=== PATIENT | male | born 1935 | race Caucasian/White ===

== ENCOUNTER → 2017-11-19 12:12 | Outpatient (CLI) | payer MEDICARE, OTHER, SELFPAY ==
[2017-11-19 12:40] LABS: Hemoglobin A1C% w Est Avg Glu 5.6 % (4.0-6.0)
[2017-11-19 13:15] LABS: Thyroid Stimulating Hormone 1.41 uIU/mL (0.47-4.68)
[2017-11-19 13:51] LABS: Folate > 20.0 ng/mL (2.76-20.0); Vitamin B12 629 pg/mL (239-931)
== END ==
PROVIDERS: PCP Internal Medicine; Visit Provider Internal Medicine
DX: G62.9 Polyneuropathy, unspecified (principal); R20.2 Paresthesia of skin
CPT/HCPCS: 36415; 82607; 82746; 83036; 84443

== ENCOUNTER → 2018-02-13 11:37 | Outpatient (CLI) | payer MEDICARE, OTHER, SELFPAY ==
--- NOTE | 2018-02-13 | DI.MRI.S_ITS ---
PROCEDURE: MR LUMBAR SPINE WO CON INDICATIONS: LOW BACK PAIN TECHNIQUE: Noncontrast sagittal T1 spin echo and T2 fast echo, sagittal STIR, axial T1 and T2 fast spin echo through the lumbar spine. In cases with scoliosis, additional coronal T2 fast spin echo may be performed. COMPARISON: [facility], MR, L-SPINE WITHOUT CONTRAST, 01/19/2016, 9:22. FINDINGS: Image quality: Excellent. Alignment and Curvature: Mild retrolisthesis is seen at the L3-L4 and L5-S1 levels. Bone Marrow: Marrow is of normal overall signal. No acute vertebral body compression fractures. Mild anterior wedge deformity is seen of the L1 level, which is stable compared to 2016. Spinal Cord: Conus medullaris terminates at the L1 level. Visualized cord demonstrates normal signal and size. Paraspinous Soft Tissues: No paravertebral masses. There is a simple appearing right kidney cyst that measures up to 3.4 cm. T12-L1: Mild to moderate loss of disc height and disc signal are seen. Mild generalized disc bulge is seen. No significant neural foraminal or central canal narrowing are seen. L1-L2: Mild loss of disc height is seen. Loss of disc signal is seen. Mild to moderate disc bulge is seen, which is eccentric left. No significant neural foraminal narrowing is seen. Mild central canal narrowing is seen. These imaging findings are mildly progressed compared to the prior study. L2-L3: The disc height is well-preserved. Loss of disc signal is seen at this level. Moderate generalized disc bulge is seen. Along the posterior aspect of the annulus fibrosis, there is an annular fissure seen, as on series 5 image 11. Mild facet joint hypertrophy is seen. No significant neural foraminal narrowing is seen. There is moderate central canal narrowing. The degenerative changes have progressed compared to 2016. L3-L4: Moderate loss of disc height is seen. Loss of disc signal is seen. Moderate disc bulge is seen, which is eccentric to the right side. Reactive marrow endplate changes are seen, which demonstrate mixed T1 weighted and T2-weighted signal, and are attributed to a combination of edema and fatty metaplasia (Modic type I and Modic type II changes). Mild to moderate facet hypertrophy is seen. Fluid is seen within the facet joints themselves, as on series 7 image 18. There is moderate left-sided and at least moderate right-sided neural foraminal narrowing seen. Moderate central canal narrowing is seen. These degenerative changes are progressed compared to the prior MRI. L4-L5: At least moderate loss of disc height and disc signal are seen. Moderate to prominent disc bulge is seen, which is eccentric to the left. There is a left foraminal disc protrusion seen, as on series 7 image 12 and on series 5 image 13. Moderate facet joint hypertrophy is seen. Moderate to severe bilateral neural foraminal narrowing is seen, left worse than right. These degenerative changes are worse than in 2016. L5-S1: Moderate loss of disc height is seen. Loss of disc signal is seen. Moderate disc bulge is seen, which is eccentric to the right side. Mild facet joint hypertrophy is seen. There is moderate right-sided and moderate to severe left-sided neural foraminal narrowing seen. A degree of impingement seen upon the exiting left L5 nerve root. Mild central canal narrowing is seen. These changes are slightly progressed compared to 2016. Postoperative changes of the right sacroiliac joint can be seen, with associated susceptibility artifact. 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 The degenerative changes are most prominent at the L4-L5 level. Simple appearing right renal cyst incidentally noted. A mild anterior wedge deformity of L1. Right sacroiliac joint postoperative change. Dictated by: Dong Smalls M.D. on 02/13/2018 at 11:58 Approved by: Dong Smalls M.D. on 02/13/2018 at 12:06
== END ==
PROVIDERS: Family Provider Family Medicine; PCP Internal Medicine; Visit Provider Neurological Surgery
DX: M54.5 Low back pain (principal); M51.36 Other intervertebral disc degeneration, lumbar region; M53.3 Sacrococcygeal disorders, not elsewhere classified; N28.1 Cyst of kidney, acquired
CPT/HCPCS: 72148

== ENCOUNTER → 2018-06-17 09:40 | Outpatient (CLI) | payer MEDICARE, OTHER, SELFPAY ==
--- NOTE | 2018-06-17 | DI.CT.S_ITS ---
PROCEDURE: CT PEL WO CON INDICATIONS: STATUS POST SI JOINT FUSION TECHNIQUE: Noncontrast 3 mm axial sections acquired through the bony pelvis, with coronal and sagittal reformatting. COMPARISON: [facility], MR, MR LUMBAR SPINE WO CON, 02/13/2018, 11:39. [facility], MR, L-SPINE WITHOUT CONTRAST, 01/19/2016, 9:22. FINDINGS: Image quality: Excellent. Bones: No fractures are found. There is no ostiolysis long screw tracks into transverse right SI joint fusion screws. Soft tissues: No mass or inflammation found. No abnormal fluid collection identified related to the operative procedure on the right at the SI joint. This fusion was present on prior MRI 02/13/18. IMPRESSION: Stable appearing right SI joint fusion procedure with 2 transverse fixation screws show no evidence of device loosening or disruption. The adjacent soft tissues and osseous structures appear normal for age. Dictated by: Osmin Jack M.D. on 06/17/2018 at 12:41 Approved by: Osmin Jack M.D. on 06/17/2018 at 12:44
[2018-06-17 10:34] LABS: Add Manual Diff / Slide Review NO; Basophils Absolute Auto 0 /uL (0-100); Basophils Percent Auto 0.7 % (0-2); Eosinophils Absolute Auto 200 /uL (0-450); Eosinophils Percent Auto 7.7 % (2-4); Hematocrit 45.5 % (41-53); Hemoglobin 15.6 g/dL (13.5-17.5); Lymphocytes Absolute Auto 1100 /uL (1100-4500); Lymphocytes Percent Auto 33.8 % (25-40); Mean Corpuscular HGB Conc 34.3 % (30-36); Mean Corpuscular Hemoglobin 34.3 PG (26-34); Monocytes Absolute Auto 300 /uL (0-900); Neutrophils Absolute Auto 1500 /uL (1500-7000); Neutrophils Percent Auto 46.8 % (50-75); Platelet Count 133 X10^3/uL (150-400); Red Blood Cell Count 4.55 X10^6/uL (4.5-5.9); Red Cell Distribution Width 12.5 % (11.6-14.8); White Blood Cell Count 3.2 X10^3/uL (4.5-11.0)
[2018-06-17 10:50] LABS: Alanine Aminotransferase 87 IU/L (21-72); Albumin 4.1 g/dL (3.5-5.0); Albumin Globulin Ratio 1.5 (1.0-2.8); Alkaline Phosphatase 46 U/L (38-126); Aspartate Aminotransferase 49 IU/L (17-59); Bilirubin Total 0.9 mg/dL (0.2-1.3); Blood Urea Nitrogen 23 mg/dL (9-20); Calcium 8.8 mg/dL (8.4-10.2); Carbon Dioxide 30 mmol/L (22-32); Chloride 101 mmol/L (98-107); Cholesterol 131 mg/dL (140-199); Estimated Glomerular Filt Rate > 60.0 mL/min (>60); Globulin 2.7 g/dL (1.7-4.1); Glucose 157 mg/dL (80-110); HDL Cholesterol 34 mg/dL (40-60); HEMOLYSIS < 15 (0-50); LDL Cholesterol Calculated 62 mg/dL (<100); Potassium 4.9 mmol/L (3.4-5.1); Sodium 139 mmol/L (137-145); Total Protein 6.8 g/dL (6.3-8.2); Triglycerides 174 mg/dL (35-150)
== END ==
PROVIDERS: Family Provider Family Medicine; PCP Family Medicine; Visit Provider Neurological Surgery
DX: G62.9 Polyneuropathy, unspecified (principal); E03.9 Hypothyroidism, unspecified; D64.9 Anemia, unspecified; I10 Essential (primary) hypertension; R73.09 Other abnormal glucose; R20.2 Paresthesia of skin; R89.9 Unspecified abnormal finding in specimens from other organs, systems and tissues; R79.89 Other specified abnormal findings of blood chemistry; Z98.1 Arthrodesis status; Z13.29 Encounter for screening for other suspected endocrine disorder
CPT/HCPCS: 36415; 72192; 80053; 80061; 84443; 85025

== ENCOUNTER 2018-10-10 09:00 | Outpatient (RCR) | payer MEDICARE, OTHER, SELFPAY ==
--- NOTE | 2018-07-31 17:28 | PT.OIE ---
Current Diagnoses Spinal stenosis, lumbosacral region (07/31/18) Difficulty in walking, not elsewhere classified (07/31/18) Abnormal posture (07/31/18) Weakness (07/31/18) Past Medical History (Last Updated 11/16/17 @ 12:17 by Lakia Rodriguez) Chronic back pain (Chronic 2009) Hearing loss (Chronic 1997) Neutropenia (Chronic 2006) Peripheral neuropathy (Chronic 2006) Past Surgical History (Last Updated 11/16/17 @ 12:15 by Lakia Rodriguez) Anesthesia (Resolved) History of ear surgery (Resolved 04/29/15) Provider Visit Care Team Role Provider Type Jordan Spencer MD Primary Care Provider Physician Specialty: Family Practice Address: [address] [place] [address], [id number] Email: [email or web address] Hayder Schulz MD Attending Provider Non-Staff Specialty: Neurology Address: [address] [place] [address], [address], [address] Email: Physical Therapy Initial Evaluation PT-OP-A Visit Information Start: 07/31/18 07:25 Freq: Status: Active Protocol: Document 07/31/18 14:30 [facility] (Rec: 07/31/18 15:23 [facility] [id number]) Out-Patient Physical Therapy Visit Information Visit Information Visit Type Initial Evaluation Visit Start Time 14:30 Visit Stop Time 15:15 Total Visit Minutes 45 Visit Number 1/ Number of PERSONAL PROTECTION SPECIALIST Visits 0 PT-OP-B Current Condition Start: 07/31/18 07:25 Freq: Status: Active Protocol: Document 07/31/18 14:30 [facility] (Rec: 07/31/18 15:23 [facility] [id number]) Current Condition History of Current Condition Onset Date 18 months ago Current Complaints R SI & hip pain History of Current Condition Pt unknown onset of pain and reports about 18 months ago he was getting cortizone shots in SI joint that would help for 3-4 months then tried other spots and it would last only a couple months. Pt reports 14 months ago he had a pin placed in SI joint to stabilize it. Pt reports it did not stop any pain. MD followed with Xrays but did not find anything wrong. Pt reports recent CT scan that did not find anything. About 3 weeks ago, his L foot slipped on black ice and fell to his butt with his R butt cheek landing on curb and RLE IR behind him. Xray was done and nothing was wrong. Pt reports if he sits >30 min then its hard to get up and its very painful to get standing and walking and takes him inc time . Pt reports pain the next day after doing heavy activities. Pt is activity with fixing and building things. By the end of the day it is very painful to walk. Pt reports one time he jumped off his boat onto the dock and it pinched a nerve in his LB and his foot had a lot of pain. He reports that improved though. Prior Treatments and Tests Xrays, injections, pin in SI joint Treatment Goals Patient/Caregiver Goals Be able to walk a long distance for travelling ( going to [place] and the [employer] at end of August & leaves August 17 to August 25-going to [place] w/ [employer]) PT-OP-C Subjective Start: 07/31/18 07:25 Freq: Status: Active Protocol: Document 07/31/18 14:30 [facility] (Rec: 07/31/18 15:23 [facility] [id number]) OP-PT Pain Assessment Location R hip/LB Pain Location Details LB & R hip (SI especially) Intensity 9 Scale Used Numeric (1 - 10) Description Sharp Frequency Daily Pain Duration pain last minutes to hours after painful activity Pain Aggravating Factors Sitting Bending Other Pain Aggravating Factors move wrong, pain walking at end of day Pain Alleviating Factors Heat Medication PT-OP-F Manual Assessment Start: 07/31/18 07:25 Freq: Status: Active Protocol: Document 07/31/18 14:30 [facility] (Rec: 07/31/18 15:23 [facility] [id number]) Manual Assessments Soft Tissue Assessment Soft Tissue Mobility Assessment QL, ES and glute tightness Joint Mobility Assessment Joint Mobility Assessment equal iliac crest levels PT-OP-J Posture/Palpation/Skin Start: 07/31/18 07:25 Freq: Status: Active Protocol: Document 07/31/18 14:30 [facility] (Rec: 07/31/18 15:23 [facility] [id number]) Posture Evaluation Comments Posture Comments flattened back and forward rounded shoulders PT-OP-K Range of Motion Start: 07/31/18 07:25 Freq: Status: Active Protocol: Document 07/31/18 14:30 [facility] (Rec: 07/31/18 15:23 [facility] [id number]) Lumbar Spine Range of Motion Lumbar Spine Active Degrees Testing Position Standing Flexion 40 Extension 10 Lateral Flexion Left 12 Lateral Flexion Right 5 ROM Limitations Pain PT-OP-M Strength Start: 07/31/18 07:25 Freq: Status: Active Protocol: Document 07/31/18 14:30 [facility] (Rec: 07/31/18 15:23 [facility] [id number]) Hip Strength Hip Manual Muscle Testing Right Flexion (L2) 5 Normal Abduction 4 Good External Rotation 4 Good Internal Rotation 4 Good Comments pain w/ rotations Left Flexion (L2) 5 Normal Abduction 4 Good External Rotation 4 Good Internal Rotation 4 Good PT-OP-Q Treatments Start: 07/31/18 07:25 Freq: Status: Active Protocol: Document 07/31/18 14:30 [facility] (Rec: 07/31/18 15:23 [facility] [id number]) Therapeutic Exercises Supine Exercises pelvic tilt Reps/Minutes 10 SKTC Supine Exercise Name SKTC Side bilateral Reps/Minutes 30 sec holds Self-Care/Home Management Treatment Education Other Education edu on anatomy and joint motion PT-OP-T Assessment and Plan Start: 07/31/18 07:25 Freq: Status: Active Protocol: Document 07/31/18 14:30 [facility] (Rec: 07/31/18 15:23 [facility] [id number]) Physical Therapy Assessment Rehab Potential Rehabilitation Potential Good Evaluation Complexity Number of Personal Factors/Comorbidities 3 or More Number of Body Systems Impaired 4 or More Clinical Presentation at Evaluation Evolving Impairments Impairments Activity Tolerance Balance Functional Activities Functional Mobility Gait Pain Posture ROM Soft Tissue Mobility Strength Goals walking Halfway Goal (LTG) Pt will report no greater than 3/10 pain with walking and will be able to walk all distances needed when travelling. LTG Duration 09/30/18 strength Short Term Goal (STG) Pt will be indep with HEP STG Duration 08/31/18 Halfway Goal (LTG) Pt will have 5/5 LE strength allowing him to be able to do his typical daily activities. LTG Duration 09/30/18 pain Short Term Goal (STG) Pt will be indep with management of pain at home with modalities and exercises as needed. STG Duration 08/31/18 Halfway Goal (LTG) Pt will report no greater than 3/10 pain with daily activities. LTG Duration 09/30/18 Assessment Summary Assessment Pt presents with LBP and is s/ p fusion of SI Joint. He has dec balance and core and LE strength with dec flexibility of LE and impaired posture. He would benefit from skilled PT to help pt manage his pain and be indep with HEP. Physical Therapy Plan Frequency and Duration Frequency of Treatment 2x/Week Duration of Treatment 2 months Plan of Care Start Date 07/31/18 Plan of Care End Date 09/30/17 Therapeutic Interventions Therapeutic Interventions Aquatic Therapy Balance Training Gait Training Home Exercise Program Joint Mobilizations Manual Therapy Neuromuscular Re-education Patient/Caregiver Education Self-Care/Home Management Soft Tissue Mobilization Taping Therapeutic Activities Therapeutic Exercises Modalities Cold Pack/Ice Massage Electric Stimulation Hot Packs Infrared Therapy Iontophoresis Next Visit Focus/Plan Next Note Type Treatment Note Next Visit Plan Advance core program & add flexibility exercises
--- NOTE | 2018-07-31 17:29 | PT.OPPOC ---
Current Diagnoses Spinal stenosis, lumbosacral region (07/31/18) Difficulty in walking, not elsewhere classified (07/31/18) Abnormal posture (07/31/18) Weakness (07/31/18) Provider Visit Care Team Role Provider Type Jordan Spencer MD Primary Care Provider Physician Specialty: Family Practice Address: [address] [place] [address], [id number] Email: [email or web address] Hayder Schulz MD Attending Provider Non-Staff Specialty: Neurology Address: [address] [place] [address], [address], [address] Email: Plan Of Care PT-OP-T Assessment and Plan Start: 07/31/18 07:25 Freq: Status: Active Protocol: Document 07/31/18 14:30 [facility] (Rec: 07/31/18 15:23 [facility] [id number]) Physical Therapy Assessment Rehab Potential Rehabilitation Potential Good Evaluation Complexity Number of Personal Factors/Comorbidities 3 or More Number of Body Systems Impaired 4 or More Clinical Presentation at Evaluation Evolving Impairments Impairments Activity Tolerance Balance Functional Activities Functional Mobility Gait Pain Posture ROM Soft Tissue Mobility Strength Goals walking Ferryboat Pilot Goal (LTG) Pt will report no greater than 3/10 pain with walking and will be able to walk all distances needed when travelling. LTG Duration 09/30/18 strength Short Term Goal (STG) Pt will be indep with HEP STG Duration 08/31/18 Ferryboat Pilot Goal (LTG) Pt will have 5/5 LE strength allowing him to be able to do his typical daily activities. LTG Duration 09/30/18 pain Short Term Goal (STG) Pt will be indep with management of pain at home with modalities and exercises as needed. STG Duration 08/31/18 Ferryboat Pilot Goal (LTG) Pt will report no greater than 3/10 pain with daily activities. LTG Duration 09/30/18 Assessment Summary Assessment Pt presents with LBP and is s/ p fusion of SI Joint. He has dec balance and core and LE strength with dec flexibility of LE and impaired posture. He would benefit from skilled PT to help pt manage his pain and be indep with HEP. Physical Therapy Plan Frequency and Duration Frequency of Treatment 2x/Week Duration of Treatment 2 months Plan of Care Start Date 07/31/18 Plan of Care End Date 09/30/17 Therapeutic Interventions Therapeutic Interventions Aquatic Therapy Balance Training Gait Training Home Exercise Program Joint Mobilizations Manual Therapy Neuromuscular Re-education Patient/Caregiver Education Self-Care/Home Management Soft Tissue Mobilization Taping Therapeutic Activities Therapeutic Exercises Modalities Cold Pack/Ice Massage Electric Stimulation Hot Packs Infrared Therapy Iontophoresis Next Visit Focus/Plan Next Note Type Treatment Note Next Visit Plan Advance core program & add flexibility exercises Plan of Care Dates Plan of Care Start Date 07/31/18 Plan of Care End Date 09/30/17 Please Sign and Return: I have reviewed this Plan of Care and certify that the skilled therapy services above are required to meet the patient?s needs. Physician Signature Date Printed Name and Credentials Clinical Instructor Signature Printed Name and Credentials
--- NOTE | 2018-08-14 16:01 | PT.OTN ---
Current Diagnoses Spinal stenosis, lumbosacral region (08/14/18) Physical Therapy Treatment Note PT-OP-A Visit Information Start: 07/31/18 07:25 Freq: Status: Active Protocol: Document 08/14/18 15:24 [facility] (Rec: 08/14/18 16:00 [facility] [id number]) Out-Patient Physical Therapy Visit Information Visit Information Visit Type Treatment Note Visit Start Time 15:15 Visit Stop Time 16:00 Total Visit Minutes 45 Visit Number 2/10 Number of ORGAN ASSEMBLER Visits 0 PT-OP-B Current Condition Start: 07/31/18 07:25 Freq: Status: Active Protocol: Document 07/31/18 14:30 [facility] (Rec: 07/31/18 15:23 [facility] [id number]) Current Condition History of Current Condition Onset Date 18 months ago Current Complaints R SI & hip pain History of Current Condition Pt unknown onset of pain and reports about 18 months ago he was getting cortizone shots in SI joint that would help for 3-4 months then tried other spots and it would last only a couple months. Pt reports 14 months ago he had a pin placed in SI joint to stabilize it. Pt reports it did not stop any pain. MD followed with Xrays but did not find anything wrong. Pt reports recent CT scan that did not find anything. About 3 weeks ago, his L foot slipped on black ice and fell to his butt with his R butt cheek landing on curb and RLE IR behind him. Xray was done and nothing was wrong. Pt reports if he sits >30 min then its hard to get up and its very painful to get standing and walking and takes him inc time . Pt reports pain the next day after doing heavy activities. Pt is activity with fixing and building things. By the end of the day it is very painful to walk. Pt reports one time he jumped off his boat onto the dock and it pinched a nerve in his LB and his foot had a lot of pain. He reports that improved though. Prior Treatments and Tests Xrays, injections, pin in SI joint Treatment Goals Patient/Caregiver Goals Be able to walk a long distance for travelling ( going to [place] and the [employer] at end of August & leaves August 17 to August 25-going to [place] w/ kids) PT-OP-C Subjective Start: 07/31/18 07:25 Freq: Status: Active Protocol: Document 08/14/18 15:24 [facility] (Rec: 08/14/18 16:01 [facility] [id number]) OP-PT Subjective Patient Comments Patient Comments Pt reports 1 exercise caused pain during but not after PT-OP-F Manual Assessment Start: 07/31/18 07:25 Freq: Status: Active Protocol: Document 07/31/18 14:30 [facility] (Rec: 07/31/18 15:23 [facility] [id number]) Manual Assessments Soft Tissue Assessment Soft Tissue Mobility Assessment QL, ES and glute tightness Joint Mobility Assessment Joint Mobility Assessment equal iliac crest levels PT-OP-J Posture/Palpation/Skin Start: 07/31/18 07:25 Freq: Status: Active Protocol: Document 07/31/18 14:30 [facility] (Rec: 07/31/18 15:23 [facility] [id number]) Posture Evaluation Comments Posture Comments flattened back and forward rounded shoulders PT-OP-K Range of Motion Start: 07/31/18 07:25 Freq: Status: Active Protocol: Document 07/31/18 14:30 [facility] (Rec: 07/31/18 15:23 [facility] [id number]) Lumbar Spine Range of Motion Lumbar Spine Active Degrees Testing Position Standing Flexion 40 Extension 10 Lateral Flexion Left 12 Lateral Flexion Right 5 ROM Limitations Pain PT-OP-M Strength Start: 07/31/18 07:25 Freq: Status: Active Protocol: Document 07/31/18 14:30 [facility] (Rec: 07/31/18 15:23 [facility] [id number]) Hip Strength Hip Manual Muscle Testing Right Flexion (L2) 5 Normal Abduction 4 Good External Rotation 4 Good Internal Rotation 4 Good Comments pain w/ rotations Left Flexion (L2) 5 Normal Abduction 4 Good External Rotation 4 Good Internal Rotation 4 Good PT-OP-Q Treatments Start: 07/31/18 07:25 Freq: Status: Active Protocol: Document 08/14/18 15:24 [facility] (Rec: 08/14/18 16:00 [facility] [id number]) Therapeutic Exercises Supine Exercises SLR Supine Exercise Name SLR w/core activiation Side bilateral Reps/Minutes 15 Hs Supine Exercise Name STRETCH Side bilateral Reps/Minutes 30 sec pelvic tilt Reps/Minutes 15 & 10 w/glute set Comments w/breathing SKTC Supine Exercise Name SKTC Side bilateral Reps/Minutes 30 sec holds Sidelying Exercises abd Sidelying Exercise Name hip abd Side bilateral Reps/Minutes 15 Manual Therapy Treatment Soft Tissue Mobilization QL Body Location QL Mobilization Type Rolling Intensity/Depth Moderate iliacus Body Location iliacus R Mobilization Type Sustained Pressure PT-OP-T Assessment and Plan Start: 07/31/18 07:25 Freq: Status: Active Protocol: Document 08/14/18 15:24 [facility] (Rec: 08/14/18 16:00 [facility] [id number]) Physical Therapy Assessment Goals walking Residential Goal (LTG) Pt will report no greater than 3/10 pain with walking and will be able to walk all distances needed when travelling. LTG Duration 09/30/18 strength Short Term Goal (STG) Pt will be indep with HEP STG Duration 08/31/18 Painter And Body Work Goal (LTG) Pt will have 5/5 LE strength allowing him to be able to do his typical daily activities. LTG Duration 09/30/18 pain Short Term Goal (STG) Pt will be indep with management of pain at home with modalities and exercises as needed. STG Duration 08/31/18 Residential Goal (LTG) Pt will report no greater than 3/10 pain with daily activities. LTG Duration 09/30/18 Assessment Summary Assessment Pt was able to progress core exercises but requires cueing to breath and keep core engaged when doing LE activities. Physical Therapy Plan Frequency and Duration Frequency of Treatment 2x/Week Duration of Treatment 2 months Plan of Care Start Date 07/31/18 Plan of Care End Date 09/30/17 Next Visit Focus/Plan Next Note Type Treatment Note Next Visit Plan cont to advance core as tolerated
--- NOTE | 2018-09-13 10:35 | PT.OTN ---
Current Diagnoses Spinal stenosis, lumbosacral region (09/13/18) Physical Therapy Treatment Note PT-OP-A Visit Information Start: 07/31/18 07:25 Freq: Status: Active Protocol: Document 09/13/18 09:47 [facility] (Rec: 09/13/18 10:35 [facility] [id number]) Out-Patient Physical Therapy Visit Information Visit Information Visit Type Treatment Note Visit Start Time 09:47 Visit Stop Time 10:27 Total Visit Minutes 40 Visit Number 3/10 Number of DIRECTOR OF DIGITAL PLATFORMS Visits 0 PT-OP-B Current Condition Start: 07/31/18 07:25 Freq: Status: Active Protocol: Document 07/31/18 14:30 [facility] (Rec: 07/31/18 15:23 [facility] [id number]) Current Condition History of Current Condition Onset Date 18 months ago Current Complaints R SI & hip pain History of Current Condition Pt unknown onset of pain and reports about 18 months ago he was getting cortizone shots in SI joint that would help for 3-4 months then tried other spots and it would last only a couple months. Pt reports 14 months ago he had a pin placed in SI joint to stabilize it. Pt reports it did not stop any pain. MD followed with Xrays but did not find anything wrong. Pt reports recent CT scan that did not find anything. About 3 weeks ago, his L foot slipped on black ice and fell to his butt with his R butt cheek landing on curb and RLE IR behind him. Xray was done and nothing was wrong. Pt reports if he sits >30 min then its hard to get up and its very painful to get standing and walking and takes him inc time . Pt reports pain the next day after doing heavy activities. Pt is activity with fixing and building things. By the end of the day it is very painful to walk. Pt reports one time he jumped off his boat onto the dock and it pinched a nerve in his LB and his foot had a lot of pain. He reports that improved though. Prior Treatments and Tests Xrays, injections, pin in SI joint Treatment Goals Patient/Caregiver Goals Be able to walk a long distance for travelling ( going to [place] [employer] at end of August & leaves August 17 to August 25-going to [employer] w/ kids) PT-OP-C Subjective Start: 07/31/18 07:25 Freq: Status: Active Protocol: Document 09/13/18 09:47 [facility] (Rec: 09/13/18 10:35 [facility] [id number]) OP-PT Subjective Patient Comments Patient Comments Pt reports pain hasn't been too bad. Compliant with exercises. Notes when he does the one where he lifts his butt, he gets pain. Reports when he walks a bit, he still gets pain. PT-OP-F Manual Assessment Start: 07/31/18 07:25 Freq: Status: Active Protocol: Document 07/31/18 14:30 [facility] (Rec: 07/31/18 15:23 [facility] [id number]) Manual Assessments Soft Tissue Assessment Soft Tissue Mobility Assessment QL, ES and glute tightness Joint Mobility Assessment Joint Mobility Assessment equal iliac crest levels PT-OP-J Posture/Palpation/Skin Start: 07/31/18 07:25 Freq: Status: Active Protocol: Document 07/31/18 14:30 [facility] (Rec: 07/31/18 15:23 [facility] [id number]) Posture Evaluation Comments Posture Comments flattened back and forward rounded shoulders PT-OP-K Range of Motion Start: 07/31/18 07:25 Freq: Status: Active Protocol: Document 07/31/18 14:30 [facility] (Rec: 07/31/18 15:23 [facility] [id number]) Lumbar Spine Range of Motion Lumbar Spine Active Degrees Testing Position Standing Flexion 40 Extension 10 Lateral Flexion Left 12 Lateral Flexion Right 5 ROM Limitations Pain PT-OP-M Strength Start: 07/31/18 07:25 Freq: Status: Active Protocol: Document 07/31/18 14:30 [facility] (Rec: 07/31/18 15:23 [facility] [id number]) Hip Strength Hip Manual Muscle Testing Right Flexion (L2) 5 Normal Abduction 4 Good External Rotation 4 Good Internal Rotation 4 Good Comments pain w/ rotations Left Flexion (L2) 5 Normal Abduction 4 Good External Rotation 4 Good Internal Rotation 4 Good PT-OP-Q Treatments Start: 07/31/18 07:25 Freq: Status: Active Protocol: Document 09/13/18 09:47 [facility] (Rec: 09/13/18 10:35 [facility] [id number]) Cardio Equipment Recumbent Elliptical (Bio) Duration (Minutes) 6 Resistance 7 Seat Position 10 Therapeutic Exercises Supine Exercises lower trunk rotation Supine Exercise Name LTR Side bilateral Reps/Minutes 10 SLR Supine Exercise Name SLR w/core activiation Side bilateral Reps/Minutes 10 Hs Supine Exercise Name STRETCH Side bilateral Reps/Minutes 30 sec pelvic tilt Reps/Minutes 15 w/glute set Comments w/breathing Sidelying Exercises abd Sidelying Exercise Name hip abd Side bilateral Reps/Minutes 10 Manual Therapy Treatment Soft Tissue Mobilization QL Body Location QL Mobilization Type Rolling Intensity/Depth Moderate Self-Care/Home Management Treatment Education Other Education edu on anatomy and joint motion; edu on importance of core & hip stability PT-OP-T Assessment and Plan Start: 07/31/18 07:25 Freq: Status: Active Protocol: Document 09/13/18 09:47 [facility] (Rec: 09/13/18 10:35 [facility] [id number]) Physical Therapy Assessment Goals walking [facility] Goal (LTG) Pt will report no greater than 3/10 pain with walking and will be able to walk all distances needed when travelling. LTG Duration 09/30/18 strength Short Term Goal (STG) Pt will be indep with HEP STG Duration 08/31/18 Motion Picture Printer Goal (LTG) Pt will have 5/5 LE strength allowing him to be able to do his typical daily activities. LTG Duration 09/30/18 pain Short Term Goal (STG) Pt will be indep with management of pain at home with modalities and exercises as needed. STG Duration 08/31/18 [facility] Goal (LTG) Pt will report no greater than 3/10 pain with daily activities. LTG Duration 09/30/18 Assessment Summary Assessment Pt requires cueing to keep core engaged and require proper form & body position. He required significant edu re : improtance of use of his core mm. Physical Therapy Plan Frequency and Duration Frequency of Treatment 2x/Week Duration of Treatment 2 months Plan of Care Start Date 07/31/18 Plan of Care End Date 09/30/17 Next Visit Focus/Plan Next Note Type Treatment Note Next Visit Plan cont to advance core & LE strength as tolerated
--- NOTE | 2018-09-17 10:33 | PT.OTN ---
Current Diagnoses Spinal stenosis, lumbosacral region (09/17/18) Physical Therapy Treatment Note PT-OP-A Visit Information Start: 07/31/18 07:25 Freq: Status: Active Protocol: Document 09/17/18 09:04 [facility] (Rec: 09/17/18 10:31 [facility] [id number]) Out-Patient Physical Therapy Visit Information Visit Information Visit Type Treatment Note Visit Start Time 09:45 Visit Stop Time 10:25 Total Visit Minutes 40 Visit Number 4/10 Number of RIPRAP MAN Visits 0 PT-OP-B Current Condition Start: 07/31/18 07:25 Freq: Status: Active Protocol: Document 07/31/18 14:30 [facility] (Rec: 07/31/18 15:23 [facility] [id number]) Current Condition History of Current Condition Onset Date 18 months ago Current Complaints R SI & hip pain History of Current Condition Pt unknown onset of pain and reports about 18 months ago he was getting cortizone shots in SI joint that would help for 3-4 months then tried other spots and it would last only a couple months. Pt reports 14 months ago he had a pin placed in SI joint to stabilize it. Pt reports it did not stop any pain. MD followed with Xrays but did not find anything wrong. Pt reports recent CT scan that did not find anything. About 3 weeks ago, his L foot slipped on black ice and fell to his butt with his R butt cheek landing on curb and RLE IR behind him. Xray was done and nothing was wrong. Pt reports if he sits >30 min then its hard to get up and its very painful to get standing and walking and takes him inc time . Pt reports pain the next day after doing heavy activities. Pt is activity with fixing and building things. By the end of the day it is very painful to walk. Pt reports one time he jumped off his boat onto the dock and it pinched a nerve in his LB and his foot had a lot of pain. He reports that improved though. Prior Treatments and Tests Xrays, injections, pin in SI joint Treatment Goals Patient/Caregiver Goals Be able to walk a long distance for travelling ( going to [place] the [employer] at end of August & leaves August 17 to August 25-going to [employer] w/ kids) PT-OP-C Subjective Start: 07/31/18 07:25 Freq: Status: Active Protocol: Document 09/17/18 09:04 [facility] (Rec: 09/17/18 10:31 [facility] [id number]) OP-PT Subjective Patient Comments Patient Comments Pt reports he had a bad AM with a lot of pain and reports he had to take some meds to help it. REports pain in in the center of his back and R side. PT-OP-F Manual Assessment Start: 07/31/18 07:25 Freq: Status: Active Protocol: Document 07/31/18 14:30 [facility] (Rec: 07/31/18 15:23 [facility] [id number]) Manual Assessments Soft Tissue Assessment Soft Tissue Mobility Assessment QL, ES and glute tightness Joint Mobility Assessment Joint Mobility Assessment equal iliac crest levels PT-OP-J Posture/Palpation/Skin Start: 07/31/18 07:25 Freq: Status: Active Protocol: Document 07/31/18 14:30 [facility] (Rec: 07/31/18 15:23 [facility] [id number]) Posture Evaluation Comments Posture Comments flattened back and forward rounded shoulders PT-OP-K Range of Motion Start: 07/31/18 07:25 Freq: Status: Active Protocol: Document 07/31/18 14:30 [facility] (Rec: 07/31/18 15:23 [facility] [id number]) Lumbar Spine Range of Motion Lumbar Spine Active Degrees Testing Position Standing Flexion 40 Extension 10 Lateral Flexion Left 12 Lateral Flexion Right 5 ROM Limitations Pain PT-OP-M Strength Start: 07/31/18 07:25 Freq: Status: Active Protocol: Document 07/31/18 14:30 [facility] (Rec: 07/31/18 15:23 [facility] [id number]) Hip Strength Hip Manual Muscle Testing Right Flexion (L2) 5 Normal Abduction 4 Good External Rotation 4 Good Internal Rotation 4 Good Comments pain w/ rotations Left Flexion (L2) 5 Normal Abduction 4 Good External Rotation 4 Good Internal Rotation 4 Good PT-OP-Q Treatments Start: 07/31/18 07:25 Freq: Status: Active Protocol: Document 09/17/18 09:04 [facility] (Rec: 09/17/18 10:31 [facility] [id number]) Cardio Equipment Recumbent Stepper (Sci-Fit) Duration (Minutes) 5 Resistance 4 Seat Position 12 Therapeutic Exercises Supine Exercises piriformis Supine Exercise Name knee to opposite chest Side bilateral Reps/Minutes 30 sec lower trunk rotation Supine Exercise Name LTR Side bilateral Reps/Minutes 10 pelvic tilt Reps/Minutes 15 w/glute set Comments w/breathing SKTC Supine Exercise Name SKTC Side bilateral Reps/Minutes 30 sec holds Sidelying Exercises ER Sidelying Exercise Name clamshell Side bilateral Reps/Minutes 15 abd Sidelying Exercise Name hip abd Side bilateral Reps/Minutes 10 Manual Therapy Treatment Soft Tissue Mobilization QL Body Location QL Mobilization Type Rolling Intensity/Depth Moderate Joint Mobilizations hip Joint B hip Direction inf glide FM PT-OP-T Assessment and Plan Start: 07/31/18 07:25 Freq: Status: Active Protocol: Document 09/17/18 09:04 [facility] (Rec: 09/17/18 10:31 [facility] [id number]) Physical Therapy Assessment Goals walking Fdc Goal (LTG) Pt will report no greater than 3/10 pain with walking and will be able to walk all distances needed when travelling. LTG Duration 09/30/18 strength Short Term Goal (STG) Pt will be indep with HEP STG Duration 08/31/18 Fdc Goal (LTG) Pt will have 5/5 LE strength allowing him to be able to do his typical daily activities. LTG Duration 09/30/18 pain Short Term Goal (STG) Pt will be indep with management of pain at home with modalities and exercises as needed. STG Duration 08/31/18 Fdc Goal (LTG) Pt will report no greater than 3/10 pain with daily activities. LTG Duration 09/30/18 Assessment Summary Assessment Pt reminded to use exercises to assist in stretching LEs & back in order to help dec pain . He was able to do supine exercises with min cueing but required more cueing for s/l exercises. Physical Therapy Plan Frequency and Duration Frequency of Treatment 2x/Week Duration of Treatment 2 months Plan of Care Start Date 07/31/18 Plan of Care End Date 09/30/17 Next Visit Focus/Plan Next Note Type Treatment Note Next Visit Plan cont to advance core & LE strength as tolerated
--- NOTE | 2018-09-19 10:27 | PT.OTN ---
Current Diagnoses Spinal stenosis, lumbosacral region (09/19/18) Physical Therapy Treatment Note PT-OP-A Visit Information Start: 07/31/18 07:25 Freq: Status: Active Protocol: Document 09/19/18 09:50 [facility] (Rec: 09/19/18 10:27 [facility] [id number]) Out-Patient Physical Therapy Visit Information Visit Information Visit Type Treatment Note Visit Start Time 09:47 Visit Stop Time 10:27 Total Visit Minutes 40 Visit Number 5/10 Number of CLOTH MERCERIZER BACK TENDER Visits 0 PT-OP-B Current Condition Start: 07/31/18 07:25 Freq: Status: Active Protocol: Document 07/31/18 14:30 [facility] (Rec: 07/31/18 15:23 [facility] [id number]) Current Condition History of Current Condition Onset Date 18 months ago Current Complaints R SI & hip pain History of Current Condition Pt unknown onset of pain and reports about 18 months ago he was getting cortizone shots in SI joint that would help for 3-4 months then tried other spots and it would last only a couple months. Pt reports 14 months ago he had a pin placed in SI joint to stabilize it. Pt reports it did not stop any pain. MD followed with Xrays but did not find anything wrong. Pt reports recent CT scan that did not find anything. About 3 weeks ago, his L foot slipped on black ice and fell to his butt with his R butt cheek landing on curb and RLE IR behind him. Xray was done and nothing was wrong. Pt reports if he sits >30 min then its hard to get up and its very painful to get standing and walking and takes him inc time . Pt reports pain the next day after doing heavy activities. Pt is activity with fixing and building things. By the end of the day it is very painful to walk. Pt reports one time he jumped off his boat onto the dock and it pinched a nerve in his LB and his foot had a lot of pain. He reports that improved though. Prior Treatments and Tests Xrays, injections, pin in SI joint Treatment Goals Patient/Caregiver Goals Be able to walk a long distance for travelling ( going to [place] and the [employer] at end of August & leaves August 17 to August 25-going to [employer] w/ kids) PT-OP-C Subjective Start: 07/31/18 07:25 Freq: Status: Active Protocol: Document 09/19/18 09:50 [facility] (Rec: 09/19/18 10:27 [facility] [id number]) OP-PT Subjective Patient Comments Patient Comments Pt reports he has been doing the exercises in the AM and he thinks that may help some. Reports he did a lot of work yesterday and normally he pays for it the next AM but doesn' t feel too bad today. PT-OP-F Manual Assessment Start: 07/31/18 07:25 Freq: Status: Active Protocol: Document 07/31/18 14:30 [facility] (Rec: 07/31/18 15:23 [facility] [id number]) Manual Assessments Soft Tissue Assessment Soft Tissue Mobility Assessment QL, ES and glute tightness Joint Mobility Assessment Joint Mobility Assessment equal iliac crest levels PT-OP-J Posture/Palpation/Skin Start: 07/31/18 07:25 Freq: Status: Active Protocol: Document 07/31/18 14:30 [facility] (Rec: 07/31/18 15:23 [facility] [id number]) Posture Evaluation Comments Posture Comments flattened back and forward rounded shoulders PT-OP-K Range of Motion Start: 07/31/18 07:25 Freq: Status: Active Protocol: Document 07/31/18 14:30 [facility] (Rec: 07/31/18 15:23 [facility] [id number]) Lumbar Spine Range of Motion Lumbar Spine Active Degrees Testing Position Standing Flexion 40 Extension 10 Lateral Flexion Left 12 Lateral Flexion Right 5 ROM Limitations Pain PT-OP-M Strength Start: 07/31/18 07:25 Freq: Status: Active Protocol: Document 07/31/18 14:30 [facility] (Rec: 07/31/18 15:23 [facility] [id number]) Hip Strength Hip Manual Muscle Testing Right Flexion (L2) 5 Normal Abduction 4 Good External Rotation 4 Good Internal Rotation 4 Good Comments pain w/ rotations Left Flexion (L2) 5 Normal Abduction 4 Good External Rotation 4 Good Internal Rotation 4 Good PT-OP-Q Treatments Start: 07/31/18 07:25 Freq: Status: Active Protocol: Document 09/19/18 09:50 [facility] (Rec: 09/19/18 10:27 [facility] [id number]) Cardio Equipment Recumbent Stepper (Sci-Fit) Duration (Minutes) 5 Resistance 4 Seat Position 12 Therapeutic Exercises Sidelying Exercises ER Sidelying Exercise Name clamshell Side bilateral Reps/Minutes 15 abd Sidelying Exercise Name hip abd Side bilateral Reps/Minutes 10 Standing Exercises fwd/back Standing Exercise Name resisted Side bilateral Equipment Used teal tband Reps/Minutes 2x20ft sidestep Standing Exercise Name resisted Side bilateral Equipment Used teal tband Reps/Minutes 2x20ft squat Standing Exercise Name squat Equipment Used at rail Reps/Minutes 10x2 Comments w/chair behind Manual Therapy Treatment Soft Tissue Mobilization QL Body Location QL/ES Mobilization Type Rolling Intensity/Depth Moderate PT-OP-T Assessment and Plan Start: 07/31/18 07:25 Freq: Status: Active Protocol: Document 09/19/18 09:50 [facility] (Rec: 09/19/18 10:27 [facility] [id number]) Physical Therapy Assessment Goals walking Mcc Goal (LTG) Pt will report no greater than 3/10 pain with walking and will be able to walk all distances needed when travelling. LTG Duration 09/30/18 strength Short Term Goal (STG) Pt will be indep with HEP STG Duration 08/31/18 Mcc Goal (LTG) Pt will have 5/5 LE strength allowing him to be able to do his typical daily activities. LTG Duration 09/30/18 pain Short Term Goal (STG) Pt will be indep with management of pain at home with modalities and exercises as needed. STG Duration 08/31/18 Mcc Goal (LTG) Pt will report no greater than 3/10 pain with daily activities. LTG Duration 09/30/18 Assessment Summary Assessment Pt was challenged by standing exercises. Required cueing for knee and back position with squatting. He was able to tolerate advancement in exercises without inc pain. Physical Therapy Plan Frequency and Duration Frequency of Treatment 2x/Week Duration of Treatment 2 months Plan of Care Start Date 07/31/18 Plan of Care End Date 09/30/17 Next Visit Focus/Plan Next Note Type Treatment Note Next Visit Plan cont to advance core & LE strength as tolerated
--- NOTE | 2018-09-24 10:34 | PT.OTN ---
Current Diagnoses Spinal stenosis, lumbosacral region (09/24/18) Physical Therapy Treatment Note PT-OP-A Visit Information Start: 07/31/18 07:25 Freq: Status: Active Protocol: Document 09/24/18 09:51 [facility] (Rec: 09/24/18 10:32 [facility] [id number]) Out-Patient Physical Therapy Visit Information Visit Information Visit Type Treatment Note Visit Start Time 09:45 Visit Stop Time 10:35 Total Visit Minutes 50 Visit Number 6/10 Number of FINANCE CLERK Visits 0 PT-OP-B Current Condition Start: 07/31/18 07:25 Freq: Status: Active Protocol: Document 07/31/18 14:30 [facility] (Rec: 07/31/18 15:23 [facility] [id number]) Current Condition History of Current Condition Onset Date 18 months ago Current Complaints R SI & hip pain History of Current Condition Pt unknown onset of pain and reports about 18 months ago he was getting cortizone shots in SI joint that would help for 3-4 months then tried other spots and it would last only a couple months. Pt reports 14 months ago he had a pin placed in SI joint to stabilize it. Pt reports it did not stop any pain. MD followed with Xrays but did not find anything wrong. Pt reports recent CT scan that did not find anything. About 3 weeks ago, his L foot slipped on black ice and fell to his butt with his R butt cheek landing on curb and RLE IR behind him. Xray was done and nothing was wrong. Pt reports if he sits >30 min then its hard to get up and its very painful to get standing and walking and takes him inc time . Pt reports pain the next day after doing heavy activities. Pt is activity with fixing and building things. By the end of the day it is very painful to walk. Pt reports one time he jumped off his boat onto the dock and it pinched a nerve in his LB and his foot had a lot of pain. He reports that improved though. Prior Treatments and Tests Xrays, injections, pin in SI joint Treatment Goals Patient/Caregiver Goals Be able to walk a long distance for travelling ( going to [place] and the [employer] at end of August & leaves August 17 to August 25-going to [place] w/ kids) PT-OP-C Subjective Start: 07/31/18 07:25 Freq: Status: Active Protocol: Document 09/24/18 09:51 [facility] (Rec: 09/24/18 10:32 [facility] [id number]) OP-PT Subjective Patient Comments Patient Comments Pt reports his L knee hurts post to bend and move and goes into his lower leg some starting yesterday. Pt reports he was cleaning his concrete with a spray yesterday so he was bending a lot which hurt his back. PT-OP-F Manual Assessment Start: 07/31/18 07:25 Freq: Status: Active Protocol: Document 07/31/18 14:30 [facility] (Rec: 07/31/18 15:23 [facility] [id number]) Manual Assessments Soft Tissue Assessment Soft Tissue Mobility Assessment QL, ES and glute tightness Joint Mobility Assessment Joint Mobility Assessment equal iliac crest levels PT-OP-J Posture/Palpation/Skin Start: 07/31/18 07:25 Freq: Status: Active Protocol: Document 07/31/18 14:30 [facility] (Rec: 07/31/18 15:23 [facility] [id number]) Posture Evaluation Comments Posture Comments flattened back and forward rounded shoulders PT-OP-K Range of Motion Start: 07/31/18 07:25 Freq: Status: Active Protocol: Document 07/31/18 14:30 [facility] (Rec: 07/31/18 15:23 [facility] [id number]) Lumbar Spine Range of Motion Lumbar Spine Active Degrees Testing Position Standing Flexion 40 Extension 10 Lateral Flexion Left 12 Lateral Flexion Right 5 ROM Limitations Pain PT-OP-M Strength Start: 07/31/18 07:25 Freq: Status: Active Protocol: Document 07/31/18 14:30 [facility] (Rec: 07/31/18 15:23 [facility] [id number]) Hip Strength Hip Manual Muscle Testing Right Flexion (L2) 5 Normal Abduction 4 Good External Rotation 4 Good Internal Rotation 4 Good Comments pain w/ rotations Left Flexion (L2) 5 Normal Abduction 4 Good External Rotation 4 Good Internal Rotation 4 Good PT-OP-Q Treatments Start: 07/31/18 07:25 Freq: Status: Active Protocol: Document 09/24/18 09:51 [facility] (Rec: 09/24/18 10:32 [facility] [id number]) Cardio Equipment Recumbent Elliptical ([employer]) Duration (Minutes) 5 Resistance 1 Seat Position 11 Other for ROM of L knee Therapeutic Exercises Supine Exercises quad set Supine Exercise Name quad set B Side bilateral Reps/Minutes 10 x5 sec hold piriformis Supine Exercise Name knee to opposite chest Side bilateral Reps/Minutes 30 sec Hs Supine Exercise Name STRETCH Side bilateral Reps/Minutes 30 secx2 Comments w/ankle pumps Gait Training Gait Activity cane Description edu on cane walking & sequence Manual Therapy Treatment Soft Tissue Mobilization QL Body Location QL/ES Mobilization Type Rolling Intensity/Depth Moderate Comments and along sacral sulcus & iliac crest PT-OP-R Modalities Start: 07/31/18 07:25 Freq: Status: Active Protocol: Document 09/24/18 09:51 [facility] (Rec: 09/24/18 10:33 [facility] [id number]) Hot Pack/Cold Pack Treatment Cold Pack Location L knee & lowback Treatment Duration (minutes) 10 PT-OP-T Assessment and Plan Start: 07/31/18 07:25 Freq: Status: Active Protocol: Document 09/24/18 09:51 [facility] (Rec: 09/24/18 10:32 [facility] [id number]) Physical Therapy Assessment Goals walking Intranet Specialist Goal (LTG) Pt will report no greater than 3/10 pain with walking and will be able to walk all distances needed when travelling. LTG Duration 09/30/18 strength Short Term Goal (STG) Pt will be indep with HEP STG Duration 08/31/18 Care Home Goal (LTG) Pt will have 5/5 LE strength allowing him to be able to do his typical daily activities. LTG Duration 09/30/18 pain Short Term Goal (STG) Pt will be indep with management of pain at home with modalities and exercises as needed. STG Duration 08/31/18 Intranet Specialist Goal (LTG) Pt will report no greater than 3/10 pain with daily activities. LTG Duration 09/30/18 Assessment Summary Assessment Pt was limited today d/t pain in L knee after his work on his driveway yesterday. He was able to tolerate gentle stretching and was educated on importance of gentle movement , ice and use of a cane. Physical Therapy Plan Frequency and Duration Frequency of Treatment 2x/Week Duration of Treatment 2 months Plan of Care Start Date 07/31/18 Plan of Care End Date 09/30/17 Next Visit Focus/Plan Next Note Type Treatment Note Next Visit Plan cont to progress core as tolerated and assess cane mobility if still needed
--- NOTE | 2018-09-26 09:45 | PT.OTN ---
Current Diagnoses Spinal stenosis, lumbosacral region (09/26/18) Physical Therapy Treatment Note PT-OP-A Visit Information Start: 07/31/18 07:25 Freq: Status: Active Protocol: Document 09/26/18 09:45 [facility] (Rec: 09/27/18 08:51 [facility] [id number]) Out-Patient Physical Therapy Visit Information Visit Information Visit Type Treatment Note Visit Start Time 09:45 Visit Stop Time 10:35 Total Visit Minutes 50 Visit Number 11/27 Number of BOOKKEEPING MACHINE OPERATOR Visits 0 PT-OP-B Current Condition Start: 07/31/18 07:25 Freq: Status: Active Protocol: Document 07/31/18 14:30 [facility] (Rec: 07/31/18 15:23 [facility] [id number]) Current Condition History of Current Condition Onset Date 18 months ago Current Complaints R SI & hip pain History of Current Condition Pt unknown onset of pain and reports about 18 months ago he was getting cortizone shots in SI joint that would help for 3-4 months then tried other spots and it would last only a couple months. Pt reports 14 months ago he had a pin placed in SI joint to stabilize it. Pt reports it did not stop any pain. MD followed with Xrays but did not find anything wrong. Pt reports recent CT scan that did not find anything. About 3 weeks ago, his L foot slipped on black ice and fell to his butt with his R butt cheek landing on curb and RLE IR behind him. Xray was done and nothing was wrong. Pt reports if he sits >30 min then its hard to get up and its very painful to get standing and walking and takes him inc time . Pt reports pain the next day after doing heavy activities. Pt is activity with fixing and building things. By the end of the day it is very painful to walk. Pt reports one time he jumped off his boat onto the dock and it pinched a nerve in his LB and his foot had a lot of pain. He reports that improved though. Prior Treatments and Tests Xrays, injections, pin in SI joint Treatment Goals Patient/Caregiver Goals Be able to walk a long distance for travelling ( going to [place] and [place] [employer] at end of August & leaves August 17 to August 25-going to [place] w/ kids) PT-OP-C Subjective Start: 07/31/18 07:25 Freq: Status: Active Protocol: Document 09/26/18 09:45 [facility] (Rec: 09/27/18 08:51 [facility] [id number]) OP-PT Subjective Patient Comments Patient Comments Pt states that his L knee is still very sore, but getting better slowly. His R side of SI and low back is better than when he started PT, but still painful. PT-OP-F Manual Assessment Start: 07/31/18 07:25 Freq: Status: Active Protocol: Document 07/31/18 14:30 [facility] (Rec: 07/31/18 15:23 [facility] [id number]) Manual Assessments Soft Tissue Assessment Soft Tissue Mobility Assessment QL, ES and glute tightness Joint Mobility Assessment Joint Mobility Assessment equal iliac crest levels PT-OP-J Posture/Palpation/Skin Start: 07/31/18 07:25 Freq: Status: Active Protocol: Document 07/31/18 14:30 [facility] (Rec: 07/31/18 15:23 [facility] [id number]) Posture Evaluation Comments Posture Comments flattened back and forward rounded shoulders PT-OP-K Range of Motion Start: 07/31/18 07:25 Freq: Status: Active Protocol: Document 07/31/18 14:30 [facility] (Rec: 07/31/18 15:23 [facility] [id number]) Lumbar Spine Range of Motion Lumbar Spine Active Degrees Testing Position Standing Flexion 40 Extension 10 Lateral Flexion Left 12 Lateral Flexion Right 5 ROM Limitations Pain PT-OP-M Strength Start: 07/31/18 07:25 Freq: Status: Active Protocol: Document 07/31/18 14:30 [facility] (Rec: 07/31/18 15:23 [facility] [id number]) Hip Strength Hip Manual Muscle Testing Right Flexion (L2) 5 Normal Abduction 4 Good External Rotation 4 Good Internal Rotation 4 Good Comments pain w/ rotations Left Flexion (L2) 5 Normal Abduction 4 Good External Rotation 4 Good Internal Rotation 4 Good PT-OP-Q Treatments Start: 07/31/18 07:25 Freq: Status: Active Protocol: Document 09/26/18 09:45 [facility] (Rec: 09/27/18 08:51 [facility] [id number]) Cardio Equipment Recumbent Elliptical ([employer]) Duration (Minutes) 5 Resistance 1 Seat Position 11 Other for ROM of L knee Therapeutic Exercises Supine Exercises quad set Supine Exercise Name quad set B Side bilateral Reps/Minutes 10 x5 sec hold piriformis Supine Exercise Name knee to opposite chest Side bilateral Reps/Minutes 30 sec lower trunk rotation Supine Exercise Name LTR Side bilateral Reps/Minutes 10 Hs Supine Exercise Name STRETCH Side bilateral Reps/Minutes 30 secx2 Comments w/ankle pumps Sitting Exercises HS stretch with Ankle pump Sitting Exercise Name seated HS stretch with ankle pumps- sciatic nerve glide Side right Reps/Minutes x60 sec Comments HS stretch to tolerance with neutral spine Manual Therapy Treatment Soft Tissue Mobilization QL Body Location QL/ES Mobilization Type Rolling Intensity/Depth Moderate Comments and along sacral sulcus & iliac crest PT-OP-R Modalities Start: 07/31/18 07:25 Freq: Status: Active Protocol: Document 09/26/18 09:45 [facility] (Rec: 09/27/18 08:51 [facility] [id number]) Hot Pack/Cold Pack Treatment Cold Pack Location L knee & lowback Treatment Duration (minutes) 10 PT-OP-T Assessment and Plan Start: 07/31/18 07:25 Freq: Status: Active Protocol: Document 09/26/18 09:45 [facility] (Rec: 09/27/18 08:51 [facility] [email or web address]) Physical Therapy Assessment Assessment Summary Assessment Pt still with antalgic gait, but at this time does refuse to use a SPC for gait stating that his knee just needs time to get better. Pt tolerated seated sciatic nerve glide/HS stretch without c/o pain, but still with increased tone in erector spinae and QL R>L. Physical Therapy Plan Frequency and Duration Frequency of Treatment 2x/Week Duration of Treatment 2 months Plan of Care Start Date 07/31/18 Plan of Care End Date 09/30/17 Next Visit Focus/Plan Next Note Type Treatment Note Next Visit Plan core stabilization, continue to monitor gait
--- NOTE | 2018-10-01 15:30 | PT.OTN ---
Current Diagnoses Spinal stenosis, lumbosacral region (10/01/18) Physical Therapy Treatment Note PT-OP-A Visit Information Start: 07/31/18 07:25 Freq: Status: Active Protocol: Document 10/01/18 10:30 [facility] (Rec: 10/01/18 10:58 [facility] [id number]) Out-Patient Physical Therapy Visit Information Visit Information Visit Type Treatment Note Visit Start Time 10:30 Visit Stop Time 11:20 Total Visit Minutes 50 Visit Number 8/10 Number of TOUR SALES REPRESENTATIVE Visits 1 PT-OP-B Current Condition Start: 07/31/18 07:25 Freq: Status: Active Protocol: Document 07/31/18 14:30 [facility] (Rec: 07/31/18 15:23 [facility] [id number]) Current Condition History of Current Condition Onset Date 18 months ago Current Complaints R SI & hip pain History of Current Condition Pt unknown onset of pain and reports about 18 months ago he was getting cortizone shots in SI joint that would help for 3-4 months then tried other spots and it would last only a couple months. Pt reports 14 months ago he had a pin placed in SI joint to stabilize it. Pt reports it did not stop any pain. MD followed with Xrays but did not find anything wrong. Pt reports recent CT scan that did not find anything. About 3 weeks ago, his L foot slipped on black ice and fell to his butt with his R butt cheek landing on curb and RLE IR behind him. Xray was done and nothing was wrong. Pt reports if he sits >30 min then its hard to get up and its very painful to get standing and walking and takes him inc time . Pt reports pain the next day after doing heavy activities. Pt is activity with fixing and building things. By the end of the day it is very painful to walk. Pt reports one time he jumped off his boat onto the dock and it pinched a nerve in his LB and his foot had a lot of pain. He reports that improved though. Prior Treatments and Tests Xrays, injections, pin in SI joint Treatment Goals Patient/Caregiver Goals Be able to walk a long distance for travelling ( going to [place] and the [employer] at end of August & leaves August 17 to August 25-going to [employer] w/ kids) PT-OP-C Subjective Start: 07/31/18 07:25 Freq: Status: Active Protocol: Document 10/01/18 10:30 [facility] (Rec: 10/01/18 10:58 [facility] [id number]) OP-PT Subjective Patient Comments Patient Comments Pt states nacho he can go up stairs without pain. OP-PT Pain Assessment Location R hip/LB Pain Location Details LB & R hip (SI especially) Intensity 4 Scale Used Numeric (1 - 10) Description Aching Dull Frequency Daily Pain Aggravating Factors Sitting Walking Bending Pain Alleviating Factors Heat Medication PT-OP-F Manual Assessment Start: 07/31/18 07:25 Freq: Status: Active Protocol: Document 07/31/18 14:30 [facility] (Rec: 07/31/18 15:23 [facility] [id number]) Manual Assessments Soft Tissue Assessment Soft Tissue Mobility Assessment QL, ES and glute tightness Joint Mobility Assessment Joint Mobility Assessment equal iliac crest levels PT-OP-J Posture/Palpation/Skin Start: 07/31/18 07:25 Freq: Status: Active Protocol: Document 07/31/18 14:30 [facility] (Rec: 07/31/18 15:23 [facility] [id number]) Posture Evaluation Comments Posture Comments flattened back and forward rounded shoulders PT-OP-K Range of Motion Start: 07/31/18 07:25 Freq: Status: Active Protocol: Document 07/31/18 14:30 [facility] (Rec: 07/31/18 15:23 [facility] [id number]) Lumbar Spine Range of Motion Lumbar Spine Active Degrees Testing Position Standing Flexion 40 Extension 10 Lateral Flexion Left 12 Lateral Flexion Right 5 ROM Limitations Pain PT-OP-M Strength Start: 07/31/18 07:25 Freq: Status: Active Protocol: Document 10/01/18 10:30 [facility] (Rec: 10/01/18 10:58 [facility] [id number]) Hip Strength Hip Manual Muscle Testing Right Flexion (L2) 5 Normal Abduction 4 Good External Rotation 4 Good Internal Rotation 4 Good Comments pain w/ rotations Left Flexion (L2) 5 Normal Abduction 4+ Good+ External Rotation 4+ Good+ Internal Rotation 4+ Good+ PT-OP-Q Treatments Start: 07/31/18 07:25 Freq: Status: Active Protocol: Document 10/01/18 10:30 [facility] (Rec: 10/01/18 10:58 [facility] [id number]) Cardio Equipment Recumbent Elliptical ([employer]) Duration (Minutes) 5 Resistance 1 Seat Position 11 Other for ROM of L knee Therapeutic Exercises Supine Exercises quad set Supine Exercise Name quad set B Side bilateral Reps/Minutes 10 x5 sec hold piriformis Supine Exercise Name knee to opposite chest Side bilateral Reps/Minutes 30 sec lower trunk rotation Supine Exercise Name LTR Side bilateral Reps/Minutes 10 Hs Supine Exercise Name STRETCH Side bilateral Reps/Minutes 30 secx2 Comments w/ankle pumps Sitting Exercises HS stretch with Ankle pump Sitting Exercise Name seated HS stretch with ankle pumps- sciatic nerve glide Side right Reps/Minutes x60 sec Comments HS stretch to tolerance with neutral spine Manual Therapy Treatment Soft Tissue Mobilization QL Body Location QL/ES Mobilization Type Rolling Intensity/Depth Moderate Comments and along sacral sulcus & iliac crest PT-OP-R Modalities Start: 07/31/18 07:25 Freq: Status: Active Protocol: Document 10/01/18 10:30 [facility] (Rec: 10/01/18 10:58 [facility] [id number]) Hot Pack/Cold Pack Treatment Cold Pack Location L knee & lowback PT-OP-T Assessment and Plan Start: 07/31/18 07:25 Freq: Status: Active Protocol: Document 10/01/18 10:30 [facility] (Rec: 10/01/18 10:58 [facility] [id number]) Physical Therapy Assessment Goals walking Shelter Goal (LTG) Pt will report no greater than 3/10 pain with walking and will be able to walk all distances needed when travelling. (10/01/18 unchanged ) LTG Duration 09/30/18 strength Short Term Goal (STG) Pt will be indep with HEP STG Duration 08/31/18 Administrative Assistant Goal (LTG) Pt will have 5/5 LE strength allowing him to be able to do his typical daily activities. ( strength increase to 4+/5 ) LTG Duration 09/30/18 pain Short Term Goal (STG) Pt will be indep with management of pain at home with modalities and exercises as needed. STG Duration 08/31/18 Shelter Goal (LTG) Pt will report no greater than 3/10 pain with daily activities. ( 5/.10 with activity 10/01/18) LTG Duration 09/30/18 Progress Towards Goals Progress Towards Goals Slow Progress due to Noncompliance Assessment Summary Assessment Pt improving slowly with pain control and strength. He improved tolerance to activity with left knee. He has increase in pain with walking. Physical Therapy Plan Frequency and Duration Frequency of Treatment 2x/Week Duration of Treatment 2 months Plan of Care Start Date 10/01/18 Plan of Care End Date 12/01/18 Next Visit Focus/Plan Next Note Type Treatment Note Next Visit Plan core stabilization, continue to monitor gait
--- NOTE | 2018-10-02 09:31 | PT.OPPN ---
Current Diagnoses Spinal stenosis, lumbosacral region (10/01/18) Physical Therapy Progress Note PT-OP-A Visit Information Start: 07/31/18 07:25 Freq: Status: Active Protocol: Document 10/01/18 10:30 GGD (Rec: 10/01/18 10:58 GGD [id number]) Out-Patient Physical Therapy Visit Information Visit Information Visit Type Treatment Note Visit Start Time 10:30 Visit Stop Time 11:20 Total Visit Minutes 50 Visit Number 8/10 Number of BACK END ARCHITECT Visits 1 PT-OP-B Current Condition Start: 07/31/18 07:25 Freq: Status: Active Protocol: Document 07/31/18 14:30 [facility] (Rec: 07/31/18 15:23 [facility] [id number]) Current Condition History of Current Condition Onset Date 18 months ago Current Complaints R SI & hip pain History of Current Condition Pt unknown onset of pain and reports about 18 months ago he was getting cortizone shots in SI joint that would help for 3-4 months then tried other spots and it would last only a couple months. Pt reports 14 months ago he had a pin placed in SI joint to stabilize it. Pt reports it did not stop any pain. MD followed with Xrays but did not find anything wrong. Pt reports recent CT scan that did not find anything. About 3 weeks ago, his L foot slipped on black ice and fell to his butt with his R butt cheek landing on curb and RLE IR behind him. Xray was done and nothing was wrong. Pt reports if he sits >30 min then its hard to get up and its very painful to get standing and walking and takes him inc time . Pt reports pain the next day after doing heavy activities. Pt is activity with fixing and building things. By the end of the day it is very painful to walk. Pt reports one time he jumped off his boat onto the dock and it pinched a nerve in his LB and his foot had a lot of pain. He reports that improved though. Prior Treatments and Tests Xrays, injections, pin in SI joint Treatment Goals Patient/Caregiver Goals Be able to walk a long distance for travelling ( going to [place] [employer] at end of August & leaves August 17 to August 25-going to [place] w/ kids) PT-OP-C Subjective Start: 07/31/18 07:25 Freq: Status: Active Protocol: Document 10/01/18 10:30 GGD (Rec: 10/01/18 10:58 GGD [id number]) OP-PT Subjective Patient Comments Patient Comments Pt states nacho he can go up stairs without pain. OP-PT Pain Assessment Location R hip/LB Pain Location Details LB & R hip (SI especially) Intensity 4 Scale Used Numeric (1 - 10) Description Aching Dull Frequency Daily Pain Aggravating Factors Sitting Walking Bending Pain Alleviating Factors Heat Medication PT-OP-F Manual Assessment Start: 07/31/18 07:25 Freq: Status: Active Protocol: Document 07/31/18 14:30 LR (Rec: 07/31/18 15:23 [facility] [id number]) Manual Assessments Soft Tissue Assessment Soft Tissue Mobility Assessment QL, ES and glute tightness Joint Mobility Assessment Joint Mobility Assessment equal iliac crest levels PT-OP-J Posture/Palpation/Skin Start: 07/31/18 07:25 Freq: Status: Active Protocol: Document 07/31/18 14:30 LR (Rec: 07/31/18 15:23 [facility] [id number]) Posture Evaluation Comments Posture Comments flattened back and forward rounded shoulders PT-OP-K Range of Motion Start: 07/31/18 07:25 Freq: Status: Active Protocol: Document 07/31/18 14:30 LR (Rec: 07/31/18 15:23 [facility] [id number]) Lumbar Spine Range of Motion Lumbar Spine Active Degrees Testing Position Standing Flexion 40 Extension 10 Lateral Flexion Left 12 Lateral Flexion Right 5 ROM Limitations Pain PT-OP-M Strength Start: 07/31/18 07:25 Freq: Status: Active Protocol: Document 10/01/18 10:30 GGD (Rec: 10/01/18 10:58 GGD [id number]) Hip Strength Hip Manual Muscle Testing Right Flexion (L2) 5 Normal Abduction 4 Good External Rotation 4 Good Internal Rotation 4 Good Comments pain w/ rotations Left Flexion (L2) 5 Normal Abduction 4+ Good+ External Rotation 4+ Good+ Internal Rotation 4+ Good+ PT-OP-T Assessment and Plan Start: 07/31/18 07:25 Freq: Status: Active Protocol: Document 10/01/18 10:30 GGD (Rec: 10/01/18 10:58 GGD [id number]) Physical Therapy Assessment Goals walking Animation Producer Goal (LTG) Pt will report no greater than 3/10 pain with walking and will be able to walk all distances needed when travelling. (10/01/18 unchanged ) LTG Duration 09/30/18 strength Short Term Goal (STG) Pt will be indep with HEP STG Duration 08/31/18 Animation Producer Goal (LTG) Pt will have 5/5 LE strength allowing him to be able to do his typical daily activities. ( strength increase to 4+/5 ) LTG Duration 09/30/18 pain Short Term Goal (STG) Pt will be indep with management of pain at home with modalities and exercises as needed. STG Duration 08/31/18 Animation Producer Goal (LTG) Pt will report no greater than 3/10 pain with daily activities. ( 5/.10 with activity 10/01/18) LTG Duration 09/30/18 Progress Towards Goals Progress Towards Goals Slow Progress due to Noncompliance Assessment Summary Assessment Pt improving slowly with pain control and strength. He improved tolerance to activity with left knee. He has increase in pain with walking. Physical Therapy Plan Frequency and Duration Frequency of Treatment 2x/Week Duration of Treatment 2 months Plan of Care Start Date 10/01/18 Plan of Care End Date 12/01/18 Next Visit Focus/Plan Next Note Type Treatment Note Next Visit Plan core stabilization, continue to monitor gait
--- NOTE | 2018-10-02 09:31 | PT.OPPOC ---
Current Diagnoses Spinal stenosis, lumbosacral region (10/01/18) Provider Visit Care Team Role Provider Type Jordan Spencer MD Primary Care Provider Physician Specialty: Family Practice Address: [address] [place] [address], [address] Email: [email or web address] Hayder Schulz MD Attending Provider Non-Staff Specialty: Neurology Address: [address] [place] [address], [place] [address], [place], [address] Email: Plan Of Care PT-OP-T Assessment and Plan Start: 07/31/18 07:25 Freq: Status: Active Protocol: Document 10/01/18 10:30 GGD (Rec: 10/01/18 10:58 GGD [id number]) Physical Therapy Assessment Goals walking Correction Goal (LTG) Pt will report no greater than 3/10 pain with walking and will be able to walk all distances needed when travelling. (10/01/18 unchanged ) LTG Duration 09/30/18 strength Short Term Goal (STG) Pt will be indep with HEP STG Duration 08/31/18 Correction Goal (LTG) Pt will have 5/5 LE strength allowing him to be able to do his typical daily activities. ( strength increase to 4+/5 ) LTG Duration 09/30/18 pain Short Term Goal (STG) Pt will be indep with management of pain at home with modalities and exercises as needed. STG Duration 08/31/18 Correction Goal (LTG) Pt will report no greater than 3/10 pain with daily activities. ( 5/.10 with activity 10/01/18) LTG Duration 09/30/18 Progress Towards Goals Progress Towards Goals Slow Progress due to Noncompliance Assessment Summary Assessment Pt improving slowly with pain control and strength. He improved tolerance to activity with left knee. He has increase in pain with walking. Physical Therapy Plan Frequency and Duration Frequency of Treatment 2x/Week Duration of Treatment 2 months Plan of Care Start Date 10/01/18 Plan of Care End Date 12/01/18 Next Visit Focus/Plan Next Note Type Treatment Note Next Visit Plan core stabilization, continue to monitor gait Plan of Care Dates Plan of Care Start Date 10/01/18 Plan of Care End Date 12/01/18 Please Sign and Return: I have reviewed this Plan of Care and certify that the skilled therapy services above are required to meet the patient?s needs. Physician Signature Date Printed Name and Credentials Clinical Instructor Signature Printed Name and Credentials
--- NOTE | 2018-10-03 09:08 | PT.OTN ---
Current Diagnoses Spinal stenosis, lumbosacral region (10/03/18) Physical Therapy Treatment Note PT-OP-A Visit Information Start: 07/31/18 07:25 Freq: Status: Active Protocol: Document 10/03/18 08:17 [facility] (Rec: 10/03/18 09:08 [facility] [id number]) Out-Patient Physical Therapy Visit Information Visit Information Visit Type Treatment Note Visit Note 9 visits Visit Start Time 08:15 Visit Stop Time 09:05 Total Visit Minutes 50 Visit Number 3/10 Number of MED SPEC Visits 0 PT-OP-B Current Condition Start: 07/31/18 07:25 Freq: Status: Active Protocol: Document 07/31/18 14:30 [facility] (Rec: 07/31/18 15:23 [facility] [id number]) Current Condition History of Current Condition Onset Date 18 months ago Current Complaints R SI & hip pain History of Current Condition Pt unknown onset of pain and reports about 18 months ago he was getting cortizone shots in SI joint that would help for 3-4 months then tried other spots and it would last only a couple months. Pt reports 14 months ago he had a pin placed in SI joint to stabilize it. Pt reports it did not stop any pain. MD followed with Xrays but did not find anything wrong. Pt reports recent CT scan that did not find anything. About 3 weeks ago, his L foot slipped on black ice and fell to his butt with his R butt cheek landing on curb and RLE IR behind him. Xray was done and nothing was wrong. Pt reports if he sits >30 min then its hard to get up and its very painful to get standing and walking and takes him inc time . Pt reports pain the next day after doing heavy activities. Pt is activity with fixing and building things. By the end of the day it is very painful to walk. Pt reports one time he jumped off his boat onto the dock and it pinched a nerve in his LB and his foot had a lot of pain. He reports that improved though. Prior Treatments and Tests Xrays, injections, pin in SI joint Treatment Goals Patient/Caregiver Goals Be able to walk a long distance for travelling ( going to [place] [employer] at end of August & leaves August 17 to August 25-going to [employer] w/ kids) PT-OP-C Subjective Start: 07/31/18 07:25 Freq: Status: Active Protocol: Document 10/03/18 08:17 [facility] (Rec: 10/03/18 09:08 [facility] [id number]) OP-PT Subjective Patient Comments Patient Comments Pt reports his L knee occasionally flares up and he has to limit his walking. Notes getting out of bed in the AM is painful. PT-OP-F Manual Assessment Start: 07/31/18 07:25 Freq: Status: Active Protocol: Document 07/31/18 14:30 [facility] (Rec: 07/31/18 15:23 [facility] [id number]) Manual Assessments Soft Tissue Assessment Soft Tissue Mobility Assessment QL, ES and glute tightness Joint Mobility Assessment Joint Mobility Assessment equal iliac crest levels PT-OP-J Posture/Palpation/Skin Start: 07/31/18 07:25 Freq: Status: Active Protocol: Document 07/31/18 14:30 [facility] (Rec: 07/31/18 15:23 [facility] [id number]) Posture Evaluation Comments Posture Comments flattened back and forward rounded shoulders PT-OP-K Range of Motion Start: 07/31/18 07:25 Freq: Status: Active Protocol: Document 07/31/18 14:30 [facility] (Rec: 07/31/18 15:23 [facility] [id number]) Lumbar Spine Range of Motion Lumbar Spine Active Degrees Testing Position Standing Flexion 40 Extension 10 Lateral Flexion Left 12 Lateral Flexion Right 5 ROM Limitations Pain PT-OP-M Strength Start: 07/31/18 07:25 Freq: Status: Active Protocol: Document 10/01/18 10:30 GGD (Rec: 10/01/18 10:58 GGD [id number]) Hip Strength Hip Manual Muscle Testing Right Flexion (L2) 5 Normal Abduction 4 Good External Rotation 4 Good Internal Rotation 4 Good Comments pain w/ rotations Left Flexion (L2) 5 Normal Abduction 4+ Good+ External Rotation 4+ Good+ Internal Rotation 4+ Good+ PT-OP-Q Treatments Start: 07/31/18 07:25 Freq: Status: Active Protocol: Document 10/03/18 08:17 [facility] (Rec: 10/03/18 09:08 [facility] [id number]) Cardio Equipment Recumbent Stepper (Sci-Fit) Duration (Minutes) 5 Resistance 4 Seat Position 12 Therapeutic Exercises Supine Exercises bridge Supine Exercise Name abdomen brace & glute set Side bilateral Reps/Minutes 15 lower trunk rotation Supine Exercise Name LTR Side bilateral Reps/Minutes 10 SKTC Supine Exercise Name SKTC Side bilateral Reps/Minutes 30 sec Comments comfortable range; edu to do before getting out of bed Sitting Exercises QL stretch Sitting Exercise Name fwd flex Side bilateral Reps/Minutes 30 sec Manual Therapy Treatment Soft Tissue Mobilization visceral Body Location general R to L Mobilization Type Sustained Pressure Comments LTR ES Body Location ES Mobilization Type Rolling Comments w/flex fwd QL Body Location QL/ES Mobilization Type Rolling Intensity/Depth Moderate Comments and along sacral sulcus & iliac crest PT-OP-R Modalities Start: 07/31/18 07:25 Freq: Status: Active Protocol: Document 10/03/18 08:17 [facility] (Rec: 10/03/18 09:08 [facility] [id number]) Hot Pack/Cold Pack Treatment Cold Pack Location L knee & lowback PT-OP-T Assessment and Plan Start: 07/31/18 07:25 Freq: Status: Active Protocol: Document 10/03/18 08:17 [facility] (Rec: 10/03/18 09:08 [facility] [id number]) Physical Therapy Assessment Goals walking Electronic Design Engineer Goal (LTG) Pt will report no greater than 3/10 pain with walking and will be able to walk all distances needed when travelling. (10/01/18 unchanged ) LTG Duration 09/30/18 strength Short Term Goal (STG) Pt will be indep with HEP STG Duration 08/31/18 Senior Living Goal (LTG) Pt will have 5/5 LE strength allowing him to be able to do his typical daily activities. ( strength increase to 4+/5 ) LTG Duration 09/30/18 pain Short Term Goal (STG) Pt will be indep with management of pain at home with modalities and exercises as needed. STG Duration 08/31/18 Electronic Design Engineer Goal (LTG) Pt will report no greater than 3/10 pain with daily activities. ( 5/.10 with activity 10/01/18) LTG Duration 09/30/18 Assessment Summary Assessment Pt had improved ability to reach to socks without pain after ES STM. Improved LTR with visceral general mobs. He was educated on importance of doing exercise before getting up. Physical Therapy Plan Frequency and Duration Frequency of Treatment 2x/Week Duration of Treatment 2 months Plan of Care Start Date 10/01/18 Plan of Care End Date 12/01/18 Next Visit Focus/Plan Next Note Type Treatment Note Next Visit Plan cont to work on stabilization & review HEP
--- NOTE | 2018-10-08 11:19 | PT.OTN ---
Current Diagnoses Spinal stenosis, lumbosacral region (10/08/18) Physical Therapy Treatment Note PT-OP-A Visit Information Start: 07/31/18 07:25 Freq: Status: Active Protocol: Document 10/08/18 10:39 [facility] (Rec: 10/08/18 11:18 [facility] [id number]) Out-Patient Physical Therapy Visit Information Visit Information Visit Type Treatment Note Visit Note 10 visits Visit Start Time 10:35 Visit Stop Time 11:25 Total Visit Minutes 50 Visit Number 4/ Number of ELEMENT SETTER Visits 0 PT-OP-B Current Condition Start: 07/31/18 07:25 Freq: Status: Active Protocol: Document 07/31/18 14:30 [facility] (Rec: 07/31/18 15:23 [facility] [id number]) Current Condition History of Current Condition Onset Date 18 months ago Current Complaints R SI & hip pain History of Current Condition Pt unknown onset of pain and reports about 18 months ago he was getting cortizone shots in SI joint that would help for 3-4 months then tried other spots and it would last only a couple months. Pt reports 14 months ago he had a pin placed in SI joint to stabilize it. Pt reports it did not stop any pain. MD followed with Xrays but did not find anything wrong. Pt reports recent CT scan that did not find anything. About 3 weeks ago, his L foot slipped on black ice and fell to his butt with his R butt cheek landing on curb and RLE IR behind him. Xray was done and nothing was wrong. Pt reports if he sits >30 min then its hard to get up and its very painful to get standing and walking and takes him inc time . Pt reports pain the next day after doing heavy activities. Pt is activity with fixing and building things. By the end of the day it is very painful to walk. Pt reports one time he jumped off his boat onto the dock and it pinched a nerve in his LB and his foot had a lot of pain. He reports that improved though. Prior Treatments and Tests Xrays, injections, pin in SI joint Treatment Goals Patient/Caregiver Goals Be able to walk a long distance for travelling ( going to [place] [employer] at end of August & leaves August 17 to August 25-going to [employer] w/ kids) PT-OP-C Subjective Start: 07/31/18 07:25 Freq: Status: Active Protocol: Document 10/08/18 10:39 [facility] (Rec: 10/08/18 11:18 [facility] [id number]) OP-PT Subjective Patient Comments Patient Comments Pt reports ice on L knee helps . Notes doing exercises in the AM made it less painful when he got up. PT-OP-F Manual Assessment Start: 07/31/18 07:25 Freq: Status: Active Protocol: Document 07/31/18 14:30 [facility] (Rec: 07/31/18 15:23 [facility] [id number]) Manual Assessments Soft Tissue Assessment Soft Tissue Mobility Assessment QL, ES and glute tightness Joint Mobility Assessment Joint Mobility Assessment equal iliac crest levels PT-OP-J Posture/Palpation/Skin Start: 07/31/18 07:25 Freq: Status: Active Protocol: Document 07/31/18 14:30 [facility] (Rec: 07/31/18 15:23 [facility] [id number]) Posture Evaluation Comments Posture Comments flattened back and forward rounded shoulders PT-OP-K Range of Motion Start: 07/31/18 07:25 Freq: Status: Active Protocol: Document 07/31/18 14:30 [facility] (Rec: 07/31/18 15:23 [facility] [id number]) Lumbar Spine Range of Motion Lumbar Spine Active Degrees Testing Position Standing Flexion 40 Extension 10 Lateral Flexion Left 12 Lateral Flexion Right 5 ROM Limitations Pain PT-OP-M Strength Start: 07/31/18 07:25 Freq: Status: Active Protocol: Document 10/01/18 10:30 [facility]GD (Rec: 10/01/18 10:58 GGD [id number]) Hip Strength Hip Manual Muscle Testing Right Flexion (L2) 5 Normal Abduction 4 Good External Rotation 4 Good Internal Rotation 4 Good Comments pain w/ rotations Left Flexion (L2) 5 Normal Abduction 4+ Good+ External Rotation 4+ Good+ Internal Rotation 4+ Good+ PT-OP-Q Treatments Start: 07/31/18 07:25 Freq: Status: Active Protocol: Document 10/08/18 10:39 [facility] (Rec: 10/08/18 11:18 [facility] [id number]) Cardio Equipment Recumbent Stepper (Sci-Fit) Duration (Minutes) 5 Resistance 4 Seat Position 12 Therapeutic Exercises Supine Exercises bridge Supine Exercise Name abdomen brace & glute set Side bilateral Reps/Minutes 10 lower trunk rotation Supine Exercise Name LTR Side bilateral Reps/Minutes 5 SLR Supine Exercise Name SLR w/abdomen brace Side bilateral Reps/Minutes 10 Sidelying Exercises ER Sidelying Exercise Name clamshell Side bilateral Reps/Minutes 10 abd Sidelying Exercise Name abd Side bilateral Reps/Minutes 12 Sitting Exercises QL stretch Sitting Exercise Name fwd flex Side bilateral Reps/Minutes 30 sec Manual Therapy Treatment Soft Tissue Mobilization ES Body Location ES Mobilization Type Rolling Comments w/flex fwd QL Body Location QL/ES Mobilization Type Rolling Intensity/Depth Moderate Comments and along sacral sulcus & iliac crest PT-OP-R Modalities Start: 07/31/18 07:25 Freq: Status: Active Protocol: Document 10/08/18 10:39 [facility] (Rec: 10/08/18 11:18 [facility] [id number]) Hot Pack/Cold Pack Treatment Cold Pack Location L knee & lowback PT-OP-T Assessment and Plan Start: 07/31/18 07:25 Freq: Status: Active Protocol: Document 10/08/18 10:39 [facility] (Rec: 10/08/18 11:18 [facility] [id number]) Physical Therapy Assessment Goals walking Student Services Advisor Goal (LTG) Pt will report no greater than 3/10 pain with walking and will be able to walk all distances needed when travelling. (10/01/18 unchanged ) LTG Duration 09/30/18 strength Short Term Goal (STG) Pt will be indep with HEP STG Duration 08/31/18 Penitentiary Goal (LTG) Pt will have 5/5 LE strength allowing him to be able to do his typical daily activities. ( strength increase to 4+/5 ) LTG Duration 09/30/18 pain Short Term Goal (STG) Pt will be indep with management of pain at home with modalities and exercises as needed. STG Duration 08/31/18 Penitentiary Goal (LTG) Pt will report no greater than 3/10 pain with daily activities. ( 5/.10 with activity 10/01/18) LTG Duration 09/30/18 Assessment Summary Assessment Pt has improved fwd bending with STM to ES & QL & along scar tissue. He cont to require cueing for positioning with s/l exercises Physical Therapy Plan Frequency and Duration Frequency of Treatment 2x/Week Duration of Treatment 2 months Plan of Care Start Date 10/01/18 Plan of Care End Date 12/01/18 Next Visit Focus/Plan Next Note Type Treatment Note Next Visit Plan cont to work on stabilization & review HEP
--- NOTE | 2018-10-10 09:46 | PT.OTN ---
Current Diagnoses Spinal stenosis, lumbosacral region (10/10/18) Physical Therapy Treatment Note PT-OP-A Visit Information Start: 07/31/18 07:25 Freq: Status: Active Protocol: Document 10/10/18 09:04 [facility] (Rec: 10/10/18 09:46 [facility] [id number]) Out-Patient Physical Therapy Visit Information Visit Information Visit Type Treatment Note Visit Note 11 visits Visit Start Time 09:00 Visit Stop Time 09:50 Total Visit Minutes 50 Visit Number 5/10 Number of GLUE MAKER Visits 0 PT-OP-B Current Condition Start: 07/31/18 07:25 Freq: Status: Active Protocol: Document 07/31/18 14:30 [facility] (Rec: 07/31/18 15:23 [facility] [id number]) Current Condition History of Current Condition Onset Date 18 months ago Current Complaints R SI & hip pain History of Current Condition Pt unknown onset of pain and reports about 18 months ago he was getting cortizone shots in SI joint that would help for 3-4 months then tried other spots and it would last only a couple months. Pt reports 14 months ago he had a pin placed in SI joint to stabilize it. Pt reports it did not stop any pain. MD followed with Xrays but did not find anything wrong. Pt reports recent CT scan that did not find anything. About 3 weeks ago, his L foot slipped on black ice and fell to his butt with his R butt cheek landing on curb and RLE IR behind him. Xray was done and nothing was wrong. Pt reports if he sits >30 min then its hard to get up and its very painful to get standing and walking and takes him inc time . Pt reports pain the next day after doing heavy activities. Pt is activity with fixing and building things. By the end of the day it is very painful to walk. Pt reports one time he jumped off his boat onto the dock and it pinched a nerve in his LB and his foot had a lot of pain. He reports that improved though. Prior Treatments and Tests Xrays, injections, pin in SI joint Treatment Goals Patient/Caregiver Goals Be able to walk a long distance for travelling ( going to [place] and the [employer] at end of August & leaves August 17 to August 25-going to [place] w/ kids) PT-OP-C Subjective Start: 07/31/18 07:25 Freq: Status: Active Protocol: Document 10/10/18 09:04 [facility] (Rec: 10/10/18 09:46 [facility] [id number]) OP-PT Subjective Patient Comments Patient Comments Pt reports he did a lot yesterday and back of knee hurt but he iced which helped PT-OP-F Manual Assessment Start: 07/31/18 07:25 Freq: Status: Active Protocol: Document 07/31/18 14:30 [facility] (Rec: 07/31/18 15:23 [facility] [id number]) Manual Assessments Soft Tissue Assessment Soft Tissue Mobility Assessment QL, ES and glute tightness Joint Mobility Assessment Joint Mobility Assessment equal iliac crest levels PT-OP-J Posture/Palpation/Skin Start: 07/31/18 07:25 Freq: Status: Active Protocol: Document 07/31/18 14:30 [facility] (Rec: 07/31/18 15:23 [facility] [id number]) Posture Evaluation Comments Posture Comments flattened back and forward rounded shoulders PT-OP-K Range of Motion Start: 07/31/18 07:25 Freq: Status: Active Protocol: Document 07/31/18 14:30 [facility] (Rec: 07/31/18 15:23 [facility] [id number]) Lumbar Spine Range of Motion Lumbar Spine Active Degrees Testing Position Standing Flexion 40 Extension 10 Lateral Flexion Left 12 Lateral Flexion Right 5 ROM Limitations Pain PT-OP-M Strength Start: 07/31/18 07:25 Freq: Status: Active Protocol: Document 10/01/18 10:30 [facility] (Rec: 10/01/18 10:58 [facility] [id number]) Hip Strength Hip Manual Muscle Testing Right Flexion (L2) 5 Normal Abduction 4 Good External Rotation 4 Good Internal Rotation 4 Good Comments pain w/ rotations Left Flexion (L2) 5 Normal Abduction 4+ Good+ External Rotation 4+ Good+ Internal Rotation 4+ Good+ PT-OP-Q Treatments Start: 07/31/18 07:25 Freq: Status: Active Protocol: Document 10/10/18 09:04 [facility] (Rec: 10/10/18 09:46 [facility] [id number]) Cardio Equipment Recumbent Stepper (Sci-Fit) Duration (Minutes) 5 Resistance 6 Seat Position 12 Therapeutic Exercises Supine Exercises piriformis Supine Exercise Name knee to opposite chest Side bilateral Reps/Minutes 30 sec lower trunk rotation Supine Exercise Name LTR Side bilateral Reps/Minutes 10 Sidelying Exercises ER Sidelying Exercise Name clamshell Side bilateral Reps/Minutes 10 abd Sidelying Exercise Name abd Side bilateral Reps/Minutes 12 Sitting Exercises QL stretch Sitting Exercise Name fwd flex Side bilateral Reps/Minutes 30 sec Manual Therapy Treatment Soft Tissue Mobilization QL Body Location QL/ES Mobilization Type Rolling Intensity/Depth Moderate Comments and along sacral sulcus & iliac crest & scar tissue PT-OP-R Modalities Start: 07/31/18 07:25 Freq: Status: Active Protocol: Document 10/10/18 09:04 [facility] (Rec: 10/10/18 09:46 [facility] [id number]) Hot Pack/Cold Pack Treatment Cold Pack Location L knee & lowback Treatment Duration (minutes) 10 PT-OP-T Assessment and Plan Start: 07/31/18 07:25 Freq: Status: Active Protocol: Document 10/10/18 09:04 [facility] (Rec: 10/10/18 09:46 [facility] [id number]) Physical Therapy Assessment Goals walking Billet Driller Goal (LTG) Pt will report no greater than 3/10 pain with walking and will be able to walk all distances needed when travelling. (10/01/18 unchanged ) LTG Duration 09/30/18 strength Short Term Goal (STG) Pt will be indep with HEP STG Duration 08/31/18 Snf Goal (LTG) Pt will have 5/5 LE strength allowing him to be able to do his typical daily activities. ( strength increase to 4+/5 ) LTG Duration 09/30/18 pain Short Term Goal (STG) Pt will be indep with management of pain at home with modalities and exercises as needed. STG Duration 08/31/18 Billet Driller Goal (LTG) Pt will report no greater than 3/10 pain with daily activities. ( 5/.10 with activity 10/01/18) LTG Duration 09/30/18 Assessment Summary Assessment Improved performance with exercises today and improved tolerance to deeper soft tissue work. Pt cont to advance with independence of HEP. Physical Therapy Plan Frequency and Duration Frequency of Treatment 2x/Week Duration of Treatment 2 months Plan of Care Start Date 10/01/18 Plan of Care End Date 12/01/18 Next Visit Focus/Plan Next Note Type Treatment Note Next Visit Plan cont to work on stabilization & review HEP and assess how he did on sunshine
--- NOTE | 2018-11-07 14:19 | PT.OPDS ---
Current Diagnoses Spinal stenosis, lumbosacral region (10/10/18) Provider Visit Care Team Role Provider Type Jordan Spencer MD Primary Care Provider Physician Specialty: Family Practice Address: [address] [place] [address], [id number] Email: [email or web address] Hayder Schulz MD Attending Provider Non-Staff Specialty: Neurology Address: [address] [place] [address], [place] [address], [place], [address] Email: Visit Number Visit Number 09/27 Discharge Summary PT-OP-B Current Condition Start: 07/31/18 07:25 Freq: Status: Active Protocol: Document 07/31/18 14:30 [facility] (Rec: 07/31/18 15:23 [facility] [id number]) Current Condition History of Current Condition Onset Date 18 months ago Current Complaints R SI & hip pain History of Current Condition Pt unknown onset of pain and reports about 18 months ago he was getting cortizone shots in SI joint that would help for 3-4 months then tried other spots and it would last only a couple months. Pt reports 14 months ago he had a pin placed in SI joint to stabilize it. Pt reports it did not stop any pain. MD followed with Xrays but did not find anything wrong. Pt reports recent CT scan that did not find anything. About 3 weeks ago, his L foot slipped on black ice and fell to his butt with his R butt cheek landing on curb and RLE IR behind him. Xray was done and nothing was wrong. Pt reports if he sits >30 min then its hard to get up and its very painful to get standing and walking and takes him inc time . Pt reports pain the next day after doing heavy activities. Pt is activity with fixing and building things. By the end of the day it is very painful to walk. Pt reports one time he jumped off his boat onto the dock and it pinched a nerve in his LB and his foot had a lot of pain. He reports that improved though. Prior Treatments and Tests Xrays, injections, pin in SI joint Treatment Goals Patient/Caregiver Goals Be able to walk a long distance for travelling ( going to [employer] and the [employer] at end of August & leaves August 17 to August 7-going to [place] w/ kids) PT-OP-C Subjective Start: 07/31/18 07:25 Freq: Status: Active Protocol: Document 10/10/18 09:04 [facility] (Rec: 10/10/18 09:46 [facility] [id number]) OP-PT Subjective Patient Comments Patient Comments Pt reports he did a lot yesterday and back of knee hurt but he iced which helped PT-OP-F Manual Assessment Start: 07/31/18 07:25 Freq: Status: Active Protocol: Document 07/31/18 14:30 [facility] (Rec: 07/31/18 15:23 [facility] [id number]) Manual Assessments Soft Tissue Assessment Soft Tissue Mobility Assessment QL, ES and glute tightness Joint Mobility Assessment Joint Mobility Assessment equal iliac crest levels PT-OP-J Posture/Palpation/Skin Start: 07/31/18 07:25 Freq: Status: Active Protocol: Document 07/31/18 14:30 [facility] (Rec: 07/31/18 15:23 [facility] [id number]) Posture Evaluation Comments Posture Comments flattened back and forward rounded shoulders PT-OP-K Range of Motion Start: 07/31/18 07:25 Freq: Status: Active Protocol: Document 07/31/18 14:30 [facility] (Rec: 07/31/18 15:23 [facility] [id number]) Lumbar Spine Range of Motion Lumbar Spine Active Degrees Testing Position Standing Flexion 40 Extension 10 Lateral Flexion Left 12 Lateral Flexion Right 5 ROM Limitations Pain PT-OP-M Strength Start: 07/31/18 07:25 Freq: Status: Active Protocol: Document 10/01/18 10:30 [facility] (Rec: 10/01/18 10:58 [facility] [id number]) Hip Strength Hip Manual Muscle Testing Right Flexion (L2) 5 Normal Abduction 4 Good External Rotation 4 Good Internal Rotation 4 Good Comments pain w/ rotations Left Flexion (L2) 5 Normal Abduction 4+ Good+ External Rotation 4+ Good+ Internal Rotation 4+ Good+ PT-OP-T Assessment and Plan Start: 07/31/18 07:25 Freq: Status: Active Protocol: Document 11/07/18 14:17 [facility] (Rec: 11/07/18 14:18 [facility] [id number]) Physical Therapy Plan Discharge Physical Therapy Discharge Reasons No Longer Attending PT Discharge Comments Pt no showed most recent 2 visits and was called and left messages. He did not return calls and is therefore d/c from PT. If pt wishes to cont PT, please send new referral and have pt call to schedule. He did make progress with strength and core control and was indep w/HEP prior to vacation, but he still had dec activity tolerance and had a recent knee injury that limited him.
== END 2018-11-13 16:38 ==
LOC: PHYS 09:00
PROVIDERS: PCP Family Medicine; Visit Provider Neurological Surgery
DX: M48.07 Spinal stenosis, lumbosacral region (principal)
CPT/HCPCS: 97010; 97110; 97116; 97140; 97162; 97535

== ENCOUNTER → 2018-11-11 13:09 | Outpatient (CLI) | payer MEDICARE, OTHER, SELFPAY ==
[2018-11-11 13:59] LABS: BUN Creatinine Ratio 29.1 (6-22); Blood Urea Nitrogen 32 mg/dL (9-20); Calcium 9.3 mg/dL (8.4-10.2); Carbon Dioxide 29 mmol/L (22-32); Chloride 104 mmol/L (98-107); Estimated Glomerular Filt Rate > 60.0 mL/min (>60); Glucose 141 mg/dL (80-110); HEMOLYSIS 17 (0-50); Potassium 5.1 mmol/L (3.4-5.1); Sodium 141 mmol/L (137-145)
[2018-11-11 14:03] LABS: Hemoglobin A1C% w Est Avg Glu 5.5 % (4.0-6.0)
== END ==
PROVIDERS: PCP Family Medicine; Visit Provider Family Medicine
DX: G62.9 Polyneuropathy, unspecified (principal); R73.9 Hyperglycemia, unspecified
CPT/HCPCS: 36415; 80048; 83036

== ENCOUNTER 2019-03-11 16:33 | Emergency (ER) | payer MEDICARE, OTHER, SELFPAY ==
[2019-03-11] VITALS (9 sets, daily range): BP systolic 147–173; BP diastolic 75–106; PULSE 60–122; RESP 16–24; TEMP 36.7; O2SAT 92–98; BMI 30.7
--- NOTE | 2019-03-11 16:54 | DI.RAD.S_ITS ---
PROCEDURE: XR CHEST 2V INDICATIONS: shortness of breath TECHNIQUE: 2 views of the chest were acquired. COMPARISON: [facility], , CHEST 2 VIEW, 01/15/2017, 10:24. FINDINGS: Surgical changes and devices: None. Lungs and pleura: Lungs are clear. No pleural effusions or pneumothorax. Mediastinum: Mediastinal contours are normal. Heart size is normal. Bones and chest wall: No suspicious bony abnormalities. Soft tissues appear unremarkable. IMPRESSION: No acute cardiopulmonary findings. Dictated by: Teresa Munoz M.D. on 03/11/2019 at 17:15 Approved by: Teresa Munoz M.D. on 03/11/2019 at 17:16
--- NOTE | 2019-03-11 17:12 | ED_ITS ---
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 Patient states that over the past 2 months or so he has developed increasing shortness of breath with exertion and can no longer lay flat. He denies any profound shortness of breath outside of the circumstances. He denies any weight gain or swelling in his legs. He has had no fever, chills nor chest pain or cough. He denies other cardiac equivalent such as dizziness, weakness or lightheadedness. He has had no unexplained diaphoresis. He does not take any diuretics, denies any change in diet or medications. Patient states his last echocardiogram was about 1 year ago. He has not had stress test or a heart catheterization in 6 or 7 years MD Complaint: shortness of breath Onset (ago): month(s) Context: occurred during exertion Severity: moderate Consistency/Duration: intermittent and progressively worsening Relieving factors: rest Exacerbating factors: lying flat and exertion Associated symptoms: denies other symptoms Treatment prior to arrival: none Related Data Home oxygen amount: none Home Medications Medication Instructions Recorded Confirmed aspirin 325 mg PO DAILY #0 07/31/11 03/11/19 atenolol 100 mg PO QPM #0 07/31/11 03/11/19 nitroglycerin [Nitrostat] 0.4 mg SUBLINGUAL Q5M PRN #0 07/31/11 03/11/19 simvastatin 40 mg tablet 40 mg PO BEDTIME 12/20/18 03/11/19 amitriptyline 25 mg PO QPM 03/11/19 03/11/19 Previous Rx's Medication Instructions Recorded gabapentin 600 mg tablet 1,200 mg PO TID #540 tab 12/20/18 levothyroxine 100 mcg tablet 100 mcg PO QAM #90 tab 12/23/18 Allergies Allergy/AdvReac Type Severity Reaction Status Date / Time meperidine Allergy Mild RASH Verified 03/11/19 16:52 Review of Systems <DO Gregory Aguirre Last Filed: 03/12/19 07:05> Constitutional Constitutional: Denies chills, Denies fatigue, Denies fever(s), Denies frequent falls, Denies lethargy and Denies weakness Eyes Eyes: Denies change in vision, Denies eye discharge, Denies irritation and Denies loss of vision ENT Ears, Nose, Mouth, and Throat: Denies change in voice, Denies dizziness, Denies neck pain, Denies sore throat and Denies throat swelling Cardiovascular Cardiovascular: Denies chest pain, Denies irregular heart rhythm, Denies lightheadedness, Denies palpitations, Denies dyspnea, Reports dyspnea on exertion and Reports orthopnea Respiratory Respiratory: Denies cough, Denies dyspnea, Reports dyspnea on exertion and Denies wheezing Gastrointestinal Gastrointestinal: Denies abdominal pain, Denies change in bowel habits, Denies diarrhea, Denies nausea and Denies vomiting Genitourinary Genitourinary: Denies hematuria, Denies flank pain, Denies urinary incontinence and Denies urinary urgency Musculoskeletal Musculoskeletal: Denies back pain, Denies muscle weakness, Denies neck pain, Denies numbness and Denies tingling Integumentary/Breasts Skin/Breast: Denies pruritus, Denies erythema, Denies rash and Denies wounds Neurologic Neurologic: Denies behavioral changes, Denies confusion, Denies dizziness, [place] es frequent falls, Denies loss of vision, Denies numbness, Denies tingling and Denies weakness Psychiatric Psychiatric: Denies anxiety, Denies behavioral changes, Denies confusion, Denies depression, Denies homicidal ideation and Denies suicidal ideation Endocrine Endocrine: Denies fatigue, Denies flushing and Denies palpitations Hematologic/Lymphatic Hematologic/Lymphatic: Denies easy bruising Allergic/Immunologic Allergic/Immunologic: Denies urticaria, Denies throat swelling and Denies wheezing Patient History <Karthikeyan Galindo DO - Last Filed: 03/12/19 07:05> Medical History Chronic back pain (Chronic 2009) Hearing loss (Chronic 1997) Neutropenia (Chronic 2006) Peripheral neuropathy (Chronic 2006) Surgical History Anesthesia (Resolved) History of ear surgery (Resolved 04/29/15) Family History Father Heart disease Hypertension High cholesterol Grandmother Cancer Sister Age: 79 Heart disease Hypertension High cholesterol Grandfather Heart failure Mother Liver failure Social History Smoking Status: Unknown if ever smoked alcohol intake frequency: 0-2 drinks per day Substance Use Type: does not use Exam <DO Gregory Aguirre Last Filed: 03/12/19 07:05> Narrative Exam Narrative: GENERAL: [84] year old patient appears stated age. Well- nourished, well-developed patient, in mild distress. HEAD: Atraumatic. Normocephalic. EYES: Pupils equal round and reactive. Extraocular motions intact. No scleral icterus. No injection or drainage. ENT: Nose without bleeding, purulent drainage. Throat without erythema, tonsillar hypertrophy or exudate. Airway patent. NECK: Trachea midline. Non tender CARDIOVASCULAR: Regular rate and rhythm without murmurs, gallops, or rubs. RESPIRATORY: Faint crackles in bilateral bases, no obvious respiratory distress on exam GASTROINTESTINAL: Abdomen soft, non-tender, nondistended. EXTREMITIES: 1+ pitting edema in the bilateral lower extremities BACK: Nontender without deformity or crepitance. No flank tenderness. NEURO: AOx3. SKIN: No rash or erythema of visible areas Initial Vital Signs Initial Vital Signs: Vital Signs Temperature 98.0 F 03/11/19 16:45 Pulse Rate 80 03/11/19 16:45 Respiratory Rate 22 03/11/19 16:45 Blood Pressure 173/86 H 03/11/19 16:45 Pulse Oximetry 98 03/11/19 16:45 <Rosenda Borges DO - Last Filed: 03/12/19 01:56> Initial Vital Signs Initial Vital Signs: Vital Signs Temperature 98.0 F 03/11/19 16:45 Pulse Rate 80 03/11/19 16:45 Respiratory Rate 22 03/11/19 16:45 Blood Pressure 173/86 H 03/11/19 16:45 Pulse Oximetry 98 03/11/19 16:45 Course <DO Gregory Aguirre Last Filed: 03/12/19 07:05> Orders Ordered: Discontinued Medications Amitriptyline HCl (Elavil) 25 mg PO NOW ONE Stop: 03/11/19 21:01 Last Admin: 03/11/19 21:04 Dose: 25 mg Documented by: HOLA Aspirin (Aspirin Chew) 324 mg PO NOW ONE Stop: 03/11/19 18:14 Last Admin: 03/11/19 18:18 Dose: 324 mg Documented by: CARLA Furosemide (Lasix) 40 mg IV NOW ONE Stop: 03/11/19 17:48 Last Admin: 03/11/19 17:56 Dose: 40 mg Documented by: CARLA Gabapentin (Neurontin) 1,200 mg PO NOW ONE Stop: 03/11/19 21:01 Last Admin: 03/11/19 21:04 Dose: 1,200 mg Documented by: HOLA Simvastatin (Zocor) 40 mg PO BEDTIME ONE Stop: 03/11/19 21:01 Last Admin: 03/11/19 21:04 Dose: 40 mg Documented by: HOLA Consultations Consultation #1: discussion with instructional technology coordinator cardio whom is able to access records which not previously occluded LAD and cirumflex. Cardio requests transfer. Awaiting hospitalist to call back. Sign out to Dr. Borges to discuss with hospitalist. Patient remains asymptomatic. Vital Signs Vital signs: Vital Signs - 8 hr 03/11/19 18:00 03/11/19 19:10 03/11/19 19:31 Pulse Rate 60 67 122 H Respiratory Rate 20 24 20 Blood Pressure [Right Arm] 160/94 H 164/97 H 152/87 H Pulse Oximetry 97 97 92 03/11/19 20:02 03/11/19 20:30 03/11/19 21:13 Pulse Rate 65 67 63 Respiratory Rate 16 20 20 Blood Pressure [Right Arm] 168/92 H 164/77 H 166/106 H Pulse Oximetry 92 94 98 <Rosenda Borges, DO - Last Filed: 03/12/19 01:56> Orders Ordered: Discontinued Medications Amitriptyline HCl (Elavil) 25 mg PO NOW ONE Stop: 03/11/19 21:01 Last Admin: 03/11/19 21:04 Dose: 25 mg Documented by: HOLA Aspirin (Aspirin Chew) 324 mg PO NOW ONE Stop: 03/11/19 18:14 Last Admin: 03/11/19 18:18 Dose: 324 mg Documented by: CARLA Furosemide (Lasix) 40 mg IV NOW ONE Stop: 03/11/19 17:48 Last Admin: 03/11/19 17:56 Dose: 40 mg Documented by: CARLA Gabapentin (Neurontin) 1,200 mg PO NOW ONE Stop: 03/11/19 21:01 Last Admin: 03/11/19 21:04 Dose: 1,200 mg Documented by: HOLA Simvastatin (Zocor) 40 mg PO BEDTIME ONE Stop: 03/11/19 21:01 Last Admin: 03/11/19 21:04 Dose: 40 mg Documented by: HOLA Vital Signs Vital signs: Vital Signs - 8 hr 03/11/19 18:00 03/11/19 19:10 03/11/19 19:31 Pulse Rate 60 67 122 H Respiratory Rate 20 24 20 Blood Pressure [Right Arm] 160/94 H 164/97 H 152/87 H Pulse Oximetry 97 97 92 03/11/19 20:02 03/11/19 20:30 03/11/19 21:13 Pulse Rate 65 67 63 Respiratory Rate 16 20 20 Blood Pressure [Right Arm] 168/92 H 164/77 H 166/106 H Pulse Oximetry 92 94 98 MDM - SOB/Dyspnea <Karthikeyan Galindo DO - Last Filed: 03/12/19 07:05> Lab Data Result diagrams: 03/11/19 17:15 03/11/19 17:15 Labs: Lab Results 03/11/19 03/11/19 03/11/19 Range/Units 17:15 17:15 17:15 WBC 5.6 (4.5-11.0) X10^3/uL RBC 4.86 (4.5-5.9) X10^6/uL Hgb 16.2 (13.5-17.5) g/dL Hct 48.0 (41-53) % MCV 98.9 (80-100) fL MCH 33.4 (26-34) PG MCHC 33.7 (30-36) % RDW 13.1 (11.6-14.8) % Plt Count 126 L (150-400) X10^3/uL Neut % (Auto) 40.1 L (50-75) % Lymph % (Auto) 37.8 (25-40) % [place] % (Auto) 14.7 H (3-14) % Eos % (Auto) 6.4 H (2-4) % Baso % (Auto) 1.0 (0-2) % Neut # (Auto) 2300 (1839-0976) /uL Lymph # (Auto) 2100 (1254-3424) /uL [place] # (Auto) 800 (0-900) /uL Eos # (Auto) 400 (0-450) /uL Baso # (Auto) 100 (0-100) /uL Sodium 141 (137-145) mmol/L Potassium 4.7 (3.4-5.1) mmol/L Chloride 107 (98-107) mmol/L Carbon Dioxide 29 (22-32) mmol/L BUN 30 H (9-20) mg/dL Creatinine 1.20 (0.66-1.25) mg/dL Estimated GFR 58.0 L (>60) mL/min BUN/Creatinine Ratio 25.0 H (6-22) Glucose 103 (80-110) mg/dL Lactate 1.0 (0.7-2.1) mmol/L Calcium 9.3 (8.4-10.2) mg/dL Total Bilirubin 0.8 (0.2-1.3) mg/dL AST 64 H (17-59) IU/L ALT 75 H (21-72) IU/L Alkaline Phosphatase 44 (38-126) U/L Total Creatine Kinase (55-170) U/L CK-MB (CK-2) (<2.37) ng/mL CK-MB (CK-2) Rel Index (1.5-5.0) % Troponin I (0.01-0.034) ng/mL B-Natriuretic Peptide (<100) Total Protein 6.9 (6.3-8.2) g/dL Albumin 4.1 (3.5-5.0) g/dL Globulin 2.8 (1.7-4.1) g/dL Albumin/Globulin Ratio 1.5 (1.0-2.8) Procalcitonin (<0.5) ng/mL 03/11/19 03/11/19 03/11/19 Range/Units 17:15 17:15 17:15 WBC (4.5-11.0) X10^3/uL RBC (4.5-5.9) X10^6/uL Hgb (13.5-17.5) g/dL Hct (41-53) % MCV (80-100) fL MCH (26-34) PG MCHC (30-36) % RDW (11.6-14.8) % Plt Count (150-400) X10^3/uL Neut % (Auto) (50-75) % Lymph % (Auto) (25-40) % [place] % (Auto) (3-14) % Eos % (Auto) (2-4) % Baso % (Auto) (0-2) % Neut # (Auto) (5167-2536) /uL Lymph # (Auto) (8603-0453) /uL [place] # (Auto) (0-900) /uL Eos # (Auto) (0-450) /uL Baso # (Auto) (0-100) /uL Sodium (137-145) mmol/L Potassium (3.4-5.1) mmol/L Chloride (98-107) mmol/L Carbon Dioxide (22-32) mmol/L BUN (9-20) mg/dL Creatinine (0.66-1.25) mg/dL Estimated GFR (>60) mL/min BUN/Creatinine Ratio (6-22) Glucose (80-110) mg/dL Lactate (0.7-2.1) mmol/L Calcium (8.4-10.2) mg/dL Total Bilirubin (0.2-1.3) mg/dL AST (17-59) IU/L ALT (21-72) IU/L Alkaline Phosphatase (38-126) U/L Total Creatine Kinase 137 (55-170) U/L CK-MB (CK-2) 2.32 (<2.37) ng/mL CK-MB (CK-2) Rel Index 1.7 (1.5-5.0) % Troponin I < 0.012 (0.01-0.034) ng/mL B-Natriuretic Peptide 126 H (<100) Total Protein (6.3-8.2) g/dL Albumin (3.5-5.0) g/dL Globulin (1.7-4.1) g/dL Albumin/Globulin Ratio (1.0-2.8) Procalcitonin < 0.05 (<0.5) ng/mL ECG Data Attestation: I personally reviewed and interpreted this ECG as follows: Prior ECG tracings: available for review Interpretation: sinus rhythm, rate 74, frequent PVCs. Downsloping ST segs in II/III. DE 194, QRS 98, QTC 387 <Rosendaeran Borges, DO - Last Filed: 03/12/19 01:56> Lab Data Attestation: I reviewed the patient's lab results. Labs: Lab Results 03/11/19 03/11/19 03/11/19 Range/Units 17:15 17:15 17:15 WBC 5.6 (4.5-11.0) X10^3/uL RBC 4.86 (4.5-5.9) X10^6/uL Hgb 16.2 (13.5-17.5) g/dL Hct 48.0 (41-53) % MCV 98.9 (80-100) fL MCH 33.4 (26-34) PG MCHC 33.7 (30-36) % RDW 13.1 (11.6-14.8) % Plt Count 126 L (150-400) X10^3/uL Neut % (Auto) 40.1 L (50-75) % Lymph % (Auto) 37.8 (25-40) % [place] % (Auto) 14.7 H (3-14) % Eos % (Auto) 6.4 H (2-4) % Baso % (Auto) 1.0 (0-2) % Neut # (Auto) 2300 (9633-6747) /uL Lymph # (Auto) 2100 (9103-9717) /uL [place] # (Auto) 800 (0-900) /uL Eos # (Auto) 400 (0-450) /uL Baso # (Auto) 100 (0-100) /uL Sodium 141 (137-145) mmol/L Potassium 4.7 (3.4-5.1) mmol/L Chloride 107 (98-107) mmol/L Carbon Dioxide 29 (22-32) mmol/L BUN 30 H (9-20) mg/dL Creatinine 1.20 (0.66-1.25) mg/dL Estimated GFR 58.0 L (>60) mL/min BUN/Creatinine Ratio 25.0 H (6-22) Glucose 103 (80-110) mg/dL Lactate 1.0 (0.7-2.1) mmol/L Calcium 9.3 (8.4-10.2) mg/dL Total Bilirubin 0.8 (0.2-1.3) mg/dL AST 64 H (17-59) IU/L ALT 75 H (21-72) IU/L Alkaline Phosphatase 44 (38-126) U/L Total Creatine Kinase (55-170) U/L CK-MB (CK-2) (<2.37) ng/mL CK-MB (CK-2) Rel Index (1.5-5.0) % Troponin I (0.01-0.034) ng/mL B-Natriuretic Peptide (<100) Total Protein 6.9 (6.3-8.2) g/dL Albumin 4.1 (3.5-5.0) g/dL Globulin 2.8 (1.7-4.1) g/dL Albumin/Globulin Ratio 1.5 (1.0-2.8) Procalcitonin (<0.5) ng/mL 03/11/19 03/11/19 03/11/19 Range/Units 17:15 17:15 17:15 WBC (4.5-11.0) X10^3/uL RBC (4.5-5.9) X10^6/uL Hgb (13.5-17.5) g/dL Hct (41-53) % MCV (80-100) fL MCH (26-34) PG MCHC (30-36) % RDW (11.6-14.8) % Plt Count (150-400) X10^3/uL Neut % (Auto) (50-75) % Lymph % (Auto) (25-40) % [place] % (Auto) (3-14) % Eos % (Auto) (2-4) % Baso % (Auto) (0-2) % Neut # (Auto) (7945-4842) /uL Lymph # (Auto) (7436-7196) /uL [place] # (Auto) (0-900) /uL Eos # (Auto) (0-450) /uL Baso # (Auto) (0-100) /uL Sodium (137-145) mmol/L Potassium (3.4-5.1) mmol/L Chloride (98-107) mmol/L Carbon Dioxide (22-32) mmol/L BUN (9-20) mg/dL Creatinine (0.66-1.25) mg/dL Estimated GFR (>60) mL/min BUN/Creatinine Ratio (6-22) Glucose (80-110) mg/dL Lactate (0.7-2.1) mmol/L Calcium (8.4-10.2) mg/dL Total Bilirubin (0.2-1.3) mg/dL AST (17-59) IU/L ALT (21-72) IU/L Alkaline Phosphatase (38-126) U/L Total Creatine Kinase 137 (55-170) U/L CK-MB (CK-2) 2.32 (<2.37) ng/mL CK-MB (CK-2) Rel Index 1.7 (1.5-5.0) % Troponin I < 0.012 (0.01-0.034) ng/mL B-Natriuretic Peptide 126 H (<100) Total Protein (6.3-8.2) g/dL Albumin (3.5-5.0) g/dL Globulin (1.7-4.1) g/dL Albumin/Globulin Ratio (1.0-2.8) Procalcitonin < 0.05 (<0.5) ng/mL MDM Narrative Medical decision making narrative: Patient signed out to myself by Dr. Galindo, he has relayed Dr. Gonzalez recommendations. EKG findings which are new, troponin is negative, BNP is very mildly elevated at 126. He has had aspirin 324 mg as well as a dose of Lasix. Patient is otherwise asymptomatic while sitting in bed. I spoke with Dr. Chakraborty who is the hospitalist at [facility] and except for transfer. Patient is aware of the plan. Discharge Plan Departure Patient Disposition: [facility] Clinical Impression: Acute CHF Qualifiers: Heart failure type: unspecified Qualified Code(s): I50.9 - Heart failure, unspecified Discharge Date/Time: 03/11/19 21:40 Prescriptions: No Action aspirin 325 mg Tablet 325 mg PO DAILY Qty: 0 RF: 0 atenolol 100 MG tablet 100 mg PO QPM Qty: 0 RF: 0 nitroglycerin [Nitrostat] 0.4 mg Tablet, Sublingual 0.4 mg SUBLINGUAL Q5M PRN (Reason: Chest Pain) Qty: 0 RF: 0 levothyroxine 100 mcg tablet 100 mcg PO QAM Qty: 90 RF: 1 simvastatin 40 mg tablet 40 mg PO BEDTIME RF: 0 gabapentin 600 mg tablet 1,200 mg PO TID Qty: 540 RF: 3 amitriptyline 25 mg tablet 25 mg PO QPM RF: 0 Referrals: Jordan Spencer MD [Primary Care Provider] -
[2019-03-11 17:30] LABS: Add Manual Diff / Slide Review NO; Basophils Absolute Auto 100 /uL (0-100); Eosinophils Absolute Auto 400 /uL (0-450); Eosinophils Percent Auto 6.4 % (2-4); Hemoglobin 16.2 g/dL (13.5-17.5); Lymphocytes Absolute Auto 2100 /uL (1100-4500); Lymphocytes Percent Auto 37.8 % (25-40); Mean Corpuscular HGB Conc 33.7 % (30-36); Mean Corpuscular Hemoglobin 33.4 PG (26-34); Mean Corpuscular Volume 98.9 fL (80-100); Monocytes Absolute Auto 800 /uL (0-900); Monocytes Percent Auto 14.7 % (3-14); Neutrophils Absolute Auto 2300 /uL (1500-7000); Neutrophils Percent Auto 40.1 % (50-75); Platelet Count 126 X10^3/uL (150-400); Red Blood Cell Count 4.86 X10^6/uL (4.5-5.9); Red Cell Distribution Width 13.1 % (11.6-14.8); White Blood Cell Count 5.6 X10^3/uL (4.5-11.0)
[2019-03-11 17:39] LABS: Alanine Aminotransferase 75 IU/L (21-72); Albumin 4.1 g/dL (3.5-5.0); Albumin Globulin Ratio 1.5 (1.0-2.8); Alkaline Phosphatase 44 U/L (38-126); Aspartate Aminotransferase 64 IU/L (17-59); Bilirubin Total 0.8 mg/dL (0.2-1.3); Blood Urea Nitrogen 30 mg/dL (9-20); Calcium 9.3 mg/dL (8.4-10.2); Carbon Dioxide 29 mmol/L (22-32); Chloride 107 mmol/L (98-107); Globulin 2.8 g/dL (1.7-4.1); Glucose 103 mg/dL (80-110); HEMOLYSIS 34 (0-50); Potassium 4.7 mmol/L (3.4-5.1); Sodium 141 mmol/L (137-145); Total Protein 6.9 g/dL (6.3-8.2)
[2019-03-11 17:45] LABS: B Type Natriuretic Peptide 126 (<100)
[2019-03-11 17:56] LABS: Procalcitonin < 0.05 ng/mL (<0.5)
[2019-03-11] MEDS: FUROSEMIDE 40 MG/4 ML VIAL IV (17:56)
--- NOTE | 2019-03-11 17:58 | RT ---
No RT HX. Lung sounds clear, slightly decreased. Pt does not c/o dyspnea. Informed Dr. Galindo, No RT indicated.
[2019-03-11 17:59] LABS: Creatine Kinase 137 U/L (55-170)
[2019-03-11 18:12] LABS: Troponin I < 0.012 ng/mL (0.01-0.034)
[2019-03-11 18:15] LABS: CKMB % Relative Index 1.7 % (1.5-5.0); Creatine Kinase MB 2.32 ng/mL (<2.37)
[2019-03-11] MEDS: ASPIRIN 81 MG CHEW TAB 324 MG PO (18:18)
[2019-03-11] MEDS: GABAPENTIN 600 MG TABLET 1200 MG PO (21:04)
[2019-03-11] MEDS: SIMVASTATIN 40 MG TABLET PO (21:04)
[2019-03-11] MEDS: AMITRIPTYLINE 25 MG TABLET PO (21:04)
== END 2019-03-11 21:40 | disposition short-term general hospital (02) ==
PROVIDERS: Emergency Medicine; Emergency Provider Emergency Medicine; Family Provider Family Medicine; PCP Family Medicine
DX: I50.9 Heart failure, unspecified (principal)
CPT/HCPCS: 36415; 71046; 80053; 82550; 82553; 83605; 83880; 84145; 84484; 85025; 93005; 93041; 96374; 99285; J1940

== ENCOUNTER → 2019-04-07 09:40 | Outpatient (CLI) | payer MEDICARE, OTHER, SELFPAY ==
[2019-04-07 11:09] LABS: BUN Creatinine Ratio 28.2 (6-22); Blood Urea Nitrogen 31 mg/dL (9-20); Calcium 9.3 mg/dL (8.4-10.2); Carbon Dioxide 28 mmol/L (22-32); Chloride 106 mmol/L (98-107); Cholesterol 118 mg/dL (140-199); Estimated Glomerular Filt Rate > 60.0 mL/min (>60); Glucose 111 mg/dL (80-110); HDL Cholesterol 33 mg/dL (40-60); HEMOLYSIS < 15 (0-50); LDL Cholesterol Calculated 57 mg/dL (<100); Magnesium 2.2 mg/dL (1.6-2.3); Potassium 5.2 mmol/L (3.4-5.1); Sodium 142 mmol/L (137-145); Triglycerides 138 mg/dL (35-150)
== END ==
PROVIDERS: PCP Family Medicine; Visit Provider Internal Medicine Cardiovascular Disease
DX: E78.5 Hyperlipidemia, unspecified (principal); I10 Essential (primary) hypertension
CPT/HCPCS: 36415; 80048; 80061; 83735

== ENCOUNTER 2019-05-15 14:00 | Outpatient (RCR) | payer MEDICARE, OTHER, SELFPAY | END 2019-05-15 14:05 | LOC: CAR 14:00 | PROVIDERS: Family Provider Family Medicine; PCP Family Medicine; Visit Provider Internal Medicine Cardiovascular Disease | DX: Z95.5 Presence of coronary angioplasty implant and graft (principal) | CPT/HCPCS: 93798 ==

== ENCOUNTER 2019-11-15 23:45 | Observation (INO) | payer MEDICARE, OTHER, SELFPAY ==
--- NOTE | 2019-11-15 23:49 | ED_ITS ---
HPI - SOB/Dyspnea General Chief Complaint: Shortness of Breath/Dyspnea Stated Complaint: SOB Time Seen by Provider: 11/15/19 23:47 Source: patient and family Mode of arrival: Ambulatory Limitations: no limitations History of Present Illness HPI Narrative: 84-year-old male nonsmoker with history of coronary artery di sease, hypertension, hyperlipidemia presents with his in the chief complaint of 2-3 weeks of gradually worsening exertional dyspnea and fatigue. Today he states he was so short of breath this evening that he could not lay flat and presents in respiratory distress with 2-3 word sentences. He denies any changes medications or dietary indiscretions. He denies any chest pain, runny nose, sore throat or cough. He checks his weight daily and denies any change. He denies any chest pain, pressure or fullness. He denies exposure to persons known to have COVID-19. He was seen under similar circumstances in february and cardiology requested he be sent to [facility] and he apparently was stented and then felt well until a few weeks ago. MD Complaint: shortness of breath Onset (ago): week(s) Context: occurred during exertion Severity: moderate Consistency/Duration: constant and progressively worsening Relieving factors: rest Exacerbating factors: lying flat and exertion Known history of: congestive heart failure Associated symptoms: denies other symptoms Treatment prior to arrival: none Related Data Home oxygen amount: none Home Medications Medication Instructions Recorded Confirmed aspirin 325 mg PO DAILY #0 07/31/11 05/05/19 atenolol 100 mg PO QPM #0 07/31/11 05/05/19 nitroglycerin [Nitrostat] 0.4 mg SUBLINGUAL Q5M PRN #0 07/31/11 05/05/19 simvastatin 40 mg tablet 40 mg PO BEDTIME 12/20/18 05/05/19 clopidogrel 75 mg tablet 75 mg PO DAILY 05/05/19 05/05/19 Previous Rx's Medication Instructions Recorded gabapentin 600 mg tablet 1,200 mg PO TID #540 tab 12/20/18 levothyroxine 100 mcg tablet 100 mcg PO QAM #90 tab 12/23/18 amitriptyline 25 mg tablet See Rx Instructions .ROUTE 05/07/19 .COMPLEX #90 tablet Allergies Allergy/AdvReac Type Severity Reaction Status Date / Time meperidine Allergy Mild RASH Verified 03/27/19 14:31 Review of Systems Constitutional Constitutional: Denies chills, Denies fatigue, Denies fever(s), Denies frequent falls, Denies lethargy and Denies weakness Eyes Eyes: Denies change in vision, Denies eye discharge, Denies irritation and Denies loss of vision ENT Ears, Nose, Mouth, and Throat: Denies change in voice, Denies dizziness, Denies neck pain, Denies sore throat and Denies throat swelling Cardiovascular Cardiovascular: Denies chest pain, Denies irregular heart rhythm, Denies lightheadedness, Denies palpitations, Reports dyspnea, Reports dyspnea on exertion and Denies orthopnea Respiratory Respiratory: Denies cough, Reports dyspnea, Reports dyspnea on exertion and Denies wheezing Gastrointestinal Gastrointestinal: Denies abdominal pain, Denies change in bowel habits, Denies diarrhea, Denies nausea and Denies vomiting Musculoskeletal Musculoskeletal: Denies neck pain and Denies numbness Integumentary/Breasts Skin/Breast: Denies pruritus, Denies erythema, Denies rash and Denies wounds Neurologic Neurologic: Denies behavioral changes, Denies confusion, Denies dizziness, Festus es frequent falls, Denies loss of vision, Denies numbness and Denies weakness Psychiatric Psychiatric: Denies anxiety, Denies behavioral changes, Denies confusion, Denies depression, Denies homicidal ideation and Denies suicidal ideation Endocrine Endocrine: Denies fatigue, Denies flushing and Denies palpitations Hematologic/Lymphatic Hematologic/Lymphatic: Denies easy bruising Allergic/Immunologic Allergic/Immunologic: Denies urticaria, Denies throat swelling and Denies wheezing Patient History Medical History Chronic back pain (Chronic 2009) Hearing loss (Chronic 1997) Neutropenia (Chronic 2006) Peripheral neuropathy (Chronic 2006) Surgical History Anesthesia (Resolved) History of ear surgery (Resolved 04/29/15) Family History Father Heart disease Hypertension High cholesterol Grandmother Cancer Sister Age: 79 Heart disease Hypertension High cholesterol Grandfather Heart failure Mother Liver failure Social History Smoking Status: Unknown if ever smoked Smoking Status: Unknown if ever smoked alcohol intake frequency: 0-2 drinks per day Substance Use Type: does not use Exam Narrative Exam Narrative: GENERAL: [84] year old patient appears stated age. Well- nourished, well-developed patient, in obvious respiratory distress, rapid, shallow breathing, 2-3 word sentences. HEAD: Atraumatic. Normocephalic. EYES: Pupils equal round and reactive. Extraocular motions intact. No scleral icterus. No injection or drainage. ENT: Nose without bleeding, purulent drainage. Throat without erythema, tonsillar hypertrophy or exudate. Airway patent. NECK: Trachea midline. Non tender CARDIOVASCULAR: Regular rate and rhythm without murmurs, gallops, or rubs. RESPIRATORY: Tachypnea, crackles in bilateral bases. GASTROINTESTINAL: Abdomen soft, non-tender, nondistended. EXTREMITIES: No edema or joint tenderness. BACK: Nontender without deformity or crepitance. No flank tenderness. NEURO: AOx3. SKIN: No rash or erythema of visible areas Initial Vital Signs Initial Vital Signs: Vital Signs Pulse Rate 79 11/16/19 00:03 Respiratory Rate 24 11/16/19 00:03 Blood Pressure 206/88 H 11/16/19 00:03 Pulse Oximetry 97 11/16/19 00:03 Course Orders Ordered: ED Orders 11/15/19 23:54 Consult to Respiratory Therapy Evaluate & Treat EKG-12 Lead Stat 11/15/19 23:55 XR chest 1V Stat 11/15/19 23:59 Basic Metabolic Panel Stat Complete Blood Count AUTO DIFF Stat D Dimer Stat Lactate (Lactic Acid) Stat Magnesium Stat NT-proBNP (BNP-Adult 18+) Stat Partial Thromboplastin Time Stat Procalcitonin Stat Prothrombin Time INR Stat Troponin & CK Cardiac Panel Stat 11/16/19 00:33 Thyroid Stimulating Hormone Stat 11/16/19 02:18 Troponin I Stat Discontinued Medications Furosemide (Lasix) 40 mg IV NOW ONE Stop: 11/16/19 01:05 Last Admin: 11/16/19 01:26 Dose: 40 mg Documented by: HOLA Reevaluation(s) Reevaluation #1: call for [facility] records on arrival Consultations Consultation #1: call to cardio at [facility] ([place] We share opinion that this is most likely an exacerbation of CHF, which will require diuresis, but he needs hospitalization given story of worsening exertional SOB and fatigue, for ongoing enzymes and echo Consultation #2: hospitalist happy to accept Vital Signs Vital signs: Vital Signs - 8 hr 11/16/19 00:03 11/16/19 00:40 11/16/19 01:37 Pulse Rate 79 107 H 74 Respiratory Rate 24 23 23 Blood Pressure 206/88 H Blood Pressure [Left Arm] 146/62 H 131/59 L Pulse Oximetry 97 95 96 MDM - SOB/Dyspnea Lab Data Result diagrams: 11/15/19 23:59 11/15/19 23:59 Labs: Lab Results 11/15/19 11/15/19 11/15/19 Range/Units 23:59 23:59 23:59 WBC 7.0 (4.5-11.0) X10^3/uL RBC 4.50 (4.5-5.9) X10^6/uL Hgb 16.0 (13.5-17.5) g/dL Hct 45.6 (41-53) % MCV 101.2 H (80-100) fL MCH 35.4 H (26-34) PG MCHC 35.0 (30-36) % RDW 12.7 (11.6-14.8) % Plt Count 143 L (150-400) X10^3/uL Neut % (Auto) 53.8 (50-75) % Lymph % (Auto) 29.3 (25-40) % [place] % (Auto) 11.6 (3-14) % Eos % (Auto) 4.6 H (2-4) % Baso % (Auto) 0.7 (0-2) % Neut # (Auto) 3800 (9993-9904) /uL Lymph # (Auto) 2000 (4620-7443) /uL [place] # (Auto) 800 (0-900) /uL Eos # (Auto) 300 (0-450) /uL Baso # (Auto) 0 (0-100) /uL PT 12.3 (10.1-12.7) SECONDS INR 1.1 (0.9-1.3) APTT 27 (26.4-36.2) SECONDS D-Dimer 238 H (<230) ng/mL Sodium 136 L (137-145) mmol/L Potassium 4.5 (3.4-5.1) mmol/L Chloride 105 (98-107) mmol/L Carbon Dioxide 22 (22-32) mmol/L BUN 40 H (9-20) mg/dL Creatinine 1.14 (0.66-1.25) mg/dL Estimated GFR > 60.0 (>60) mL/min BUN/Creatinine Ratio 35.1 H (6-22) Glucose 143 H (80-110) mg/dL Lactate (0.7-2.1) mmol/L Calcium 9.1 (8.4-10.2) mg/dL Magnesium 2.2 (1.6-2.3) mg/dL Total Creatine Kinase 101 (55-170) U/L CK-MB (CK-2) 2.57 H (<2.37) ng/mL CK-MB (CK-2) Rel Index 2.5 (1.5-5.0) % Troponin I 0.084 H (0.01-0.034) ng/mL NT-Pro-B Natriuret Pep 2010 H (<450) pg/mL Procalcitonin (<0.5) ng/mL TSH (0.47-4.68) uIU/mL 11/15/19 11/15/19 11/15/19 Range/Units 23:59 23:59 23:59 WBC (4.5-11.0) X10^3/uL RBC (4.5-5.9) X10^6/uL Hgb (13.5-17.5) g/dL Hct (41-53) % MCV (80-100) fL MCH (26-34) PG MCHC (30-36) % RDW (11.6-14.8) % Plt Count (150-400) X10^3/uL Neut % (Auto) (50-75) % Lymph % (Auto) (25-40) % [place] % (Auto) (3-14) % Eos % (Auto) (2-4) % Baso % (Auto) (0-2) % Neut # (Auto) (2071-0916) /uL Lymph # (Auto) (6313-5815) /uL [place] # (Auto) (0-900) /uL Eos # (Auto) (0-450) /uL Baso # (Auto) (0-100) /uL PT (10.1-12.7) SECONDS INR (0.9-1.3) APTT (26.4-36.2) SECONDS D-Dimer (<230) ng/mL Sodium (137-145) mmol/L Potassium (3.4-5.1) mmol/L Chloride (98-107) mmol/L Carbon Dioxide (22-32) mmol/L BUN (9-20) mg/dL Creatinine (0.66-1.25) mg/dL Estimated GFR (>60) mL/min BUN/Creatinine Ratio (6-22) Glucose (80-110) mg/dL Lactate 1.3 (0.7-2.1) mmol/L Calcium (8.4-10.2) mg/dL Magnesium (1.6-2.3) mg/dL Total Creatine Kinase (55-170) U/L CK-MB (CK-2) (<2.37) ng/mL CK-MB (CK-2) Rel Index (1.5-5.0) % Troponin I (0.01-0.034) ng/mL NT-Pro-B Natriuret Pep (<450) pg/mL Procalcitonin < 0.05 (<0.5) ng/mL TSH 4.22 (0.47-4.68) uIU/mL 11/16/19 Range/Units 02:18 WBC (4.5-11.0) X10^3/uL RBC (4.5-5.9) X10^6/uL Hgb (13.5-17.5) g/dL Hct (41-53) % MCV (80-100) fL MCH (26-34) PG MCHC (30-36) % RDW (11.6-14.8) % Plt Count (150-400) X10^3/uL Neut % (Auto) (50-75) % Lymph % (Auto) (25-40) % [place] % (Auto) (3-14) % Eos % (Auto) (2-4) % Baso % (Auto) (0-2) % Neut # (Auto) (4821-0160) /uL Lymph # (Auto) (3391-6295) /uL [place] # (Auto) (0-900) /uL Eos # (Auto) (0-450) /uL Baso # (Auto) (0-100) /uL PT (10.1-12.7) SECONDS INR (0.9-1.3) APTT (26.4-36.2) SECONDS D-Dimer (<230) ng/mL Sodium (137-145) mmol/L Potassium (3.4-5.1) mmol/L Chloride (98-107) mmol/L Carbon Dioxide (22-32) mmol/L BUN (9-20) mg/dL Creatinine (0.66-1.25) mg/dL Estimated GFR (>60) mL/min BUN/Creatinine Ratio (6-22) Glucose (80-110) mg/dL Lactate (0.7-2.1) mmol/L Calcium (8.4-10.2) mg/dL Magnesium (1.6-2.3) mg/dL Total Creatine Kinase (55-170) U/L CK-MB (CK-2) (<2.37) ng/mL CK-MB (CK-2) Rel Index (1.5-5.0) % Troponin I 0.083 H (0.01-0.034) ng/mL NT-Pro-B Natriuret Pep (<450) pg/mL Procalcitonin (<0.5) ng/mL TSH (0.47-4.68) uIU/mL Urine Dip Bedside Urine Glucose Negative Bedside Urine Bilirubin - Negative Bedside Urine Ketone - Negative Urine Specific [place] 1.015 Bedside Urine Occult Blood - Negative Bedside Urine pH 6.0 Bedside Urine Protein - Negative Bedside Urine Urobilinogen - Negative Bedside Urine Nitrite - Negative Bedside Urine Leukocytes - Negative Esterase ECG Data Attestation: I personally reviewed and interpreted this ECG as follows: Prior ECG tracings: available for review Interpretation: Sinus rhythm with ventricular bigeminy, no ischemia Discharge Plan Departure Patient Disposition: Admitted as Observation Clinical Impression: Acute CHF Qualifiers: Heart failure type: unspecified Qualified Code(s): I50.9 - Heart failure, unspecified Admit Date/Time: 11/16/19 03:14 Admit Provider: Karen Anderson
--- NOTE | 2019-11-15 23:55 | DI.RAD.S_ITS ---
PROCEDURE: XR CHEST 1V INDICATIONS: SOB TECHNIQUE: One view of the chest was acquired. COMPARISON: None. FINDINGS: Surgical changes and devices: 03/11/19. Lungs and pleura: Minimal patchy bibasilar atelectasis. No pleural effusions or pneumothorax. Mediastinum: Mediastinal contours appear normal. Heart size is normal. Bones and chest wall: No suspicious bony lesions. Overlying soft tissues appear unremarkable. IMPRESSION: Minimal bibasilar atelectasis. Dictated by: Kaushik Jimenez M.D. on 11/16/2019 at 6:37 Approved by: Kaushik Jimenez M.D. on 11/16/2019 at 6:38
[2019-11-16] VITALS (15 sets, daily range): BP systolic 119–206; BP diastolic 54–88; PULSE 45–107; RESP 16–24; TEMP 35.8–36.3; O2SAT 95–99; BMI 30.4; BMI 29.9
[2019-11-16 00:25] LABS: INR 1.1 (0.9-1.3); Prothrombin Time 12.3 SECONDS (10.1-12.7)
[2019-11-16 00:28] LABS: PTT Partial Thromboplastin Tim 27 SECONDS (26.4-36.2)
[2019-11-16 00:37] LABS: BUN Creatinine Ratio 35.1 (6-22); Blood Urea Nitrogen 40 mg/dL (9-20); Calcium 9.1 mg/dL (8.4-10.2); Carbon Dioxide 22 mmol/L (22-32); Chloride 105 mmol/L (98-107); Creatine Kinase 101 U/L (55-170); Estimated Glomerular Filt Rate > 60.0 mL/min (>60); Glucose 143 mg/dL (80-110); Magnesium 2.2 mg/dL (1.6-2.3); Potassium 4.5 mmol/L (3.4-5.1); Sodium 136 mmol/L (137-145)
[2019-11-16 00:38] LABS: D Dimer 238 ng/mL (<230); Lactate (Lactic Acid) 1.3 mmol/L (0.7-2.1)
[2019-11-16 00:39] LABS: Procalcitonin < 0.05 ng/mL (<0.5)
[2019-11-16 00:40] LABS: HEMOLYSIS 72 (0-50)
[2019-11-16 00:50] LABS: CKMB % Relative Index 2.5 % (1.5-5.0); Creatine Kinase MB 2.57 ng/mL (<2.37); NT-proBNP (BNP-Adult 18+) 2010 pg/mL (<450); Troponin I 0.084 ng/mL (0.01-0.034)
[2019-11-16 00:53] LABS: Add Manual Diff / Slide Review NO; Basophils Absolute Auto 0 /uL (0-100); Basophils Percent Auto 0.7 % (0-2); Eosinophils Absolute Auto 300 /uL (0-450); Eosinophils Percent Auto 4.6 % (2-4); Hematocrit 45.6 % (41-53); Lymphocytes Absolute Auto 2000 /uL (1100-4500); Lymphocytes Percent Auto 29.3 % (25-40); Mean Corpuscular Hemoglobin 35.4 PG (26-34); Mean Corpuscular Volume 101.2 fL (80-100); Monocytes Absolute Auto 800 /uL (0-900); Monocytes Percent Auto 11.6 % (3-14); Neutrophils Absolute Auto 3800 /uL (1500-7000); Neutrophils Percent Auto 53.8 % (50-75); Platelet Count 143 X10^3/uL (150-400); Red Cell Distribution Width 12.7 % (11.6-14.8)
[2019-11-16 01:19] LABS: Thyroid Stimulating Hormone 4.22 uIU/mL (0.47-4.68)
[2019-11-16] MEDS: FUROSEMIDE 40 MG/4 ML VIAL IV (01:26)
[2019-11-16 02:51] LABS: Troponin I 0.083 ng/mL (0.01-0.034)
--- NOTE | 2019-11-16 04:17 | PC.NURSE ---
Report given to Maxine HERRERA
--- NOTE | 2019-11-16 05:03 | P.HP_ITS ---
History of Present Illness History of Present Illness Date Patient Seen: 11/16/19 Time Patient Seen: 04:30 Chief complaint: SOB Narrative: Juan Manuel Butler is an 84-year-old male who presented to the emergency department with approximately 1 month history of shortness of breath that particularly worsened over the evening. His is with him in the room and provides some of the history. States that he tried to sleep in a chair and was so uncomfortable that she brought him to the emergency department he states that he has had shortness of breath going up and down stairs. He denies chest pain. Denies cough heartburn, nausea or vomiting, abdominal pain but does endorse abdominal bloating. He has had a couple of days of diarrhea as well. The states that they been very careful about his eating and have been weighing daily and has lost a ?couple of lb? over the past few days. Patient does describe having the abdominal bloating accompanied by ?gas? and has been burping a lot. He denies any sensations of palpitations. Denies lower extremity swelling. In the emergency department they did 2 troponins both of which were indeterminate. Patient's case was discussed with Dr. 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 He was administered IV lasix 40 mg X 1 in the ED. The patient has a history of cardiac stenting approximately 10 years ago which involved arthrectomy of the proximal LAD, circumflex in 1991 with a repeat angiography in December of 2006. In 2006 that showed occluded right coronary artery with collateral filling and high-grade mild LAD stenosis which required stenting. in February 2019 he underwent left heart catheterization which involve balloon catheterization of the mid left circumflex and placement of a drug- eluting stent which went from the proximal left main artery to the proximal mid LAD. He then followed up with an appointment with his picked edge sewing machine operator the day after discharge. He has had 2 telephone encounters of which the last encounter he had blood pressure medications readjusted due to high blood pressure. Admission vital signs include a blood pressure of 151/75, pulse: 83, respiratory rate: 23, oxygen saturation of 98% on room air, and weight of 99 kilos. CBC: WBC is 7.0 RBC 4.5 hemoglobin 16 hematocrit 45.6 and a platelet count of 143. D-dimer was mildly elevated at 238. Electrolytes: Sodium: 136 potassium: 4.5, chloride: 105, CO2: 22, BUN: 40, creatinine: 1.14, GFR greater than 60, calcium: 9.1, magnesium: 2.2, procalcitonin is less than 0.05, and TSH: 4.2. His cardiac markers were mildly elevated with a troponin of 0.084 and 0.083 respectively. ProBNP was 2010. Chest x-ray appeared to be clear. Patient History Medical History Chronic back pain (Chronic 2009) Hearing loss (Chronic 1997) History of coronary artery stent placement (01/15/17) Neutropenia (Chronic 2006) Peripheral neuropathy (Chronic 2006) Surgical History Anesthesia (Resolved) History of ear surgery (Resolved 04/29/15) Family & Social History Family History Father Heart disease Hypertension High cholesterol Grandmother Cancer Sister Age: 79 Heart disease Hypertension High cholesterol Grandfather Heart failure Mother Liver failure Social History: household members spouse Prior Living Arrangements House Safety & Behavioral: Feels Safe in Current Yes Environment Been Physically Hurt or No Threatened By a Person Suicidal Ideation Description None Suicide Plan Description No Plan Tobacco & Substance use: Smoking Status Never smoker alcohol intake current alcohol intake frequency 0-2 drinks per day Substance Use Type does not use Meds Home Medications and Allergies Home Medications Medication Instructions Recorded Confirmed Type atenolol 100 mg PO QPM #0 07/31/11 11/16/19 History nitroglycerin [Nitrostat] 0.4 mg SUBLINGUAL Q5M PRN #0 07/31/11 11/16/19 History levothyroxine 100 mcg tablet 100 mcg PO QAM #90 tab 12/23/18 11/16/19 Rx clopidogrel 75 mg tablet 75 mg PO DAILY 05/05/19 11/16/19 History aspirin 162 mg PO DAILY 11/16/19 11/16/19 History atorvastatin 40 mg PO DAILY 11/16/19 11/16/19 History gabapentin 1,200 mg PO DAILY 11/16/19 11/16/19 History lisinopril 2.5 mg PO DAILY 11/16/19 11/16/19 History Allergies Allergy/AdvReac Type Severity Reaction Status Date / Time meperidine Allergy Mild RASH Verified 03/27/19 14:31 Review of Systems Review of Systems ROS: Yes All systems reviewed with the patient and are negative except as otherwise documented Exam Vital Signs (past 8 hours): - 11/16/19 00:03 11/16/19 00:40 11/16/19 01:37 Pulse Rate 79 107 H 74 Respiratory Rate 24 23 23 Blood Pressure 206/88 H Blood Pressure [Left Arm] 146/62 H 131/59 L Pulse Oximetry 97 95 96 11/16/19 03:30 11/16/19 04:19 11/16/19 04:31 Pulse Rate 100 H 100 H 83 Respiratory Rate 23 17 23 Blood Pressure 151/75 H Blood Pressure [Left Arm] 123/75 140/71 Pulse Oximetry 96 97 98 Oxygen Delivery Method Room Air Narrative Exam Narrative: Gen: Alert, oriented, obese 84 y.o. male, appears uncomfortable HEENT: normocephalic, atraumatic, conjunctiva clear, sclera non-icteric, oral mucosa pink and moist Neck: supple, full ROM, no JVD, trachea is midline Resp: Bilateral crackles and home lower bases, non-labored breathing CV: RRR, no murmur or rubs Abd: soft, non-tender, normoactive BTs Skin: no lesions or rashes, dry and intact Neuro: Alert and oriented X 4 w/no focal deficits. Speech clear and coherent. Extremities: moves all 4 extremities, is ambulatory, negative Sary?s sign, no edema Psyche: normal mood and affect. Objective Labs Result Diagrams: 11/15/19 23:59 11/15/19 23:59 Labs: Laboratory Results - last 24 hr 11/15/19 11/15/19 11/15/19 23:59 23:59 23:59 WBC 7.0 RBC 4.50 Hgb 16.0 Hct 45.6 MCV 101.2 H MCH 35.4 H MCHC 35.0 RDW 12.7 Plt Count 143 L Neut % (Auto) 53.8 Lymph % (Auto) 29.3 [place] % (Auto) 11.6 Eos % (Auto) 4.6 H Baso % (Auto) 0.7 Neut # (Auto) 3800 Lymph # (Auto) 2000 [place] # (Auto) 800 Eos # (Auto) 300 Baso # (Auto) 0 PT 12.3 INR 1.1 APTT 27 D-Dimer 238 H Sodium 136 L Potassium 4.5 Chloride 105 Carbon Dioxide 22 BUN 40 H Creatinine 1.14 Estimated GFR > 60.0 BUN/Creatinine Ratio 35.1 H Glucose 143 H Lactate Calcium 9.1 Magnesium 2.2 Total Creatine Kinase 101 CK-MB (CK-2) 2.57 H CK-MB (CK-2) Rel Index 2.5 Troponin I 0.084 H NT-Pro-B Natriuret Pep 2010 H Procalcitonin TSH 11/15/19 11/15/19 11/15/19 23:59 23:59 23:59 WBC RBC Hgb Hct MCV MCH MCHC RDW Plt Count Neut % (Auto) Lymph % (Auto) [place] % (Auto) Eos % (Auto) Baso % (Auto) Neut # (Auto) Lymph # (Auto) [place] # (Auto) Eos # (Auto) Baso # (Auto) PT INR APTT D-Dimer Sodium Potassium Chloride Carbon Dioxide BUN Creatinine Estimated GFR BUN/Creatinine Ratio Glucose Lactate 1.3 Calcium Magnesium Total Creatine Kinase CK-MB (CK-2) CK-MB (CK-2) Rel Index Troponin I NT-Pro-B Natriuret Pep Procalcitonin < 0.05 TSH 4.22 11/16/19 02:18 WBC RBC Hgb Hct MCV MCH MCHC RDW Plt Count Neut % (Auto) Lymph % (Auto) [place] % (Auto) Eos % (Auto) Baso % (Auto) Neut # (Auto) Lymph # (Auto) [place] # (Auto) Eos # (Auto) Baso # (Auto) PT INR APTT D-Dimer Sodium Potassium Chloride Carbon Dioxide BUN Creatinine Estimated GFR BUN/Creatinine Ratio Glucose Lactate Calcium Magnesium Total Creatine Kinase CK-MB (CK-2) CK-MB (CK-2) Rel Index Troponin I 0.083 H NT-Pro-B Natriuret Pep Procalcitonin TSH Assessment & Plan Assessment & Plan narrative: Juan Manuel Humphries will be placed into observation under cardiac telemetry and undergo a repeat echocardiogram. CHF exacerbation, acute, present on admission -his pro BNP was 2009 -he was diuresed with 1 dose of furosemide 40 mg IV in the emergency department -even though his troponin decreased slightly I have scheduled another one at 8 in the morning -Continue home dose of atenolol 100 mg Q at bedtime -low-sodium diet with a 1500 cc fluid restriction -strict I&Os Coronary artery disease, chronic, present on admission -patient is at high risk of acute coronary syndrome considering previous history of heart muscle global hypokinesis seen on previous echocardiogram and previous 2 stent placements -he will undergo an echocardiogram hopefully today but possibly not until Sunday -continue dual anti-platelet therapy with aspirin and Plavix Essential hypertension, chronic and currently not well controlled, present on admission -continue home dose of atenolol and lisinopril Hyperlipidemia, chronic, stable -continue home dose of atorvastatin 40 mg p.o. daily Hypothyroidism, chronic, present on admission -continue home dose of levothyroxine 100 mcg p.o. daily Consults: Dr. Jim, Cardiology consult and involvement is appreciated. Patient is observation status as his stay is not likely to exceed 2 midnights. FEN: IV saline lock, Low sodium diet w/1500 cc fluid restriction, BMP in the am. VTE prophylaxis: Bilateral SCDs Enoxaparin 40 mg subQ daily Dispo: unknown at this time. Code Status: DNR/DNI as discussed with patient and his COVID-19 COVID-19 status: Not tested Quality VTE Deep Vein Thrombosis/Pulmonary Embolism Present on Admission: No
[2019-11-16] MEDS: ACETAMINOPHEN 325 MG TABLET 650 MG PO ×2 (05:17→22:08)
--- NOTE | 2019-11-16 05:40 | PC.ADMIT ---
Patient admitted at 0440 to room 207 from ER per stretcher. Ambulated into room and to/from bathroom. Is alert and oriented. [place] and did not bring hearing aids with; asked him to have bring them when she comes in. Breath sounds CTA with RA sat of 99%. Reports he gets SOB with exertion and has been having periods of apnea when asleep causing him to wake up and then is winded and has to catch up. States he has been diagnosed with sleep apnea and has a CPAP which he had not been using but did try it last evening and still had the periods of apnea. HRR; telemetry placed and reading was SR w/frequent PVC's. Denies nausea. BT present; abdomen is soft. Denies dysuria, frequency or urgency with urination and is continent. Is steady on feet and reports no falls in past 3 months. Denies use of assistive device. Complains of headache/neck pain with severity of 1/10; requested/medicated with Tylenol. Bilateral calf SCD's applied. Discussed current orders and fluid restriction; verbalizes understanding. Fall risk score is low. Instructed in use of call light and bed controls. [email or web address] Admission Note: The patient,Juan Manuel Humphries,84 y/o, was given written information regarding hospital policies, unit procedures and contact persons. Patient's smoking status: Never smoker. Vital Signs - 8 hr 11/16/19 00:03 11/16/19 00:40 11/16/19 01:37 Temperature Pulse Rate 79 107 H 74 Respiratory Rate 24 23 23 Blood Pressure 206/88 H Blood Pressure [Left Arm] 146/62 H 131/59 L Pulse Oximetry 97 95 96 11/16/19 03:30 11/16/19 04:19 11/16/19 04:31 Temperature Pulse Rate 100 H 100 H 83 Respiratory Rate 23 17 23 Blood Pressure 151/75 H Blood Pressure [Left Arm] 123/75 140/71 Pulse Oximetry 96 97 98 11/16/19 04:40 Temperature 96.9 F L Pulse Rate 60 Respiratory Rate 20 Blood Pressure 154/73 H Blood Pressure [Left Arm] Pulse Oximetry 99
[2019-11-16] MEDS: LEVOTHYROXINE 100 MCG TABLET PO (05:56)
--- NOTE | 2019-11-16 08:38 | CM.DANOTE ---
Addendum entered by Saloni Danielson LPN 11/16/19 17:06: Went to room during Bedside Rounds but Dr. Teixeira noted she would see pt later and would likely keep him overnight for monitoring before sending him home. was at bedside and RN Fadia noted he was doing well and that they were eager to see the doctor. DCP team will follow prn. Original Note: Discharge Planning/Care Management DCP: assessment: case received, EMR reviewed. Pt is an 84 year old male who admitted early this mornin to care of hospitalist team. H&P : hospitalist Karen Anderson. Dr. Teixeira will be following pt today. Consulted: Pt's traffic law attorney: Dr. Rowley ECHO is planned for today. P: discuss in Team Rounds and meet with pt to continue the assessment process. CM Discharge Assessment Start: 11/16/19 08:36 Freq: Status: Active Protocol: Document 11/16/19 08:36 ITV (Rec: 11/16/19 08:38 ITV [id number]) Discharge Planning Assessment Advance Directives? No History Provided By Medical Record Has Patient been admitted in last 30 No days? Comment recent telemedicine clinic visits with medication adjustments Prior Living Arrangements House Household Members spouse Review Status In Process
[2019-11-16] MEDS: lisinopriL 5 MG TABLET 2.5 MG PO (09:35)
[2019-11-16] MEDS: GABAPENTIN 600 MG TABLET 1200 MG PO ×3 (09:36→21:06)
[2019-11-16] MEDS: ENOXAPARIN 40 MG/0.4 ML SYRINGE SUBCUT (09:37)
[2019-11-16] MEDS: CLOPIDOGREL 75 MG TABLET PO (09:37)
[2019-11-16] MEDS: ATORVASTATIN 20 MG TABLET 40 MG PO (09:37)
[2019-11-16] MEDS: atenoloL 25 MG TABLET 100 MG PO (09:37)
[2019-11-16] MEDS: ASPIRIN EC 81 MG TABLET 162 MG PO (09:37)
--- NOTE | 2019-11-16 11:24 | DI.ECHO.S_ITS ---
Echocardiogram Report + + :Name: HAYDEN DICKINSON Study Date: 11/16/2019 Height: 71 in : :[facility] Weight: 218 lb : : Gender: Male BSA: 2.2 m2 : :: 1935 Age: 84 yrs BP: 154/73 mmHg: :Reason For Study: CHF : : Performed By: Oracio Rodney : :Referring: GLADIS LUCERO : + + Interpretation Summary The left ventricle is normal in size. The ejection fraction is estimated to be 40-45%. Compared to the prior exam, the left ventricular function is reduced. There is mild global hypokinesis of the left ventricle. There is a significant dyssynchronous contraction pattern, consistent with a conduction abnormality during PVCs. The right ventricle is normal in size and function. There is mild tricuspid regurgitation. The right ventricular systolic pressure is estimated to be at least 25 mmHg based on an estimated right atrial pressure of 3 mm Hg. The patient had frequent PVCs during the exam. Procedure: A limited 2D, color and Doppler echocardiogram was performed to assess left ventricular function. The study quality was technically adequate. Comparison is made with the echocardiogram of 02/06/17. The patient was in normal sinus rhythm during the exam. The patient had frequent PVCs during the exam. Left Ventricle: The left ventricle is normal in size. There is normal left ventricular wall thickness. There is no thrombus. The ejection fraction is estimated to be 40-45%. Compared to the prior exam, the left ventricular function is reduced. There is mild global hypokinesis of the left ventricle. There is a significant dyssynchronous contraction pattern, consistent with a conduction abnormality. Right Ventricle: The right ventricle is normal in size and function. Mitral Valve: There is mild mitral annular calcification. No color Doppler was performed. Aortic Valve: The aortic valve is not well visualized. There is no hemodynamically significant valvular aortic stenosis. Tricuspid Valve: The tricuspid valve is normal. There is mild tricuspid regurgitation. The right ventricular systolic pressure is estimated to be at least 25 mmHg based on an estimated right atrial pressure of 3 mm Hg. Pericardium/ Pleura There is no pericardial effusion. MMode/2D Measurements & Calculations LVIDd: 5.4 cm IVC diam: 1.6 cm LVIDs: 4.2 cm FS: 22.3 % IVSd: 1.1 cm LVPWd: 0.77 cm LV mcneil. diameter/BSA (cm/m^2): 2.5 LV sys. diameter/BSA (cm/m^2): 1.9 RVD1 (basal): 3.3 cm RVD2 (mid): 3.4 cm TAPSE: 1.7 cm Doppler Measurements & Calculations TR max mayela: 236.7 cm/sec TR max P.4 mmHg Reading Physician:02:46 PM
--- NOTE | 2019-11-16 13:35 | PC.NURSE ---
Pt resting comfortably in bed. present in room. No c/o of pain or [place] at this time. Using call light appropriately, requested pt call for assistance before rising from bed.
--- NOTE | 2019-11-16 15:26 | PC.NURSE ---
It had been a while since the Pt had voided so I asked if he could try around 1400. Pt was able to void 700 but him and his both agreed its usually 9 hours in between voids and that he doesn't usually void often.
--- NOTE | 2019-11-16 16:53 | PC.NURSE ---
Resting comfortably in bed with spouse at his bedside, waiting for doctor to discuss hospital plan. talked for awhile about CPAP which he uses intermittently at home. requested he call for SBA when going to the bathroom. call amos within reach
[2019-11-17] VITALS (8 sets, daily range): BP systolic 131–151; BP diastolic 53–110; PULSE 54–87; RESP 16; TEMP 36.2–37; O2SAT 84–97
[2019-11-17] MEDS: LEVOTHYROXINE 100 MCG TABLET PO (05:45)
[2019-11-17 05:56] LABS: Add Manual Diff / Slide Review NO; Basophils Absolute Auto 100 /uL (0-100); Basophils Percent Auto 0.9 % (0-2); Eosinophils Absolute Auto 300 /uL (0-450); Eosinophils Percent Auto 5.3 % (2-4); Hematocrit 44.8 % (41-53); Hemoglobin 15.7 g/dL (13.5-17.5); Lymphocytes Absolute Auto 2000 /uL (1100-4500); Lymphocytes Percent Auto 34.4 % (25-40); Mean Corpuscular Hemoglobin 35.2 PG (26-34); Mean Corpuscular Volume 100.4 fL (80-100); Monocytes Absolute Auto 700 /uL (0-900); Monocytes Percent Auto 11.7 % (3-14); Neutrophils Absolute Auto 2800 /uL (1500-7000); Neutrophils Percent Auto 47.7 % (50-75); Platelet Count 132 X10^3/uL (150-400); Red Blood Cell Count 4.46 X10^6/uL (4.5-5.9); Red Cell Distribution Width 12.6 % (11.6-14.8); White Blood Cell Count 5.9 X10^3/uL (4.5-11.0)
[2019-11-17 06:04] LABS: Alanine Aminotransferase 92 IU/L (<50); Albumin 3.6 g/dL (3.5-5.0); Albumin Globulin Ratio 1.5 (1.0-2.8); Alkaline Phosphatase 40 U/L (38-126); Aspartate Aminotransferase 42 IU/L (17-59); BUN Creatinine Ratio 26.3 (6-22); Blood Urea Nitrogen 31 mg/dL (9-20); Calcium 8.8 mg/dL (8.4-10.2); Carbon Dioxide 26 mmol/L (22-32); Chloride 105 mmol/L (98-107); Estimated Glomerular Filt Rate 59.1 mL/min (>60); Globulin 2.4 g/dL (1.7-4.1); Glucose 103 mg/dL (80-110); HEMOLYSIS 19 (0-50); Magnesium 2.2 mg/dL (1.6-2.3); Potassium 4.4 mmol/L (3.4-5.1); Sodium 136 mmol/L (137-145)
[2019-11-17] MEDS: ENOXAPARIN 40 MG/0.4 ML SYRINGE SUBCUT (08:00)
[2019-11-17] MEDS: ATORVASTATIN 20 MG TABLET 40 MG PO (08:01)
[2019-11-17] MEDS: ASPIRIN EC 81 MG TABLET 162 MG PO (08:02)
[2019-11-17] MEDS: lisinopriL 5 MG TABLET 2.5 MG PO (08:02)
[2019-11-17] MEDS: FUROSEMIDE 40 MG TABLET PO (08:04)
[2019-11-17] MEDS: CLOPIDOGREL 75 MG TABLET PO (08:04)
[2019-11-17] MEDS: GABAPENTIN 600 MG TABLET 1200 MG PO (08:04)
[2019-11-17] MEDS: atenoloL 25 MG TABLET 100 MG PO (08:04)
[2019-11-17] MEDS: SODIUM CHLORIDE 0.9% FLUSH 10 ML IV (08:05)
[2019-11-17 10:14] LABS: Hemoglobin A1C% w Est Avg Glu 5.9 % (4.0-6.0)
[2019-11-17 10:25] LABS: Cholesterol 123 mg/dL (140-199); HDL Cholesterol 27 mg/dL (40-60); LDL Cholesterol Calculated 52 mg/dL (<100); Triglycerides 218 mg/dL (35-150)
--- NOTE | 2019-11-17 10:29 | PC.NURSE ---
Addendum entered by Neena Davis R.N. 11/17/19 14:21: Pt DC in stable condition after instructions given to pt and spouse, both stated understanding. All belongings left w/patient including pt's hearing aids. New medications transmitted to pharmacy. Pt's is following up on needed appointments. Original Note: Pt ambulated twice around unit w/pulse ox not dropping below 97%. Pt speaking in full sentences while walking. No c/o of CP or SOB w/this exertion. Pt voided approx 400mL urine into toilet. Reeducated pt to please save voids in urinal so we can measure output.
--- NOTE | 2019-11-17 12:46 | PM.DS.1 ---
History of Present Illness History of Present Illness Date Patient Seen: 11/16/19 Chief complaint: SOB Narrative: Written by Karen GORDON: Juan Manuel Butler is an 84-year-old male who presented to the emergency department with approximately 1 month history of shortness of breath that particularly worsened over the evening. His is with him in the room and provides some of the history. States that he tried to sleep in a chair and was so uncomfortable that she brought him to the emergency department he states that he has had shortness of breath going up and down stairs. He denies chest pain. Denies cough heartburn, nausea or vomiting, abdominal pain but does endorse abdominal bloating. He has had a couple of days of diarrhea as well. The states that they been very careful about his eating and have been weighing daily and has lost a ?couple of lb? over the past few days. Patient does describe having the abdominal bloating accompanied by ?gas? and has been burping a lot. He denies any sensations of palpitations. Denies lower extremity swelling. In the emergency department they did 2 troponins both of which were indeterminate. Patient's case was discussed with Dr. Jim patient's mental health case manager who suggested observation and an echocardiogram. He was administered IV lasix 40 mg X 1 in the ED. The patient has a history of cardiac stenting approximately 10 years ago which involved arthrectomy of the proximal LAD, circumflex in 1991 with a repeat angiography in December of 2006. In 2006 that showed occluded right coronary artery with collateral filling and high-grade mild LAD stenosis which required stenting. in February 2019 he underwent left heart catheterization which involve balloon catheterization of the mid left circumflex and placement of a drug-eluting stent which went from the proximal left main artery to the proximal mid LAD. He then followed up with an appointment with his mental health case manager the day after discharge. He has had 2 telephone encounters of which the last encounter he had blood pressure medications readjusted due to high blood pressure. Admission vital signs include a blood pressure of 151/75, pulse: 83, respiratory rate: 23, oxygen saturation of 98% on room air, and weight of 99 kilos. CBC: WBC is 7.0 RBC 4.5 hemoglobin 16 hematocrit 45.6 and a platelet count of 143. D-dimer was mildly elevated at 238. Electrolytes: Sodium: 136 potassium: 4.5, chloride: 105, CO2: 22, BUN: 40, creatinine: 1.14, GFR greater than 60, calcium: 9.1, magnesium: 2.2, procalcitonin is less than 0.05, and TSH: 4.2. His cardiac markers were mildly elevated with a troponin of 0.084 and 0.083 respectively. ProBNP was 2010. Chest x-ray appeared to be clear. Discharge Providers Provider Date of admission: 11/16/19 03:14 Discharge Date: 11/17/19 Primary care physician: Jordan Spencer MD Consults: 11/15/19 23:54 Consult to Respiratory Therapy Evaluate & Treat Comment: Physician Instructions: Evaluate and treat 11/16/19 03:49 Consult to Cardiology Routine Comment: Consulting Provider: Mahi Jim Reason for consultation: CHF exac. Has provider been notified: Yes Discharge provider: Mya Teixeira DO Summary Hospital Course Discharge Diagnosis: 1. Newly diagnosed systolic congestive heart failure with acute exacerbation, present on admission. Resolved. 2. Coronary artery disease status post stenting, chronic, present on admission. Presume stable. 3. Hypertension, chronic, present on admission. Stable. 4. Hyperlipidemia, chronic, present on admission. Stable. 5. Hypothyroidism, chronic, present on admission. Stable. 6. Prediabetes with peripheral neuropathy, chronic, present on admission. Stable. Hospital Course: Juan Manuel Humphries is an 84-year-old male with past medical history significant for CAD status post stenting x3 (most recent stents 02/2019), hypertension, hyperlipidemia, peripheral neuropathy, and hypothyroidism who presented to the emergency department with progressive worsening shortness of breath. 1. Newly diagnosed systolic congestive heart failure with acute exacerbation, present on admission. Resolved. -Patient presented with complaint of progressive worsening dyspnea on exertion only when climbing his driveway, fatigue, and orthopnea. Patient denies chest pain or pressure, pain of neck, jaw or upper extremities, diaphoresis, nausea, or shortness of breath at rest. -Initial proBNP 2009. -Troponin slightly elevated at 0.084 and trended down with diuresis now 0.070. No need to further trend. -EKG demonstrated sinus rhythm with frequent ventricular premature complexes in a bigeminal pattern, ST-T wave changes in inferior and lateral leads which is unchanged from previous EKG, no acute ischemic changes such as ST elevation or depression. -Received furosemide 40 mg IV x1 in the ED. Continued furosemide 40 mg daily. -Continued home atenolol 100 mg daily in the evening and lisinopril increased from 2.5 mg to 5 mg daily for better blood pressure control. -Continued strict I&Os and daily weights. Net - 1.2 L -Continued heart healthy/low-sodium diet and 1.5 L fluid restriction. 2. Coronary artery disease status post stenting, chronic, present on admission. Presume stable. -Patient is at high risk of acute coronary syndrome considering previous history of heart muscle global hypokinesis seen on previous echocardiogram and previous 3 stent placements with history of diffuse LAD disease. Patient denies chest pain or shortness of breath. -Echocardiogram demonstrated normal LV size with reduced function and EF 40-45%, mild global hypokinesis of the left ventricle, significant dyssynchronous contraction pattern, consistent with a conduction abnormality during PVCs, RV normal size and function, mild tricuspid regurgitation, RVSP 25 mmHg based on an estimated right atrial pressure of 3 mm Hg, and frequent PVCs during the exam. -Continued dual anti-platelet therapy with aspirin 81 mg daily and Plavix 75 mg daily. -Recommend expedited outpatient nuclear medicine stress test (unavailable during this hospitalization) and possible left heart catheterization based on echocardiogram and previous diffuse LAD disease seen on left heart catheterization in February 2019. Discussed case with patient's mental health case manager Dr. Jim who is arranging for patient to have expedited nuclear medicine stress test and outpatient follow-up. 3. Hypertension, chronic, present on admission. Stable. -Blood pressure was intermittently elevated throughout hospitalization with average SBP 130-150's mmHg. -Continued home atenolol 100 mg daily in the evening and lisinopril increased from 2.5 mg to 5 mg daily. 4. Hyperlipidemia, chronic, present on admission. Stable. -Continued home atorvastatin 40 mg daily. 5. Hypothyroidism, chronic, present on admission. Stable. -TSH normal at 4.22. -Continued home levothyroxine 100 mcg daily. 6. Prediabetes with peripheral neuropathy, chronic, present on admission. Stable. -Hemoglobin A1c 5.9% indicative of prediabetes. -Continued gabapentin 1200 mg 3 times daily. -Counseled patient on lifestyle modification including: Diet and exercise (did not recommend strenuous activity for now due to new onset CHF and possible obstructive CAD). Exam Vital Signs (past 8 hours): - 11/17/19 05:37 11/17/19 07:00 11/17/19 07:34 Temperature 97.1 F L 97.2 F L Pulse Rate 61 87 Respiratory Rate 16 16 Blood Pressure 145/76 H 131/110 H Pulse Oximetry 93 84 L 94 11/17/19 08:02 11/17/19 08:08 11/17/19 10:28 Temperature Pulse Rate 87 54 L Respiratory Rate Blood Pressure 131/110 H 145/94 H Pulse Oximetry 97 11/17/19 11:49 Temperature 98.6 F Pulse Rate 55 L Respiratory Rate 16 Blood Pressure 151/53 H Pulse Oximetry 93 Oxygen Delivery Method Room Air Oxygen Flow Rate 0 Narrative Exam Narrative: General: Elderly male sitting in bed and in no acute distress, well-developed, well-nourished, appropriately interactive. HEENT: Normocephalic, atraumatic. External ears without defect. Pupils equal, round, and reactive to light. Anicteric sclerae, moist conjunctivae, and no lid lag. Oropharynx free of erythema and cobble stoning with moist mucosa. Neck: Supple with full range of motion. No jugular venous distension. No lymphadenopathy or thyromegaly. Cardiovascular: Regular rate and rhythm without murmurs, rubs, or gallops appreciated. Pulmonary: Clear to auscultation bilaterally without crackles, wheezes, or rhonchi. Normal respiratory effort with no use of accessory muscles. Abdomen: Soft, bowel sounds present, nontender, nondistended. No hepatosplenomegaly or masses appreciated. Extremities: No clubbing, cyanosis, or edema. Skin: Normal temperature, turgor, and texture; no rash, ulcers, or subcutaneous nodules appreciated. Neurological: Cranial nerves grossly intact. Psychiatric: Normal mood and affect. Alert and oriented to person, place, and time. Poor insight. Mild cognitive impairment with short-term memory recall deficit. Objective Labs Result Diagrams: 11/17/19 05:37 11/17/19 05:37 Labs: Laboratory Results - last 24 hr 11/17/19 11/17/19 11/17/19 05:37 05:37 05:37 WBC 5.9 RBC 4.46 L Hgb 15.7 Hct 44.8 MCV 100.4 H MCH 35.2 H MCHC 35.0 RDW 12.6 Plt Count 132 L Neut % (Auto) 47.7 L Lymph % (Auto) 34.4 [place] % (Auto) 11.7 Eos % (Auto) 5.3 H Baso % (Auto) 0.9 Neut # (Auto) 2800 Lymph # (Auto) 2000 [place] # (Auto) 700 Eos # (Auto) 300 Baso # (Auto) 100 Sodium 136 L Potassium 4.4 Chloride 105 Carbon Dioxide 26 BUN 31 H Creatinine 1.18 Estimated GFR 59.1 L BUN/Creatinine Ratio 26.3 H Glucose 103 Hemoglobin A1c Calcium 8.8 Magnesium 2.2 Total Bilirubin 1.0 AST 42 ALT 92 H Alkaline Phosphatase 40 Total Protein 6.0 L Albumin 3.6 Globulin 2.4 Albumin/Globulin Ratio 1.5 Triglycerides 218 H Cholesterol 123 L LDL Cholesterol, Calc 52 HDL Cholesterol 27 L 11/17/19 05:51 WBC RBC Hgb Hct MCV MCH MCHC RDW Plt Count Neut % (Auto) Lymph % (Auto) [place] % (Auto) Eos % (Auto) Baso % (Auto) Neut # (Auto) Lymph # (Auto) [place] # (Auto) Eos # (Auto) Baso # (Auto) Sodium Potassium Chloride Carbon Dioxide BUN Creatinine Estimated GFR BUN/Creatinine Ratio Glucose Hemoglobin A1c 5.9 Calcium Magnesium Total Bilirubin AST ALT Alkaline Phosphatase Total Protein Albumin Globulin Albumin/Globulin Ratio Triglycerides Cholesterol LDL Cholesterol, Calc HDL Cholesterol Discharge Plan Discharge Plan Patient Disposition: Home Discharge comment: You are being discharged home. You have new onset systolic heart failure with an ejection fraction of 45-50% (normal ejection fraction 60%). You have been prescribed furosemide 40 mg daily. Please keep track of your weight and symptoms including shortness of breath, shortness of breath with exercise, swelling of your lower extremities, amount of pillows needed to sleep at night, waking up at night gasping for air. Recommend stress test as soon as available and follow-up with Dr. Jim as soon as available. Your lisinopril has been increased from 2.5 mg to 5 mg daily to better control blood pressure. You have prediabetes and recommend lifestyle modification with low carb, low-fat diet for now. Continue your other medications as previously prescribed. Discharge orders & Medications Prescriptions: Continued atenolol 100 MG tablet 100 mg PO QPM Qty: 0 RF: 0 nitroglycerin [Nitrostat] 0.4 mg Tablet, Sublingual 0.4 mg SUBLINGUAL Q5M PRN (Reason: Chest Pain) Qty: 0 RF: 0 levothyroxine 100 mcg tablet 100 mcg PO QAM Qty: 90 RF: 1 clopidogrel [Plavix] 75 mg tablet 75 mg PO DAILY RF: 0 atorvastatin 40 mg tablet 40 mg PO DAILY RF: 0 gabapentin 600 mg tablet 1,200 mg PO TID RF: 0 aspirin 81 mg tablet,delayed release (DR/EC) 162 mg PO DAILY RF: 0 Changed lisinopril 2.5 mg tablet 5 mg PO DAILY Qty: 0 RF: 0 No Action furosemide 40 mg tablet 80 mg PO DAILY Qty: 60 RF: 1 Follow up/Referrals: Jordan Spencer MD [Primary Care Provider] - 1 Week (appt:11/23 @ 10:30 check in @ 10:[address] spencer ) Mahi Jim MD [Physician] - 3-5 Days Diet/Activity/Treatments Diet: Low-fat, Low-sodium and Low-cholesterol Activity: No overly strenuous activity or heavy lifting Visit Report/Discharge Packet Instructions: The Mediterranean Diet and Good Health, The DASH Diet, Essential Hypertension, DI for Heart Failure, DI for Prediabetes, Furosemide (By mouth) Visit Report Forms: Patient Portal/API, Stroke Signs & Symptoms Discharge Data Primary Care Provider: Jordan Spencer Attending Provider: Karen Anderson Admit Date/Time: 11/16/19 03:14 Discharges patient from system. Discharge Date/Time: 11/17/19 14:25 Quality VTE Deep Vein Thrombosis/Pulmonary Embolism Present on Admission: No
== END 2019-11-17 14:25 | disposition home or self-care (01) ==
LOC: ED 11-16 03:15 → AC 11-16 03:15
PROVIDERS: Internal Medicine; Admitting Provider Nurse Practitioner Family; Emergency Provider Emergency Medicine; PCP Family Medicine; Visit Provider Nurse Practitioner Family
DX: I11.0 Hypertensive heart disease with heart failure (principal); I50.20 Unspecified systolic (congestive) heart failure; R06.02 Shortness of breath; I25.10 Atherosclerotic heart disease of native coronary artery without angina pectoris; E78.5 Hyperlipidemia, unspecified
CPT/HCPCS: 36415; 71045; 80048; 80053; 80061; 81003; 82550; 82553; 83036; 83605; 83735; 83880; 84145; 84443; 84484; 85025; 85379; 85610; 85730; 87040; 93005; 93306; 93307; 96372; 96374; 99285; G0378; J1650; J1940

== ENCOUNTER → 2019-12-09 15:05 | Outpatient (CLI) | payer MEDICARE, OTHER, SELFPAY ==
[2019-11-16 04:46] VITALS: BMI 29.9
[2019-12-09 16:33] LABS: BUN Creatinine Ratio 25.2 (6-22); Blood Urea Nitrogen 38 mg/dL (9-20); Calcium 9.7 mg/dL (8.4-10.2); Carbon Dioxide 25 mmol/L (22-32); Chloride 106 mmol/L (98-107); Estimated Glomerular Filt Rate 44.5 mL/min (>60); Glucose 86 mg/dL (80-110); HEMOLYSIS < 15 (0-50); Potassium 4.6 mmol/L (3.4-5.1); Sodium 139 mmol/L (137-145)
[2019-12-11 00:38] LABS: COVID19 Sendout Not Detected (Not Detect)
== END ==
PROVIDERS: Nurse Practitioner; PCP Family Medicine; Visit Provider Physician Assistant
DX: Z01.812 Encounter for preprocedural laboratory examination (principal); I10 Essential (primary) hypertension; I50.9 Heart failure, unspecified
CPT/HCPCS: 36415; 80048; 87635

== ENCOUNTER → 2019-12-17 10:43 | Outpatient (CLI) | payer MEDICARE, OTHER, SELFPAY ==
[2019-11-16 04:46] VITALS: BMI 29.9
[2019-12-17 12:28] LABS: BUN Creatinine Ratio 28.3 (6-22); Blood Urea Nitrogen 30 mg/dL (9-20); Calcium 9.2 mg/dL (8.4-10.2); Carbon Dioxide 24 mmol/L (22-32); Chloride 107 mmol/L (98-107); Estimated Glomerular Filt Rate > 60.0 mL/min (>60); Glucose 146 mg/dL (80-110); HEMOLYSIS < 15 (0-50); Potassium 4.4 mmol/L (3.4-5.1); Sodium 138 mmol/L (137-145)
== END ==
PROVIDERS: PCP Family Medicine; Referring Provider Physician Assistant; Visit Provider Physician Assistant
DX: I25.10 Atherosclerotic heart disease of native coronary artery without angina pectoris (principal)
CPT/HCPCS: 36415; 80048

== ENCOUNTER → 2020-01-09 11:47 | Outpatient (CLI) | payer MEDICARE, OTHER, SELFPAY ==
[2019-11-16 04:46] VITALS: BMI 29.9
[2020-01-09 13:03] LABS: Alanine Aminotransferase 45 IU/L (<50); Albumin 3.8 g/dL (3.5-5.0); Albumin Globulin Ratio 1.6 (1.0-2.8); Alkaline Phosphatase 51 U/L (38-126); Aspartate Aminotransferase 31 IU/L (17-59); BUN Creatinine Ratio 22.5 (6-22); Bilirubin Total 1.2 mg/dL (0.2-1.3); Blood Urea Nitrogen 27 mg/dL (9-20); Calcium 9.3 mg/dL (8.4-10.2); Carbon Dioxide 29 mmol/L (22-32); Chloride 105 mmol/L (98-107); Estimated Glomerular Filt Rate 57.8 mL/min (>60); Globulin 2.4 g/dL (1.7-4.1); Glucose 100 mg/dL (80-110); HEMOLYSIS < 15 (0-50); Magnesium 2.2 mg/dL (1.6-2.3); Potassium 4.4 mmol/L (3.4-5.1); Sodium 139 mmol/L (137-145); Total Protein 6.2 g/dL (6.3-8.2)
[2020-01-09 13:36] LABS: Free T4, Direct Thyroxine 1.19 ng/dL (0.78-2.19)
[2020-01-09 13:50] LABS: Thyroid Stimulating Hormone 0.878 uIU/mL (0.47-4.68)
== END ==
PROVIDERS: PCP Family Medicine; Referring Provider Physician Assistant; Visit Provider Physician Assistant
DX: I49.3 Ventricular premature depolarization (principal); I25.5 Ischemic cardiomyopathy; I10 Essential (primary) hypertension; I25.118 Atherosclerotic heart disease of native coronary artery with other forms of angina pectoris
CPT/HCPCS: 36415; 80053; 83735; 84439; 84443

== ENCOUNTER → 2020-01-17 10:55 | Outpatient (CLI) | payer MEDICARE, OTHER, SELFPAY ==
[2019-11-16 04:46] VITALS: BMI 29.9
[2020-01-18 06:21] LABS: COVID19 Sendout Not Detected (Not Detect)
== END ==
PROVIDERS: PCP Family Medicine; Visit Provider Physician Assistant
DX: Z11.59 Encounter for screening for other viral diseases (principal)
CPT/HCPCS: 87635

== ENCOUNTER → 2020-03-05 09:35 | Outpatient (CLI) | payer MEDICARE, OTHER, SELFPAY ==
[2020-02-12 12:15] VITALS: BMI 29.9
[2020-03-05 11:42] LABS: Alanine Aminotransferase 48 IU/L (<50); Albumin Globulin Ratio 1.5 (1.0-2.8); Alkaline Phosphatase 53 U/L (38-126); Aspartate Aminotransferase 35 IU/L (17-59); BUN Creatinine Ratio 28.8 (6-22); Bilirubin Total 0.9 mg/dL (0.2-1.3); Blood Urea Nitrogen 42 mg/dL (9-20); Carbon Dioxide 31 mmol/L (22-32); Chloride 102 mmol/L (98-107); Estimated Glomerular Filt Rate 46.1 mL/min (>60); Globulin 2.7 g/dL (1.7-4.1); Glucose 114 mg/dL (80-110); HEMOLYSIS < 15 (0-50); Potassium 4.1 mmol/L (3.4-5.1); Sodium 140 mmol/L (137-145); Total Protein 6.7 g/dL (6.3-8.2)
[2020-03-05 12:10] LABS: TSH w/ Reflex to FT4 2.01 uIU/mL (0.47-4.68)
== END ==
PROVIDERS: Family Provider Internal Medicine Cardiovascular Disease; PCP Family Medicine; Referring Provider Internal Medicine Cardiovascular Disease; Visit Provider Internal Medicine Cardiovascular Disease
DX: Z51.81 Encounter for therapeutic drug level monitoring (principal); Z79.899 Other long term (current) drug therapy; I49.3 Ventricular premature depolarization; I25.5 Ischemic cardiomyopathy
CPT/HCPCS: 36415; 80053; 84443

== ENCOUNTER → 2020-03-22 13:29 | Outpatient (CLI) | payer MEDICARE, OTHER, SELFPAY ==
[2020-02-12 12:15] VITALS: BMI 29.9
[2020-03-22 15:34] LABS: Alanine Aminotransferase 44 IU/L (<50); Albumin 3.7 g/dL (3.5-5.0); Albumin Globulin Ratio 1.4 (1.0-2.8); Alkaline Phosphatase 56 U/L (38-126); Aspartate Aminotransferase 31 IU/L (17-59); BUN Creatinine Ratio 23.1 (6-22); Bilirubin Total 0.8 mg/dL (0.2-1.3); Blood Urea Nitrogen 33 mg/dL (9-20); Carbon Dioxide 31 mmol/L (22-32); Chloride 104 mmol/L (98-107); Cholesterol 137 mg/dL (140-199); Estimated Glomerular Filt Rate 47.2 mL/min (>60); Globulin 2.6 g/dL (1.7-4.1); Glucose 124 mg/dL (80-110); HDL Cholesterol 37 mg/dL (40-60); HEMOLYSIS < 15 (0-50); LDL Cholesterol Calculated 51 mg/dL (<100); Potassium 4.5 mmol/L (3.4-5.1); Sodium 138 mmol/L (137-145); Total Protein 6.3 g/dL (6.3-8.2); Triglycerides 243 mg/dL (35-150)
== END ==
PROVIDERS: Family Provider Internal Medicine Cardiovascular Disease; PCP Family Medicine; Referring Provider Internal Medicine Cardiovascular Disease; Visit Provider Internal Medicine Cardiovascular Disease
DX: Z51.81 Encounter for therapeutic drug level monitoring (principal); Z79.899 Other long term (current) drug therapy
CPT/HCPCS: 36415; 80053; 80061; 84443

== ENCOUNTER 2020-04-26 08:30 | Outpatient (RCR) | payer MEDICARE, OTHER, SELFPAY ==
[2019-11-16 04:46] VITALS: BMI 29.9
== END 2020-04-26 12:37 ==
LOC: CAR 08:30
PROVIDERS: Family Provider Internal Medicine Cardiovascular Disease; PCP Family Medicine; Referring Provider Internal Medicine Cardiovascular Disease; Visit Provider Internal Medicine Cardiovascular Disease
DX: Z95.5 Presence of coronary angioplasty implant and graft (principal)
CPT/HCPCS: 93798

== ENCOUNTER → 2020-07-01 10:21 | Outpatient (CLI) | payer MEDICARE, OTHER, SELFPAY ==
[2020-02-12 12:15] VITALS: BMI 29.9
--- NOTE | 2020-07-01 | DI.RAD.S_ITS ---
PROCEDURE: XR CHEST 2V INDICATIONS: Encounter for therapeutic drug level monitoring (AMIODERONE) TECHNIQUE: 2 views of the chest were acquired. COMPARISON: [facility], , CHEST 2 VIEW, 10/04/2012, 9:46. [facility], CR, XR CHEST 1V, 11/15/2019, 23:59. [facility], CR, XR CHEST 2V, 03/11/2019, 17:05. FINDINGS: Surgical changes and devices: None. Lungs and pleura: Lungs are clear except for mild interstitial prominence, chronic.. No pleural effusions or pneumothorax. Mediastinum: Mediastinal contours are normal. Heart size is normal. Bones and chest wall: No suspicious bony abnormalities. Soft tissues appear unremarkable. IMPRESSION: Mild chronic interstitial prominence, perhaps reflecting smoking history. No fibrotic change is found. The pattern is equivalent to the finding from chest two views 10/04/12 considering differences in technique. Dictated by: Osmin Jack M.D. on 07/01/2020 at 11:58 Approved by: Osmin Jack M.D. on 07/01/2020 at 11:59
== END ==
PROVIDERS: Family Provider Internal Medicine Cardiovascular Disease; PCP Student in an Organized Health Care Education/Training Program; Referring Provider Internal Medicine Cardiovascular Disease; Visit Provider Internal Medicine Cardiovascular Disease
DX: Z51.81 Encounter for therapeutic drug level monitoring (principal); Z79.899 Other long term (current) drug therapy
CPT/HCPCS: 71046

== ENCOUNTER → 2020-07-02 08:49 | Outpatient (CLI) | payer MEDICARE, OTHER, SELFPAY ==
[2020-02-12 12:15] VITALS: BMI 29.9
[2020-07-02 09:37] LABS: Alanine Aminotransferase 60 IU/L (<50); Albumin 4.2 g/dL (3.5-5.0); Albumin Globulin Ratio 1.4 (1.0-2.8); Alkaline Phosphatase 58 U/L (38-126); Aspartate Aminotransferase 40 IU/L (17-59); BUN Creatinine Ratio 26.6 (6-22); Bilirubin Total 0.8 mg/dL (0.2-1.3); Blood Urea Nitrogen 34 mg/dL (9-20); Calcium 9.2 mg/dL (8.4-10.2); Carbon Dioxide 33 mmol/L (22-32); Chloride 105 mmol/L (98-107); Cholesterol 142 mg/dL (140-199); Estimated Glomerular Filt Rate 53.7 mL/min (>60); Globulin 2.9 g/dL (1.7-4.1); Glucose 122 mg/dL (80-110); HDL Cholesterol 35 mg/dL (40-60); HEMOLYSIS < 15 (0-50); LDL Cholesterol Calculated 72 mg/dL (<100); Potassium 5.2 mmol/L (3.4-5.1); Sodium 140 mmol/L (137-145); Total Protein 7.1 g/dL (6.3-8.2); Triglycerides 177 mg/dL (35-150)
[2020-07-02 10:09] LABS: Thyroid Stimulating Hormone 0.661 uIU/mL (0.47-4.68)
== END ==
PROVIDERS: Family Provider Internal Medicine Cardiovascular Disease; PCP Student in an Organized Health Care Education/Training Program; Referring Provider Internal Medicine Cardiovascular Disease; Visit Provider Internal Medicine Cardiovascular Disease
DX: I10 Essential (primary) hypertension (principal); Z79.899 Other long term (current) drug therapy; Z51.81 Encounter for therapeutic drug level monitoring
CPT/HCPCS: 36415; 80053; 80061; 84443

== ENCOUNTER → 2020-07-13 11:00 | Outpatient (CLI) | payer MEDICARE, OTHER, SELFPAY ==
[2020-02-12 12:15] VITALS: BMI 29.9
[2020-07-13 12:01] LABS: BUN Creatinine Ratio 22.9 (6-22); Blood Urea Nitrogen 33 mg/dL (9-20); Calcium 9.2 mg/dL (8.4-10.2); Carbon Dioxide 31 mmol/L (22-32); Chloride 104 mmol/L (98-107); Estimated Glomerular Filt Rate 46.9 mL/min (>60); Glucose 80 mg/dL (80-110); HEMOLYSIS < 15 (0-50); Potassium 4.3 mmol/L (3.4-5.1); Sodium 139 mmol/L (137-145)
== END ==
PROVIDERS: Family Provider Internal Medicine Cardiovascular Disease; PCP Student in an Organized Health Care Education/Training Program; Referring Provider Internal Medicine Cardiovascular Disease; Visit Provider Internal Medicine Cardiovascular Disease
DX: I10 Essential (primary) hypertension (principal)
CPT/HCPCS: 36415; 80048

== ENCOUNTER → 2020-07-14 09:51 | Outpatient (CLI) | payer MEDICARE, OTHER, SELFPAY ==
[2020-02-12 12:15] VITALS: BMI 29.9
[2020-07-14 11:05] LABS: Alanine Aminotransferase 66 IU/L (<50); Albumin 4.2 g/dL (3.5-5.0); Albumin Globulin Ratio 1.4 (1.0-2.8); Alkaline Phosphatase 54 U/L (38-126); Aspartate Aminotransferase 44 IU/L (17-59); Bilirubin Total 0.9 mg/dL (0.2-1.3); Bilirubin Unconjugated 0.8 mg/dL (0.0-1.1); Globulin 2.9 g/dL (1.7-4.1); HEMOLYSIS < 15 (0-50); Total Protein 7.1 g/dL (6.3-8.2)
== END ==
PROVIDERS: Family Provider Internal Medicine Cardiovascular Disease; PCP Student in an Organized Health Care Education/Training Program; Referring Provider Nurse Practitioner; Visit Provider Nurse Practitioner
DX: I10 Essential (primary) hypertension (principal)
CPT/HCPCS: 36415; 80076

== ENCOUNTER 2020-08-15 02:30 | Emergency (ER) | payer MEDICARE, OTHER, SELFPAY ==
[2020-02-12 12:15] VITALS: BMI 29.9
[2020-08-15] VITALS (13 sets, daily range): BP systolic 105–140; BP diastolic 55–80; PULSE 25–34; RESP 18–25; TEMP 36.2–37; O2SAT 92–98; BMI 30.9
--- NOTE | 2020-08-15 02:52 | DI.RAD.S_ITS ---
PROCEDURE: XR CHEST 1V INDICATIONS: bradycardia TECHNIQUE: One view of the chest was acquired. COMPARISON: [facility], CR, XR CHEST 1V, 11/15/2019, 23:59. [facility], CR, XR CHEST 2V, 03/11/2019, 17:05. [facility], CT, CT CHEST WITHOUT CONTRAST, 03/12/2019, 6:22. [facility], CR, CHEST 2 VIEW, 10/04/2012, 9:46. [facility], CR, XR CHEST 2V, 07/01/2020, 10:31. FINDINGS: Surgical changes and devices: None. Lungs and pleura: An incomplete inspiratory result is noted, causing a crowded appearance to the lung markings. No focal infiltrates are seen. No pneumothorax or significant pleural effusions are seen. Mediastinum: The cardiac contours are within normal limits. The aorta demonstrates calcification and tortuosity. Bones and chest wall: No suspicious bony lesions. Age-appropriate bony degenerative changes are seen. Overlying soft tissues appear unremarkable. IMPRESSION: Portable chest within normal limits. Note: No significant discrepancy from the preliminary report. Dictated by: Dong Smalls M.D. on 08/15/2020 at 8:46 Approved by: Dong Smalls M.D. on 08/15/2020 at 8:48
[2020-08-15] MEDS: ATROPINE 1 MG/10 ML SYRINGE 0.5 MG IV ×2 (03:05→05:28)
[2020-08-15 03:07] LABS: Add Manual Diff / Slide Review NO; Basophils Absolute Auto 100 /uL (0-100); Basophils Percent Auto 1.2 % (0-2); Eosinophils Absolute Auto 300 /uL (0-450); Eosinophils Percent Auto 5.4 % (2-4); Hemoglobin 14.9 g/dL (13.5-17.5); Lymphocytes Absolute Auto 1800 /uL (1100-4500); Lymphocytes Percent Auto 31.6 % (25-40); Mean Corpuscular HGB Conc 33.8 % (30-36); Mean Corpuscular Hemoglobin 33.9 PG (26-34); Mean Corpuscular Volume 100.1 fL (80-100); Monocytes Absolute Auto 800 /uL (0-900); Monocytes Percent Auto 14.4 % (3-14); Neutrophils Absolute Auto 2700 /uL (1500-7000); Neutrophils Percent Auto 47.4 % (50-75); Platelet Count 152 X10^3/uL (150-400); Red Cell Distribution Width 13.3 % (11.6-14.8); White Blood Cell Count 5.8 X10^3/uL (4.5-11.0)
--- NOTE | 2020-08-15 03:09 | PC.NURSE ---
After 0.5mg atropine, HR increased from [address] Pfeiffer notified. Pt remains alert, oriented, pink/warm/dry.
[2020-08-15 03:11] LABS: Alanine Aminotransferase 82 IU/L (<50); Albumin 3.9 g/dL (3.5-5.0); Albumin Globulin Ratio 1.6 (1.0-2.8); Alkaline Phosphatase 51 U/L (38-126); Aspartate Aminotransferase 66 IU/L (17-59); BUN Creatinine Ratio 29.2 (6-22); Bilirubin Total 0.4 mg/dL (0.2-1.3); Blood Urea Nitrogen 49 mg/dL (9-20); Calcium 8.9 mg/dL (8.4-10.2); Carbon Dioxide 25 mmol/L (22-32); Chloride 108 mmol/L (98-107); Estimated Glomerular Filt Rate 39.2 mL/min (>60); Globulin 2.4 g/dL (1.7-4.1); Glucose 117 mg/dL (80-110); HEMOLYSIS < 15 (0-50); Magnesium 2.4 mg/dL (1.6-2.3); Potassium 4.4 mmol/L (3.4-5.1); Sodium 140 mmol/L (137-145); Total Protein 6.3 g/dL (6.3-8.2)
[2020-08-15 03:23] LABS: Troponin I < 0.012 ng/mL (0.01-0.034)
--- NOTE | 2020-08-15 04:38 | ED_ITS ---
HPI - General Adult General Chief complaint: Dizziness Stated complaint: Dizziness sincem shortness of breath Time Seen by Provider: 08/15/20 02:45 Source: patient Mode of arrival: Wheelchair History of Present Illness HPI narrative: With a history of congestive heart failure, coronary artery disease, hypertension, hyperlipidemia, hypothyroidism presents with 24 hours of increasing dizziness, exertional dyspnea and mild orthopnea. He does not complain of increased lower extremity edema. He denies fevers, cough, chills, abdominal pain, vomiting or diarrhea. He notes no focal muscle weakness or sensory deficits. He does complain of burning neuropathic pain in both feet Related Data Home Medications Medication Instructions Recorded Confirmed amiodarone 200 mg PO DAILY 08/15/20 08/15/20 Previous Rx's Medication Instructions Recorded aspirin 81 mg tablet,delayed 162 mg PO DAILY #360 tab 12/25/19 release atenolol 100 mg tablet 100 mg PO QPM #90 tab 12/25/19 atorvastatin 40 mg tablet 40 mg PO DAILY #90 tab 12/25/19 nitroglycerin 0.4 mg sublingual 0.4 mg SUBLINGUAL Q5M PRN #10 tab 03/09/20 tablet clopidogrel 75 mg tablet 75 mg PO DAILY #90 tab 05/10/20 levothyroxine 100 mcg tablet 100 mcg PO QAM #90 tab 06/22/20 furosemide 20 mg tablet 20 - 40 mg PO DAILY #100 tab 07/06/20 gabapentin 600 mg tablet 600 mg PO TID #270 tab 07/06/20 lisinopril 5 mg tablet 5 mg PO DAILY #90 tab 07/06/20 Allergies Allergy/AdvReac Type Severity Reaction Status Date / Time meperidine Allergy Mild RASH Verified 07/06/20 09:27 Review of Systems Review of Systems ROS Unobtainable: All systems reviewed & are unremarkable except as noted in HPI and below Patient History Medical History Chronic back pain (2009) Chronic kidney disease, stage 3a Essential hypertension (10/04/12) Hearing loss (1997) History of coronary artery stent placement (01/15/17) Hypothyroidism (acquired) (01/07/13) Mixed hyperlipidemia (07/31/11) Neutropenia (2006) Peripheral neuropathy (2006) Surgical History Anesthesia History of ear surgery (04/29/15) S/P drug eluting coronary stent placement Family History Father Heart disease Hypertension High cholesterol Grandmother Cancer Sister Age: 80 Heart disease Hypertension High cholesterol Grandfather Heart failure Mother Liver failure Social History household members: spouse Smoking Status: Never smoker alcohol intake: current Smoking Status: Never smoker alcohol intake frequency: 0-2 drinks per day Substance Use Type: does not use Exam Narrative Exam Narrative: General: in no acute distress. Able to give a complete and coherent history. Well-nourished well-developed HEENT: Moist mucous membranes, normal sclera with reactive pupils, Neck: No JVD, supple Respiratory: Lungs with mild bibasilar crackles but no wheezes. Full and symmetrical air movement Cardiac: Very bradycardic but regular, no murmurs no bruits Abdomen: Soft, nontender, good bowel tones, no flank pain Skin: Warm and dry, chronic venous stasis changes with 1+ lower extremity edema bilaterally Neurologic: Grossly neurologically intact with no obvious asymmetries or abnormalities, decreased sensation to lower extremities in a stocking distribution Extremities: No trauma, well perfused Psych: Cooperative, appropriate insight and affect Initial Vital Signs Initial Vital Signs: Vital Signs Pulse Oximetry 96 08/15/20 02:39 Course Orders Ordered: ED Orders 08/15/20 02:42 EKG-12 Lead Routine 08/15/20 02:50 Complete Blood Count AUTO DIFF Stat Comprehensive Metabolic Panel Stat Magnesium Stat Thyroid Stimulating Hormone Stat Troponin I Stat 08/15/20 02:52 XR chest 1V Stat 08/15/20 05:10 COVID19 - ADMIT ([employer]ER swab/PCR) Stat Discontinued Medications Atropine Sulfate (Atropine 1 Mg/10 Ml Syringe) 0.5 mg IV NOW ONE Stop: 08/15/20 02:53 Last Admin: 08/15/20 03:05 Dose: 0.5 mg Documented by: VIKTOR Atropine Sulfate (Atropine 1 Mg/10 Ml Syringe) 0.5 mg IV NOW ONE Stop: 08/15/20 05:22 Last Admin: 08/15/20 05:28 Dose: 0.5 mg Documented by: VIKTOR Vital Signs Vital signs: Vital Signs - 8 hr 08/15/20 02:39 08/15/20 02:52 08/15/20 03:00 Temperature 98.6 F Pulse Rate 28 L 28 L Respiratory Rate 18 23 Blood Pressure 140/80 Pulse Oximetry 96 96 95 08/15/20 03:30 08/15/20 04:00 08/15/20 04:04 Temperature Pulse Rate 29 L 28 L 28 L Respiratory Rate 21 22 19 Blood Pressure 120/58 L Pulse Oximetry 93 93 93 08/15/20 04:30 08/15/20 05:00 08/15/20 05:10 Temperature Pulse Rate 33 L 26 L 25 L Respiratory Rate 22 21 23 Blood Pressure 105/55 L Pulse Oximetry 92 95 97 08/15/20 05:30 08/15/20 06:00 08/15/20 06:30 Temperature Pulse Rate 34 L 33 L 33 L Respiratory Rate 22 25 H 25 H Blood Pressure Pulse Oximetry 95 95 95 08/15/20 06:57 Temperature 97.2 F L Pulse Rate 26 L Respiratory Rate 24 Blood Pressure 113/58 L Pulse Oximetry 98 Medical Decision Making Medical Records Medical records reviewed: Yes I reviewed the patient's medical records. Lab Data Lab results reviewed: Yes I reviewed the patient's lab results. Result diagrams: 08/15/20 02:50 08/15/20 02:50 Labs: Lab Results 08/15/20 08/15/20 08/15/20 Range/Units 02:50 02:50 02:50 WBC 5.8 (4.5-11.0) X10^3/uL RBC 4.40 L (4.5-5.9) X10^6/uL Hgb 14.9 (13.5-17.5) g/dL Hct 44.0 (41-53) % MCV 100.1 H (80-100) fL MCH 33.9 (26-34) PG MCHC 33.8 (30-36) % RDW 13.3 (11.6-14.8) % Plt Count 152 (150-400) X10^3/uL Neut % (Auto) 47.4 L (50-75) % Lymph % (Auto) 31.6 (25-40) % [place] % (Auto) 14.4 H (3-14) % Eos % (Auto) 5.4 H (2-4) % Baso % (Auto) 1.2 (0-2) % Neut # (Auto) 2700 (2000-6217) /uL Lymph # (Auto) 1800 (8661-7352) /uL [place] # (Auto) 800 (0-900) /uL Eos # (Auto) 300 (0-450) /uL Baso # (Auto) 100 (0-100) /uL Sodium 140 (137-145) mmol/L Potassium 4.4 (3.4-5.1) mmol/L Chloride 108 H (98-107) mmol/L Carbon Dioxide 25 (22-32) mmol/L BUN 49 H (9-20) mg/dL Creatinine 1.68 H (0.66-1.25) mg/dL Estimated GFR 39.2 L (>60) mL/min BUN/Creatinine Ratio 29.2 H (6-22) Glucose 117 H (80-110) mg/dL Calcium 8.9 (8.4-10.2) mg/dL Magnesium 2.4 H (1.6-2.3) mg/dL Total Bilirubin 0.4 (0.2-1.3) mg/dL AST 66 H (17-59) IU/L ALT 82 H (<50) IU/L Alkaline Phosphatase 51 (38-126) U/L Troponin I < 0.012 (0.01-0.034) ng/mL Total Protein 6.3 (6.3-8.2) g/dL Albumin 3.9 (3.5-5.0) g/dL Globulin 2.4 (1.7-4.1) g/dL Albumin/Globulin Ratio 1.6 (1.0-2.8) TSH 2.30 (0.47-4.68) uIU/mL SARS-CoV-2 (PCR) (Negative) 08/15/20 Range/Units 05:10 WBC (4.5-11.0) X10^3/uL RBC (4.5-5.9) X10^6/uL Hgb (13.5-17.5) g/dL Hct (41-53) % MCV (80-100) fL MCH (26-34) PG MCHC (30-36) % RDW (11.6-14.8) % Plt Count (150-400) X10^3/uL Neut % (Auto) (50-75) % Lymph % (Auto) (25-40) % [place] % (Auto) (3-14) % Eos % (Auto) (2-4) % Baso % (Auto) (0-2) % Neut # (Auto) (6169-5340) /uL Lymph # (Auto) (5522-6083) /uL [place] # (Auto) (0-900) /uL Eos # (Auto) (0-450) /uL Baso # (Auto) (0-100) /uL Sodium (137-145) mmol/L Potassium (3.4-5.1) mmol/L Chloride (98-107) mmol/L Carbon Dioxide (22-32) mmol/L BUN (9-20) mg/dL Creatinine (0.66-1.25) mg/dL Estimated GFR (>60) mL/min BUN/Creatinine Ratio (6-22) Glucose (80-110) mg/dL Calcium (8.4-10.2) mg/dL Magnesium (1.6-2.3) mg/dL Total Bilirubin (0.2-1.3) mg/dL AST (17-59) IU/L ALT (<50) IU/L Alkaline Phosphatase (38-126) U/L Troponin I (0.01-0.034) ng/mL Total Protein (6.3-8.2) g/dL Albumin (3.5-5.0) g/dL Globulin (1.7-4.1) g/dL Albumin/Globulin Ratio (1.0-2.8) TSH (0.47-4.68) uIU/mL SARS-CoV-2 (PCR) Negative (Negative) Imaging Data Chest x-ray: Attestation: I personally reviewed and interpreted this imaging study as follows: My Impression: Normal chest, normal cardiac silhouette, no infiltrates, no interstitial findings ECG Data Interpretation: Sinus bradycardia at 29 No acute ischemic changes Right axis MDM Narrative Medical decision making narrative: 85-year-old gentleman presents with increasing dizziness over the last 24 hours and is noted to be in sinus rhythm in the upper 20s lower 30s and otherwise asymptomatic. He also has a slight worsening of his chronic kidney disease may explain higher metoprolol and amiodarone levels explaining the acute bradycardia. There is no evidence of acute coronary syndrome, stroke or congestive heart failure. Care is reviewed with boiler coverer helper, Dr Mcgee, who agrees that admission to [facility] at this point is safe. Recommend holding both amiodarone as well as the metoprolol, allowing heart rate to come back up and restarting at lower doses of both. If heart rate continues to drop or he develops the third-d egree block than transfer would be required to [facility] for pacemaker placement. No critical care beds available at [place]. Care reviewed with hospitalist at [facility], Dr Rouse. She accepts a dmit. Plans reviewed with patient and his questions are answered. He is safe for transfer at this time. Discharge Plan Departure Patient Disposition: [facility] Clinical Impression: Bradycardia, Chronic kidney disease, stage 3a, Dizziness Prescriptions: No Action nitroglycerin [Nitrostat] 0.4 mg tablet, sublingual 0.4 mg SUBLINGUAL Q5M PRN (Reason: Chest Pain) Qty: 10 RF: 0 clopidogrel [Plavix] 75 mg tablet 75 mg PO DAILY Qty: 90 RF: 3 levothyroxine 100 mcg tablet 100 mcg PO QAM Qty: 90 RF: 0 aspirin 81 mg tablet,delayed release (DR/EC) 162 mg PO DAILY Qty: 360 RF: 3 atenolol 100 mg tablet 100 mg PO QPM Qty: 90 RF: 3 atorvastatin 40 mg tablet 40 mg PO DAILY Qty: 90 RF: 3 lisinopril 5 mg tablet 5 mg PO DAILY Qty: 90 RF: 3 furosemide 20 mg tablet 20 - 40 mg PO DAILY Qty: 100 RF: 3 gabapentin 600 mg tablet 600 mg PO TID Qty: 270 RF: 3 amiodarone 200 mg Tablet 200 mg PO DAILY RF: 0 Referrals: Tony Moore MD [Primary Care Provider] -
--- NOTE | 2020-08-15 05:25 | PC.NURSE ---
Second dose atropine 0.5mg given IV per verbal order from Dr Pfeiffer for HR 25 and c/o worsening SOB with HR increase to 36.
[2020-08-15 06:31] LABS: COVID19 - ADMIT (NP swab/PCR) Negative (Negative)
== END 2020-08-15 07:00 | disposition short-term general hospital (02) ==
PROVIDERS: Emergency Provider Emergency Medicine; Family Provider Internal Medicine Cardiovascular Disease; PCP Student in an Organized Health Care Education/Training Program
DX: I13.0 Hypertensive heart and chronic kidney disease with heart failure and stage 1 through stage 4 chronic kidney disease, or unspecified chronic kidney disease (principal); R00.1 Bradycardia, unspecified; N18.31 Chronic kidney disease, stage 3a; I50.9 Heart failure, unspecified
CPT/HCPCS: 71045; 80053; 83735; 84443; 84484; 85025; 87635; 93005; 96374; 96376; 99284; 99285; 99291; 99292; J0461

== ENCOUNTER → 2020-08-23 16:02 | Outpatient (CLI) | payer MEDICARE, OTHER, SELFPAY ==
[2020-02-12 12:15] VITALS: BMI 29.9
[2020-08-23 17:21] LABS: TSH w/ Reflex to FT4 1.19 uIU/mL (0.47-4.68)
== END ==
PROVIDERS: Family Provider Internal Medicine Cardiovascular Disease; PCP Student in an Organized Health Care Education/Training Program; Referring Provider Student in an Organized Health Care Education/Training Program; Visit Provider Student in an Organized Health Care Education/Training Program
DX: E03.9 Hypothyroidism, unspecified (principal)
CPT/HCPCS: 36415; 84443

== ENCOUNTER → 2020-09-28 10:22 | Outpatient (CLI) | payer MEDICARE, OTHER, SELFPAY ==
[2020-09-21 09:29] VITALS: BMI 29.9
[2020-09-28 11:22] LABS: BUN Creatinine Ratio 23.8 (6-22); Blood Urea Nitrogen 25 mg/dL (9-20); Carbon Dioxide 29 mmol/L (22-32); Chloride 103 mmol/L (98-107); Estimated Glomerular Filt Rate > 60.0 mL/min (>60); Glucose 122 mg/dL (80-110); HEMOLYSIS < 15 (0-50); Potassium 3.6 mmol/L (3.4-5.1); Sodium 139 mmol/L (137-145)
[2020-09-29 12:55] LABS: Vitamin B12 640 pg/mL (239-931)
== END ==
PROVIDERS: Family Provider Internal Medicine Cardiovascular Disease; PCP Student in an Organized Health Care Education/Training Program; Referring Provider Internal Medicine Cardiovascular Disease; Visit Provider Internal Medicine Cardiovascular Disease
DX: I10 Essential (primary) hypertension (principal)
CPT/HCPCS: 36415; 80048; 82607

== ENCOUNTER → 2020-11-19 10:50 | Outpatient (CLI) | payer MEDICARE, OTHER, SELFPAY ==
[2020-09-21 09:29] VITALS: BMI 29.9
[2020-11-19 11:55] LABS: BUN Creatinine Ratio 20.9 (6-22); Blood Urea Nitrogen 23 mg/dL (9-20); Calcium 9.1 mg/dL (8.4-10.2); Carbon Dioxide 30 mmol/L (22-32); Chloride 104 mmol/L (98-107); Estimated Glomerular Filt Rate > 60.0 mL/min (>60); Glucose 154 mg/dL (80-110); HEMOLYSIS < 15 (0-50); Potassium 3.9 mmol/L (3.4-5.1); Sodium 139 mmol/L (137-145)
== END ==
PROVIDERS: Family Provider Internal Medicine Cardiovascular Disease; PCP Student in an Organized Health Care Education/Training Program; Referring Provider Internal Medicine Cardiovascular Disease; Visit Provider Internal Medicine Cardiovascular Disease
DX: R60.0 Localized edema (principal)
CPT/HCPCS: 36415; 80048

== ENCOUNTER → 2020-12-13 08:36 | Outpatient (CLI) | payer MEDICARE, OTHER, SELFPAY ==
[2020-09-21 09:29] VITALS: BMI 29.9
[2020-12-13 08:54] LABS: Add Manual Diff / Slide Review NO; Basophils Absolute Auto 0 /uL (0-100); Basophils Percent Auto 0.7 % (0-2); Eosinophils Absolute Auto 200 /uL (0-450); Eosinophils Percent Auto 4.9 % (2-4); Lymphocytes Absolute Auto 1300 /uL (1100-4500); Lymphocytes Percent Auto 27.8 % (25-40); Mean Corpuscular HGB Conc 34.2 % (30-36); Mean Corpuscular Hemoglobin 34.3 PG (26-34); Mean Corpuscular Volume 100.3 fL (80-100); Monocytes Absolute Auto 800 /uL (0-900); Monocytes Percent Auto 17.4 % (3-14); Neutrophils Absolute Auto 2400 /uL (1500-7000); Neutrophils Percent Auto 49.2 % (50-75); Platelet Count 152 X10^3/uL (150-400); Red Blood Cell Count 4.09 X10^6/uL (4.5-5.9); Red Cell Distribution Width 13.2 % (11.6-14.8); White Blood Cell Count 4.8 X10^3/uL (4.5-11.0)
[2020-12-13 09:09] LABS: BUN Creatinine Ratio 16.4 (6-22); Blood Urea Nitrogen 19 mg/dL (9-20); Carbon Dioxide 30 mmol/L (22-32); Chloride 105 mmol/L (98-107); Estimated Glomerular Filt Rate > 60.0 mL/min (>60); Glucose 98 mg/dL (80-110); HEMOLYSIS < 15 (0-50); Potassium 3.9 mmol/L (3.4-5.1); Sodium 139 mmol/L (137-145)
[2020-12-13 15:03] LABS: Clostridium Difficile Tox PCR Negative for C. diff (Negative)
== END ==
PROVIDERS: Family Provider Internal Medicine Cardiovascular Disease; PCP Student in an Organized Health Care Education/Training Program; Referring Provider Physician Assistant; Visit Provider Physician Assistant
DX: R19.7 Diarrhea, unspecified (principal)
CPT/HCPCS: 36415; 80048; 85025; 87045; 87177; 87493; 87899

== ENCOUNTER 2020-12-15 22:42 | Observation (INO) | payer MEDICARE, OTHER, SELFPAY ==
[2020-09-21 09:29] VITALS: BMI 29.9
[2020-12-15 22:50] VITALS: BP 153/72; PULSE 77; RESP 17; TEMP 37.1; O2SAT 95; BMI 30.7
[2020-12-16] VITALS (23 sets, daily range): BP systolic 136–164; BP diastolic 54–91; PULSE 60–89; RESP 10–20; TEMP 35.7–36.8; O2SAT 92–99; BMI 30.7
--- NOTE | 2020-12-16 | PATH_ITS ---
[facility] Accession Number: [id number] . 01 Material submitted: . colon - RANDOM LEFT COLON AND SIGMOID BIOPSIES . 01 Clinical history: . SEVERE DIARRHEA . 02 Diagnosis: Random Left Colon and Sigmoid Biopsies: Mild to moderate crypt architectural distortion and moderate neutrophilic activity. Please see comment. Negative for dysplasia or malignancy. V 12/21/2020 1039 Local . 02 Comment: Histologic sections demonstrate superficial portions of colorectal mucosa with patchy crypt architectural distortion and a diffuse mild-moderate active inflammation, inclding crypt abscesses. No granulomas are identified. The differential diagnosis includes diverticular disease-associated colitis, ischemia, infection / drug toxin, and idiopathic inflammatory bowel disease, in the appropriate clinical setting. There is no evidence of dysplasia or malignancy. . 02 Electronically signed: . Carina Rodrigues MD, Pathologist NPI- [id number] . 01 Gross description: . RANDOM LEFT COLON AND SIGMOID BIOPSIES: Received in formalin are multiple fragment(s) of jackson, soft tissue measuring 1.5 x 1.1 x 0.2 cm in aggregate submitted entirely in 1 cassette(s) /CARMEN 12/17/2020 0653 Local . 02 Pathologist provided ICD-10: R19.7 . 02 CPT . 078600 Performed at: 01 [facility] [address], [place], [place] [id number] MD Carlos Johnson MD Phone: [phone] Performed at: 02 [facility] [address] [place], [place] [id number] MD Jannie Garland MD Phone: [phone]
--- NOTE | 2020-12-16 01:40 | ED_ITS ---
HPI - Nausea/Vomiting/Diarrhea General Chief complaint: Nausea/Vomiting/Diarrhea Stated complaint: severe diarrhea Time Seen by Provider: 12/16/20 00:34 Source: patient Mode of arrival: Ambulatory Limitations: no limitations History of Present Illness HPI Narrative: Patient here for intractable diarrhea for the past 16 days. Started off 1 or 2 per day for the past couple of weeks. Seen at Urgent Care this past week. Negative C diff on stool sample. No abdominal pain. Patient had 4 bouts of watery diarrhea today. Patient states multiple episodes and constant wiping has irritated his hemorrhoids and causing bright red blood today with wiping and on bowel movement. No dizziness. No foreign travel or new foods. No abdominal pain or fever. No nausea or vomiting. Patient does not know when last colonoscopy. Denies any abdominal problems. Related Data Home Medications Medication Instructions Recorded Confirmed furosemide 20 mg tablet 10 mg PO DAILY tab 09/16/20 12/16/20 amlodipine 5 mg tablet 5 mg PO DAILY 10/14/20 12/16/20 Previous Rx's Medication Instructions Recorded aspirin 81 mg tablet,delayed 162 mg PO DAILY #360 tab 12/25/19 release atorvastatin 40 mg tablet 40 mg PO DAILY #90 tab 12/25/19 nitroglycerin 0.4 mg sublingual 0.4 mg SUBLINGUAL Q5M PRN #10 tab 03/09/20 tablet (Nitrostat) clopidogrel 75 mg tablet (Plavix) 75 mg PO DAILY #90 tab 05/10/20 lisinopril 5 mg tablet 5 mg PO DAILY #90 tab 07/06/20 levothyroxine 100 mcg tablet 100 mcg PO QAM #90 tab 09/20/20 alpha lipoic acid 200 mg capsule 200 mg PO BID #60 cap 09/29/20 amitriptyline 25 mg tablet 25 mg PO BEDTIME #30 tab 10/25/20 gabapentin 600 mg tablet 600 mg PO TID #270 tab 11/24/20 diphenoxylate-atropine 2.5 1 tab PO Q8H PRN #10 tab 12/13/20 mg-0.025 mg tablet (Lomotil) levofloxacin 250 mg tablet 250 mg PO DAILY #7 tab 12/17/20 metronidazole 500 mg tablet 500 mg PO Q8H #21 tab 12/17/20 (Flagyl) Allergies Allergy/AdvReac Type Severity Reaction Status Date / Time meperidine Allergy Mild RASH Verified 12/13/20 08:14 Review of Systems Review of Systems Narrative: GENERAL: Denies chills, fatigue, malaise, fever, sweats. HEENT: Denies sinus pain, ear pain, sore throat RESPIRATORY: Denies dyspnea, cough CARDIOVASCULAR: Denies chest pain, palpitations GASTROINTESTINAL: Denies nausea, vomiting, abdominal pain, complains of diarrhea : Denies dysuria, frequency, hematuria MUSCULOSKELETAL: denies muscle or bony pain SKIN: Denies rash, skin lesions NEUROLOGIC: Denies weakness, numbness Patient History Medical History Chronic back pain (2009) Chronic kidney disease, stage 3a Essential hypertension (10/04/12) Hearing loss (1997) History of coronary artery stent placement (01/15/17) Hypothyroidism (acquired) (01/07/13) Mild cognitive impairment Mixed hyperlipidemia (07/31/11) Neutropenia (2006) Obstructive sleep apnea, adult (~2017) Peripheral neuropathy (2006) Surgical History Anesthesia History of ear surgery (04/29/15) S/P drug eluting coronary stent placement Family History Father Heart disease Hypertension High cholesterol Grandmother Cancer Sister Age: 80 Heart disease Hypertension High cholesterol Grandfather Heart failure Mother Liver failure Social History household members: spouse Smoking Status: Never smoker alcohol intake: current Smoking Status: Never smoker alcohol intake frequency: 0-2 drinks per day Substance Use Type: does not use Exam Narrative Exam Narrative: GENERAL: in no distress, not toxic not dyspneic HEAD: Normocephalic. EYES: Pupils equal round No scleral icterus. No injection no discharge ENT: Mucous membranes moist. NECK: Trachea midline. CARDIOVASCULAR: Regular rate and rhythm without murmurs RESPIRATORY: Clear to auscultation. Breath sounds equal bilaterally. No wheezes, rales, or rhonchi. GASTROINTESTINAL: Abdomen soft, non-tender, bowel sounds present, no peritoneal signs, small stool mucous sample seen in commode. Does have bright red blood spots in commode. EXTREMITIES: No gross deformities. NEURO: AOx4. SKIN: Warm and dry PSYCH: Not anxious, is cooperative Initial Vital Signs Initial Vital Signs: Vital Signs Temperature 98.8 F 12/15/20 22:50 Pulse Rate 77 12/15/20 22:50 Respiratory Rate 17 12/15/20 22:50 Blood Pressure 153/72 H 12/15/20 22:50 Pulse Oximetry 95 12/15/20 22:50 Course Course Course Narrative: No new issues during course of stay. Orders Ordered: Discontinued Medications Acetaminophen (Acetaminophen 325 Mg Tablet) 650 mg PO Q4HR PRN PRN Reason: Fever/Mild Pain (1-3) Last Admin: 12/17/20 10:07 Dose: 650 mg Documented by: CRUZITO Amitriptyline HCl (Amitriptyline 25 Mg Tablet) 25 mg PO BEDTIME [facility] Last Admin: 12/16/20 21:21 Dose: 25 mg Documented by: CLAIR Amlodipine Besylate (Amlodipine 5 Mg Tablet) 5 mg PO DAILY [facility] Last Admin: 12/17/20 09:13 Dose: 5 mg Documented by: CRUZITO Atorvastatin Calcium (Atorvastatin 20 Mg Tablet) 40 mg PO DAILY [facility] Last Admin: 12/17/20 09:13 Dose: 40 mg Documented by: CRUZITO Clopidogrel Bisulfate (Clopidogrel 75 Mg Tablet) 75 mg PO DAILY [facility] Last Admin: 12/17/20 09:13 Dose: 75 mg Documented by: CRUZITO Diphenoxylate HCl/Atropine (Diphenoxylate/Atrop 2.5/0.025 Tablet) 1 each PO Q8H PRN PRN Reason: diarrhea Fentanyl (Fentanyl 250 Mcg/5 Ml Inj) 250 mcg IV NOW ONE Stop: 12/16/20 16:56 Last Admin: 12/16/20 16:56 Dose: 100 mcg Documented by: JOSE Furosemide (Furosemide 20 Mg Tablet) 10 mg PO DAILY [facility] Last Admin: 12/17/20 09:13 Dose: 10 mg Documented by: CRUZITO Gabapentin (Gabapentin 600 Mg Tablet) 600 mg PO TID [facility] Last Admin: 12/17/20 15:29 Dose: 600 mg Documented by: Admin: 12/17/20 09:14 Dose: 600 mg Documented by: Admin: 12/16/20 21:21 Dose: 600 mg Documented by: CLAIR Sodium Chloride (Normal Saline 0.9%) 1,000 mls @ 150 mls/hr IV CONT CHYNA Last Infusion: 12/16/20 05:30 Dose: 0 mls/hr Documented by: Infusion: 12/16/20 04:44 Dose: 150 mls/hr Documented by: Admin: 12/16/20 03:09 Dose: 150 mls/hr Documented by: SHAYY Sodium Chloride (Normal Saline 0.9%) 1,000 mls @ 1,000 mls/hr IV BOLUS ONE Stop: 12/16/20 02:50 Last Infusion: 12/16/20 03:23 Dose: 0 mls/hr Documented by: Admin: 12/16/20 02:10 Dose: 1,000 mls/hr Documented by: SHAYY Sodium Chloride (Normal Saline 0.9%) 1,000 mls @ 100 mls/hr IV CONT CHYNA Last Admin: 12/16/20 12:41 Dose: 100 mls/hr Documented by: Infusion: 12/16/20 12:41 Dose: 100 mls/hr Documented by: Admin: 12/16/20 05:30 Dose: 100 mls/hr Documented by: TREVON Lactated Ringer's (Lactated Ringers) 1,000 mls @ 150 mls/hr IV NOW ONE Stop: 12/16/20 22:50 Last Infusion: 12/16/20 17:26 Dose: 0 mls/hr Documented by: Admin: 12/16/20 16:12 Dose: 200 mls/hr Documented by: ROHINI Lactated Ringer's (Lactated Ringers) 1,000 mls @ 42 mls/hr IV CONT CHYNA Last Admin: 12/16/20 19:23 Dose: 42 mls/hr Documented by: CLAIR Levofloxacin (Levaquin) 500 mg in 100 mls @ 100 mls/hr IV NOW ONE Stop: 12/16/20 19:22 Last Infusion: 12/16/20 23:22 Dose: 0 mls/hr Documented by: Admin: 12/16/20 19:41 Dose: 100 mls/hr Documented by: CLAIR Metronidazole (Flagyl) 500 mg in 100 mls @ 100 mls/hr IV Q6H CHYNA Last Infusion: 12/17/20 13:00 Dose: 0 mls/hr Documented by: Admin: 12/17/20 11:55 Dose: 100 mls/hr Documented by: Infusion: 12/17/20 10:01 Dose: 0 mls/hr Documented by: Admin: 12/17/20 05:46 Dose: 100 mls/hr Documented by: Infusion: 12/17/20 00:55 Dose: 0 mls/hr Documented by: Admin: 12/16/20 23:50 Dose: 100 mls/hr Documented by: Infusion: 12/16/20 23:21 Dose: 0 mls/hr Documented by: Admin: 12/16/20 21:17 Dose: 100 mls/hr Documented by: CLAIR Levofloxacin (Levaquin) 250 mg in 50 mls @ 50 mls/hr IV Q24H [facility] Levothyroxine Sodium (Levothyroxine 100 Mcg Tablet) 100 mcg PO 0600 [facility] Last Admin: 12/17/20 05:48 Dose: 100 mcg Documented by: Admin: 12/16/20 19:52 Dose: Not Given Documented by: CLAIR Lisinopril (Lisinopril 5 Mg Tablet) 5 mg PO DAILY [facility] Last Admin: 12/17/20 09:14 Dose: 5 mg Documented by: CRUZITO Magnesium Citrate (Magnesium Citrate 300 Ml Solution) 150 ml PO NOW ONE Stop: 12/16/20 09:50 Last Admin: 12/16/20 10:28 Dose: 150 ml Documented by: CRUZITO Midazolam HCl (Midazolam 5 Mg/5 Ml Vial) 5 mg IV NOW ONE Stop: 12/16/20 16:57 Last Admin: 12/16/20 16:56 Dose: 2 mg Documented by: JOSE Naloxone HCl (Naloxone 0.4 Mg/Ml Vial) 0.2 mg IV Q2MIN PRN PRN Reason: Opiate Reversal Nitroglycerin (Nitroglycerin 0.4 Mg Sl Tab) 0.4 mg SL Q5M PRN PRN Reason: Chest Pain Sodium Biphosphate/Sodium Phosphate (Fleets Enema) 1 each [place] NOW ONE Stop: 12/16/20 13:42 Last Admin: 12/16/20 13:54 Dose: 1 each Documented by: CRUZITO Reevaluation(s) Reevaluation #1: Reviewed results and CT scan imaging with patient and . They do agree for admission for hydration and intractable diarrhea. Time: 03:43 Consultations Consultation #1: Spoke with Dr. Gilbert, general surgeon, will admit. Will do endoscopy of the colon. Time: 04:24 Consultation #2: Spoke with hospitalistAyan, will admit Time: 04:25 Vital Signs Vital signs: Vital Signs - 8 hr 12/15/20 22:50 12/16/20 02:07 12/16/20 02:08 Temperature 98.8 F Pulse Rate 77 68 Respiratory Rate 17 Blood Pressure 153/72 H 143/66 H Pulse Oximetry 95 94 MDM - Nausea/Vomiting/Diarrhea Differential Diagnosis Differential diagnosis: Likely traveler's diarrhea, clostridium difficile infection, dehydration and other (Viral colitis/inflammatory colitis) Lab Data Result diagrams: 12/16/20 04:43 12/16/20 04:43 Labs: Lab Results 12/15/20 12/15/20 12/16/20 Range/Units 23:00 23:00 03:37 WBC 5.9 (4.5-11.0) X10^3/uL RBC 4.03 L (4.5-5.9) X10^6/uL Hgb 14.0 (13.5-17.5) g/dL Hct 40.5 L (41-53) % MCV 100.5 H (80-100) fL MCH 34.8 H (26-34) PG MCHC 34.6 (30-36) % RDW 13.3 (11.6-14.8) % Plt Count 184 (150-400) X10^3/uL Neut % (Auto) 55.8 (50-75) % Lymph % (Auto) 24.6 L (25-40) % [place] % (Auto) 16.1 H (3-14) % Eos % (Auto) 3.1 (2-4) % Baso % (Auto) 0.4 (0-2) % Neut # (Auto) 3300 (4311-4838) /uL Lymph # (Auto) 1500 (1066-3166) /uL [place] # (Auto) 1000 H (0-900) /uL Eos # (Auto) 200 (0-450) /uL Baso # (Auto) 0 (0-100) /uL Sodium 138 (137-145) mmol/L Potassium 4.3 (3.4-5.1) mmol/L Chloride 101 (98-107) mmol/L Carbon Dioxide 30 (22-32) mmol/L BUN 23 H (9-20) mg/dL Creatinine 1.33 H (0.66-1.25) mg/dL Estimated GFR 51.3 L (>60) mL/min BUN/Creatinine Ratio 17.3 (6-22) Glucose 109 (80-110) mg/dL Calcium 9.2 (8.4-10.2) mg/dL Total Bilirubin 1.1 (0.2-1.3) mg/dL AST 32 (17-59) IU/L ALT 37 (<50) IU/L Alkaline Phosphatase 60 (38-126) U/L Total Protein 6.7 (6.3-8.2) g/dL Albumin 3.7 (3.5-5.0) g/dL Globulin 3.0 (1.7-4.1) g/dL Albumin/Globulin Ratio 1.2 (1.0-2.8) Lipase 168 (23-300) U/L SARS-CoV-2 (PCR) Negative (Negative) Hepatitis A IgM Ab (Negative) Hep Bs Antigen (Negative) Hep B Core IgM Ab (Negative) Hepatitis C Antibody (0.0-0.9) s/co ratio Hep C Ab Signal/Cutoff (.) 12/16/20 Range/Units 04:30 WBC (4.5-11.0) X10^3/uL RBC (4.5-5.9) X10^6/uL Hgb (13.5-17.5) g/dL Hct (41-53) % MCV (80-100) fL MCH (26-34) PG MCHC (30-36) % RDW (11.6-14.8) % Plt Count (150-400) X10^3/uL Neut % (Auto) (50-75) % Lymph % (Auto) (25-40) % [place] % (Auto) (3-14) % Eos % (Auto) (2-4) % Baso % (Auto) (0-2) % Neut # (Auto) (0204-6432) /uL Lymph # (Auto) (1603-8183) /uL [place] # (Auto) (0-900) /uL Eos # (Auto) (0-450) /uL Baso # (Auto) (0-100) /uL Sodium (137-145) mmol/L Potassium (3.4-5.1) mmol/L Chloride (98-107) mmol/L Carbon Dioxide (22-32) mmol/L BUN (9-20) mg/dL Creatinine (0.66-1.25) mg/dL Estimated GFR (>60) mL/min BUN/Creatinine Ratio (6-22) Glucose (80-110) mg/dL Calcium (8.4-10.2) mg/dL Total Bilirubin (0.2-1.3) mg/dL AST (17-59) IU/L ALT (<50) IU/L Alkaline Phosphatase (38-126) U/L Total Protein (6.3-8.2) g/dL Albumin (3.5-5.0) g/dL Globulin (1.7-4.1) g/dL Albumin/Globulin Ratio (1.0-2.8) Lipase (23-300) U/L SARS-CoV-2 (PCR) (Negative) Hepatitis A IgM Ab Negative (Negative) Hep Bs Antigen Negative (Negative) Hep B Core IgM Ab Negative (Negative) Hepatitis C Antibody <0.1 (0.0-0.9) s/co ratio Hep C Ab Signal/Cutoff Comment (.) Imaging Data CT scan - abdomen/pelvis: Radiologist's Impression: Read by overnight radiologist long segment colonic mucosal thickening originating at the mid distal aspect of the transverse colon and extending to the level of the distal rectum. Infectious versus inflammatory colitis. MDM Narrative Medical decision making narrative: Appropriate for admission for intractable diarrhea/acute renal injury/dehydration Discharge Plan Departure Patient Disposition: Admitted as Observation Clinical Impression: Intractable diarrhea, Acute kidney injury Admit Date/Time: 12/16/20 04:30 Admit Provider: Carmela Botello
[2020-12-16 02:04] LABS: Alanine Aminotransferase 37 IU/L (<50); Albumin 3.7 g/dL (3.5-5.0); Albumin Globulin Ratio 1.2 (1.0-2.8); Alkaline Phosphatase 60 U/L (38-126); Aspartate Aminotransferase 32 IU/L (17-59); BUN Creatinine Ratio 17.3 (6-22); Bilirubin Total 1.1 mg/dL (0.2-1.3); Blood Urea Nitrogen 23 mg/dL (9-20); Calcium 9.2 mg/dL (8.4-10.2); Carbon Dioxide 30 mmol/L (22-32); Chloride 101 mmol/L (98-107); Estimated Glomerular Filt Rate 51.3 mL/min (>60); Glucose 109 mg/dL (80-110); HEMOLYSIS < 15 (0-50); Lipase 168 U/L (23-300); Potassium 4.3 mmol/L (3.4-5.1); Sodium 138 mmol/L (137-145); Total Protein 6.7 g/dL (6.3-8.2)
--- NOTE | 2020-12-16 02:07 | DI.CT.S_ITS ---
PROCEDURE: CT ABDOMEN PELVIS W CON INDICATIONS: abdominal pain/diarrhea TECHNIQUE: After the administration of intravenous contrast, axial sections acquired from the lung bases to the pubic symphysis. Coronal and sagittal reformats were performed. For radiation dose reduction, the following was used: automated exposure control, adjustment of mA and/or kV according to patient size. COMPARISON: [facility] [place], CR, XR LUMBAR SPINE 2 OR 3 VIEWS, 02/16/2020, 15:05. FINDINGS: ABDOMEN: Lung bases: Scattered subsegmental atelectasis and/or scarring. No focal consolidation. Heart: Coronary artery calcifications. No pericardial effusion. Liver: Hepatic steatosis. Subcentimeter hepatic foci are statistically cysts or hemangiomas, although technically too small to characterize accurately and therefore nonspecific. Gallbladder: Largely collapsed otherwise unremarkable Bile ducts: Normal. Pancreas: Normal. Spleen: Normal. Adrenals: Normal. Kidneys and Ureters: 3-4 mm right renal cyst. Subcentimeter renal foci, statistically cysts, although technically too small to characterize accurately and therefore nonspecific. Stomach and duodenum: Normal. Bowel: Normal appendix. No evidence of bowel obstruction. Nonspecific scattered air-fluid levels. There is moderate to large amount of stool present. There is prominent fluid within the colon, and suggestion of long segment colonic mural thickening involving the transverse, descending and sigmoid colon. Minimal if any adjacent inflammatory fat stranding. Other: No free fluid or air. Abdominal nodes: Normal. Aorta and IVC: Normal in size. Scattered vascular calcifications incidentally noted in the aorta. Ventral wall: Normal. PELVIS: Bladder: Distended otherwise unremarkable. Inguinal region: Bilateral fat containing inguinal hernias. Pelvic nodes: Normal. Bones: Spondylytic changes and facet arthropathy. Mild anterior wedging of the L1 vertebral body which is unchanged. vertebral body compression fracture. Screw fixation of the right sacroiliac joint. IMPRESSION: Long segment transverse, descending and sigmoid colonic mural thickening suggestive of nonspecific colitis. Please correlate clinically and with laboratory data. Hepatic steatosis Coronary atherosclerosis Additional chronic/incidental findings as above. Findings concordant with preliminary study interpretation. Dictated by: Geovani Anderson M.D. on 12/16/2020 at 8:23 Approved by: Geovani Anderson M.D. on 12/16/2020 at 8:34
[2020-12-16] MEDS: SODIUM CHLORIDE 0.9% 1,000 ML 1000 ML IV (02:10)
[2020-12-16 02:17] LABS: Add Manual Diff / Slide Review NO; Basophils Absolute Auto 0 /uL (0-100); Basophils Percent Auto 0.4 % (0-2); Eosinophils Absolute Auto 200 /uL (0-450); Eosinophils Percent Auto 3.1 % (2-4); Hematocrit 40.5 % (41-53); Lymphocytes Absolute Auto 1500 /uL (1100-4500); Lymphocytes Percent Auto 24.6 % (25-40); Mean Corpuscular HGB Conc 34.6 % (30-36); Mean Corpuscular Hemoglobin 34.8 PG (26-34); Mean Corpuscular Volume 100.5 fL (80-100); Monocytes Absolute Auto 1000 /uL (0-900); Monocytes Percent Auto 16.1 % (3-14); Neutrophils Absolute Auto 3300 /uL (1500-7000); Neutrophils Percent Auto 55.8 % (50-75); Platelet Count 184 X10^3/uL (150-400); Red Blood Cell Count 4.03 X10^6/uL (4.5-5.9); Red Cell Distribution Width 13.3 % (11.6-14.8); White Blood Cell Count 5.9 X10^3/uL (4.5-11.0)
[2020-12-16] MEDS: SODIUM CHLORIDE 0.9% 1,000 ML 150 ML IV (03:09)
--- NOTE | 2020-12-16 04:35 | P.HP_ITS ---
History of Present Illness History of Present Illness Date Patient Seen: 12/16/20 Time Patient Seen: 04:36 Chief complaint: severe diarrhea Narrative: Patient is 85-year-old male Juan Manuel Humphries who presented to the ED with intractable diarrhea for the past 16 days. Started off 1 or 2 per day for the past couple of weeks and has gradually increasing to 4-5 liquid stools per day. Seen at Urgent Care 12/13/20 (3 days ago) negative C diff/stool culture. Patient denies abdominal pain, nausea, vomiting, fever, chills, diaphoresis, chest pain, or shortness of breath. Patient states that the multiple episodes and constant wiping has irritated his hemorrhoids and causing bright red blood today with wiping with bowel movement. He also reports a throbbing rectal pain following BM, in which he has palpated for protrusions from his rectum, that if he pushes them backup inside the pain decreases and it is much more tolerable. The patient denies history of previous hemorrhoids, GI bleed, hepatitis, or reflux issues. No foreign travel, new foods or medications. Patient did recall that he had traveled to [place] any eaten out and following 1 such meal began to feel poor immediately following meal and then the diarrhea quickly ensued. Patient does not know when last colonoscopy. He notes that he has mild rectal discomfort at this time. Upon physical exam patient's abdomen is distended more than his normal, and only had mild tenderness with palpation to right lower abdominal area and suprapubic area, without CVA tenderness. Patient is comfortable and resting in bed with no complaints at this time. Patient has a medical history of congestive heart failure with an ejection fraction of 40-45%, coronary holy cross artery disease with drug-eluting stent placements x2 on chronic Plavix, essential hypertension, CKD stage IIIA, hypothyroidism, hyperlipidemia, and peripheral neuropathy. Patient's vitals upon admit are stable with a BP 143/66, HR 68, R 17, O2 sa turation 94% on room air. Patient's CBC is mostly unremarkable, CMP notes some mild increase of BUN 23, creatinine 1.33 which is up from 1.16, GFR is slightly down at 51.3 down from >60 on 12/13. But not demonstrating LEBRON at this time. All the patient's other labs are unremarkable. Patient's CT of abdomen and pelvis demonstrated long segment colonic mucosal thickening originating at the mid distal aspect of the transverse colon and extending to the level of the distal rectum. Infectious versus inflammatory colitis. Patient admitted for intractable diarrhea resulting in dehydration of unknown etiology. Patient History Medical History Chronic back pain (2009) Chronic kidney disease, stage 3a Essential hypertension (10/04/12) Hearing loss (1997) History of coronary artery stent placement (01/15/17) Hypothyroidism (acquired) (01/07/13) Mild cognitive impairment Mixed hyperlipidemia (07/31/11) Neutropenia (2006) Obstructive sleep apnea, adult (~2016) Peripheral neuropathy (2006) Surgical History Anesthesia History of ear surgery (04/29/15) S/P drug eluting coronary stent placement Family & Social History Family History Father Heart disease Hypertension High cholesterol Grandmother Cancer Sister Age: 80 Heart disease Hypertension High cholesterol Grandfather Heart failure Mother Liver failure Social History: household members spouse. Safety & Behavioral: Feels Safe in Current Yes Environment Tobacco & Substance use: Smoking Status Never smoker alcohol intake current alcohol intake frequency 0-2 drinks per day Substance Use Type does not use Meds Home Medications and Allergies Home Medications Medication Instructions Recorded Confirmed Type aspirin 81 mg tablet,delayed 162 mg PO DAILY #360 tab 12/25/19 12/16/20 Rx release atorvastatin 40 mg tablet 40 mg PO DAILY #90 tab 12/25/19 12/16/20 Rx nitroglycerin 0.4 mg sublingual 0.4 mg SUBLINGUAL Q5M PRN #10 tab 03/09/20 12/16/20 Rx tablet (Nitrostat) clopidogrel 75 mg tablet (Plavix) 75 mg PO DAILY #90 tab 05/10/20 12/16/20 Rx lisinopril 5 mg tablet 5 mg PO DAILY #90 tab 07/06/20 12/16/20 Rx furosemide 20 mg tablet 10 mg PO DAILY tab 09/16/20 12/16/20 History levothyroxine 100 mcg tablet 100 mcg PO QAM #90 tab 09/20/20 12/16/20 Rx alpha lipoic acid 200 mg capsule 200 mg PO BID #60 cap 09/29/20 12/16/20 Rx amlodipine 5 mg tablet 5 mg PO DAILY 10/14/20 12/16/20 History amitriptyline 25 mg tablet 25 mg PO BEDTIME #30 tab 10/25/20 12/16/20 Rx gabapentin 600 mg tablet 600 mg PO TID #270 tab 11/24/20 12/16/20 Rx diphenoxylate-atropine 2.5 1 tab PO Q8H PRN #10 tab 12/13/20 12/16/20 Rx mg-0.025 mg tablet (Lomotil) Allergies Allergy/AdvReac Type Severity Reaction Status Date / Time meperidine Allergy Mild RASH Verified 12/13/20 08:14 Review of Systems Review of Systems Narrative: All systems reviewed with the patient and are negative except otherwise documented. Exam Vital Signs (past 8 hours): - 12/15/20 22:50 12/16/20 02:07 12/16/20 02:08 Temperature 98.8 F Pulse Rate 77 68 Respiratory Rate 17 Blood Pressure 153/72 H 143/66 H Pulse Oximetry 95 94 Oxygen Delivery Method Room Air Narrative Exam Narrative: General: Patient is a well-developed, well-nourished delightful obese male in no distress at this time. HEENT: Normocephalic, atraumatic, extraocular muscles intact, oral pharynx is clear and mucous membranes are moist. Neck is supple and symmetric, trachea is midline, no adenopathy, no thyroid enlargement, nontender, no masses palpated. Negative for JVD Chest: Normal AP diameter and contour without kyphoscoliosis, no nasal flaring, retractions, or tachypneic labored Lungs: Auscultation of all lung garza are clear without adventitious sounds, wheezes, rhonchi, or rales. Cardio: S1 & S2 with regular rate and rhythm without murmur, rubs, or gallops, no carotid bruit, no cardiac pulsations present. Abdomen: Mildly firm distended, tenderness with palpation to right lower quadrant and suprapubic, unable to palpate for organomegaly, or masses. Bowel sounds are present in all 4 quadrants without guarding or rebound, no CVA tenderness. Musculoskeletal: Muscle strength and tone are equal within normal limits, no deformity, crepitus, effusions, cyanosis, clubbing or edema present. Full range of motion intact radial and pedal pulses are normal. Skin: Warm dry and intact without rashes, ulcerations or petechiae. Neuro: Alert and orientated x3, strength is +5/5 in all extremities, sensation to touch intact, no gross deficits noted of cranial nerves. Psych: Patient has a well-kept appearance, appropriate affect, mental status attitude thought context and judgment are appropriate for age. Objective Labs Result Diagrams: 12/15/20 23:00 12/15/20 23:00 Labs: Laboratory Results - last 24 hr 12/15/20 12/15/20 23:00 23:00 WBC 5.9 RBC 4.03 L Hgb 14.0 Hct 40.5 L MCV 100.5 H MCH 34.8 H MCHC 34.6 RDW 13.3 Plt Count 184 Neut % (Auto) 55.8 Lymph % (Auto) 24.6 L [place] % (Auto) 16.1 H Eos % (Auto) 3.1 Baso % (Auto) 0.4 Neut # (Auto) 3300 Lymph # (Auto) 1500 [place] # (Auto) 1000 H Eos # (Auto) 200 Baso # (Auto) 0 Sodium 138 Potassium 4.3 Chloride 101 Carbon Dioxide 30 BUN 23 H Creatinine 1.33 H Estimated GFR 51.3 L BUN/Creatinine Ratio 17.3 Glucose 109 Calcium 9.2 Total Bilirubin 1.1 AST 32 ALT 37 Alkaline Phosphatase 60 Total Protein 6.7 Albumin 3.7 Globulin 3.0 Albumin/Globulin Ratio 1.2 Lipase 168 Assessment & Plan Assessment & Plan narrative: 1.Intractable diarrhea of unknown etiology, resulting in dehydration, acute, present on admission -rule out viral colitis, inflammatory colitis, gastroenteritis. -diarrhea from 1-5 times daily times 16 days. Last diarrhea 12/15 @4pm -stool cultures C diff PCR- (NEGATIVE)12/13/2020-will repeat C diff stool culture if continued diarrhea -CT of abdomen and pelvis demonstrated long segment colonic mucosal thickening originating at the mid distal aspect of the transverse colon and extending to the level of the distal rectum. Infectious versus inflammatory colitis. -stool and blood cultures pending, GI Panel, Hepatitis ordered-pending -diet: NPO for procedure -Monitor fluid status -IV Fluids:100cc/HR- due to dehydration (creatinine 1.33, BUN 23, GFR 51.3)- Monitor for s/s of CHF exacerbation/Fluid Overload-reassess after procedure. -Ordered consult Dr. Gilbert-will assess patient later today and will determine if patient will have colonoscopy. -AM Labs: CBC, BMP, Mag, TSH. -V/S Q4, strict I&O Q shift, daily weight -consider hydrocortisone/lidocaine for hemorrhoids -Hold atorvastatin until after procedure. 2.Congestive heart failure, EF 40-45%, left ventricular function mildly decreased, Chronic, present on admission -pro BNP -51 -Last Echo 11/16/19 -placed on telemedicine -Continue amlodipine -After Procedure low-sodium diet -strict I&Os -holding patients Lasix -monitor for signs and symptoms fluid overload-lungs, edema, shortness of breath. 3. Coronary artery disease, holy cross, resulting in drug-eluting stents x2, with continue long-term Plavix use, chronic, present on admission -Holding aspirin and Plavix due to colonoscopy tomorrow 4. Essential hypertension, chronic, present on admission- controlled -continue amlodipine and lisinopril 5. Hyperlipidemia, chronic, present on admission, stability unknown -continue atorvastatin 40 mg p.o. daily 6. Hypothyroidism, acquired, chronic, present on admission -ordered TSH -continue levothyroxine 100 mcg p.o. daily 7. Peripheral neuropathy, chronic, present on admission -continue patient's amitriptyline and gabapentin 8. CKD stage IIIA, chronic, present on admission -continue lisinopril Code status: DNR DNI Surrogate decision maker: Regi Humphries COVID PCR: Negative COVID vaccination: Pfizer July 2020 DVT/VTE prophylaxis: Holding medication at this time due to procedure: SCDs only Estimated length of stay: Less than 2 midnights Scores GCS [place] coma scale eye opening: Spontaneous Tara coma scale verbal response: Orientated Tara coma scale motor response: Obey commands [place] coma scale total score: 15 SOFA PaO2/FIO2: >=400 mmHg Platelets: >= 150 Bilirubin: < 1.2 mg/dL Hypotension: MAP >= 70 mmHg [place] Coma Scale: 15 Renal: Creatinine 1.2-1.9 mg/dL SOFA Score: 1 Wells' Criteria for PE Clinical signs and symptoms of DVT: No PE is #1 Dx or equally likely: No Heart rate > 100: No Immobilization at least 3 days or surg in previous 4 weeks: No History of PE or DVT: No Hemoptysis: No Malignancy w/Treatment within 6 months or palliative: No Wells' PE Score total: 0
[2020-12-16 04:36] LABS: COVID19 - ADMIT (NP swab/PCR) Negative (Negative)
[2020-12-16 05:04] LABS: Add Manual Diff / Slide Review NO; Basophils Absolute Auto 100 /uL (0-100); Basophils Percent Auto 1.1 % (0-2); Eosinophils Absolute Auto 200 /uL (0-450); Eosinophils Percent Auto 3.1 % (2-4); Hematocrit 39.3 % (41-53); Hemoglobin 13.3 g/dL (13.5-17.5); Lymphocytes Absolute Auto 1100 /uL (1100-4500); Mean Corpuscular HGB Conc 33.7 % (30-36); Mean Corpuscular Hemoglobin 33.9 PG (26-34); Mean Corpuscular Volume 100.8 fL (80-100); Monocytes Absolute Auto 800 /uL (0-900); Monocytes Percent Auto 15.6 % (3-14); Neutrophils Absolute Auto 2900 /uL (1500-7000); Neutrophils Percent Auto 58.2 % (50-75); Platelet Count 173 X10^3/uL (150-400); Red Blood Cell Count 3.91 X10^6/uL (4.5-5.9); Red Cell Distribution Width 12.8 % (11.6-14.8); White Blood Cell Count 5.1 X10^3/uL (4.5-11.0)
[2020-12-16 05:07] LABS: INR 1.3 (0.9-1.3); Prothrombin Time 14.4 SECONDS (10.1-12.7)
[2020-12-16 05:11] LABS: Magnesium 1.8 mg/dL (1.6-2.3)
[2020-12-16 05:12] LABS: BUN Creatinine Ratio 17.2 (6-22); Blood Urea Nitrogen 21 mg/dL (9-20); Calcium 8.8 mg/dL (8.4-10.2); Carbon Dioxide 29 mmol/L (22-32); Chloride 104 mmol/L (98-107); Estimated Glomerular Filt Rate 56.7 mL/min (>60); Glucose 106 mg/dL (80-110); HEMOLYSIS < 15 (0-50); Potassium 4.1 mmol/L (3.4-5.1); Sodium 137 mmol/L (137-145)
[2020-12-16 05:21] LABS: NT-proBNP (BNP-Adult 18+) 51 pg/mL (<450)
[2020-12-16] MEDS: SODIUM CHLORIDE 0.9% 1,000 ML 100 ML IV ×2 (05:30→12:41)
[2020-12-16 05:48] LABS: TSH w/ Reflex to FT4 2.51 uIU/mL (0.47-4.68)
[2020-12-16 09:40] LABS: Adenovirus F 40/41 Not Detected (Not Detect); Astrovirus Not Detected (Not Detect); Campylobacter Not Detected (Not Detect); Clostridium difficile toxin AB Not Detected (Not Detect); Cryptosporidium Not Detected (Not Detect); Cyclospora cayetanensis Not Detected (Not Detect); Entamoeba histolytica Not Detected (Not Detect); Enteroaggregative E.coli Not Detected (Not Detect); Enteropathogenic E.coli Not Detected (Not Detect); Enterotoxigenic E.coli It/st Not Detected (Not Detect); Giardia lamblia Not Detected (Not Detect); Norovirus GI/GII Not Detected (Not Detect); Plesiomonsa shigelloides Not Detected (Not Detect); Rotavirus A Not Detected (Not Detect); Salmonella Not Detected (Not Detect); Sapovirus Not Detected (Not Detect); Shiga-like toxin-prod E.coli Not Detected (Not Detect); Shigella/Enteroinvasive E.coli Not Detected (Not Detect); Vibrio Not Detected (Not Detect); Vibrio cholerae Not Detected (Not Detect); Yersinia enterocolitica Not Detected (Not Detect)
[2020-12-16] MEDS: MAGNESIUM CITRATE 300 ML SOLUTION 150 ML PO (10:28)
--- NOTE | 2020-12-16 12:48 | P.CONS_ITS ---
History of Present Illness Consult details Chief complaint: severe diarrhea Narrative: The patient is a gentleman who has had at least a 2 week history of watery diarrhea. He is not aware of having eaten anything tainted. He uses [place] water filtered with a [employer] system. He saw little bit of blood last night but in general has not seen blood at all. Meds Home Medications and Allergies Home Medications Medication Instructions Recorded Confirmed Type aspirin 81 mg tablet,delayed 162 mg PO DAILY #360 tab 12/25/19 12/16/20 Rx release atorvastatin 40 mg tablet 40 mg PO DAILY #90 tab 12/25/19 12/16/20 Rx nitroglycerin 0.4 mg sublingual 0.4 mg SUBLINGUAL Q5M PRN #10 tab 03/09/20 12/16/20 Rx tablet (Nitrostat) clopidogrel 75 mg tablet (Plavix) 75 mg PO DAILY #90 tab 05/10/20 12/16/20 Rx lisinopril 5 mg tablet 5 mg PO DAILY #90 tab 07/06/20 12/16/20 Rx furosemide 20 mg tablet 10 mg PO DAILY tab 09/16/20 12/16/20 History levothyroxine 100 mcg tablet 100 mcg PO QAM #90 tab 09/20/20 12/16/20 Rx alpha lipoic acid 200 mg capsule 200 mg PO BID #60 cap 09/29/20 12/16/20 Rx amlodipine 5 mg tablet 5 mg PO DAILY 10/14/20 12/16/20 History amitriptyline 25 mg tablet 25 mg PO BEDTIME #30 tab 10/25/20 12/16/20 Rx gabapentin 600 mg tablet 600 mg PO TID #270 tab 11/24/20 12/16/20 Rx diphenoxylate-atropine 2.5 1 tab PO Q8H PRN #10 tab 12/13/20 12/16/20 Rx mg-0.025 mg tablet (Lomotil) Allergies Allergy/AdvReac Type Severity Reaction Status Date / Time meperidine Allergy Mild RASH Verified 12/13/20 08:14 Review of Systems Review of Systems Narrative: Patient has no cough or cold. He has had cardiac stents placed in the past to times. Before the last time he had shortness of breath but that has resolved in the is not been symptomatic. No real abdominal pain. No vomiting. No history kidney stones. No seizures or blackouts. Exam Vital Signs (past 8 hours): - 12/16/20 05:04 12/16/20 07:34 Temperature 96.9 F L 96.8 F L Pulse Rate 65 65 Respiratory Rate 20 14 Blood Pressure 156/91 H 147/78 H Pulse Oximetry 95 99 Oxygen Delivery Method Room Air Oxygen Flow Rate 0 Narrative Exam Narrative: Cooperative in no apparent distress. Eyes are nonicteric. Oral mucosa is dry no open lesions. Lungs are clear to auscultation without rales or rhonchi. Lungs percuss equally bilaterally. Heart regular rate and rhythm without murmur gallop. No bruit in the neck. Abdomen is protuberant soft nontender without guarding. No ventral hernias appreciated. Objective Imaging CT scan - abdomen: My impression: Thickening of the descending and sigmoid colon. Bilateral fat containing inguinal hernias. Otherwise fairly unremarkable. Labs Result Diagrams: 12/16/20 04:43 12/16/20 04:43 Labs: Laboratory Results - last 24 hr 12/15/20 12/15/20 12/16/20 23:00 23:00 03:37 WBC 5.9 RBC 4.03 L Hgb 14.0 Hct 40.5 L MCV 100.5 H MCH 34.8 H MCHC 34.6 RDW 13.3 Plt Count 184 Neut % (Auto) 55.8 Lymph % (Auto) 24.6 L [place] % (Auto) 16.1 H Eos % (Auto) 3.1 Baso % (Auto) 0.4 Neut # (Auto) 3300 Lymph # (Auto) 1500 [place] # (Auto) 1000 H Eos # (Auto) 200 Baso # (Auto) 0 PT INR Sodium 138 Potassium 4.3 Chloride 101 Carbon Dioxide 30 BUN 23 H Creatinine 1.33 H Estimated GFR 51.3 L BUN/Creatinine Ratio 17.3 Glucose 109 Calcium 9.2 Magnesium Total Bilirubin 1.1 AST 32 ALT 37 Alkaline Phosphatase 60 NT-Pro-B Natriuret Pep Total Protein 6.7 Albumin 3.7 Globulin 3.0 Albumin/Globulin Ratio 1.2 Lipase 168 TSH Stl C. cayetanensis PCR Stool Rotavirus (PCR) Stool Adenovirus (PCR) Stool Astrovirus (PCR) Stool Cryptosporidium PCR Stl E.coli Shiga Tox PCR St Sh/Enteroin Ecoli PCR Stool E coli O157 PCR Stl Enterotoxigenic E PCR Stool EPEC (PCR) Stl E. histolytica PCR Stool Giardia Lamblia PCR Stool Sapovirus (PCR) Stl P. shigelloides PCR St Y.enterocolitica PCR Stool Vibrio (PCR) Stl Vibrio cholerae PCR Stl Enteroaggr Ecoli PCR Stl Norovirus GI/GII PCR Campylobacter (PCR) C. difficile Tox (PCR) SARS-CoV-2 (PCR) Negative Salmonella (PCR) 12/16/20 12/16/20 12/16/20 04:43 04:43 04:43 WBC 5.1 RBC 3.91 L Hgb 13.3 L Hct 39.3 L MCV 100.8 H MCH 33.9 MCHC 33.7 RDW 12.8 Plt Count 173 Neut % (Auto) 58.2 Lymph % (Auto) 22.0 L [place] % (Auto) 15.6 H Eos % (Auto) 3.1 Baso % (Auto) 1.1 Neut # (Auto) 2900 Lymph # (Auto) 1100 [place] # (Auto) 800 Eos # (Auto) 200 Baso # (Auto) 100 PT 14.4 H INR 1.3 Sodium Potassium Chloride Carbon Dioxide BUN Creatinine Estimated GFR BUN/Creatinine Ratio Glucose Calcium Magnesium 1.8 Total Bilirubin AST ALT Alkaline Phosphatase NT-Pro-B Natriuret Pep Total Protein Albumin Globulin Albumin/Globulin Ratio Lipase TSH Stl C. cayetanensis PCR Stool Rotavirus (PCR) Stool Adenovirus (PCR) Stool Astrovirus (PCR) Stool Cryptosporidium PCR Stl E.coli Shiga Tox PCR St Sh/Enteroin Ecoli PCR Stool E coli O157 PCR Stl Enterotoxigenic E PCR Stool EPEC (PCR) Stl E. histolytica PCR Stool Giardia Lamblia PCR Stool Sapovirus (PCR) Stl P. shigelloides PCR St Y.enterocolitica PCR Stool Vibrio (PCR) Stl Vibrio cholerae PCR Stl Enteroaggr Ecoli PCR Stl Norovirus GI/GII PCR Campylobacter (PCR) C. difficile Tox (PCR) SARS-CoV-2 (PCR) Salmonella (PCR) 12/16/20 12/16/20 12/16/20 04:43 04:43 04:43 WBC RBC Hgb Hct MCV MCH MCHC RDW Plt Count Neut % (Auto) Lymph % (Auto) [place] % (Auto) Eos % (Auto) Baso % (Auto) Neut # (Auto) Lymph # (Auto) [place] # (Auto) Eos # (Auto) Baso # (Auto) PT INR Sodium 137 Potassium 4.1 Chloride 104 Carbon Dioxide 29 BUN 21 H Creatinine 1.22 Estimated GFR 56.7 L BUN/Creatinine Ratio 17.2 Glucose 106 Calcium 8.8 Magnesium Total Bilirubin AST ALT Alkaline Phosphatase NT-Pro-B Natriuret Pep 51 Total Protein Albumin Globulin Albumin/Globulin Ratio Lipase TSH 2.51 Stl C. cayetanensis PCR Stool Rotavirus (PCR) Stool Adenovirus (PCR) Stool Astrovirus (PCR) Stool Cryptosporidium PCR Stl E.coli Shiga Tox PCR St Sh/Enteroin Ecoli PCR Stool E coli O157 PCR Stl Enterotoxigenic E PCR Stool EPEC (PCR) Stl E. histolytica PCR Stool Giardia Lamblia PCR Stool Sapovirus (PCR) Stl P. shigelloides PCR St Y.enterocolitica PCR Stool Vibrio (PCR) Stl Vibrio cholerae PCR Stl Enteroaggr Ecoli PCR Stl Norovirus GI/GII PCR Campylobacter (PCR) C. difficile Tox (PCR) SARS-CoV-2 (PCR) Salmonella (PCR) 12/16/20 08:00 WBC RBC Hgb Hct MCV MCH MCHC RDW Plt Count Neut % (Auto) Lymph % (Auto) [place] % (Auto) Eos % (Auto) Baso % (Auto) Neut # (Auto) Lymph # (Auto) [place] # (Auto) Eos # (Auto) Baso # (Auto) PT INR Sodium Potassium Chloride Carbon Dioxide BUN Creatinine Estimated GFR BUN/Creatinine Ratio Glucose Calcium Magnesium Total Bilirubin AST ALT Alkaline Phosphatase NT-Pro-B Natriuret Pep Total Protein Albumin Globulin Albumin/Globulin Ratio Lipase TSH Stl C. cayetanensis PCR Not detected Stool Rotavirus (PCR) Not detected Stool Adenovirus (PCR) Not detected Stool Astrovirus (PCR) Not detected Stool Cryptosporidium PCR Not detected Stl E.coli Shiga Tox PCR Not detected St Sh/Enteroin Ecoli PCR Not detected Stool E coli O157 PCR Not Reportable Stl Enterotoxigenic E PCR Not detected Stool EPEC (PCR) Not detected Stl E. histolytica PCR Not detected Stool Giardia Lamblia PCR Not detected Stool Sapovirus (PCR) Not detected Stl P. shigelloides PCR Not detected St Y.enterocolitica PCR Not detected Stool Vibrio (PCR) Not detected Stl Vibrio cholerae PCR Not detected Stl Enteroaggr Ecoli PCR Not detected Stl Norovirus GI/GII PCR Not detected Campylobacter (PCR) Not detected C. difficile Tox (PCR) Not detected SARS-CoV-2 (PCR) Salmonella (PCR) Not detected Assessment & Plan Assessment and plan (1) Intractable diarrhea: Status: Acute (2) Colitis: Status: Acute Assessment & Plan narrative: Gave him magnesium citrate and will give him a fleets enema in order to perform a flexible sigmoidoscopy on him. This hopefully will allowed me to do biopsies. The stool studies were negative for pathogens.
--- NOTE | 2020-12-16 13:24 | PC.NURSE ---
Patient remains NPO. Had BM this AM, yellow brown, liquid, seedy, specimen sent to lab. Patient reports stooling has slowed down, Mag citrate was administered @ 1030, patient has not stooled since. Patient endorses intermittent abdominal pain but none this morning. BT active x 4. remains bedside. Call light in reach. Tele on. NS @100cc/hr infusing. SCD's remain on bilaterally.
[2020-12-16] MEDS: FLEETS ENEMA 1 EACH PR (13:54)
--- NOTE | 2020-12-16 15:06 | CM.DANOTE ---
Discharge Planning/Care Management DCP: assessment: case received, EMR reviewed. Pt is an 85 year old male who admitted this morning 0430 to care of hospitalist team. Consulting: [facility]: Dr. Gilbert. PCP: Tony Moore Payer: Medicare and [facility]. Admission status: in review: per UR SHARON [place] Pt is currently NPO for flexible sigmoidoscopy, planned for later today. P: will check in tomorrow with pt after more is known and follow prn for d/c issues/options. CM Discharge Assessment Start: 12/16/20 15:05 Freq: Status: Active Protocol: Document 12/16/20 15:05 ITV (Rec: 12/16/20 15:06 ITV [id number]) Discharge Planning Assessment Advance Directives? Yes: POLST Advance Directives on File Yes History Provided By Medical Record Prior Living Arrangements House Household Members spouse Review Status In Process
[2020-12-16] MEDS: LACTATED RINGERS 1,000 ML 200 ML IV (16:12)
--- NOTE | 2020-12-16 16:19 | PM.PREOP ---
Pre-operative Note COVID-19 COVID-19 status: Negative Result date/Date tested (Pos, Neg/Pending): 12/15/20 Interval Note History & Physical reviewed/Exam performed by Physician: Yes Changes to H&P: No ASA Class (for procedural sedation): III
--- NOTE | 2020-12-16 16:50 | SUR.OPER ---
STOOL CULTURE SENT-ORDERS ENTERED BY DR. MONGE
[2020-12-16] MEDS: MIDAZOLAM 5 MG/5 ML VIAL IV (16:56)
[2020-12-16] MEDS: fentaNYL 250 MCG/5 ML INJ IV (16:56)
--- NOTE | 2020-12-16 17:03 | PM.OP.ENDO ---
Operative Date/Time/Diagnoses Date of procedure: 12/16/20 Time of procedure: 17:03 Pre-op diagnosis: Diarrhea for at least 2 weeks. Increasing in frequency. Abnormal CT scan showing colitis. Post-op diagnosis: same (Mild colitis/proctitis. Most severe distally be becoming less as we proceeded proximally. Edema of the wall the colon. Appearance not diagnostic. Doubt ischemia or C difficile. Specimens sent for stool culture and for ova and parasites) Procedure & Clinicians Study performed: Colonoscopy with cold biopsy Same procedure as scheduled: Yes Indications: Diagnostic Surgeon: Tony Gilbert Procedure Notes SCOAP/Timeout: Performed Procedure in detail: The patient was placed in the left lateral decubitus position and underwent IV sedation directed by the surgeon consisting of fentanyl and Versed. Digital exam was remarkable for edema in the anal tissue. No palpable mass.. The scope was inserted and advanced through the rectum into the sigmoid, descending, and transverse colon. I chose not to advance any further as I did not feel it would provide any useful information but it would increase his risk of perforation. There was inflammation in the rectum that slowly decreased as I progressed but everything seen was at least mildly inflamed. There was no evidence of pseudomembranes. There was no distinct cutoff suggesting ischemia. The colon wall was pink and it looked edematous. There was no straightening of the colon and the haustra appeared normal. Occasional sigmoid diverticulosis was seen. No evidence of any gangrenous changes. Biopsies were taken from the left colon to the rectum. These were random. They were all placed in 1 container. Liquid stool Specimen was collected for additional study(patient has had a GI panel already performed so specimens were submitted for culture and O and P .). The scope was removed and the patient tolerated the procedure well. Scope withdrawal time: Not applicable Sedation minutes: 29 Findings: colitis and diverticulosis Specimen(s): other (Random biopsies of the inflamed colon) Complications: none Post-procedure Recommendations: Other recommendation (Support with fluids as needed. Await studies. Consider treatment with salicylic acid or similar. Expect a small amount of blood in his stool due to the fact he is on Plavix and I performed biopsies.) Follow up: as needed Disposition: PACU
--- NOTE | 2020-12-16 17:23 | SUR.PHASEI ---
pt transported by wc to room 216 in stable condition.
--- NOTE | 2020-12-16 18:23 | PM.CALLCOV.1 ---
Call Coverage Note Note Narrative of Care Provided: Chart reviewed patient seen examined, flexible sigmoidoscopy results noted, will discuss with surgery to be using salicylic acid, despite cultures being negative would treat him empirically with levofloxacin and Flagyl, will decide other treatment after discussion with General surgery.
[2020-12-16] MEDS: LACTATED RINGERS 1,000 ML 42 ML IV (19:23)
[2020-12-16] MEDS: levoFLOXacin 500 MG/100 ML PIGGYBACK 100 MG IV (19:41)
[2020-12-16] MEDS: metroNIDAZOLE 500 MG/100 ML PIGGYBACK 100 MG IV ×2 (21:17→23:50)
[2020-12-16] MEDS: GABAPENTIN 600 MG TABLET PO (21:21)
[2020-12-16] MEDS: AMITRIPTYLINE 25 MG TABLET PO (21:21)
[2020-12-17] VITALS (8 sets, daily range): BP systolic 144–157; BP diastolic 73–86; PULSE 67–79; RESP 14–16; TEMP 36.1–36.3; O2SAT 95–97
[2020-12-17 04:51] LABS: HBsAg Screen Negative (Negative); Hepatitis A Antibody IgM Negative (Negative); Hepatitis B Core Antibody IgM Negative (Negative); Hepatitis C Antibody <0.1 s/co ratio (0.0-0.9)
[2020-12-17] MEDS: metroNIDAZOLE 500 MG/100 ML PIGGYBACK 100 MG IV ×2 (05:46→11:55)
[2020-12-17] MEDS: LEVOTHYROXINE 100 MCG TABLET PO (05:48)
[2020-12-17] MEDS: ATORVASTATIN 20 MG TABLET 40 MG PO (09:13)
[2020-12-17] MEDS: FUROSEMIDE 20 MG TABLET 10 MG PO (09:13)
[2020-12-17] MEDS: CLOPIDOGREL 75 MG TABLET PO (09:13)
[2020-12-17] MEDS: AMLODIPINE 5 MG TABLET PO (09:13)
[2020-12-17] MEDS: lisinopriL 5 MG TABLET PO (09:14)
[2020-12-17] MEDS: GABAPENTIN 600 MG TABLET PO ×2 (09:14→15:29)
[2020-12-17] MEDS: ACETAMINOPHEN 325 MG TABLET 650 MG PO (10:07)
--- NOTE | 2020-12-17 10:51 | PC.NURSE ---
Addendum entered by Avani Jaimes R.N. 12/17/20 14:46: Patient tolerated Low Residual diet for lunch. Denies N/V or diarrhea. Original Note: Patient up to [facility] this AM for BM, still reporting loose stool. Endorses pain internally, requests tylenol. Administered. VSS, room air, lungs clear, pulses equal, BS active x 4. Refusing SCD's so that he can ambulate independently. Denies dizziness/lightheadedness, SOB or chest pain. Patient denies further needs at this time. Call light in reach.
--- NOTE | 2020-12-17 16:57 | PC.NURSE ---
Patient discharged in stable condition home with spouse at 16:50, taken down to car by this RN via wheelchair. All personal items removed from room by patient. Discharge instructions reviewed with patient and spouse, all questions answered.
--- NOTE | 2020-12-18 14:05 | P.DS_ITS ---
History of Present Illness History of Present Illness Chief complaint: severe diarrhea Narrative: Patient is 85-year-old male Juan Manuel Humphries who presented to the ED with intractable diarrhea for the past 16 days. Started off 1 or 2 per day for the past couple of weeks and has gradually increasing to 4-5 liquid stools per day. Seen at Urgent Care 12/13/20 (3 days ago) negative C diff/stool culture. Patient denies abdominal pain, nausea, vomiting, fever, chills, diaphoresis, chest pain, or shortness of breath. Patient states that the multiple episodes and constant wiping has irritated his hemorrhoids and causing bright red blood today with wiping with bowel movement. He also reports a throbbing rectal pain following BM, in which he has palpated for protrusions from his rectum, that if he pushes them backup inside the pain decreases and it is much more tolerable. The patient denies history of previous hemorrhoids, GI bleed, hepatitis, or reflux issues. No foreign travel, new foods or medications. Patient did recall that he had traveled to [place] any eaten out and following 1 such meal began to feel poor immediately following meal and then the diarrhea quickly ensued. Patient does not know when last colonoscopy. He notes that he has mild rectal discomfort at this time. Upon physical exam patient's abdomen is distended more than his normal, and only had mild tenderness with palpation to right lower abdominal area and suprapubic area, without CVA tenderness. Patient is comfortable and resting in bed with no complaints at this time. Patient has a medical history of congestive heart failure with an ejection fraction of 40-45%, coronary [place] artery disease with drug-eluting stent placements x2 on chronic Plavix, essential hypertension, CKD stage IIIA, hypothyroidism, hyperlipidemia, and peripheral neuropathy. Patient's vitals upon admit are stable with a BP 143/66, HR 68, R 17, O2 sat uration 94% on room air. Patient's CBC is mostly unremarkable, CMP notes some mild increase of BUN 23, creatinine 1.33 which is up from 1.16, GFR is slightly down at 51.3 down from >60 on 12/13. But not demonstrating LEBRON at this time. All the patient's other labs are unremarkable. Patient's CT of abdomen and pelvis demonstrated long segment colonic mucosal thickening originating at the mid distal aspect of the transverse colon and extending to the level of the distal rectum. Infectious versus inflammatory colitis. Patient admitted for intractable diarrhea resulting in dehydration of unknown etiology. Discharge Providers Provider Date of admission: 12/16/20 04:30 Discharge Date: 12/17/20 Primary care physician: Tony Moore MD Consults: 12/16/20 04:35 Consult to Physician Routine Comment: Consulting Provider: Tony Gilbert Reason for consultation: Intractable diarrhea Has provider been notified: Yes 12/16/20 16:10 Consult to Respiratory Therapy Evaluate & Treat Comment: Physician Instructions: Evaluate and treat Discharge provider: Hannah Gooden MD Summary Hospital Course Discharge Diagnosis: 1. Acute Colitis-Suspect Inflammatory vs. Infectious 2. Chronic Systolic Heart Failure, EF 40-45% 3. CAD 4. Hyperlipidemia 5. Hypothyroidism 6. Hypertension 7. CKD Stage 3 Hospital Course: Patient was admitted to the hospital for evaluation of significant diarrhea. CT scan suggested acute colitis. Initial stool studies were negative for Cdiff or infection. Patient was started on Levofloxacin and Metronidazole. He underwent Flex Sigmoidoscopy which revealed : Mild colitis/proctitis. Most severe distally be becoming less as we proceeded proximally. Edema of the wall the colon. Appearance not diagnostic. Doubt ischemia or C difficile. Specimens sent for stool culture and for ova and parasites) The following day patient had complete resolution of his diarrhea. His diet was advanced which he tolerated and was discharged home. Patient continued on oral antibiotics for 7 days. He will follow up with Dr. Gilbert for final biopsy results and referral to Gastroenterology if appropriate. Status at Discharge Cognitive/behavioral status at discharge: oriented Exam Vital Signs (past 8 hours): Oxygen Delivery Method Room Air Oxygen Flow Rate 0 Narrative Exam Narrative: Pleasant gentleman in no Acute distress Resp Other: Lungs: clear to auscultation Cardio Other: RRR nls Sl S2 GI Other: Abd: soft/ non tender/ non distended Extrem Other: no edema Objective Labs Result Diagrams: 12/16/20 04:43 12/16/20 04:43 [facility] Medical History Chronic back pain (2009) Chronic kidney disease, stage 3a Essential hypertension (10/04/12) Hearing loss (1997) History of coronary artery stent placement (01/15/17) Hypothyroidism (acquired) (01/07/13) Mild cognitive impairment Mixed hyperlipidemia (07/31/11) Neutropenia (2007) Obstructive sleep apnea, adult (~2017) Peripheral neuropathy (2007) Surgical History Anesthesia History of ear surgery (04/29/15) S/P drug eluting coronary stent placement Family History Father Heart disease Hypertension High cholesterol Grandmother Cancer Sister Age: 80 Heart disease Hypertension High cholesterol Grandfather Heart failure Mother Liver failure Social History household members: spouse Smoking Status: Never smoker alcohol intake: current Discharge Assessment & Plan Assessment and Plan Assessment: 1. Acute Colitis 2. CKD stage 3 3. Hypertension 4. CAD 5. Chronic Systolic Heart Failure 6. Hypothyroidism Plan of Treatment: Continue Antibiotics for one week Follow up with Dr. Gilbert for biopsy results and further recommendations Discharge Plan Discharge Plan Patient Disposition: Home Discharge orders & Medications Prescriptions: New levofloxacin 250 mg tablet 250 mg PO DAILY Qty: 7 RF: 0 metronidazole [Flagyl] 500 mg tablet 500 mg PO Q8H Qty: 21 RF: 0 Continued diphenoxylate-atropine [Lomotil] 2.5-0.025 mg tablet 1 tab PO Q8H PRN (Reason: diarrhea) Qty: 10 RF: 0 nitroglycerin [Nitrostat] 0.4 mg tablet, sublingual 0.4 mg SUBLINGUAL Q5M PRN (Reason: Chest Pain) Qty: 10 RF: 0 clopidogrel [Plavix] 75 mg tablet 75 mg PO DAILY Qty: 90 RF: 3 levothyroxine 100 mcg tablet 100 mcg PO QAM Qty: 90 RF: 3 amlodipine 5 mg tablet 5 mg PO DAILY RF: 0 amitriptyline 25 mg tablet 25 mg PO BEDTIME Qty: 30 RF: 2 gabapentin 600 mg tablet 600 mg PO TID Qty: 270 RF: 3 alpha lipoic acid 200 mg capsule 200 mg PO BID Qty: 60 RF: 0 aspirin 81 mg tablet,delayed release (DR/EC) 162 mg PO DAILY Qty: 360 RF: 3 atorvastatin 40 mg tablet 40 mg PO DAILY Qty: 90 RF: 3 lisinopril 5 mg tablet 5 mg PO DAILY Qty: 90 RF: 3 furosemide 20 mg tablet 10 mg PO DAILY RF: 0 Medication counseling provided by Pharmacist: Yes Pharmacist Comment: Pharmacist stated she reviewed medications with patient. Follow up/Referrals: Tony Moore MD [Primary Care Provider] - Tony Gilbert MD [Physician] - (follow up biopsy results) Discharge Health Status Multidrug resistant organism: No MDRO Diet/Activity/Treatments Diet: Diet as Tolerated Diet comment: low residue diet Skin/Wound/Dressing Care Report to your healthcare provider any signs of infection, such as:: chills, fever and increased pain Visit Report/Discharge Packet Instructions: Colonoscopy Stand Alone Forms: Colonoscopy Result: Isld Surg Discharge Data Primary Care Provider: Tony Moore Attending Provider: Carmela Botello VTE Deep Vein Thrombosis/Pulmonary Embolism Present on Admission: No
== END 2020-12-17 16:50 | disposition home or self-care (01) ==
LOC: ED 12-16 04:26 → AC 12-16 04:30
PROVIDERS: Specialist; Admitting Provider Nurse Practitioner Family; Emergency Provider Emergency Medicine; Family Provider Internal Medicine Cardiovascular Disease; PCP Student in an Organized Health Care Education/Training Program; Referring Provider Emergency Medicine; Visit Provider Nurse Practitioner Family
PROC: 0DJD8ZZ Inspection of Lower Intestinal Tract, Via Natural or Artificial Opening Endoscopic (ICD-10-PCS; CPT 45378; principal; 2020-12-16 16:30)
DX: K52.9 Noninfective gastroenteritis and colitis, unspecified (principal); K57.30 Diverticulosis of large intestine without perforation or abscess without bleeding; E03.9 Hypothyroidism, unspecified; E78.5 Hyperlipidemia, unspecified; I25.10 Atherosclerotic heart disease of native coronary artery without angina pectoris; Z79.01 Long term (current) use of anticoagulants; I12.9 Hypertensive chronic kidney disease with stage 1 through stage 4 chronic kidney disease, or unspecified chronic kidney disease; N18.31 Chronic kidney disease, stage 3a; G47.33 Obstructive sleep apnea (adult) (pediatric); G62.9 Polyneuropathy, unspecified; Z20.822 Contact with and (suspected) exposure to COVID-19
CPT/HCPCS: 45380; 36415; 36592; 74177; 80048; 80053; 80074; 82962; 83690; 83735; 83880; 84443; 85025; 85610; 87040; 87045; 87177; 87507; 87635; 87899; 94760; 96361; 96365; 96366; 96368; 99152; 99218; 99284; C9803; G0378; J1956; J2250; J3010; Q9967

== ENCOUNTER → 2021-03-22 08:58 | Outpatient (CLI) | payer MEDICARE, OTHER, SELFPAY ==
[2020-12-16 05:22] VITALS: BMI 30.7
[2021-03-22 11:30] LABS: BUN Creatinine Ratio 26.7 (6-22); Blood Urea Nitrogen 28 mg/dL (9-20); Calcium 8.9 mg/dL (8.4-10.2); Carbon Dioxide 31 mmol/L (22-32); Chloride 101 mmol/L (98-107); Estimated Glomerular Filt Rate > 60.0 mL/min (>60); Glucose 107 mg/dL (80-110); HEMOLYSIS 28 (0-50); Potassium 4.4 mmol/L (3.4-5.1); Sodium 138 mmol/L (137-145)
== END ==
PROVIDERS: Family Provider Internal Medicine Cardiovascular Disease; PCP Student in an Organized Health Care Education/Training Program; Referring Provider Internal Medicine Cardiovascular Disease; Visit Provider Internal Medicine Cardiovascular Disease
DX: I25.5 Ischemic cardiomyopathy (principal); I10 Essential (primary) hypertension
CPT/HCPCS: 36415; 80048

== ENCOUNTER → 2021-06-16 14:11 | Outpatient (CLI) | payer MEDICARE, OTHER, SELFPAY ==
[2021-04-06 12:40] VITALS: BMI 30.7
--- NOTE | 2021-06-16 14:14 | DI.RAD.S_ITS ---
PROCEDURE: XR TIBIA FUBULA RT 2V INDICATIONS: fall, knee and leg pain TECHNIQUE: 4 views of the tibia and fibula were acquired. COMPARISON: None. FINDINGS: Bones: No fractures or dislocations. No suspicious bony lesions. Soft tissues: No suspicious soft tissue calcifications or masses. IMPRESSION: No acute right lower leg fracture or dislocation. No gross soft tissue abnormality. Dictated by: Antonio Nevarez M.D. on 06/16/2021 at 15:12 Approved by: Antonio Nevarez M.D. on 06/16/2021 at 15:12
--- NOTE | 2021-06-16 14:14 | DI.RAD.S_ITS ---
PROCEDURE: XR KNEE RT 3V INDICATIONS: fall, knee and leg pain TECHNIQUE: 3 views of the knee were acquired. COMPARISON: [facility], , KNEE 3V LEFT, 02/18/2010, 14:39. FINDINGS: Bones: No fractures or dislocations. No suspicious bony lesions. Mild tricompartmental osteoarthritis is seen more prominent in medial femoral tibial compartment. Soft tissues: Small to moderate suprapatellar joint effusion is seen. No suspicious soft tissue calcifications. IMPRESSION: Mild tricompartmental osteoarthritis and small to moderate joint effusion. No gross acute fracture or dislocation. Dictated by: Antonio Nevarez M.D. on 06/16/2021 at 15:11 Approved by: Antonio Nevarez M.D. on 06/16/2021 at 15:12
== END ==
PROVIDERS: Family Provider Internal Medicine Cardiovascular Disease; PCP Student in an Organized Health Care Education/Training Program; Referring Provider Nurse Practitioner Family; Visit Provider Nurse Practitioner Family
DX: S89.91XA Unspecified injury of right lower leg, initial encounter (principal); M17.11 Unilateral primary osteoarthritis, right knee; M25.461 Effusion, right knee; W19.XXXA Unspecified fall, initial encounter
CPT/HCPCS: 73562; 73590

== ENCOUNTER → 2021-10-04 09:05 | Outpatient (CLI) | payer MEDICARE, OTHER, SELFPAY ==
[2021-04-06 12:40] VITALS: BMI 30.7
[2021-10-04 10:45] LABS: Cholesterol 155 mg/dL (140-199); HDL Cholesterol 38 mg/dL (40-60); LDL Cholesterol Calculated 81 mg/dL (<100); Triglycerides 180 mg/dL (35-150)
== END ==
PROVIDERS: Family Provider Internal Medicine Cardiovascular Disease; PCP Student in an Organized Health Care Education/Training Program; Referring Provider Internal Medicine Cardiovascular Disease; Visit Provider Internal Medicine Cardiovascular Disease
DX: I10 Essential (primary) hypertension (principal)
CPT/HCPCS: 36415; 80061

== ENCOUNTER → 2022-03-20 14:17 | Outpatient (CLI) | payer MEDICARE, OTHER, SELFPAY ==
[2021-04-06 12:40] VITALS: BMI 30.7
[2022-03-20 15:39] LABS: Add Manual Diff / Slide Review NO; Basophils Absolute Auto 0 /uL (0-100); Basophils Percent Auto 0.6 % (0-2); Eosinophils Absolute Auto 300 /uL (0-450); Eosinophils Percent Auto 5.6 % (2-4); Hematocrit 40.9 % (41-53); Hemoglobin 14.1 g/dL (13.5-17.5); Lymphocytes Absolute Auto 1600 /uL (1100-4500); Lymphocytes Percent Auto 26.3 % (25-40); Mean Corpuscular HGB Conc 34.6 % (30-36); Mean Corpuscular Hemoglobin 34.2 PG (26-34); Mean Corpuscular Volume 99.1 fL (80-100); Monocytes Absolute Auto 700 /uL (0-900); Monocytes Percent Auto 11.4 % (3-14); Neutrophils Absolute Auto 3500 /uL (1500-7000); Neutrophils Percent Auto 56.1 % (50-75); Platelet Count 151 X10^3/uL (150-400); Red Blood Cell Count 4.13 X10^6/uL (4.5-5.9); Red Cell Distribution Width 13.4 % (11.6-14.8); White Blood Cell Count 6.3 X10^3/uL (4.5-11.0)
[2022-03-20 15:51] LABS: BUN Creatinine Ratio 24.3 (6-22); Blood Urea Nitrogen 25 mg/dL (9-20); Calcium 8.4 mg/dL (8.4-10.2); Carbon Dioxide 31 mmol/L (22-32); Chloride 100 mmol/L (98-107); Estimated Glomerular Filt Rate > 60 mL/min (>60); Glucose 138 mg/dL (80-110); HEMOLYSIS 25 (0-50); Potassium 4.1 mmol/L (3.4-5.1); Sodium 138 mmol/L (137-145); Uric Acid 6.9 mg/dL (3.5-8.5)
[2022-03-20 15:54] LABS: Hemoglobin A1C% w Est Avg Glu 5.9 % (4.0-6.0)
== END ==
PROVIDERS: Family Provider Internal Medicine Cardiovascular Disease; PCP Student in an Organized Health Care Education/Training Program; Referring Provider Family Medicine; Visit Provider Family Medicine
DX: G56.00 Carpal tunnel syndrome, unspecified upper limb (principal); M10.9 Gout, unspecified
CPT/HCPCS: 36415; 80048; 83036; 84550; 85025

== ENCOUNTER → 2022-06-05 09:46 | Outpatient (CLI) | payer MEDICARE, OTHER, SELFPAY ==
[2021-04-06 12:40] VITALS: BMI 30.7
[2022-06-05 11:12] LABS: BUN Creatinine Ratio 38.5 (6-22); Blood Urea Nitrogen 37 mg/dL (9-20); Calcium 8.8 mg/dL (8.4-10.2); Carbon Dioxide 25 mmol/L (22-32); Chloride 104 mmol/L (98-107); Cholesterol 118 mg/dL (140-199); Estimated Glomerular Filt Rate > 60 mL/min (>60); Glucose 108 mg/dL (80-110); HDL Cholesterol 37 mg/dL (40-60); HEMOLYSIS < 15 (0-50); LDL Cholesterol Calculated 44 mg/dL (<100); Potassium 4.5 mmol/L (3.4-5.1); Sodium 140 mmol/L (137-145); Triglycerides 184 mg/dL (35-150)
== END ==
PROVIDERS: Family Provider Internal Medicine Cardiovascular Disease; PCP Student in an Organized Health Care Education/Training Program; Referring Provider Internal Medicine Cardiovascular Disease; Visit Provider Internal Medicine Cardiovascular Disease
DX: E78.5 Hyperlipidemia, unspecified (principal)
CPT/HCPCS: 36415; 80048; 80061

== ENCOUNTER → 2022-08-24 07:47 | Outpatient (CLI) | payer MEDICARE, OTHER, SELFPAY ==
[2021-04-06 12:40] VITALS: BMI 30.7
--- NOTE | 2022-08-24 07:48 | DI.ECHO.S_ITS ---
[place] +---------+ Hospital +---------+ : : [address] : : : : [id number] : : : : Phone: [phone] +---------+ Echocardiogram Report + + :Name: HAYDEN DICKINSON Study Date: 08/24/2022 Height: 71 in : :[facility] ReadingLocation: Weight: 211 lb : : Gender: Male BSA: 2.2 m2 : :: 1935 Age: 87 yrs BP: 130/84 mmHg: :Reason For Study: VENTRICULAR PREMATURE DEPOLARIZATION HR: 58 : :Ordering Physician: DENYS, : :MATA Performed By: SHELLIE AMOS : :Referring: MATA MCFARLANE : + + Interpretation Summary The left ventricle is normal in size and wall thickness. The ejection fraction is estimated to be 50-55%. Previous LVEF 40 to 45%. The right ventricle is normal in size and function. There is mild to moderate aortic regurgitation. Compared to the prior echo study, there has been an increase in the severity of aortic regurgitation. There is mild tricuspid regurgitation. Compared to the prior echo exam, there has been no change in TR severity. The right ventricular systolic pressure is estimated to be at least 26 mmHg based on an estimated right atrial pressure of 3 mm Hg. Procedure: A two-dimensional transthoracic echocardiogram with color flow and Doppler was performed. The study quality was technically adequate. Comparison is made with the echocardiogram of 11/16/2019. The patient was in sinus bradycardia with heart rates between 54-60 bpm during the exam. Left Ventricle: The left ventricle is normal in size and wall thickness. There is no thrombus. The ejection fraction is estimated to be 50-55%. Compared to the prior exam, the left ventricular function is improved. There are no focal wall motion abnormalities. Diastolic parameters suggest a relaxation abnormality of the left ventricle, consistent with probable normal filling pressures. Right Ventricle: The right ventricle is normal in size and function. Atria: The left atrial size is normal. There has been no significant change since the previous study. Right atrial size is normal. There is no Doppler evidence for an interatrial shunt. Mitral Valve: There is mild mitral annular calcification. There is trace mitral regurgitation. Aortic Valve: The aortic valve opens well. The aortic valve is trileaflet. The aortic valve is mildly calcified. There is no aortic valve stenosis. There is mild to moderate aortic regurgitation. Compared to the prior echo study, there has been an increase in the severity of aortic regurgitation. Tricuspid Valve: The tricuspid valve is normal in structure and function. There is mild tricuspid regurgitation. The right ventricular systolic pressure is estimated to be at least 26 mmHg based on an estimated right atrial pressure of 3 mm Hg. Compared to the prior echo exam, there has been no change in TR severity. Pulmonic Valve: The pulmonic valve is not well seen, but is grossly normal. There is trace pulmonic regurgitation. Great Vessels: The aortic root is normal size. The ascending aorta is normal in size. The IVC is of normal diameter and collapses greater than 50% with a sniff. This suggests a low right atrial pressure of 3 mm Hg. Pericardium/ Pleura There is no pericardial effusion. There is no pleural effusion. MMode/2D Measurements & Calculations LVIDd: 3.4 cm LVOT diam: 2.0 cm LVIDs: 2.6 cm Ao root diam: 3.6 cm FS: 23.5 % asc Aorta Diam: 3.6 cm IVSd: 1.1 cm LVPWd: 0.90 cm LV mcneil. diameter/BSA (cm/m^2): 1.6 LV sys. diameter/BSA (cm/m^2): 1.2 LA A2 area: 21.8 cm2 RA long axis: 3.9 cm LA A4 area: 10.9 cm2 LA length (vol): 5.8 cm LA vol: 35.0 ml LA vol index: 16.2 ml/m2 LVLs ap4: 5.7 cm LVLd ap2: 8.1 cm LVLs ap2: 6.7 cm TAPSE_phl: 2.1 cm Doppler Measurements & Calculations Ao V2 max: 123.0 cm/sec LVOT Max Jevon: 101.0 cm/sec Ao V2 mean: 86.5 cm/sec LV V1 max P.1 mmHg Ao max P.1 mmHg LV V1 VTI: 24.3 cm Ao mean P.0 mmHg CARMEN(I,D): 2.5 cm2 Ao V2 VTI: 30.1 cm CARMEN(V,D): 2.6 cm2 sev ratio: 0.81 CARMEN indexed to BSA (cm^2/m^2): 1.2 AI P1/2t: 693.2 msec AI dec slope: 199.0 cm/sec2 MV E max jevon: 66.0 cm/sec TR max jevon: 242.0 cm/sec MV A max jevon: 90.8 cm/sec TR max P.4 mmHg MV E/A: 0.73 PA V2 max: 82.7 cm/sec Med Peak E' Jevon: 7.0 cm/sec PA V2 mean: 62.2 cm/sec E/E' med: 9.5 PA mean P.0 mmHg Lat Peak E' Jevon: 9.1 cm/sec PA pr(Accel): 17.3 mmHg E/E' lat: 7.3 E/e' average: 8.4 MV dec time: 0.25 sec SV(LVOT): 76.3 ml AV P1/2t-pr_phl: 693.0 msec AV VR_phl: 0.82 CARMEN(VTI)/BSA_phl: 1.2 MV P1/2t-pr_phl: 72.0 msec Reading Physician:01:35 PM
== END ==
PROVIDERS: Family Provider Internal Medicine Cardiovascular Disease; PCP Student in an Organized Health Care Education/Training Program; Referring Provider Internal Medicine Cardiovascular Disease; Visit Provider Internal Medicine Cardiovascular Disease
DX: I08.3 Combined rheumatic disorders of mitral, aortic and tricuspid valves (principal); I49.3 Ventricular premature depolarization; I25.5 Ischemic cardiomyopathy
CPT/HCPCS: 93306

== ENCOUNTER → 2022-09-08 07:42 | Outpatient (CLI) | payer MEDICARE, OTHER, SELFPAY ==
[2021-04-06 12:40] VITALS: BMI 30.7
--- NOTE | 2022-09-08 | DI.MRI.S_ITS ---
PROCEDURE: MR LUMBAR SPINE WO CON INDICATIONS: Spondylosis without myelopathy or radiculopathy, lumbar saturnino TECHNIQUE: Noncontrast sagittal T1 spin echo and T2 fast echo, sagittal STIR, and T2 fast spin echo through the lumbar spine. In cases with scoliosis, additional coronal T2 fast spin echo may be performed. COMPARISON: [facility], MR, MR LUMBAR SPINE WO CON, 02/13/2018, 11:39. FINDINGS: Image quality: Excellent. Alignment and Curvature: There is normal bony alignment. Bone Marrow: Multilevel degenerative endplate changes noted, similar prior. Wedge-shaped compression fracture L1 again noted without edema or retropulsed fracture fragment. Spinal Cord: Conus medullaris terminates at the L1 level. Visualized cord demonstrates normal signal and size. Paraspinous Soft Tissues: No paravertebral masses. T12-L1: Disc space narrowing. No central or foraminal stenosis. L1-L2: Disc space narrowing with circumferential disc bulge results in mild central stenosis. No foraminal stenosis. L2-L3: Disc space narrowing with circumferential disc bulge and hypertrophic facet joints combines with dorsal epidural fat result in moderate central stenosis. No foraminal stenosis. L3-L4: Disc space narrowing with circumferential disc bulge, hypertrophic facet joints and dorsal epidural fat to result in moderate central stenosis. Severe right and moderate left foraminal stenosis L4-L5: Disc space narrowing with circumferential disc bulge and hypertrophic facet joints results in [id number] central stenosis. Severe left moderate right foraminal stenosis L5-S1: Disc space narrowing with posterior disc bulge asymmetric to the left results in effacement of the left lateral recess without significant central stenosis. Severe left and mild right foraminal stenosis IMPRESSION: Multilevel degenerative disc disease and arthropathy results in varying degrees of central and foraminal stenosis including moderate central stenosis L2-3 and L3-4, severe foraminal stenosis L3-4, L4-5 and L5-S1 Approved by: Charles Seymour M.D. on 09/08/2022 at 12:29
== END ==
PROVIDERS: Family Provider Internal Medicine Cardiovascular Disease; PCP Student in an Organized Health Care Education/Training Program; Referring Provider Physical Medicine & Rehabilitation; Visit Provider Physical Medicine & Rehabilitation
DX: M47.816 Spondylosis without myelopathy or radiculopathy, lumbar region (principal); M51.36 Other intervertebral disc degeneration, lumbar region; M51.37 Other intervertebral disc degeneration, lumbosacral region; M48.061 Spinal stenosis, lumbar region without neurogenic claudication; M48.07 Spinal stenosis, lumbosacral region
CPT/HCPCS: 72148

== ENCOUNTER → 2023-08-20 12:36 | Outpatient (CLI) | payer MEDICARE, OTHER, SELFPAY ==
[2021-04-06 12:40] VITALS: BMI 30.7
--- NOTE | 2023-08-20 | DI.ECHO.S_ITS ---
[place] +---------+ [facility] +---------+ : : [address] : [address] : : : : [id number] : : : : Phone: [phone] +---------+ Echocardiogram Report + + :Name: HAYDEN DICKINSON Study Date: 08/20/2023 Height: 71 in : :[facility] ReadingLocation: Weight: 210 lb : : Gender: Male BSA: 2.2 m2 : :: 1935 Age: 88 yrs BP: 127/72 mmHg: :Reason For Study: ISCHEMIC CARDIOMYOPATHY : :Ordering Physician: CHRISTINA, : :DONALD Performed By: Lucita Aguirre : :Referring: DONALD VASQUEZ : + + Interpretation Summary The left ventricle is normal in size and wall thickness. The left ventricular ejection fraction is normal. The ejection fraction is estimated to be 60-65%. Previous LVEF 50 to 55%. The right ventricle is normal in size and function. There is mild to moderate aortic regurgitation. Compared to the prior echo study, there has been no change in the severity of aortic regurgitation. The IVC is of normal diameter and collapses greater than 50% with a sniff. This suggests a low right atrial pressure of 3 mm Hg. The ascending aorta is mildly enlarged. Procedure: A two-dimensional transthoracic echocardiogram with color flow and Doppler was performed. The study quality was technically adequate. Comparison is made with the echocardiogram of 08/24/2022. The heart rate ranged between 58-69 bpm during the study. The patient was in normal sinus rhythm during the exam. Left Ventricle: The left ventricle is normal in size and wall thickness. There is no thrombus. The ejection fraction is estimated to be 60-65%. The left ventricular ejection fraction is normal. There are no focal wall motion abnormalities. Diastolic parameters suggest a relaxation abnormality of the left ventricle, consistent with probable normal filling pressures. Right Ventricle: The right ventricle is normal in size and function. Atria: The left atrial size is normal. There has been no significant change since the previous study. Right atrial size is normal. There is no Doppler evidence for an interatrial shunt. Mitral Valve: There is mild mitral annular calcification. There is trace mitral regurgitation. Aortic Valve: The aortic valve is trileaflet. The aortic valve opens well. There is no aortic valve stenosis. There is mild to moderate aortic regurgitation. Compared to the prior echo study, there has been no change in the severity of aortic regurgitation. Tricuspid Valve: The tricuspid valve is normal in structure and function. There is trace tricuspid regurgitation. Pulmonary artery pressures cannot be estimated because of the lack of a measurable TR jet velocity. Pulmonic Valve: The pulmonic valve leaflets are thin and pliable; valve motion is normal. There is mild pulmonic regurgitation. Great Vessels: The aortic root is normal size. The ascending aorta is mildly enlarged. The IVC is of normal diameter and collapses greater than 50% with a sniff. This suggests a low right atrial pressure of 3 mm Hg. Pericardium/ Pleura There is no pericardial effusion. There is no pleural effusion. MMode/2D Measurements & Calculations LVIDd: 4.2 cm LVOT diam: 1.9 cm LVIDs: 3.0 cm Ao root diam: 3.5 cm FS: 27.9 % asc Aorta Diam: 4.0 cm IVSd: 0.96 cm Ao Arch Diam (Prox Trans): 2.6 cm LVPWd: 1.1 cm LV mcneil. diameter/BSA (cm/m^2): 2.0 LV sys. diameter/BSA (cm/m^2): 1.4 LA A2 area: 13.6 cm2 RA long axis: 4.1 cm LA A4 area: 9.4 cm2 RA area: 11.3 cm2 LA length (vol): 3.6 cm RA vol: 26.6 ml LA vol: 29.9 ml RA : 12.3 ml/m2 LA vol index: 13.9 ml/m2 IVC diam: 1.3 cm RVD1 (basal): 3.1 cm TAPSE: 1.8 cm Doppler Measurements & Calculations Ao V2 max: 127.3 cm/sec LVOT Max Jevon: 119.4 cm/sec Ao V2 mean: 86.0 cm/sec LV V1 max P.7 mmHg Ao max P.5 mmHg LV V1 VTI: 24.0 cm Ao mean P.4 mmHg CARMEN(I,D): 3.0 cm2 Ao V2 VTI: 23.9 cm CARMEN(V,D): 2.8 cm2 sev ratio: 1.0 CARMEN indexed to BSA (cm^2/m^2): 1.4 MV E max jevon: 56.0 cm/sec PA V2 max: 74.8 cm/sec MV A max jevon: 57.6 cm/sec PA V2 mean: 51.9 cm/sec MV E/A: 0.97 PA mean P.2 mmHg Med Peak E' Jevon: 4.8 cm/sec BRIANA pr(Accel): 41.3 mmHg E/E' med: 11.6 Lat Peak E' Jevon: 6.5 cm/sec E/E' lat: 8.6 E/e' average: 10.1 MV dec time: 0.23 sec SV(LVOT): 71.1 ml Reading Physician:05:38 PM
== END ==
PROVIDERS: Family Provider Internal Medicine Cardiovascular Disease; PCP Student in an Organized Health Care Education/Training Program; Referring Provider Nurse Practitioner Acute Care; Visit Provider Nurse Practitioner Acute Care
DX: I08.1 Rheumatic disorders of both mitral and tricuspid valves (principal); I77.89 Other specified disorders of arteries and arterioles; I25.5 Ischemic cardiomyopathy; I25.10 Atherosclerotic heart disease of native coronary artery without angina pectoris
CPT/HCPCS: 93306

== ENCOUNTER → 2023-08-21 09:26 | Outpatient (CLI) | payer MEDICARE, OTHER, SELFPAY ==
[2021-04-06 12:40] VITALS: BMI 30.7
[2023-08-21 10:12] LABS: Influenza A - CEPHEID Flu A NEGATIVE (NEGATIVE); Influenza B - CEPHEID Flu B NEGATIVE (NEGATIVE); Respiratory Syncytial Virus Negative (Negative)
[2023-08-21 10:13] LABS: COVID-19 CEPHEID 4-PLEX PCR Negative (Negative)
== END ==
LOC: LAB 09:27
PROVIDERS: Family Provider Internal Medicine Cardiovascular Disease; PCP Family Medicine; Visit Provider Nurse Practitioner Family
DX: R05.9 Cough, unspecified (principal)
CPT/HCPCS: 0241U

== ENCOUNTER → 2023-08-21 09:43 | Outpatient (CLI) | payer MEDICARE, OTHER, SELFPAY ==
[2021-04-06 12:40] VITALS: BMI 30.7
--- NOTE | 2023-08-21 09:44 | DI.RAD.S_ITS ---
PROCEDURE: XR CHEST 2V INDICATIONS: Cough TECHNIQUE: 2 views of the chest were acquired. COMPARISON: [facility], CR, XR CHEST 1V, 08/15/2020, 3:21. [facility], CR, XR CHEST 2V, 07/01/2020, 10:31. FINDINGS: Surgical changes and devices: None. Lungs and pleura: Lungs are clear. No pleural effusions or pneumothorax. Mediastinum: Mediastinal contours are normal. Heart size is normal. Bones and chest wall: No suspicious bony abnormalities. Soft tissues appear unremarkable. IMPRESSION: No acute cardiopulmonary abnormality is seen. Dictated by: Keon Wilhelm M.D. on 08/21/2023 at 11:29 Approved by: Keon Wilhelm M.D. on 08/21/2023 at 11:29
== END ==
PROVIDERS: Family Provider Internal Medicine Cardiovascular Disease; PCP Family Medicine; Referring Provider Nurse Practitioner Family; Visit Provider Nurse Practitioner Family
DX: R05.9 Cough, unspecified (principal)
CPT/HCPCS: 0241U; 71046

== ENCOUNTER → 2023-10-03 08:09 | Outpatient (CLI) | payer MEDICARE, OTHER, SELFPAY ==
[2021-04-06 12:40] VITALS: BMI 30.7
[2023-10-03 09:02] LABS: Add Manual Diff / Slide Review NO; Basophils Absolute Auto 0 /uL (0-100); Basophils Percent Auto 0.9 % (0-2); Eosinophils Absolute Auto 300 /uL (0-450); Eosinophils Percent Auto 6.9 % (2-4); Hematocrit 42.9 % (41-53); Lymphocytes Absolute Auto 1700 /uL (1100-4500); Lymphocytes Percent Auto 40.7 % (25-40); Mean Corpuscular Hemoglobin 34.6 PG (26-34); Mean Corpuscular Volume 98.7 fL (80-100); Monocytes Absolute Auto 600 /uL (0-900); Monocytes Percent Auto 13.8 % (3-14); Neutrophils Absolute Auto 1600 /uL (1500-7000); Neutrophils Percent Auto 37.7 % (50-75); Platelet Count 159 X10^3/uL (150-400); Red Blood Cell Count 4.34 X10^6/uL (4.5-5.9); Red Cell Distribution Width 13.4 % (11.6-14.8); White Blood Cell Count 4.3 X10^3/uL (4.5-11.0)
[2023-10-03 09:09] LABS: Hemoglobin A1C% w Est Avg Glu 6.5 % (4.0-6.0)
[2023-10-03 09:20] LABS: Alanine Aminotransferase 51 IU/L (<50); Albumin 4.1 g/dL (3.5-5.0); Albumin Globulin Ratio 1.6 (1.0-2.8); Alkaline Phosphatase 64 U/L (38-126); Aspartate Aminotransferase 35 IU/L (17-59); BUN Creatinine Ratio 25.3 (6-22); Bilirubin Total 0.9 mg/dL (0.2-1.3); Blood Urea Nitrogen 25 mg/dL (9-20); Calcium 8.9 mg/dL (8.4-10.2); Carbon Dioxide 27 mmol/L (22-32); Chloride 108 mmol/L (98-107); Estimated Glomerular Filt Rate > 60 mL/min (>60); Globulin 2.6 g/dL (1.7-4.1); Glucose 115 mg/dL (80-110); HEMOLYSIS < 15 (0-50); Potassium 4.3 mmol/L (3.4-5.1); Sodium 140 mmol/L (137-145); Total Protein 6.7 g/dL (6.3-8.2)
[2023-10-03 09:52] LABS: TSH w/ Reflex to FT4 1.73 uIU/mL (0.47-4.68)
== END ==
PROVIDERS: Family Provider Internal Medicine Cardiovascular Disease; PCP Family Medicine; Referring Provider Family Medicine; Visit Provider Family Medicine
DX: I10 Essential (primary) hypertension (principal); R73.01 Impaired fasting glucose; I25.10 Atherosclerotic heart disease of native coronary artery without angina pectoris; N18.31 Chronic kidney disease, stage 3a
CPT/HCPCS: 36415; 80053; 83036; 84443; 85025

== ENCOUNTER → 2023-10-13 09:13 | Outpatient (CLI) | payer MEDICARE, OTHER, SELFPAY ==
[2021-04-06 12:40] VITALS: BMI 30.7
[2023-10-13 11:11] LABS: Alanine Aminotransferase 58 IU/L (<50); Albumin Globulin Ratio 1.7 (1.0-2.8); Alkaline Phosphatase 63 U/L (38-126); Aspartate Aminotransferase 35 IU/L (17-59); BUN Creatinine Ratio 22.5 (6-22); Blood Urea Nitrogen 23 mg/dL (9-20); Carbon Dioxide 30 mmol/L (22-32); Chloride 105 mmol/L (98-107); Cholesterol 147 mg/dL (140-199); Estimated Glomerular Filt Rate > 60 mL/min (>60); Globulin 2.4 g/dL (1.7-4.1); Glucose 101 mg/dL (80-110); HDL Cholesterol 38 mg/dL (40-60); HEMOLYSIS < 15 (0-50); LDL Cholesterol Calculated 72 mg/dL (<100); Potassium 4.9 mmol/L (3.4-5.1); Sodium 141 mmol/L (137-145); Total Protein 6.4 g/dL (6.3-8.2); Triglycerides 186 mg/dL (35-150)
== END ==
PROVIDERS: Family Provider Internal Medicine Cardiovascular Disease; PCP Family Medicine; Referring Provider Internal Medicine Cardiovascular Disease; Visit Provider Internal Medicine Cardiovascular Disease
DX: E78.5 Hyperlipidemia, unspecified (principal)
CPT/HCPCS: 36415; 80053; 80061

== ENCOUNTER → 2024-03-19 11:56 | Outpatient (CLI) | payer MEDICARE, OTHER, SELFPAY ==
[2021-04-06 12:40] VITALS: BMI 30.7
--- NOTE | 2024-03-19 11:57 | DI.MRI.S_ITS ---
PROCEDURE: MR LUMBAR SPINE WO CON INDICATIONS: RADICULOPATHY, LUMBAR REGION TECHNIQUE: Noncontrast sagittal T1 spin echo and T2 fast echo, sagittal STIR, and T2 fast spin echo through the lumbar spine. In cases with scoliosis, additional coronal T2 fast spin echo may be performed. COMPARISON: [facility], , MR LUMBAR SPINE WO CON, 09/08/2022, 7:57. FINDINGS: Image quality: Excellent. Alignment and Curvature: There is mild retrolisthesis seen at the L3-L4 level. Minimal retrolisthesis can be seen at L1-L2, L2-L3, L4-L5, and L5-S1. Bone Marrow: Marrow is of normal overall signal. No acute vertebral body compression fractures. There is a remote, stable L1 anterior wedge deformity, with 20-30% loss of height anteriorly. Spinal Cord: Conus medullaris terminates at the L1 level. Visualized cord demonstrates normal signal and size. Paraspinous Soft Tissues: No paravertebral masses. Water signal bilateral renal cysts are seen. T12-L1: Bridging endplate osteophytes are seen. No significant neural foraminal or central canal narrowing can be seen. L1-L2: [id number] loss of disc height and disc signal can be seen. Moderate disc bulge is seen, which is eccentric to the right side. No significant neural foraminal or central canal narrowing can be seen. When comparison is made with the prior images, these findings are similar. L2-L3: Mild loss of disc height is seen. Loss of disc signal is seen. Reactive marrow endplate changes are seen which are hypointense on T1-weighted imaging and hyperintense on T2 weighted imaging, which is most consistent with edema (Modic type I changes). Moderate generalized disc bulge is seen, which is eccentric to the right. There is mild right-sided and no significant left-sided neural foraminal narrowing. At least moderate central canal narrowing is seen, as on series 5, image 15. These imaging findings have progressed compared to the prior study. L3-L4: Moderate loss of disc height is seen. Loss of disc signal is seen. Reactive marrow endplate changes are seen, which are hyperintense on T1-weighted and T2-weighted imaging and most consistent with fatty metaplasia (Modic type II changes). Moderate disc bulge is seen, which is eccentric to the right. There is a central disc osteophyte protrusion seen. Moderate facet joint hypertrophy is seen. There is moderate left-sided and at least moderate right-sided neural foraminal narrowing. At least moderate central canal narrowing is seen, as on series 5, image 20. When comparison is made with the prior images, these findings are similar. L4-L5: Moderate loss of disc height is seen. Loss of disc signal is seen. Moderate disc bulge is seen, which is eccentric to the left. Moderate facet joint hypertrophy is seen. There is moderate bilateral neural foraminal narrowing, left worse than right. Mild central canal narrowing is seen. When comparison is made with the prior images, these findings are similar. L5-S1: Moderate loss of disc height is seen. Loss of disc signal is seen. Moderate disc bulge is seen, with disc protrusion seen within each lateral recess. Mild facet joint hypertrophy is seen. There is mild right-sided and at least moderate left-sided neural foraminal narrowing. There is a mild degree of compression seen upon the exiting left L5 nerve root. Mild central canal narrowing is seen. When comparison is made with the prior images, these findings are similar. IMPRESSION: Multiple levels of lumbar spine degenerative change can be seen, which are mildly progressed compared to the prior. Dictated by: Dong Smalls M.D. on 03/19/2024 at 12:45 Approved by: Dong Smalls M.D. on 03/19/2024 at 12:51
== END ==
PROVIDERS: Family Provider Internal Medicine Cardiovascular Disease; PCP Family Medicine; Referring Provider Physical Medicine & Rehabilitation; Visit Provider Physical Medicine & Rehabilitation
DX: M47.26 Other spondylosis with radiculopathy, lumbar region (principal); M47.27 Other spondylosis with radiculopathy, lumbosacral region
CPT/HCPCS: 72148

== ENCOUNTER → 2024-04-24 08:37 | Outpatient (CLI) | payer MEDICARE, OTHER, SELFPAY ==
[2021-04-06 12:40] VITALS: BMI 30.7
[2024-04-24 09:33] LABS: Hemoglobin A1C% w Est Avg Glu 5.7 % (4.0-6.0)
[2024-04-24 09:53] LABS: Uric Acid 6.8 mg/dL (3.5-8.5)
[2024-04-24 09:56] LABS: Alanine Aminotransferase 51 IU/L (<50); Albumin Globulin Ratio 1.7 (1.0-2.8); Alkaline Phosphatase 66 U/L (38-126); Aspartate Aminotransferase 39 IU/L (17-59); BUN Creatinine Ratio 25.2 (6-22); Bilirubin Total 0.8 mg/dL (0.2-1.3); Blood Urea Nitrogen 33 mg/dL (9-20); Carbon Dioxide 27 mmol/L (22-32); Chloride 106 mmol/L (98-107); Cholesterol 126 mg/dL (140-199); Estimated Glomerular Filt Rate 53 mL/min (>60); Globulin 2.3 g/dL (1.7-4.1); Glucose 100 mg/dL (80-110); HDL Cholesterol 31 mg/dL (40-60); HEMOLYSIS < 15 (0-50); LDL Cholesterol Calculated 60 mg/dL (<100); Potassium 4.6 mmol/L (3.4-5.1); Sodium 138 mmol/L (137-145); Total Protein 6.3 g/dL (6.3-8.2); Triglycerides 175 mg/dL (35-150)
== END ==
PROVIDERS: Family Provider Internal Medicine Cardiovascular Disease; PCP Family Medicine; Referring Provider Internal Medicine Cardiovascular Disease; Visit Provider Family Medicine
DX: E78.5 Hyperlipidemia, unspecified (principal); E11.9 Type 2 diabetes mellitus without complications; G62.9 Polyneuropathy, unspecified; M10.9 Gout, unspecified; N18.31 Chronic kidney disease, stage 3a
CPT/HCPCS: 36415; 80053; 80061; 83036; 84550

== ENCOUNTER → 2024-08-05 13:59 | Outpatient (CLI) | payer MEDICARE, OTHER, SELFPAY ==
[2021-04-06 12:40] VITALS: BMI 30.7
[2024-08-05 15:07] LABS: BUN Creatinine Ratio 24.8 (6-22); Blood Urea Nitrogen 32 mg/dL (9-20); Calcium 9.4 mg/dL (8.4-10.2); Carbon Dioxide 28 mmol/L (22-32); Chloride 104 mmol/L (98-107); Estimated Glomerular Filt Rate 54 mL/min (>60); Glucose 110 mg/dL (80-110); HEMOLYSIS < 15 (0-50); Potassium 4.6 mmol/L (3.4-5.1); Sodium 140 mmol/L (137-145)
== END ==
LOC: LAB 14:01
PROVIDERS: Family Provider Internal Medicine Cardiovascular Disease; PCP Family Medicine; Referring Provider Family Medicine; Visit Provider Family Medicine
DX: E11.9 Type 2 diabetes mellitus without complications (principal); G62.9 Polyneuropathy, unspecified; M10.9 Gout, unspecified; N18.31 Chronic kidney disease, stage 3a
CPT/HCPCS: 36415; 80048

== ENCOUNTER → 2024-08-06 08:52 | Outpatient (CLI) | payer MEDICARE, OTHER, SELFPAY ==
[2021-04-06 12:40] VITALS: BMI 30.7
--- NOTE | 2024-08-06 08:53 | DI.RAD.S_ITS ---
PROCEDURE: XR FOOT LT 2V INDICATIONS: lateral ankle/ foot pain, burning sensation, no trauma TECHNIQUE: 2 views of the foot were acquired. COMPARISON: None. FINDINGS: Bones: No fractures or dislocations. No suspicious bony lesions. Mild 1st MTP joint osteoarthritis. Calcaneal bone spurs. Soft tissues: No tibiotalar joint effusion. Achilles tendon appears normal. IMPRESSION: No acute bony abnormality. Dictated by: Tereza Werner MD, PhD on 08/06/2024 at 12:37 Approved by: Tereza Werner MD, PhD on 08/06/2024 at 12:38
== END ==
PROVIDERS: Family Provider Internal Medicine Cardiovascular Disease; PCP Family Medicine; Referring Provider Nurse Practitioner Family; Visit Provider Nurse Practitioner Family
DX: M79.673 Pain in unspecified foot (principal)
CPT/HCPCS: 73620

== ENCOUNTER 2024-11-13 14:30 | Outpatient (RCR) | payer MEDICARE, OTHER, SELFPAY ==
[2021-04-06 12:40] VITALS: BMI 30.7
--- NOTE | 2024-09-18 17:05 | PT.OIE ---
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) Mild cognitive impairment Mixed hyperlipidemia (07/31/11) Neutropenia (2006) Obstructive sleep apnea, adult (~2016) Peripheral neuropathy (2006) Pre-diabetes Right arm pain Segmental and somatic dysfunction of rib cage Type 2 diabetes mellitus without complication, with no history of insulin use Upper extremity somatic dysfunction Vesicular palmoplantar eczema of foot (06/05/17) Past Surgical History (Last Updated 07/25/23 @ 14:06 by Orlando Meadows DO) Anesthesia History of coronary artery stent placement (01/15/17) History of ear surgery (04/29/15) S/P drug eluting coronary stent placement Status post angioplasty with stent Visit Care Team Role Provider Type Mahi Jim MD Family Provider Physician Specialty: Cardiology Address: [address] [place] [address], [facility] [address], [place], [address] Email: [email or web address] Orlando Meadows DO Attending Provider Physician Primary Care Provider Referring Provider Specialty: Family Practice Address: [address] [place] [address], [address], [address] Email: [email or web address] Initial Evaluation PT-OP-A Visit Information Start: 09/18/24 11:29 Freq: Status: Active Protocol: Document 09/18/24 11:29 SAK (Rec: 09/18/24 12:25 SAK Laptop) Out-Patient Physical Therapy Visit Information Visit Information Visit Type Initial Evaluation Visit Start Time 11:29 Visit Stop Time 12:27 Visit Number 1 Evaluation Information Evaluation Date 09/18/24 Precautions Precautions PMH: poor STM, history gout PT-OP-B Current Condition Start: 09/18/24 11:29 Freq: Status: Active Protocol: Document 09/18/24 11:29 SAK (Rec: 09/18/24 12:25 SAK Laptop) Current Condition History of Current Condition Onset Date 02/11 Current Complaints right sided low back pain History of Current Condition INjury after jumping down onto left leg with resulting pain centrally in spine. L5 pain for years since then , history of cortisone shots with positive results, then stopped working, states doctor out of ideas. Now pain has moved to the right at beltline. Denies N/T. Was prescribed muscle relaxants, no effect. Pain increases with sitting wrong position, when rolling in bed, lift, twist. Walks for exercise. No use of ice or heat. Reports is very physically active with woodworking, works on a car, yardwork (worst for pain). Goes to sleep on left side rotated toward stomach, doesn' t sleep on back or right side very often. 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 Future Testing and Treatments Planned Returns to Dr. Montelongo in a couple months. Treatment Goals Patient/Caregiver Goals decrease pain Prior Functional Status Baseline Function- ADL's Independent Baseline Function- Mobility Independent Baseline Function- Gait indep, no device Baseline Function- Work/School retired Baseline Function- Recreation/Hobbies woodworking, working on car, yardwork without difficulty Current Functional Impairments (Reported) Functional Limitations- ADL's painful Functional Limitations- Mobility/Gait painful Functional Limitations- Recreation/ painful especially yardwork Hobbies Functional Limitations- Other Reports pain with bending, lifting, and twisting PT-OP-C Subjective Start: 09/18/24 11:29 Freq: Status: Active Protocol: Document 09/18/24 16:32 SAK (Rec: 09/18/24 17:04 SAK Laptop) Patient Questionnaires Oswestry Low Back Index Oswestry Score 26 OP-PT Pain Assessment Pain Assessment Grid Paper Pain Assessment Grid Completed Yes Location R hip/LB Intensity 6 Frequency Frequent Pain Aggravating Factors Changing Position Other Pain Aggravating Factors bending, twisting and lifting Pain Alleviating Factors Inactivity Pain Behaviors Pain Behaviors Wincing PT-OP-G Mobility & Gait Start: 09/18/24 11:29 Freq: Status: Active Protocol: Document 09/18/24 16:32 [facility] (Rec: 09/18/24 17:04 [facility] Laptop) OP Gait Assessment Gait Gait Assistance Required: Independent Assistive Devices Assistive Device None Stair Climbing Evaluation Evaluation Level of Assist On Stairs Independent Devices Stair Climbing Assistive Devices Left Railing,Right Railing Technique/Endurance Stair Climbing Direction Ascend and Descend Stair Climbing Technique Step Over Step PT-OP-H Neuro Start: 09/18/24 11:29 Freq: Status: Active Protocol: Document 09/18/24 16:32 [facility] (Rec: 09/18/24 17:04 [facility] Laptop) Sensation Evaluation Gross Sensation Gross Sensation WNL PT-OP-J Posture/Palpation/Skin Start: 09/18/24 11:29 Freq: Status: Active Protocol: Document 09/18/24 16:32 [facility] (Rec: 09/18/24 17:04 [facility] Laptop) Posture Evaluation Position Standing Head/C-Spine Posture Forward Head T-Spine Posture Increased Kyphosis Scapula Posture (L) Protracted,(R) Protracted Arm Posture (L) Internally Rotated,(R) Internally Rotated Pelvis Posture Posterior Tilted Palpation Assessment Location lumbar spine Palpation Location R Palpation Findings Soft Tissue Tightness PT-OP-K Range of Motion Start: 09/18/24 11:29 Freq: Status: Active Protocol: Document 09/18/24 16:32 [facility] (Rec: 09/18/24 17:04 [facility] Laptop) Lumbar Spine Range of Motion Lumbar Spine Active Testing Position Standing Comments Mod decrease all motions with c/o pain right lumbar spine/ posterior hip Hip Goniometric Range of Motion Hip Left Hip ROM WFL No Flexion w/Knee Flexed 105 Straight Leg Raise 45 Extension 0 Abduction 25 Internal Rotation 20 External Rotation 5 Right Hip ROM WFL No Flexion w/Knee Flexed 100 Straight Leg Raise 40 Extension 0 Abduction 25 Internal Rotation 15 External Rotation 60 Comments pain with IR Hip ROM Limitations Hip ROM Limitations Soft Tissue Tightness Knee Goniometric Range of Motion Knee sharri Knee ROM WFL Yes PT-OP-L Special Tests Start: 09/18/24 11:29 Freq: Status: Active Protocol: Document 09/18/24 16:32 [facility]AK (Rec: 09/18/24 17:04 SAK Laptop) Special Tests Lumbar Spine Special Tests Straight Leg Raise Comments muscle tightness Compression Test Results + Hip Special Tests Scour Test Test Results - PT-OP-M Strength Start: 09/18/24 11:29 Freq: Status: Active Protocol: Document 09/18/24 16:32 SAK (Rec: 09/18/24 17:04 SAK Laptop) Trunk Strength Trunk Manual Muscle Testing Core Stabilization poor Hip Strength Hip Manual Muscle Testing Right Flexion (L2) 4- Good- Extension (S1) 3+ Fair+ Abduction 4- Good- External Rotation 4- Good- Internal Rotation 4- Good- Left Flexion (L2) 4- Good- Extension (S1) 3+ Fair+ Abduction 4- Good- External Rotation 4 Good Internal Rotation 4 Good Knee Strength Knee Manual Muscle Testing sharri Flexion (S2) 5 Normal Extension (L3) 5 Normal PT-OP-Q Treatments Start: 09/18/24 11:29 Freq: Status: Active Protocol: Document 09/18/24 16:32 [facility]AK (Rec: 09/18/24 17:04 [facility] Laptop) Self-Care/Home Management Treatment Education Patient Education Home Exercise Program Other Education core activation with rolling in bed, bed positioning ( patient sleeps on left side partial prone with right leg forward) PT-OP-R Modalities Start: 09/18/24 11:29 Freq: Status: Active Protocol: Document 09/18/24 16:32 [facility]AK (Rec: 09/18/24 17:04 [facility] Laptop) Hot Pack/Cold Pack Treatment Hot Pack Location l/s, post hip Patient Position Sitting Patient Tolerance Good PT-OP-T Assessment and Plan Start: 09/18/24 11:29 Freq: Status: Active Protocol: Document 09/18/24 16:32 [facility]AK (Rec: 09/18/24 17:04 [facility] Laptop) Physical Therapy Assessment Rehab Potential Rehabilitation Potential Good Evaluation Complexity Number of Personal Factors/Comorbidities 3 or More Number of Body Systems Impaired 3 Clinical Presentation at Evaluation Evolving Impairments Impairments Activity Tolerance,Pain,Soft Tissue Mobility Goals Three Impairment impairments in strength and flexibility in core and hips Short Term Goal (STG) Patient to be instructed in HEP for purposes of strengthening, core stabilization and strengthening to address impairments and will be issued written handout STG Duration 10/19/24 Cigarette Stamper Goal (LTG) Patient will be independent and compliant with HEP and demonstrate improvement in flexibility to WNL and strength to at least 4+/5 all muscle groups LTG Duration 12/19/24 Two Impairment unable to garden without an increase in pain Short Term Goal (STG) Patient will be instructed in posture and body mechanics principles, especially related to gardening STG Duration 10/19/24 Alf Goal (LTG) Patient will be able to return to gardening without an increase in pain, demonstrating good posture and body mechanics with simulated activities in clinic. LTG Duration 12/19/24 One Impairment Oswestry disability index score 26% Cigarette Stamper Goal (LTG) Decrease Oswestry disability Index score to no greater than 15% as measure of decreased pain and improved activity tolerance and function. LTG Duration 12/19/24 Assessment Summary Assessment Patient presents to PT with function-limiting pain right lumbar spine and posterior hip unknown cause. Has a history of central lumbar spine pain previously treated with multiple injections which pt. reports stopped working. Pain has shifted to the right side. X-rays show progression of lumbar degeneration. Patient sleep position evaluated which appears may be contributing and he was educated in supported sleeping positions for spinal health and was issued written handout . He has poor core stabilization, and strength and flexibility impairments throughout his lumbar spine and hips. Feel he would benefit from PT to decrease his pain, educate him in posture and body mechanics, and improve his core stability , strength and flexibility. POC was discussed and patient was in agreement. Physical Therapy Plan Frequency and Duration Frequency of Treatment 2x/Week Duration of treatment (weeks) 12 Plan of Care Start Date 09/18/24 Plan of Care End Date 12/19/24 Therapeutic Interventions Therapeutic Interventions Home Exercise Program,Manual Therapy,Neuromuscular Re- education,Patient/Caregiver Education,Self-Care/Home Management,Soft Tissue Mobilization,Taping, Therapeutic Activities, Therapeutic Exercises Modalities Cold Pack/Ice Massage,Electric Stimulation,Hot Packs, Infrared Therapy,Ultrasound Next Visit Focus/Plan Next Note Type Treatment Note Next Visit Plan Review bed positioning, hamstring stretching. Further evaluation soft tissue mobility throughout lumbar spine especially QL, hips. Do Rae test. Instruct in posture and body mechanics principles. Progress ther ex as tolerated. Consider modalities PRN.
--- NOTE | 2024-09-22 17:42 | PT.OTN ---
Current Diagnoses Lesion of sciatic nerve, right lower limb (09/22/24) Low back pain, unspecified (09/22/24) Soft tissue disorder, unspecified (09/22/24) Weakness (09/22/24) Physical Therapy Treatment Note PT-OP-A Visit Information Start: 09/18/24 11:29 Freq: Status: Active Protocol: Document 09/22/24 11:34 SAK (Rec: 09/22/24 12:27 SAK Laptop) Out-Patient Physical Therapy Visit Information Visit Information Visit Type Initial Evaluation Visit Start Time 11:35 Visit Stop Time 12:15 Visit Number 2 Evaluation Information Evaluation Date 09/18/24 Precautions Precautions PMH: poor STM, history gout PT-OP-B Current Condition Start: 09/18/24 11:29 Freq: Status: Active Protocol: Document 09/22/24 11:34 SAK (Rec: 09/22/24 12:27 SAK Laptop) Current Condition History of Current Condition Onset Date 02/11 Current Complaints right sided low back pain History of Current Condition INjury after jumping down onto left leg with resulting pain centrally in spine. L5 pain for years since then , history of cortisone shots with positive results, then stopped working, states doctor out of ideas. Now pain has moved to the right at beltline. Denies N/T. Was prescribed muscle relaxants, no effect. Pain increases with sitting wrong position, when rolling in bed, lift, twist. Walks for exercise. No use of ice or heat. Reports is very physically active with woodworking, works on a car, yardwork (worst for pain). Goes to sleep on left side rotated toward stomach, doesn' t sleep on back or right side very often. 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 Future Testing and Treatments Planned Returns to Dr. Montelongo in a couple months. PT-OP-C Subjective Start: 09/18/24 11:29 Freq: Status: Active Protocol: Document 09/22/24 11:34 SAK (Rec: 09/22/24 12:27 SAK Laptop) OP-PT Subjective Patient Comments Patient Comments Reports he can't walk as far as he wants to due to the pain . Hard to change how I sleep, when asked if he tried to position himself as recommended by PT. PT-OP-G Mobility & Gait Start: 09/18/24 11:29 Freq: Status: Active Protocol: Document 09/18/24 16:32 SAK (Rec: 09/18/24 17:04 [facility] Laptop) OP Gait Assessment Gait Gait Assistance Required: Independent Assistive Devices Assistive Device None Stair Climbing Evaluation Evaluation Level of Assist On Stairs Independent Devices Stair Climbing Assistive Devices Left Railing,Right Railing Technique/Endurance Stair Climbing Direction Ascend and Descend Stair Climbing Technique Step Over Step PT-OP-H Neuro Start: 09/18/24 11:29 Freq: Status: Active Protocol: Document 09/18/24 16:32 SAK (Rec: 09/18/24 17:04 SAK Laptop) Sensation Evaluation Gross Sensation Gross Sensation WNL PT-OP-J Posture/Palpation/Skin Start: 09/18/24 11:29 Freq: Status: Active Protocol: Document 09/18/24 16:32 SAK (Rec: 09/18/24 17:04 SAK Laptop) Posture Evaluation Position Standing Head/C-Spine Posture Forward Head T-Spine Posture Increased Kyphosis Scapula Posture (L) Protracted,(R) Protracted Arm Posture (L) Internally Rotated,(R) Internally Rotated Pelvis Posture Posterior Tilted Palpation Assessment Location lumbar spine Palpation Location R Palpation Findings Soft Tissue Tightness PT-OP-K Range of Motion Start: 09/18/24 11:29 Freq: Status: Active Protocol: Document 09/18/24 16:32 SAK (Rec: 09/18/24 17:04 SAK Laptop) Lumbar Spine Range of Motion Lumbar Spine Active Testing Position Standing Comments Mod decrease all motions with c/o pain right lumbar spine/ posterior hip Hip Goniometric Range of Motion Hip Left Hip ROM WFL No Flexion w/Knee Flexed 105 Straight Leg Raise 45 Extension 0 Abduction 25 Internal Rotation 20 External Rotation 5 Right Hip ROM WFL No Flexion w/Knee Flexed 100 Straight Leg Raise 40 Extension 0 Abduction 25 Internal Rotation 15 External Rotation 60 Comments pain with IR Hip ROM Limitations Hip ROM Limitations Soft Tissue Tightness Knee Goniometric Range of Motion Knee sharri Knee ROM WFL Yes PT-OP-L Special Tests Start: 09/18/24 11:29 Freq: Status: Active Protocol: Document 09/18/24 16:32 SAK (Rec: 09/18/24 17:04 [facility] Laptop) Special Tests Lumbar Spine Special Tests Straight Leg Raise Comments muscle tightness Compression Test Results + Hip Special Tests Scour Test Test Results - PT-OP-M Strength Start: 09/18/24 11:29 Freq: Status: Active Protocol: Document 09/18/24 16:32 [facility] (Rec: 09/18/24 17:04 [facility] Laptop) Trunk Strength Trunk Manual Muscle Testing Core Stabilization poor Hip Strength Hip Manual Muscle Testing Right Flexion (L2) 4- Good- Extension (S1) 3+ Fair+ Abduction 4- Good- External Rotation 4- Good- Internal Rotation 4- Good- Left Flexion (L2) 4- Good- Extension (S1) 3+ Fair+ Abduction 4- Good- External Rotation 4 Good Internal Rotation 4 Good Knee Strength Knee Manual Muscle Testing sharri Flexion (S2) 5 Normal Extension (L3) 5 Normal PT-OP-Q Treatments Start: 09/18/24 11:29 Freq: Status: Active Protocol: Document 09/22/24 11:34 [facility] (Rec: 09/22/24 12:27 [facility] Laptop) Cardio Equipment Recumbent Elliptical (Eyelation) Resistance 1 Seat Position 10 Other [employer] Equipment Shuttle Recovery Unilateral Squats Resistance 37 Reps/Time 10x2 Bilateral Squats Resistance 62 Reps/Time 10x2 Therapeutic Exercises Supine Exercises ITB stretch Supine Exercise Name next session piriformis stretch Reps/Minutes 2x figure 4 Reps/Minutes 2x HS stretch Reps/Minutes 2x30 bridge Reps/Minutes 10x Standing Exercises HC stretch Standing Exercise Name next session Manual Therapy Treatment Consent Patient gave verbal consent for manual Yes treatment Soft Tissue Mobilization left gluteals Mobilization Type Strumming,Sustained Pressure Intensity/Depth Moderate Body Position Sidelying Self-Care/Home Management Treatment Education Patient Education Body Mechanics,Home Exercise Program,Posture Other Education self massage gluteals with tennis ball, wall PT-OP-R Modalities Start: 09/18/24 11:29 Freq: Status: Active Protocol: Document 09/22/24 11:34 [facility] (Rec: 09/22/24 12:27 [facility] Laptop) Hot Pack/Cold Pack Treatment Hot Pack Location l/s, post hip Patient Position Sidelying Patient Tolerance Good PT-OP-T Assessment and Plan Start: 09/18/24 11:29 Freq: Status: Active Protocol: Document 09/22/24 11:34 [facility] (Rec: 09/22/24 12:27 [facility] Laptop) Physical Therapy Assessment Impairments Impairments Activity Tolerance,Pain,Soft Tissue Mobility Goals Three Impairment impairments in strength and flexibility in core and hips Short Term Goal (STG) Patient to be instructed in HEP for purposes of strengthening, core stabilization and strengthening to address impairments and will be issued written handout STG Duration 10/19/24 Injection Molding Operator Goal (LTG) Patient will be independent and compliant with HEP and demonstrate improvement in flexibility to WNL and strength to at least 4+/5 all muscle groups LTG Duration 12/19/24 Two Impairment unable to garden without an increase in pain Short Term Goal (STG) Patient will be instructed in posture and body mechanics principles, especially related to gardening STG Duration 10/19/24 Intermediate Goal (LTG) Patient will be able to return to gardening without an increase in pain, demonstrating good posture and body mechanics with simulated activities in clinic. LTG Duration 12/19/24 One Impairment Oswestry disability index score 26% Intermediate Goal (LTG) Decrease Oswestry disability Index score to no greater than 15% as measure of decreased pain and improved activity tolerance and function. LTG Duration 12/19/24 Assessment Summary Assessment Patient with fair tolerance for ther ex, KLAMATH and needs moderate verbal and tactile cues for ex performance. Palpable muscle tightness left gluteals. Progressed HEP with HO issued. Physical Therapy Plan Frequency and Duration Frequency of Treatment 2x/Week Duration of treatment (weeks) 12 Plan of Care Start Date 09/18/24 Plan of Care End Date 12/19/24 Therapeutic Interventions Therapeutic Interventions Home Exercise Program,Manual Therapy,Neuromuscular Re- education,Patient/Caregiver Education,Self-Care/Home Management,Soft Tissue Mobilization,Taping, Therapeutic Activities, Therapeutic Exercises Modalities Cold Pack/Ice Massage,Electric Stimulation,Hot Packs, Infrared Therapy,Ultrasound Next Visit Focus/Plan Next Note Type Treatment Note Next Visit Plan Sudeep test, review HEP and self massage with tennis ball. Continue strengthening and flexibility.
--- NOTE | 2024-09-30 12:27 | PT.OTN ---
Current Diagnoses Lesion of sciatic nerve, right lower limb (09/30/24) Low back pain, unspecified (09/30/24) Soft tissue disorder, unspecified (09/30/24) Weakness (09/30/24) Physical Therapy Treatment Note PT-OP-A Visit Information Start: 09/18/24 11:29 Freq: Status: Active Protocol: Document 09/30/24 10:14 AB (Rec: 09/30/24 12:27 AB Laptop) Out-Patient Physical Therapy Visit Information Visit Information Visit Type Treatment Note Visit Note Access Code: [email or web address] Visit Start Time 11:32 Visit Stop Time 12:21 Visit Number 3 Number of SAP DATA ANALYST 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 L5 pain for years since then , history of cortisone shots with positive results, then stopped working, states doctor out of ideas. Now pain has moved to the right at beltline. Denies N/T. Was prescribed muscle relaxants, no effect. Pain increases with sitting wrong position, when rolling in bed, lift, twist. Walks for exercise. No use of ice or heat. Reports is very physically active with woodworking, works on a car, yardwork (worst for pain). Goes to sleep on left side rotated toward stomach, doesn' t sleep on back or right side very often. 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 Future Testing and Treatments Planned Returns to Dr. Montelongo in a couple months. PT-OP-C Subjective Start: 09/18/24 11:29 Freq: Status: Active Protocol: Document 09/30/24 10:14 AB (Rec: 09/30/24 12:27 AB Laptop) OP-PT Subjective Patient Comments Patient Comments Patient reports he is the same . Patient reports walking any distance is painful, comments 1/2 is the tolerance level, dependent on hills. Patient reports no pain when seated, but when he sits up straighter ( patient sits with improved posture) reports pain increases. PT-OP-G Mobility & Gait Start: 09/18/24 11:29 Freq: Status: Active Protocol: Document 09/18/24 16:32 SAK (Rec: 09/18/24 17:04 [facility] Laptop) OP Gait Assessment Gait Gait Assistance Required: Independent Assistive Devices Assistive Device None Stair Climbing Evaluation Evaluation Level of Assist On Stairs Independent Devices Stair Climbing Assistive Devices Left Railing,Right Railing Technique/Endurance Stair Climbing Direction Ascend and Descend Stair Climbing Technique Step Over Step PT-OP-H Neuro Start: 09/18/24 11:29 Freq: Status: Active Protocol: Document 09/18/24 16:32 [facility] (Rec: 09/18/24 17:04 [facility] Laptop) Sensation Evaluation Gross Sensation Gross Sensation WNL PT-OP-J Posture/Palpation/Skin Start: 09/18/24 11:29 Freq: Status: Active Protocol: Document 09/18/24 16:32 [facility] (Rec: 09/18/24 17:04 [facility] Laptop) Posture Evaluation Position Standing Head/C-Spine Posture Forward Head T-Spine Posture Increased Kyphosis Scapula Posture (L) Protracted,(R) Protracted Arm Posture (L) Internally Rotated,(R) Internally Rotated Pelvis Posture Posterior Tilted Palpation Assessment Location lumbar spine Palpation Location R Palpation Findings Soft Tissue Tightness PT-OP-K Range of Motion Start: 09/18/24 11:29 Freq: Status: Active Protocol: Document 09/18/24 16:32 [facility] (Rec: 09/18/24 17:04 [facility] Laptop) Lumbar Spine Range of Motion Lumbar Spine Active Testing Position Standing Comments Mod decrease all motions with c/o pain right lumbar spine/ posterior hip Hip Goniometric Range of Motion Hip Left Hip ROM WFL No Flexion w/Knee Flexed 105 Straight Leg Raise 45 Extension 0 Abduction 25 Internal Rotation 20 External Rotation 5 Right Hip ROM WFL No Flexion w/Knee Flexed 100 Straight Leg Raise 40 Extension 0 Abduction 25 Internal Rotation 15 External Rotation 60 Comments pain with IR Hip ROM Limitations Hip ROM Limitations Soft Tissue Tightness Knee Goniometric Range of Motion Knee sharri Knee ROM WFL Yes PT-OP-L Special Tests Start: 09/18/24 11:29 Freq: Status: Active Protocol: Document 09/18/24 16:32 SAK (Rec: 09/18/24 17:04 SAK Laptop) Special Tests Lumbar Spine Special Tests Straight Leg Raise Comments muscle tightness Compression Test Results + Hip Special Tests Scour Test Test Results - PT-OP-M Strength Start: 09/18/24 11:29 Freq: Status: Active Protocol: Document 09/18/24 16:32 SAK (Rec: 09/18/24 17:04 SAK Laptop) Trunk Strength Trunk Manual Muscle Testing Core Stabilization poor Hip Strength Hip Manual Muscle Testing Right Flexion (L2) 4- Good- Extension (S1) 3+ Fair+ Abduction 4- Good- External Rotation 4- Good- Internal Rotation 4- Good- Left Flexion (L2) 4- Good- Extension (S1) 3+ Fair+ Abduction 4- Good- External Rotation 4 Good Internal Rotation 4 Good Knee Strength Knee Manual Muscle Testing sharri Flexion (S2) 5 Normal Extension (L3) 5 Normal PT-OP-Q Treatments Start: 09/18/24 11:29 Freq: Status: Active Protocol: Document 09/30/24 10:14 AB (Rec: 09/30/24 12:27 AB Laptop) Therapeutic Exercises Supine Exercises Mod sudeep stretch Supine Exercise Name HEP Side bilateral Reps/Minutes 60 sec each LE with AROM knee flexion X 10 Comments verbal cues piriformis stretch Reps/Minutes 2x 60 sec each LE Comments verbal cues HS stretch Reps/Minutes HS stretch 60 sec X 1 each LE Comments verbal cues bridge Reps/Minutes 10x Comments Vc to push into heels Manual Therapy Treatment Consent Patient gave verbal consent for manual Yes treatment Soft Tissue Mobilization LS paraspinals/ SI area Body Location bilateral Mobilization Type Cross-Friction,Sustained Pressure Intensity/Depth Moderate Body Position Sidelying bilateral illiopsoas Mobilization Type Cross-Friction,Rolling Intensity/Depth Moderate Body Position Hooklying left gluteals Body Location glute/piriformis bilateral Mobilization Type Cross-Friction,Strumming, Sustained Pressure Intensity/Depth Moderate Body Position Sidelying Manual Techniques MET for R AI L PI and pubic shot gun Body Position 6 X 6 seconds each PT-OP-R Modalities Start: 09/18/24 11:29 Freq: Status: Active Protocol: Document 09/22/24 11:34 SAK (Rec: 09/22/24 12:27 SAK Laptop) Hot Pack/Cold Pack Treatment Hot Pack Location l/s, post hip Patient Position Sidelying Patient Tolerance Good PT-OP-T Assessment and Plan Start: 09/18/24 11:29 Freq: Status: Active Protocol: Document 09/30/24 10:14 AB (Rec: 09/30/24 12:27 AB Laptop) Physical Therapy Assessment Goals Three Impairment impairments in strength and flexibility in core and hips Short Term Goal (STG) Patient to be instructed in HEP for purposes of strengthening, core stabilization and strengthening to address impairments and will be issued written handout STG Duration 10/19/24 Fdc Goal (LTG) Patient will be independent and compliant with HEP and demonstrate improvement in flexibility to WNL and strength to at least 4+/5 all muscle groups LTG Duration 12/19/24 Two Impairment unable to garden without an increase in pain Short Term Goal (STG) Patient will be instructed in posture and body mechanics principles, especially related to gardening STG Duration 10/19/24 Fdc Goal (LTG) Patient will be able to return to gardening without an increase in pain, demonstrating good posture and body mechanics with simulated activities in clinic. LTG Duration 12/19/24 One Impairment Oswestry disability index score 26% Fdc Goal (LTG) Decrease Oswestry disability Index score to no greater than 15% as measure of decreased pain and improved activity tolerance and function. LTG Duration 12/19/24 Assessment Summary Assessment Patient reports hardly end of session initiation of ambulation out of clinic, reports pain increased post ~ 25 feet ambulation, when R LE hits the floor. Physical Therapy Plan Frequency and Duration Frequency of Treatment 2x/Week Duration of treatment (weeks) 12 Plan of Care Start Date 09/18/24 Plan of Care End Date 12/19/24 Therapeutic Interventions Therapeutic Interventions Home Exercise Program,Manual Therapy,Neuromuscular Re- education,Patient/Caregiver Education,Self-Care/Home Management,Soft Tissue Mobilization,Taping, Therapeutic Activities, Therapeutic Exercises Modalities Cold Pack/Ice Massage,Electric Stimulation,Hot Packs, Infrared Therapy,Ultrasound Next Visit Focus/Plan Next Note Type Treatment Note Next Visit Plan assess tracy to stretch mod Sudeep test, review HEP and self massage with tennis ball. Continue strengthening and flexibility. Assess tracy to MET, possibly calf stretches due to dec DF terminal stance LE's slightly ER/possibly due to piriformis stiffness.
--- NOTE | 2024-10-02 12:36 | PT.OTN ---
Current Diagnoses Lesion of sciatic nerve, right lower limb (10/02/24) Low back pain, unspecified (10/02/24) Soft tissue disorder, unspecified (10/02/24) Weakness (10/02/24) Physical Therapy Treatment Note PT-OP-A Visit Information Start: 09/18/24 11:29 Freq: Status: Active Protocol: Document 10/02/24 10:26 AB (Rec: 10/02/24 12:31 AB Laptop) Out-Patient Physical Therapy Visit Information Visit Information Visit Type Treatment Note Visit Note Access Code: [email or web address] (PN by 10/19/2024) Visit Start Time 11:34 Visit Stop Time 12:22 Visit Number 4 Number of DIRECTOR PHARMACEUTICAL Visits 2 Precautions Precautions PMH: poor STM, history gout PT-OP-B Current Condition Start: 09/18/24 11:29 Freq: Status: Active Protocol: Document 09/22/24 11:34 SAK (Rec: 09/22/24 12:27 SAK Laptop) Current Condition History of Current Condition Onset Date 02/11 Current Complaints right sided low back pain History of Current Condition INjury after jumping down onto left leg with resulting pain centrally in spine. L5 pain for years since then , history of cortisone shots with positive results, then stopped working, states doctor out of ideas. Now pain has moved to the right at beltline. Denies N/T. Was prescribed muscle relaxants, no effect. Pain increases with sitting wrong position, when rolling in bed, lift, twist. Walks for exercise. No use of ice or heat. Reports is very physically active with woodworking, works on a car, yardwork (worst for pain). Goes to sleep on left side rotated toward stomach, doesn' t sleep on back or right side very often. 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 Future Testing and Treatments Planned Returns to Dr. Montelongo in a couple months. PT-OP-C Subjective Start: 09/18/24 11:29 Freq: Status: Active Protocol: Document 10/02/24 10:26 AB (Rec: 10/02/24 12:31 AB Laptop) OP-PT Subjective Patient Comments Patient Comments Patient reports he is the same . Don comments he looks at his condition at dinner time, he was a little painful, had to take some Alleive and was able to sleep. Patient reports ambulation into session with right foot at stance phase transfers a little pain up into the back. PT-OP-G Mobility & Gait Start: 09/18/24 11:29 Freq: Status: Active Protocol: Document 09/18/24 16:32 SAK (Rec: 09/18/24 17:04 [facility] Laptop) OP Gait Assessment Gait Gait Assistance Required: Independent Assistive Devices Assistive Device None Stair Climbing Evaluation Evaluation Level of Assist On Stairs Independent Devices Stair Climbing Assistive Devices Left Railing,Right Railing Technique/Endurance Stair Climbing Direction Ascend and Descend Stair Climbing Technique Step Over Step PT-OP-H Neuro Start: 09/18/24 11:29 Freq: Status: Active Protocol: Document 09/18/24 16:32 SAK (Rec: 09/18/24 17:04 SAK Laptop) Sensation Evaluation Gross Sensation Gross Sensation WNL PT-OP-J Posture/Palpation/Skin Start: 09/18/24 11:29 Freq: Status: Active Protocol: Document 09/18/24 16:32 SAK (Rec: 09/18/24 17:04 [facility] Laptop) Posture Evaluation Position Standing Head/C-Spine Posture Forward Head T-Spine Posture Increased Kyphosis Scapula Posture (L) Protracted,(R) Protracted Arm Posture (L) Internally Rotated,(R) Internally Rotated Pelvis Posture Posterior Tilted Palpation Assessment Location lumbar spine Palpation Location R Palpation Findings Soft Tissue Tightness PT-OP-K Range of Motion Start: 09/18/24 11:29 Freq: Status: Active Protocol: Document 09/18/24 16:32 SAK (Rec: 09/18/24 17:04 [facility] Laptop) Lumbar Spine Range of Motion Lumbar Spine Active Testing Position Standing Comments Mod decrease all motions with c/o pain right lumbar spine/ posterior hip Hip Goniometric Range of Motion Hip Left Hip ROM WFL No Flexion w/Knee Flexed 105 Straight Leg Raise 45 Extension 0 Abduction 25 Internal Rotation 20 External Rotation 5 Right Hip ROM WFL No Flexion w/Knee Flexed 100 Straight Leg Raise 40 Extension 0 Abduction 25 Internal Rotation 15 External Rotation 60 Comments pain with IR Hip ROM Limitations Hip ROM Limitations Soft Tissue Tightness Knee Goniometric Range of Motion Knee sharri Knee ROM WFL Yes PT-OP-L Special Tests Start: 09/18/24 11:29 Freq: Status: Active Protocol: Document 09/18/24 16:32 SAK (Rec: 09/18/24 17:04 SAK Laptop) Special Tests Lumbar Spine Special Tests Straight Leg Raise Comments muscle tightness Compression Test Results + Hip Special Tests Scour Test Test Results - PT-OP-M Strength Start: 09/18/24 11:29 Freq: Status: Active Protocol: Document 09/18/24 16:32 SAK (Rec: 09/18/24 17:04 [facility] Laptop) Trunk Strength Trunk Manual Muscle Testing Core Stabilization poor Hip Strength Hip Manual Muscle Testing Right Flexion (L2) 4- Good- Extension (S1) 3+ Fair+ Abduction 4- Good- External Rotation 4- Good- Internal Rotation 4- Good- Left Flexion (L2) 4- Good- Extension (S1) 3+ Fair+ Abduction 4- Good- External Rotation 4 Good Internal Rotation 4 Good Knee Strength Knee Manual Muscle Testing sharri Flexion (S2) 5 Normal Extension (L3) 5 Normal PT-OP-Q Treatments Start: 09/18/24 11:29 Freq: Status: Active Protocol: Document 10/02/24 10:26 AB (Rec: 10/02/24 12:31 AB Laptop) Therapeutic Exercises Supine Exercises Mod jose stretch Supine Exercise Name HEP Side bilateral Reps/Minutes 60 sec each LE with AROM knee flexion X 10 Comments verbal cues and tactile cues, post manual piriformis stretch Reps/Minutes 60 sec each LE Comments verbal cues bridge Reps/Minutes 10x Comments Vc to push into heels Sitting Exercises seated core warm up Sitting Exercise Name 1. sh flexion end ROM 2. seated trunk rotation Reps/Minutes 5X 5 each Comments verbal and visual cues Standing Exercises Pallof press Standing Exercise Name HEP Side bilateral Resistance level 2 band Reps/Minutes X10 each side Comments verbal and visual cues Manual Therapy Treatment Consent Patient gave verbal consent for manual Yes treatment Soft Tissue Mobilization LS paraspinals/ SI area Body Location bilateral Mobilization Type Cross-Friction,Sustained Pressure Intensity/Depth Moderate Body Position Sidelying bilateral illiopsoas Mobilization Type Cross-Friction,Rolling Intensity/Depth Moderate Body Position Hooklying left gluteals Body Location glute/piriformis bilateral Mobilization Type Cross-Friction,Strumming, Sustained Pressure Intensity/Depth Moderate Body Position Sidelying Manual Techniques MET for R AI L PI and pubic shot gun Body Position 6 X 6 seconds each PT-OP-R Modalities Start: 09/18/24 11:29 Freq: Status: Active Protocol: Document 09/22/24 11:34 SAK (Rec: 09/22/24 12:27 SAK Laptop) Hot Pack/Cold Pack Treatment Hot Pack Location l/s, post hip Patient Position Sidelying Patient Tolerance Good PT-OP-T Assessment and Plan Start: 09/18/24 11:29 Freq: Status: Active Protocol: Document 10/02/24 10:26 AB (Rec: 10/02/24 12:31 AB Laptop) Physical Therapy Assessment Goals Three Impairment impairments in strength and flexibility in core and hips Short Term Goal (STG) Patient to be instructed in HEP for purposes of strengthening, core stabilization and strengthening to address impairments and will be issued written handout STG Duration 10/19/24 Canteen Attendant Goal (LTG) Patient will be independent and compliant with HEP and demonstrate improvement in flexibility to WNL and strength to at least 4+/5 all muscle groups LTG Duration 12/19/24 Two Impairment unable to garden without an increase in pain Short Term Goal (STG) Patient will be instructed in posture and body mechanics principles, especially related to gardening STG Duration 10/19/24 Nursing Home Goal (LTG) Patient will be able to return to gardening without an increase in pain, demonstrating good posture and body mechanics with simulated activities in clinic. LTG Duration 12/19/24 One Impairment Oswestry disability index score 26% Nursing Home Goal (LTG) Decrease Oswestry disability Index score to no greater than 15% as measure of decreased pain and improved activity tolerance and function. LTG Duration 12/19/24 Assessment Summary Assessment Patient rates pain 1/10 end of session ambulating out of session without device. Physical Therapy Plan Frequency and Duration Frequency of Treatment 2x/Week Duration of treatment (weeks) 12 Plan of Care Start Date 09/18/24 Plan of Care End Date 12/19/24 Next Visit Focus/Plan Next Note Type Treatment Note Next Visit Plan review HEP and self massage with tennis ball. Continue strengthening and flexibility. possibly calf stretches due to dec DF terminal stance LE' s slightly ER/possibly due to piriformis stiffness.
--- NOTE | 2024-10-09 18:14 | PT.OTN ---
Current Diagnoses Lesion of sciatic nerve, right lower limb (10/09/24) Low back pain, unspecified (10/09/24) Soft tissue disorder, unspecified (10/09/24) Weakness (10/09/24) Physical Therapy Treatment Note PT-OP-A Visit Information Start: 09/18/24 11:29 Freq: Status: Active Protocol: Document 10/09/24 13:50 BL (Rec: 10/09/24 15:21 BL Laptop) Out-Patient Physical Therapy Visit Information Visit Information Visit Type Treatment Note Visit Start Time 14:30 Visit Stop Time 15:15 Visit Number 5 Number of [facility] [facility] SPECIALIST Visits 0 PT-OP-B Current Condition Start: 09/18/24 11:29 Freq: Status: Active Protocol: Document 09/22/24 11:34 SAK (Rec: 09/22/24 12:27 SAK Laptop) Current Condition History of Current Condition Onset Date 02/11 Current Complaints right sided low back pain History of Current Condition INjury after jumping down onto left leg with resulting pain centrally in spine. L5 pain for years since then , history of cortisone shots with positive results, then stopped working, states doctor out of ideas. Now pain has moved to the right at beltline. Denies N/T. Was prescribed muscle relaxants, no effect. Pain increases with sitting wrong position, when rolling in bed, lift, twist. Walks for exercise. No use of ice or heat. Reports is very physically active with woodworking, works on a car, yardwork (worst for pain). Goes to sleep on left side rotated toward stomach, doesn' t sleep on back or right side very often. 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 Future Testing and Treatments Planned Returns to Dr. Montelongo in a couple months. PT-OP-C Subjective Start: 09/18/24 11:29 Freq: Status: Active Protocol: Document 10/09/24 13:50 BL (Rec: 10/09/24 15:21 BL Laptop) OP-PT Subjective Patient Comments Patient Comments Pt reports to the clinic this date and reports he is doing pretty well, states his pain is worse with bending, states when he first lays on his back he has a short period of pain . PT-OP-G Mobility & Gait Start: 09/18/24 11:29 Freq: Status: Active Protocol: Document 09/18/24 16:32 SAK (Rec: 09/18/24 17:04 [facility] Laptop) OP Gait Assessment Gait Gait Assistance Required: Independent Assistive Devices Assistive Device None Stair Climbing Evaluation Evaluation Level of Assist On Stairs Independent Devices Stair Climbing Assistive Devices Left Railing,Right Railing Technique/Endurance Stair Climbing Direction Ascend and Descend Stair Climbing Technique Step Over Step PT-OP-H Neuro Start: 09/18/24 11:29 Freq: Status: Active Protocol: Document 09/18/24 16:32 SAK (Rec: 09/18/24 17:04 SAK Laptop) Sensation Evaluation Gross Sensation Gross Sensation WNL PT-OP-J Posture/Palpation/Skin Start: 09/18/24 11:29 Freq: Status: Active Protocol: Document 09/18/24 16:32 SAK (Rec: 09/18/24 17:04 [facility] Laptop) Posture Evaluation Position Standing Head/C-Spine Posture Forward Head T-Spine Posture Increased Kyphosis Scapula Posture (L) Protracted,(R) Protracted Arm Posture (L) Internally Rotated,(R) Internally Rotated Pelvis Posture Posterior Tilted Palpation Assessment Location lumbar spine Palpation Location R Palpation Findings Soft Tissue Tightness PT-OP-K Range of Motion Start: 09/18/24 11:29 Freq: Status: Active Protocol: Document 09/18/24 16:32 SAK (Rec: 09/18/24 17:04 [facility] Laptop) Lumbar Spine Range of Motion Lumbar Spine Active Testing Position Standing Comments Mod decrease all motions with c/o pain right lumbar spine/ posterior hip Hip Goniometric Range of Motion Hip Left Hip ROM WFL No Flexion w/Knee Flexed 105 Straight Leg Raise 45 Extension 0 Abduction 25 Internal Rotation 20 External Rotation 5 Right Hip ROM WFL No Flexion w/Knee Flexed 100 Straight Leg Raise 40 Extension 0 Abduction 25 Internal Rotation 15 External Rotation 60 Comments pain with IR Hip ROM Limitations Hip ROM Limitations Soft Tissue Tightness Knee Goniometric Range of Motion Knee sharri Knee ROM WFL Yes PT-OP-L Special Tests Start: 09/18/24 11:29 Freq: Status: Active Protocol: Document 09/18/24 16:32 SAK (Rec: 09/18/24 17:04 SAK Laptop) Special Tests Lumbar Spine Special Tests Straight Leg Raise Comments muscle tightness Compression Test Results + Hip Special Tests Scour Test Test Results - PT-OP-M Strength Start: 09/18/24 11:29 Freq: Status: Active Protocol: Document 09/18/24 16:32 SAK (Rec: 09/18/24 17:04 [facility] Laptop) Trunk Strength Trunk Manual Muscle Testing Core Stabilization poor Hip Strength Hip Manual Muscle Testing Right Flexion (L2) 4- Good- Extension (S1) 3+ Fair+ Abduction 4- Good- External Rotation 4- Good- Internal Rotation 4- Good- Left Flexion (L2) 4- Good- Extension (S1) 3+ Fair+ Abduction 4- Good- External Rotation 4 Good Internal Rotation 4 Good Knee Strength Knee Manual Muscle Testing sharri Flexion (S2) 5 Normal Extension (L3) 5 Normal PT-OP-Q Treatments Start: 09/18/24 11:29 Freq: Status: Active Protocol: Document 10/09/24 13:50 BL (Rec: 10/09/24 15:21 BL Laptop) Therapeutic Exercises Supine Exercises Mod jose stretch Supine Exercise Name HEP Side bilateral Reps/Minutes 60 sec each LE with AROM knee flexion X 10 Comments verbal cues piriformis stretch Reps/Minutes 3x 60 sec Comments verbal cues HS stretch Reps/Minutes HS stretch 3x 60 sec Comments verbal cues Sitting Exercises NuStep Sitting Exercise Name Warm Up for improved tissue mobility Comments 5 min lvl 3 Standing Exercises alessandro Standing Exercise Name Squatting and Lunging education Comments 10x2 each, education on proper posture Manual Therapy Treatment Soft Tissue Mobilization LS paraspinals/ SI area Body Location Rigth Mobilization Type Cross-Friction,Trigger Point Release Intensity/Depth Moderate Body Position Prone left gluteals Body Location glute piriformis, bilateral/ paraspinals R Mobilization Type Cross-Friction,Trigger Point Release Intensity/Depth mod Body Position Prone PT-OP-R Modalities Start: 09/18/24 11:29 Freq: Status: Active Protocol: Document 09/22/24 11:34 SAK (Rec: 09/22/24 12:27 [facility] Laptop) Hot Pack/Cold Pack Treatment Hot Pack Location l/s, post hip Patient Position Sidelying Patient Tolerance Good PT-OP-T Assessment and Plan Start: 09/18/24 11:29 Freq: Status: Active Protocol: Document 10/09/24 13:50 BL (Rec: 10/09/24 15:21 BL Laptop) Physical Therapy Assessment Goals Three Impairment impairments in strength and flexibility in core and hips Short Term Goal (STG) Patient to be instructed in HEP for purposes of strengthening, core stabilization and strengthening to address impairments and will be issued written handout STG Duration 10/19/24 Well Testing Operator Goal (LTG) Patient will be independent and compliant with HEP and demonstrate improvement in flexibility to WNL and strength to at least 4+/5 all muscle groups LTG Duration 12/19/24 Two Impairment unable to garden without an increase in pain Short Term Goal (STG) Patient will be instructed in posture and body mechanics principles, especially related to gardening STG Duration 10/19/24 Well Testing Operator Goal (LTG) Patient will be able to return to gardening without an increase in pain, demonstrating good posture and body mechanics with simulated activities in clinic. LTG Duration 12/19/24 One Impairment Oswestry disability index score 26% Jail Goal (LTG) Decrease Oswestry disability Index score to no greater than 15% as measure of decreased pain and improved activity tolerance and function. LTG Duration 12/19/24 Assessment Summary Assessment Pt reports feeling well at end of session, pt tolerates education for posture and reports understanding, reviewed HEP and tolerates manual well, continue to progress HEP for strength and independence training for next session. Physical Therapy Plan Frequency and Duration Frequency of Treatment 2x/Week Duration of treatment (weeks) 12 Plan of Care Start Date 09/18/24 Plan of Care End Date 12/19/24
--- NOTE | 2024-10-14 12:36 | PT.OTN ---
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 L5 pain for years since then , history of cortisone shots with positive results, then stopped working, states doctor out of ideas. Now pain has moved to the right at beltline. Denies N/T. Was prescribed muscle relaxants, no effect. Pain increases with sitting wrong position, when rolling in bed, lift, twist. Walks for exercise. No use of ice or heat. Reports is very physically active with woodworking, works on a car, yardwork (worst for pain). Goes to sleep on left side rotated toward stomach, doesn' t sleep on back or right side very often. 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 Future Testing and Treatments Planned Returns to Dr. Montelongo in a couple months. PT-OP-C Subjective Start: 09/18/24 11:29 Freq: Status: Active Protocol: Document 10/14/24 08:29 AB (Rec: 10/14/24 12:36 AB Laptop) OP-PT Subjective Patient Comments Patient Comments Patient reports he is no worse compared to previous session. Patient reports he is able to work in yard maybe 20 to 30 minutes prior to back starting to complain. Patient rates pain 05/30 start of session. PT-OP-G Mobility & Gait Start: 09/18/24 11:29 Freq: Status: Active Protocol: Document 09/18/24 16:32 SAK (Rec: 09/18/24 17:04 SAK Laptop) OP Gait Assessment Gait Gait Assistance Required: Independent Assistive Devices Assistive Device None Stair Climbing Evaluation Evaluation Level of Assist On Stairs Independent Devices Stair Climbing Assistive Devices Left Railing,Right Railing Technique/Endurance Stair Climbing Direction Ascend and Descend Stair Climbing Technique Step Over Step PT-OP-H Neuro Start: 09/18/24 11:29 Freq: Status: Active Protocol: Document 09/18/24 16:32 SAK (Rec: 09/18/24 17:04 SAK Laptop) Sensation Evaluation Gross Sensation Gross Sensation WNL PT-OP-J Posture/Palpation/Skin Start: 09/18/24 11:29 Freq: Status: Active Protocol: Document 09/18/24 16:32 SAK (Rec: 09/18/24 17:04 [facility] Laptop) Posture Evaluation Position Standing Head/C-Spine Posture Forward Head T-Spine Posture Increased Kyphosis Scapula Posture (L) Protracted,(R) Protracted Arm Posture (L) Internally Rotated,(R) Internally Rotated Pelvis Posture Posterior Tilted Palpation Assessment Location lumbar spine Palpation Location R Palpation Findings Soft Tissue Tightness PT-OP-K Range of Motion Start: 09/18/24 11:29 Freq: Status: Active Protocol: Document 09/18/24 16:32 [facility] (Rec: 09/18/24 17:04 [facility] Laptop) Lumbar Spine Range of Motion Lumbar Spine Active Testing Position Standing Comments Mod decrease all motions with c/o pain right lumbar spine/ posterior hip Hip Goniometric Range of Motion Hip Left Hip ROM WFL No Flexion w/Knee Flexed 105 Straight Leg Raise 45 Extension 0 Abduction 25 Internal Rotation 20 External Rotation 5 Right Hip ROM WFL No Flexion w/Knee Flexed 100 Straight Leg Raise 40 Extension 0 Abduction 25 Internal Rotation 15 External Rotation 60 Comments pain with IR Hip ROM Limitations Hip ROM Limitations Soft Tissue Tightness Knee Goniometric Range of Motion Knee sharri Knee ROM WFL Yes PT-OP-L Special Tests Start: 09/18/24 11:29 Freq: Status: Active Protocol: Document 09/18/24 16:32 SAK (Rec: 09/18/24 17:04 SAK Laptop) Special Tests Lumbar Spine Special Tests Straight Leg Raise Comments muscle tightness Compression Test Results + Hip Special Tests Scour Test Test Results - PT-OP-M Strength Start: 09/18/24 11:29 Freq: Status: Active Protocol: Document 09/18/24 16:32 SAK (Rec: 09/18/24 17:04 SAK Laptop) Trunk Strength Trunk Manual Muscle Testing Core Stabilization poor Hip Strength Hip Manual Muscle Testing Right Flexion (L2) 4- Good- Extension (S1) 3+ Fair+ Abduction 4- Good- External Rotation 4- Good- Internal Rotation 4- Good- Left Flexion (L2) 4- Good- Extension (S1) 3+ Fair+ Abduction 4- Good- External Rotation 4 Good Internal Rotation 4 Good Knee Strength Knee Manual Muscle Testing sharri Flexion (S2) 5 Normal Extension (L3) 5 Normal PT-OP-Q Treatments Start: 09/18/24 11:29 Freq: Status: Active Protocol: Document 10/14/24 08:29 AB (Rec: 10/14/24 12:36 AB Laptop) Therapeutic Exercises Supine Exercises Mod jose stretch Supine Exercise Name HEP Side bilateral Reps/Minutes 60 sec each LE with AROM knee flexion X 10 Comments verbal cues piriformis stretch Side bilateral Reps/Minutes 2x 60 sec Comments verbal cues Sidelying Exercises open book Reps/Minutes X 5 each side Comments verbal and visual cues Standing Exercises sit to stand Standing Exercise Name HEP Reps/Minutes X 5 X 2 Comments Patient ed use of self tactile cues for hip hinge calf stretches Standing Exercise Name on stair gastroc and soleus, at wall gastroc ( to HEP at wall ) Side bilateral Reps/Minutes 60 sec each Comments verbal cues Manual Therapy Treatment Consent Patient gave verbal consent for manual Yes treatment Soft Tissue Mobilization LS paraspinals/ SI area Body Location Right Mobilization Type Cross-Friction,Rolling, Sustained Pressure Intensity/Depth Moderate Body Position Sidelying bilateral illiopsoas Body Location right Mobilization Type Cross-Friction,Rolling Intensity/Depth Moderate Body Position Hooklying left gluteals Body Location glute piriformis, bilateral/ right Mobilization Type Cross-Friction,Rolling Intensity/Depth mod Body Position Sidelying Manual Techniques MET for R AI L PI and pubic shot gun Body Position 6 X 6 seconds each PT-OP-R Modalities Start: 09/18/24 11:29 Freq: Status: Active Protocol: Document 09/22/24 11:34 SAK (Rec: 09/22/24 12:27 SAK Laptop) Hot Pack/Cold Pack Treatment Hot Pack Location l/s, post hip Patient Position Sidelying Patient Tolerance Good PT-OP-T Assessment and Plan Start: 09/18/24 11:29 Freq: Status: Active Protocol: Document 10/14/24 08:29 AB (Rec: 10/14/24 12:36 AB Laptop) Physical Therapy Assessment Goals Three Impairment impairments in strength and flexibility in core and hips Short Term Goal (STG) Patient to be instructed in HEP for purposes of strengthening, core stabilization and strengthening to address impairments and will be issued written handout STG Duration 10/19/24 [facility] Goal (LTG) Patient will be independent and compliant with HEP and demonstrate improvement in flexibility to WNL and strength to at least 4+/5 all muscle groups LTG Duration 12/19/24 Two Impairment unable to garden without an increase in pain Short Term Goal (STG) Patient will be instructed in posture and body mechanics principles, especially related to gardening STG Duration 10/19/24 Storage Engineer Goal (LTG) Patient will be able to return to gardening without an increase in pain, demonstrating good posture and body mechanics with simulated activities in clinic. LTG Duration 12/19/24 One Impairment Oswestry disability index score 26% [facility] Goal (LTG) Decrease Oswestry disability Index score to no greater than 15% as measure of decreased pain and improved activity tolerance and function. LTG Duration 12/19/24 Assessment Summary Assessment Patient rates pain 1/10 end of session. Good return demonstration and tracy to sit to stand this session. Sit to stand and calf stretches added to HEP. Physical Therapy Plan Frequency and Duration Frequency of Treatment 2x/Week Duration of treatment (weeks) 12 Plan of Care Start Date 09/18/24 Plan of Care End Date 12/19/24 Next Visit Focus/Plan Next Note Type Progress Note Next Visit Plan Progress note due Review HEP and self massage with tennis ball. Continue strengthening and flexibility. possibly calf stretches due to dec DF terminal stance LE' s slightly ER/possibly due to piriformis stiffness.
--- NOTE | 2024-10-16 13:57 | PT.OTN ---
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 L5 pain for years since then , history of cortisone shots with positive results, then stopped working, states doctor out of ideas. Now pain has moved to the right at beltline. Denies N/T. Was prescribed muscle relaxants, no effect. Pain increases with sitting wrong position, when rolling in bed, lift, twist. Walks for exercise. No use of ice or heat. Reports is very physically active with woodworking, works on a car, yardwork (worst for pain). Goes to sleep on left side rotated toward stomach, doesn' t sleep on back or right side very often. 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 Future Testing and Treatments Planned Returns to Dr. Montelongo in a couple months. PT-OP-C Subjective Start: 09/18/24 11:29 Freq: Status: Active Protocol: Document 10/16/24 13:27 KW (Rec: 10/16/24 13:57 KW Laptop) OP-PT Subjective Patient Comments Patient Comments improving but slow PT-OP-G Mobility & Gait Start: 09/18/24 11:29 Freq: Status: Active Protocol: Document 09/18/24 16:32 SAK (Rec: 09/18/24 17:04 [facility] Laptop) OP Gait Assessment Gait Gait Assistance Required: Independent Assistive Devices Assistive Device None Stair Climbing Evaluation Evaluation Level of Assist On Stairs Independent Devices Stair Climbing Assistive Devices Left Railing,Right Railing Technique/Endurance Stair Climbing Direction Ascend and Descend Stair Climbing Technique Step Over Step PT-OP-H Neuro Start: 09/18/24 11:29 Freq: Status: Active Protocol: Document 09/18/24 16:32 SAK (Rec: 09/18/24 17:04 [facility] Laptop) Sensation Evaluation Gross Sensation Gross Sensation WNL PT-OP-J Posture/Palpation/Skin Start: 09/18/24 11:29 Freq: Status: Active Protocol: Document 09/18/24 16:32 SAK (Rec: 09/18/24 17:04 [facility] Laptop) Posture Evaluation Position Standing Head/C-Spine Posture Forward Head T-Spine Posture Increased Kyphosis Scapula Posture (L) Protracted,(R) Protracted Arm Posture (L) Internally Rotated,(R) Internally Rotated Pelvis Posture Posterior Tilted Palpation Assessment Location lumbar spine Palpation Location R Palpation Findings Soft Tissue Tightness PT-OP-K Range of Motion Start: 09/18/24 11:29 Freq: Status: Active Protocol: Document 09/18/24 16:32 SAK (Rec: 09/18/24 17:04 [facility] Laptop) Lumbar Spine Range of Motion Lumbar Spine Active Testing Position Standing Comments Mod decrease all motions with c/o pain right lumbar spine/ posterior hip Hip Goniometric Range of Motion Hip Left Hip ROM WFL No Flexion w/Knee Flexed 105 Straight Leg Raise 45 Extension 0 Abduction 25 Internal Rotation 20 External Rotation 5 Right Hip ROM WFL No Flexion w/Knee Flexed 100 Straight Leg Raise 40 Extension 0 Abduction 25 Internal Rotation 15 External Rotation 60 Comments pain with IR Hip ROM Limitations Hip ROM Limitations Soft Tissue Tightness Knee Goniometric Range of Motion Knee sharri Knee ROM WFL Yes PT-OP-L Special Tests Start: 09/18/24 11:29 Freq: Status: Active Protocol: Document 09/18/24 16:32 SAK (Rec: 09/18/24 17:04 [facility] Laptop) Special Tests Lumbar Spine Special Tests Straight Leg Raise Comments muscle tightness Compression Test Results + Hip Special Tests Scour Test Test Results - PT-OP-M Strength Start: 09/18/24 11:29 Freq: Status: Active Protocol: Document 09/18/24 16:32 SAK (Rec: 09/18/24 17:04 SAK Laptop) Trunk Strength Trunk Manual Muscle Testing Core Stabilization poor Hip Strength Hip Manual Muscle Testing Right Flexion (L2) 4- Good- Extension (S1) 3+ Fair+ Abduction 4- Good- External Rotation 4- Good- Internal Rotation 4- Good- Left Flexion (L2) 4- Good- Extension (S1) 3+ Fair+ Abduction 4- Good- External Rotation 4 Good Internal Rotation 4 Good Knee Strength Knee Manual Muscle Testing sharri Flexion (S2) 5 Normal Extension (L3) 5 Normal PT-OP-Q Treatments Start: 09/18/24 11:29 Freq: Status: Active Protocol: Document 10/16/24 13:27 KW (Rec: 10/16/24 13:57 KW Laptop) Cardio Equipment Recumbent Stepper (Sci-Fit) Duration (Minutes) 5 Resistance 6 Seat Position 12 Gym Equipment Shuttle Recovery Unilateral Squats Resistance 37 Reps/Time 10x2 Bilateral Squats Resistance 62 Reps/Time 10x2 Therapeutic Exercises Supine Exercises Mod jose stretch Supine Exercise Name HEP Side bilateral Reps/Minutes 60 sec each LE with AROM knee flexion X 10 Comments verbal cues piriformis stretch Side bilateral Reps/Minutes 2x 60 sec Comments verbal cues figure 4 Reps/Minutes 2x HS stretch Reps/Minutes HS stretch 3x 60 sec Comments verbal cues bridge Reps/Minutes 10x Comments Vc to push into heels Sidelying Exercises open book Reps/Minutes X 5 each side Comments verbal and visual cues Sitting Exercises NuStep Sitting Exercise Name Warm Up for improved tissue mobility Comments 5 min lvl 3 seated core warm up Sitting Exercise Name 1. sh flexion end ROM 2. seated trunk rotation Reps/Minutes 5X 5 each Comments verbal and visual cues Standing Exercises sit to stand Standing Exercise Name HEP Reps/Minutes X 5 X 2 Comments Patient ed use of self tactile cues for hip hinge calf stretches Standing Exercise Name on stair gastroc and soleus, at wall gastroc ( to HEP at wall ) Side bilateral Reps/Minutes 60 sec each Comments verbal cues alessandro Standing Exercise Name Squatting and Lunging education Comments 10x2 each, education on proper posture Pallof press Standing Exercise Name HEP Side bilateral Resistance level 2 band Reps/Minutes X10 each side Comments verbal and visual cues HC stretch Standing Exercise Name next session Manual Therapy Treatment Consent Patient gave verbal consent for manual Yes treatment Soft Tissue Mobilization LS paraspinals/ SI area Body Location Right Mobilization Type Cross-Friction,Rolling, Sustained Pressure Intensity/Depth Moderate Body Position Sidelying left gluteals Body Location glute piriformis, bilateral/ right Mobilization Type Cross-Friction,Rolling Intensity/Depth mod Body Position Sidelying Manual Techniques MET for R AI L PI and pubic shot gun Body Position 6 X 6 seconds each Neuro Re-Education Treatment Balance Activities tandem Comments comparing balance with chief writer shoes on/off tandem R/L L/R and narrow JEAN with eye movements, head turns - not issued for HEP yet Self-Care/Home Management Treatment Education Patient Education Body Mechanics,Fall Risk,Home Exercise Program,Joint Protection,Pain Management, Posture Other Education self massage gluteals with tennis ball, wall in pillow case for better management. Option to also do in supine with bent knee fall out max cues for breathing with mobility. rolling, sit-stand, exertion, holding stretches PT-OP-R Modalities Start: 09/18/24 11:29 Freq: Status: Active Protocol: Document 09/22/24 11:34 SAK (Rec: 09/22/24 12:27 SAK Laptop) Hot Pack/Cold Pack Treatment Hot Pack Location l/s, post hip Patient Position Sidelying Patient Tolerance Good PT-OP-T Assessment and Plan Start: 09/18/24 11:29 Freq: Status: Active Protocol: Document 10/16/24 13:27 KW (Rec: 10/16/24 13:57 KW Laptop) Physical Therapy Assessment Rehab Potential Rehabilitation Potential Good Evaluation Complexity Number of Personal Factors/Comorbidities 3 or More Number of Body Systems Impaired 3 Clinical Presentation at Evaluation Evolving Impairments Impairments Activity Tolerance,Pain,Soft Tissue Mobility Other Impairments balance breathing mechanics Other Concerns Fall Risk mild Goals Three Impairment impairments in strength and flexibility in core and hips Short Term Goal (STG) Patient to be instructed in HEP for purposes of strengthening, core stabilization and strengthening to address impairments and will be issued written handout - MET STG Duration 10/19/24 Channel Account Manager Goal (LTG) Patient will be independent and compliant with HEP and demonstrate improvement in flexibility to WNL and strength to at least 4+/5 all muscle groups LTG Duration 12/19/24 Two Impairment unable to garden without an increase in pain Short Term Goal (STG) Patient will be instructed in posture and body mechanics principles, especially related to gardening- STG Duration 10/19/24 [facility] Goal (LTG) Patient will be able to return to gardening without an increase in pain, demonstrating good posture and body mechanics with simulated activities in clinic. - 75% met LTG Duration 12/19/24 One Impairment Oswestry disability index score 26% [facility] Goal (LTG) Decrease Oswestry disability Index score to no greater than 15% as measure of decreased pain and improved activity tolerance and function. LTG Duration 12/19/24 Assessment Summary Assessment much improved pain and mobility post Rx. He is starting to realize that low back is better when hip flexibility is better. Also introduced importance of breathing mechanics today for mobility, ther-ex. Also importance of supportive shoes (not sketchers). Pt will benefit from cont PT to meet LTGs Physical Therapy Plan Frequency and Duration Frequency of Treatment 2x/Week Duration of treatment (weeks) 12 Plan of Care Start Date 09/18/24 Plan of Care End Date 12/19/24 Therapeutic Interventions Therapeutic Interventions Home Exercise Program,Manual Therapy,Neuromuscular Re- education,Patient/Caregiver Education,Self-Care/Home Management,Soft Tissue Mobilization,Taping, Therapeutic Activities, Therapeutic Exercises Modalities Cold Pack/Ice Massage,Electric Stimulation,Hot Packs, Infrared Therapy,Ultrasound Other Therapeutic Interventions balance breath work training shoes - lacing techniques for better support Next Visit Focus/Plan Next Note Type Treatment Note Next Visit Plan Review HEP and self massage with tennis ball. Continue strengthening and flexibility. possibly calf stretches due to dec DF terminal stance LE' s slightly ER/possibly due to piriformis stiffness.
--- NOTE | 2024-10-30 14:00 | PT.OTN ---
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 L5 pain for years since then , history of cortisone shots with positive results, then stopped working, states doctor out of ideas. Now pain has moved to the right at beltline. Denies N/T. Was prescribed muscle relaxants, no effect. Pain increases with sitting wrong position, when rolling in bed, lift, twist. Walks for exercise. No use of ice or heat. Reports is very physically active with woodworking, works on a car, yardwork (worst for pain). Goes to sleep on left side rotated toward stomach, doesn't sleep on back or right side very often. Prior Treatments and multiple cortisone injections Tests x-ray lumbar spine 03/13: Multiple levels of lumbar spine degenerative change can be seen, which are mildly progressed compared to the prior. Future Testing and Returns to Dr. Montelongo in a couple months. Treatments Planned PT-OP-C Subjective Start: 09/18/24 11:29 Freq: Status: Active Protocol: Document 10/30/24 12:51 AB (Rec: 10/30/24 14:00 AB Laptop) OP-PT Subjective Patient Comments Patient Comments Don reports right sided back pain 05/30 which is his normal pain, comments he didn't over do it. Patient reports he had a Drs appt with Dr. Meadows and has patient been referred to Pyschiatry, but doesn't know why. Patient made aware it is neuropsychology evaluation for memory, and comments that is what it was and he was very pleased with Dr. Meadows. PT-OP-G Mobility & Gait Start: 09/18/24 11:29 Freq: Status: Active Protocol: Document 09/18/24 16:32 SAK (Rec: 09/18/24 17:04 [facility] Laptop) OP Gait Assessment Gait Gait Assistance Independent Required: Assistive Devices Assistive Device None Stair Climbing Evaluation Evaluation Level of Assist On Independent Stairs Devices Stair Climbing Left Railing,Right Railing Assistive Devices Technique/Endurance Stair Climbing Ascend and Descend Direction Stair Climbing Step Over Step Technique PT-OP-H Neuro Start: 09/18/24 11:29 Freq: Status: Active Protocol: Document 09/18/24 16:32 SAK (Rec: 09/18/24 17:04 [facility] Laptop) Sensation Evaluation Gross Sensation Gross Sensation WNL PT-OP-J Posture/Palpation/Skin Start: 09/18/24 11:29 Freq: Status: Active Protocol: Document 09/18/24 16:32 SAK (Rec: 09/18/24 17:04 [facility] Laptop) Posture Evaluation Position Standing Head/C-Spine Posture Forward Head T-Spine Posture Increased Kyphosis Scapula Posture (L) Protracted,(R) Protracted Arm Posture (L) Internally Rotated,(R) Internally Rotated Pelvis Posture Posterior Tilted Palpation Assessment Location lumbar spine Palpation Location R Palpation Findings Soft Tissue Tightness PT-OP-K Range of Motion Start: 09/18/24 11:29 Freq: Status: Active Protocol: Document 09/18/24 16:32 SAK (Rec: 09/18/24 17:04 SAK Laptop) Lumbar Spine Range of Motion Lumbar Spine Active Testing Position Standing Comments Mod decrease all motions with c/o pain right lumbar spine/posterior hip Hip Goniometric Range of Motion Hip Left Hip ROM WFL No Flexion w/Knee 105 Flexed Straight Leg Raise 45 Extension 0 Abduction 25 Internal Rotation 20 External Rotation 5 Right Hip ROM WFL No Flexion w/Knee 100 Flexed Straight Leg Raise 40 Extension 0 Abduction 25 Internal Rotation 15 External Rotation 60 Comments pain with IR Hip ROM Limitations Hip ROM Limitations Soft Tissue Tightness Knee Goniometric Range of Motion Knee sharri Knee ROM WFL Yes PT-OP-L Special Tests Start: 09/18/24 11:29 Freq: Status: Active Protocol: Document 09/18/24 16:32 SAK (Rec: 09/18/24 17:04 SAK Laptop) Special Tests Lumbar Spine Special Tests Straight Leg Raise Comments muscle tightness Compression Test Results + Hip Special Tests Scour Test Test Results - PT-OP-M Strength Start: 09/18/24 11:29 Freq: Status: Active Protocol: Document 09/18/24 16:32 SAK (Rec: 09/18/24 17:04 SAK Laptop) Trunk Strength Trunk Manual Muscle Testing Core Stabilization poor Hip Strength Hip Manual Muscle Testing Right Flexion (L2) 4- Good- Extension (S1) 3+ Fair+ Abduction 4- Good- External Rotation 4- Good- Internal Rotation 4- Good- Left Flexion (L2) 4- Good- Extension (S1) 3+ Fair+ Abduction 4- Good- External Rotation 4 Good Internal Rotation 4 Good Knee Strength Knee Manual Muscle Testing sharri Flexion (S2) 5 Normal Extension (L3) 5 Normal PT-OP-Q Treatments Start: 09/18/24 11:29 Freq: Status: Active Protocol: Document 10/30/24 12:51 AB (Rec: 10/30/24 14:00 AB Laptop) Cardio Equipment Recumbent Stepper (Sci-Fit) Duration (Minutes) 5 Resistance 6 Seat Position 12 Gym Equipment Shuttle Recovery Unilateral Squats Details [place] Resistance 37 Reps/Time X 15 Bilateral Squats Details 75 ( 3 teal bands) Reps/Time X 15 Therapeutic Exercises Supine Exercises resisted hip flexion Supine Exercise Name from hooklying Reps/Minutes 10 sec X 2 then X 15 sec X 1 each LE Comments verbal and tactile cues side plank Reps/Minutes 3 X 7 sec R 2 X 7 sec L L limited by shoulder pain Comments verbal, visual and tactile cues chin tuck with head lift Reps/Minutes X 4 trials Comments unable with verbal and tactile cues Mod jose stretch Supine Exercise Name HEP Side bilateral Reps/Minutes 60 sec each LE with AROM knee flexion X 10 Comments verbal cues initally pain with trial on R, piriformis stretch Side bilateral Reps/Minutes 1x 60 sec Comments verbal cues Standing Exercises bird dog in counter plank position Side bilateral Reps/Minutes X5 each side Comments verbal, visual and tactile cues PT-OP-R Modalities Start: 09/18/24 11:29 Freq: Status: Active Protocol: Document 09/22/24 11:34 SAK (Rec: 09/22/24 12:27 SAK Laptop) Hot Pack/Cold Pack Treatment Hot Pack Location l/s, post hip Patient Position Sidelying Patient Tolerance Good PT-OP-T Assessment and Plan Start: 09/18/24 11:29 Freq: Status: Active Protocol: Document 10/30/24 12:51 AB (Rec: 10/30/24 14:00 AB Laptop) Physical Therapy Assessment Goals Three Impairment impairments in strength and flexibility in core and hips Short Term Goal (STG Patient to be instructed in HEP for purposes of ) strengthening, core stabilization and strengthening to address impairments and will be issued written handout - MET STG Duration 10/19/24 Tool Storage Attendant Goal (LTG) Patient will be independent and compliant with HEP and demonstrate improvement in flexibility to WNL and strength to at least 4+/5 all muscle groups LTG Duration 12/19/24 Two Impairment unable to garden without an increase in pain Short Term Goal (STG Patient will be instructed in posture and body ) mechanics principles, especially related to gardening- STG Duration 10/19/24 [facility] Goal (LTG) Patient will be able to return to gardening without an increase in pain, demonstrating good posture and body mechanics with simulated activities in clinic. - 75% met LTG Duration 12/19/24 One Impairment Oswestry disability index score 26% Tool Storage Attendant Goal (LTG) Decrease Oswestry disability Index score to no greater than 15% as measure of decreased pain and improved activity tolerance and function. LTG Duration 12/19/24 Assessment Summary Assessment Increased difficulty with side plank L due to reports of shoulder pain, reports no shoulder pain with counter bird dog performed post side plank, and increased difficulty following cues for chin tuck and head lift. Good tracy to Bird dog, but slightly unsteady and occ difficulty with op UE and LE. Patient reports back pain is less than 1/10 end of session Physical Therapy Plan Frequency and Duration Frequency of 2x/Week Treatment Duration of 12 treatment (weeks) Plan of Care Start 09/18/24 Date Plan of Care End 12/19/24 Date Next Visit Focus/Plan Next Note Type Treatment Note Next Visit Plan Review HEP and self massage with tennis ball. Continue strengthening and flexibility. Revisit counter bird dog, & resisted hip flexion in hooklying for core.
--- NOTE | 2024-11-04 15:09 | PT.OTN ---
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 L5 pain for years since then , history of cortisone shots with positive results, then stopped working, states doctor out of ideas. Now pain has moved to the right at beltline. Denies N/T. Was prescribed muscle relaxants, no effect. Pain increases with sitting wrong position, when rolling in bed, lift, twist. Walks for exercise. No use of ice or heat. Reports is very physically active with woodworking, works on a car, yardwork (worst for pain). Goes to sleep on left side rotated toward stomach, doesn't sleep on back or right side very often. Prior Treatments and multiple cortisone injections Tests x-ray lumbar spine 03/13: Multiple levels of lumbar spine degenerative change can be seen, which are mildly progressed compared to the prior. Future Testing and Returns to Dr. Montelongo in a couple months. Treatments Planned PT-OP-C Subjective Start: 09/18/24 11:29 Freq: Status: Active Protocol: Document 11/04/24 09:46 SAK (Rec: 11/04/24 10:41 SAK Laptop) OP-PT Subjective Patient Comments Patient Comments Reports pain now 1/10, has quit taking pain pills. Pain can get up to a 5/10 especially whenfirst lays down, and also if does a lot of bending over though tries not to do too much. PT-OP-G Mobility & Gait Start: 09/18/24 11:29 Freq: Status: Active Protocol: Document 09/18/24 16:32 SAK (Rec: 09/18/24 17:04 [facility] Laptop) OP Gait Assessment Gait Gait Assistance Independent Required: Assistive Devices Assistive Device None Stair Climbing Evaluation Evaluation Level of Assist On Independent Stairs Devices Stair Climbing Left Railing,Right Railing Assistive Devices Technique/Endurance Stair Climbing Ascend and Descend Direction Stair Climbing Step Over Step Technique PT-OP-H Neuro Start: 09/18/24 11:29 Freq: Status: Active Protocol: Document 09/18/24 16:32 [facility] (Rec: 09/18/24 17:04 [facility] Laptop) Sensation Evaluation Gross Sensation Gross Sensation WNL PT-OP-J Posture/Palpation/Skin Start: 09/18/24 11:29 Freq: Status: Active Protocol: Document 09/18/24 16:32 [facility] (Rec: 09/18/24 17:04 [facility] Laptop) Posture Evaluation Position Standing Head/C-Spine Posture Forward Head T-Spine Posture Increased Kyphosis Scapula Posture (L) Protracted,(R) Protracted Arm Posture (L) Internally Rotated,(R) Internally Rotated Pelvis Posture Posterior Tilted Palpation Assessment Location lumbar spine Palpation Location R Palpation Findings Soft Tissue Tightness PT-OP-K Range of Motion Start: 09/18/24 11:29 Freq: Status: Active Protocol: Document 09/18/24 16:32 [facility] (Rec: 09/18/24 17:04 [facility] Laptop) Lumbar Spine Range of Motion Lumbar Spine Active Testing Position Standing Comments Mod decrease all motions with c/o pain right lumbar spine/posterior hip Hip Goniometric Range of Motion Hip Left Hip ROM WFL No Flexion w/Knee 105 Flexed Straight Leg Raise 45 Extension 0 Abduction 25 Internal Rotation 20 External Rotation 5 Right Hip ROM WFL No Flexion w/Knee 100 Flexed Straight Leg Raise 40 Extension 0 Abduction 25 Internal Rotation 15 External Rotation 60 Comments pain with IR Hip ROM Limitations Hip ROM Limitations Soft Tissue Tightness Knee Goniometric Range of Motion Knee sharri Knee ROM WFL Yes PT-OP-L Special Tests Start: 09/18/24 11:29 Freq: Status: Active Protocol: Document 09/18/24 16:32 SAK (Rec: 09/18/24 17:04 [facility] Laptop) Special Tests Lumbar Spine Special Tests Straight Leg Raise Comments muscle tightness Compression Test Results + Hip Special Tests Scour Test Test Results - PT-OP-M Strength Start: 09/18/24 11:29 Freq: Status: Active Protocol: Document 09/18/24 16:32 SAK (Rec: 09/18/24 17:04 [facility] Laptop) Trunk Strength Trunk Manual Muscle Testing Core Stabilization poor Hip Strength Hip Manual Muscle Testing Right Flexion (L2) 4- Good- Extension (S1) 3+ Fair+ Abduction 4- Good- External Rotation 4- Good- Internal Rotation 4- Good- Left Flexion (L2) 4- Good- Extension (S1) 3+ Fair+ Abduction 4- Good- External Rotation 4 Good Internal Rotation 4 Good Knee Strength Knee Manual Muscle Testing sharri Flexion (S2) 5 Normal Extension (L3) 5 Normal PT-OP-Q Treatments Start: 09/18/24 11:29 Freq: Status: Active Protocol: Document 11/04/24 09:46 [facility] (Rec: 11/04/24 10:41 [facility] Laptop) Cardio Equipment Recumbent Stepper (Sci-Fit) Duration (Minutes) 56 Resistance 6 Seat Position 12 Therapeutic Exercises Supine Exercises piriformis stretch Side bilateral Reps/Minutes 1x 60 sec Comments verbal cues Standing Exercises QL stretch Standing Exercise not added to HEP, may want to revisit Name Reps/Minutes 2x sharri Comments felt stretch in painful area, cues to back of of irritating intensity sit to stand Reps/Minutes 8x Comments pt education for no UE use, increase reps as able Therapeutic Activity Therapeutic Activity bed positioning Comments trial use folded towel under waist and pillow between knees for facilitation of neutral alignment, pt uncertain if helpful, encouraged to try at home, has prior handout. bed mobility Comments evaluation of patient sit to supine technique; patient demonstrated good logroll for back protection Manual Therapy Treatment Soft Tissue Mobilization QL Body Location right Mobilization Type Strumming,Sustained Pressure Intensity/Depth mod Body Position left sidelying LS paraspinals/ SI area Body Location Right Mobilization Type Rolling,Sustained Pressure Intensity/Depth Moderate Body Position Sidelying PT-OP-R Modalities Start: 09/18/24 11:29 Freq: Status: Active Protocol: Document 09/22/24 11:34 SAK (Rec: 09/22/24 12:27 [facility] Laptop) Hot Pack/Cold Pack Treatment Hot Pack Location l/s, post hip Patient Position Sidelying Patient Tolerance Good PT-OP-T Assessment and Plan Start: 09/18/24 11:29 Freq: Status: Active Protocol: Document 11/04/24 09:46 [facility] (Rec: 11/04/24 10:41 [facility] Laptop) Physical Therapy Assessment Goals Three Impairment impairments in strength and flexibility in core and hips Short Term Goal (STG Patient to be instructed in HEP for purposes of ) strengthening, core stabilization and strengthening to address impairments and will be issued written handout - MET STG Duration 10/19/24 Mental Health Aide Goal (LTG) Patient will be independent and compliant with HEP and demonstrate improvement in flexibility to WNL and strength to at least 4+/5 all muscle groups LTG Duration 12/19/24 Two Impairment unable to garden without an increase in pain Short Term Goal (STG Patient will be instructed in posture and body ) mechanics principles, especially related to gardening- 12/04/24: reports no longer doing gardening. Still works on car and woodworking. States he is being a little more careful STG Duration 10/19/24 Skilled Nursing Goal (LTG) Patient will be able to return to gardening without an increase in pain, demonstrating good posture and body mechanics with simulated activities in clinic. - 75% met LTG Duration 12/19/24 One Impairment Oswestry disability index score 26% Skilled Nursing Goal (LTG) Decrease Oswestry disability Index score to no greater than 15% as measure of decreased pain and improved activity tolerance and function. LTG Duration 12/19/24 Assessment Summary Assessment Patient indicating improvement with PT, generally low pain level though states when he lays down in bed pain can be as high as 5/10. He demnstrated good log roll onto treatment table but reported significan right sided pain lower lumbar and sup ilium. Palpable tenderness right QL, educated potential contribution sleep position and other habitual postures and movements. Reviewed sidelying bed positioning with pillows between legs and towel under side. Provided manual to QL followed by standing stretch; not added to HEP, may need to try other method. REviewed sit to stand exercise and progressed to no use UE's. Physical Therapy Plan Frequency and Duration Frequency of 2x/Week Treatment Duration of 12 treatment (weeks) Plan of Care Start 09/18/24 Date Plan of Care End 12/19/24 Date Next Visit Focus/Plan Next Note Type Treatment Note Next Visit Plan Progression of ther ex as tolerated with emphasis functional strengthening; squats, lunges, body mechanics, core strengthening. Consider alternative QL stretching and strengthening.
--- NOTE | 2024-11-06 10:34 | PT.OTN ---
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 L5 pain for years since then , history of cortisone shots with positive results, then stopped working, states doctor out of ideas. Now pain has moved to the right at beltline. Denies N/T. Was prescribed muscle relaxants, no effect. Pain increases with sitting wrong position, when rolling in bed, lift, twist. Walks for exercise. No use of ice or heat. Reports is very physically active with woodworking, works on a car, yardwork (worst for pain). Goes to sleep on left side rotated toward stomach, doesn't sleep on back or right side very often. Prior Treatments and multiple cortisone injections Tests x-ray lumbar spine 03/13: Multiple levels of lumbar spine degenerative change can be seen, which are mildly progressed compared to the prior. Future Testing and Returns to Dr. Montelongo in a couple months. Treatments Planned PT-OP-C Subjective Start: 09/18/24 11:29 Freq: Status: Active Protocol: Document 11/06/24 08:32 AB (Rec: 11/06/24 10:34 AB Laptop) OP-PT Subjective Patient Comments Patient Comments Patient reports it is hard to tell if the towel in bed is helping, also towel sinks into bed and does move to sidelying with L LE straight R LE straight. Patient reports his hind end was sore post the stretch previous session. PT-OP-G Mobility & Gait Start: 09/18/24 11:29 Freq: Status: Active Protocol: Document 09/18/24 16:32 [facility] (Rec: 09/18/24 17:04 [facility] Laptop) OP Gait Assessment Gait Gait Assistance Independent Required: Assistive Devices Assistive Device None Stair Climbing Evaluation Evaluation Level of Assist On Independent Stairs Devices Stair Climbing Left Railing,Right Railing Assistive Devices Technique/Endurance Stair Climbing Ascend and Descend Direction Stair Climbing Step Over Step Technique PT-OP-H Neuro Start: 09/18/24 11:29 Freq: Status: Active Protocol: Document 09/18/24 16:32 [facility] (Rec: 09/18/24 17:04 [facility] Laptop) Sensation Evaluation Gross Sensation Gross Sensation WNL PT-OP-J Posture/Palpation/Skin Start: 09/18/24 11:29 Freq: Status: Active Protocol: Document 09/18/24 16:32 [facility] (Rec: 09/18/24 17:04 [facility] Laptop) Posture Evaluation Position Standing Head/C-Spine Posture Forward Head T-Spine Posture Increased Kyphosis Scapula Posture (L) Protracted,(R) Protracted Arm Posture (L) Internally Rotated,(R) Internally Rotated Pelvis Posture Posterior Tilted Palpation Assessment Location lumbar spine Palpation Location R Palpation Findings Soft Tissue Tightness PT-OP-K Range of Motion Start: 09/18/24 11:29 Freq: Status: Active Protocol: Document 09/18/24 16:32 [facility] (Rec: 09/18/24 17:04 [facility] Laptop) Lumbar Spine Range of Motion Lumbar Spine Active Testing Position Standing Comments Mod decrease all motions with c/o pain right lumbar spine/posterior hip Hip Goniometric Range of Motion Hip Left Hip ROM WFL No Flexion w/Knee 105 Flexed Straight Leg Raise 45 Extension 0 Abduction 25 Internal Rotation 20 External Rotation 5 Right Hip ROM WFL No Flexion w/Knee 100 Flexed Straight Leg Raise 40 Extension 0 Abduction 25 Internal Rotation 15 External Rotation 60 Comments pain with IR Hip ROM Limitations Hip ROM Limitations Soft Tissue Tightness Knee Goniometric Range of Motion Knee sharri Knee ROM WFL Yes PT-OP-L Special Tests Start: 09/18/24 11:29 Freq: Status: Active Protocol: Document 09/18/24 16:32 SAK (Rec: 09/18/24 17:04 SAK Laptop) Special Tests Lumbar Spine Special Tests Straight Leg Raise Comments muscle tightness Compression Test Results + Hip Special Tests Scour Test Test Results - PT-OP-M Strength Start: 09/18/24 11:29 Freq: Status: Active Protocol: Document 09/18/24 16:32 SAK (Rec: 09/18/24 17:04 SAK Laptop) Trunk Strength Trunk Manual Muscle Testing Core Stabilization poor Hip Strength Hip Manual Muscle Testing Right Flexion (L2) 4- Good- Extension (S1) 3+ Fair+ Abduction 4- Good- External Rotation 4- Good- Internal Rotation 4- Good- Left Flexion (L2) 4- Good- Extension (S1) 3+ Fair+ Abduction 4- Good- External Rotation 4 Good Internal Rotation 4 Good Knee Strength Knee Manual Muscle Testing sharri Flexion (S2) 5 Normal Extension (L3) 5 Normal PT-OP-Q Treatments Start: 09/18/24 11:29 Freq: Status: Active Protocol: Document 11/06/24 08:32 AB (Rec: 11/06/24 10:34 AB Laptop) Gym Equipment Shuttle Recovery Bilateral Squats Details 75 ( 3 teal bands) Reps/Time X 15 Therapeutic Exercises Supine Exercises short sit to upright Supine Exercise Name HEP Equipment Used x 5 each side Comments verbal and visual cues quadratus lumborum Supine Exercise Name from hooklying leg cross with rot R. L head turn L UE 90 deg then opp Equipment Used HEP Reps/Minutes 60 sec each side X 2 Comments Verbal and tactile, visual cues Standing Exercises sit to stand Standing Exercise jackson mat lowest height Name Reps/Minutes 8x Comments no UE use, review of hip hinge, use of spine model [facility] sit to stand Therapeutic Activity Therapeutic Activity bed positioning Comments trial of 2 folded pillows between knees in sidelying. bed mobility Comments Verbal cues for supine to sit X1 this session Manual Therapy Treatment Consent Patient gave verbal Yes consent for manual treatment Soft Tissue Mobilization QL Body Location bilateral Mobilization Type Cross-Friction,Sustained Pressure Intensity/Depth mod Body Position Sidelying LS paraspinals/ SI area Body Location bilateral Mobilization Type Cross-Friction,Sustained Pressure Intensity/Depth Moderate Body Position Sidelying bilateral illiopsoas Body Location right Mobilization Type Cross-Friction,Rolling Intensity/Depth Moderate Body Position Hooklying left gluteals Body Location glute piriformis, bilateral/ right Mobilization Type Cross-Friction,Rolling Intensity/Depth mod Body Position Sidelying PT-OP-R Modalities Start: 09/18/24 11:29 Freq: Status: Active Protocol: Document 09/22/24 11:34 SAK (Rec: 09/22/24 12:27 SAK Laptop) Hot Pack/Cold Pack Treatment Hot Pack Location l/s, post hip Patient Position Sidelying Patient Tolerance Good PT-OP-T Assessment and Plan Start: 09/18/24 11:29 Freq: Status: Active Protocol: Document 11/06/24 08:32 AB (Rec: 11/06/24 10:34 AB Laptop) Physical Therapy Assessment Goals Three Impairment impairments in strength and flexibility in core and hips Short Term Goal (STG Patient to be instructed in HEP for purposes of ) strengthening, core stabilization and strengthening to address impairments and will be issued written handout - MET STG Duration 10/19/24 Care Home Goal (LTG) Patient will be independent and compliant with HEP and demonstrate improvement in flexibility to WNL and strength to at least 4+/5 all muscle groups LTG Duration 12/19/24 Two Impairment unable to garden without an increase in pain Short Term Goal (STG Patient will be instructed in posture and body ) mechanics principles, especially related to gardening- 12/04/24: reports no longer doing gardening. Still works on car and woodworking. States he is being a little more careful STG Duration 10/19/24 Care Home Goal (LTG) Patient will be able to return to gardening without an increase in pain, demonstrating good posture and body mechanics with simulated activities in clinic. - 75% met LTG Duration 12/19/24 One Impairment Oswestry disability index score 26% Fur Machine Operator Goal (LTG) Decrease Oswestry disability Index score to no greater than 15% as measure of decreased pain and improved activity tolerance and function. LTG Duration 12/19/24 Assessment Summary Assessment Patient reports back may be a little more sore end of session, attributes to the exercises. Patient into session with reports he actually spends more time in sidelying during sleep with one LE extended and the other flexed. Time spent on sidelying positioning with pillows between knees this session. Physical Therapy Plan Frequency and Duration Frequency of 2x/Week Treatment Duration of 12 treatment (weeks) Plan of Care Start 09/18/24 Date Plan of Care End 12/19/24 Date Next Visit Focus/Plan Next Note Type Treatment Note Next Visit Plan Progression of ther ex as tolerated with emphasis functional strengthening; squats, lunges, body mechanics, core strengthening. Consider alternative QL stretching and strengthening.
--- NOTE | 2024-11-11 07:40 | PT.OTN ---
Current Diagnoses Lesion of sciatic nerve, right lower limb (11/10/24) Low back pain, unspecified (11/10/24) Soft tissue disorder, unspecified (11/10/24) Weakness (11/10/24) Physical Therapy Treatment Note PT-OP-A Visit Information Start: 09/18/24 11:29 Freq: Status: Active Protocol: Document 10/28/24 1300 AB (Rec: 10/28/24 14:31 AB Laptop) Out-Patient Physical Therapy Visit Information Visit Information Visit Type Treatment Note Visit Note Access Code: [email or web address] (PN by 11/17/2024) Visit Start Time 13:03 Visit Stop Time 13:47 Visit Number 7 Number of KEEPER HELPER Visits 1 Precautions Precautions PMH: poor STM, history gout PT-OP-B Current Condition Start: 09/18/24 11:29 Freq: Status: Active Protocol: Document 11/10/24 08:15 SAK (Rec: 11/10/24 13:12 SAK Laptop) Current Condition History of Current Condition Onset Date 02/11 Current Complaints right sided low back pain History of Current INjury after jumping down onto left leg with resulting Condition pain centrally in spine. L5 pain for years since then , history of cortisone shots with positive results, then stopped working, states doctor out of ideas. Now pain has moved to the right at beltline. Denies N/T. Was prescribed muscle relaxants, no effect. Pain increases with sitting wrong position, when rolling in bed, lift, twist. Walks for exercise. No use of ice or heat. Reports is very physically active with woodworking, works on a car, yardwork (worst for pain). Goes to sleep on left side rotated toward stomach, doesn't sleep on back or right side very often. Prior Treatments and multiple cortisone injections Tests x-ray lumbar spine 03/13: Multiple levels of lumbar spine degenerative change can be seen, which are mildly progressed compared to the prior. Future Testing and Returns to Dr. Montelongo in a couple months. Treatments Planned PT-OP-C Subjective Start: 09/18/24 11:29 Freq: Status: Active Protocol: Document 11/11/24 07:25 AB (Rec: 10/28/24 14:31 AB Laptop) OP-PT Subjective Patient Comments Patient Comments Patient reports the back is not bad, was telling his the back is getting better. Patient reports he shampooed, carpet, installed a screen door and other chores, and had to take Alleve last night. Patient rates back pain 2-3/10 start of session. PT-OP-G Mobility & Gait Start: 09/18/24 11:29 Freq: Status: Active Protocol: Document 09/18/24 16:32 SAK (Rec: 09/18/24 17:04 SAK Laptop) OP Gait Assessment Gait Gait Assistance Independent Required: Assistive Devices Assistive Device None Stair Climbing Evaluation Evaluation Level of Assist On Independent Stairs Devices Stair Climbing Left Railing,Right Railing Assistive Devices Technique/Endurance Stair Climbing Ascend and Descend Direction Stair Climbing Step Over Step Technique PT-OP-H Neuro Start: 09/18/24 11:29 Freq: Status: Active Protocol: Document 09/18/24 16:32 SAK (Rec: 09/18/24 17:04 SAK Laptop) Sensation Evaluation Gross Sensation Gross Sensation WNL PT-OP-J Posture/Palpation/Skin Start: 09/18/24 11:29 Freq: Status: Active Protocol: Document 09/18/24 16:32 SAK (Rec: 09/18/24 17:04 [facility] Laptop) Posture Evaluation Position Standing Head/C-Spine Posture Forward Head T-Spine Posture Increased Kyphosis Scapula Posture (L) Protracted,(R) Protracted Arm Posture (L) Internally Rotated,(R) Internally Rotated Pelvis Posture Posterior Tilted Palpation Assessment Location lumbar spine Palpation Location R Palpation Findings Soft Tissue Tightness PT-OP-K Range of Motion Start: 09/18/24 11:29 Freq: Status: Active Protocol: Document 09/18/24 16:32 SAK (Rec: 09/18/24 17:04 [facility] Laptop) Lumbar Spine Range of Motion Lumbar Spine Active Testing Position Standing Comments Mod decrease all motions with c/o pain right lumbar spine/posterior hip Hip Goniometric Range of Motion Hip Left Hip ROM WFL No Flexion w/Knee 105 Flexed Straight Leg Raise 45 Extension 0 Abduction 25 Internal Rotation 20 External Rotation 5 Right Hip ROM WFL No Flexion w/Knee 100 Flexed Straight Leg Raise 40 Extension 0 Abduction 25 Internal Rotation 15 External Rotation 60 Comments pain with IR Hip ROM Limitations Hip ROM Limitations Soft Tissue Tightness Knee Goniometric Range of Motion Knee sharri Knee ROM WFL Yes PT-OP-L Special Tests Start: 09/18/24 11:29 Freq: Status: Active Protocol: Document 09/18/24 16:32 SAK (Rec: 09/18/24 17:04 SAK Laptop) Special Tests Lumbar Spine Special Tests Straight Leg Raise Comments muscle tightness Compression Test Results + Hip Special Tests Scour Test Test Results - PT-OP-M Strength Start: 09/18/24 11:29 Freq: Status: Active Protocol: Document 09/18/24 16:32 SAK (Rec: 09/18/24 17:04 SAK Laptop) Trunk Strength Trunk Manual Muscle Testing Core Stabilization poor Hip Strength Hip Manual Muscle Testing Right Flexion (L2) 4- Good- Extension (S1) 3+ Fair+ Abduction 4- Good- External Rotation 4- Good- Internal Rotation 4- Good- Left Flexion (L2) 4- Good- Extension (S1) 3+ Fair+ Abduction 4- Good- External Rotation 4 Good Internal Rotation 4 Good Knee Strength Knee Manual Muscle Testing sharri Flexion (S2) 5 Normal Extension (L3) 5 Normal PT-OP-Q Treatments Start: 09/18/24 11:29 Freq: Status: Active Protocol: Document 11/11/24 07:25 AB (Rec: 10/28/24 14:31 AB Laptop) Cardio Equipment Recumbent Stepper (Sci-Fit) Duration (Minutes) 4 Resistance 6 Seat Position 12 Therapeutic Exercises Supine Exercises Mod jose stretch Supine Exercise Name HEP Side bilateral Reps/Minutes 60 sec each LE with AROM knee flexion X 10 Comments verbal cues piriformis stretch Side bilateral Reps/Minutes 2x 60 sec Comments verbal cues Standing Exercises calf stretches Standing Exercise on stair gastroc and soleus, ( to HEP at wall ) Name Side bilateral Reps/Minutes 60 sec each Comments verbal cues Pallof press Standing Exercise HEP Name Side bilateral Resistance level 3 band Reps/Minutes X10 each side Comments verbal and visual cues Manual Therapy Treatment Consent Patient gave verbal Yes consent for manual treatment Soft Tissue Mobilization LS paraspinals/ SI area Body Location Right Mobilization Type Cross-Friction,Rolling,Sustained Pressure Intensity/Depth Moderate Body Position Sidelying bilateral illiopsoas Body Location right Mobilization Type Cross-Friction,Rolling Intensity/Depth Moderate Body Position Hooklying left gluteals Body Location glute piriformis, bilateral/ right Mobilization Type Cross-Friction,Rolling Intensity/Depth mod Body Position Sidelying Manual Techniques MET for R AI L PI and pubic shot gun Body Position 6 X 6 seconds each PT-OP-R Modalities Start: 09/18/24 11:29 Freq: Status: Active Protocol: Document 09/22/24 11:34 SAK (Rec: 09/22/24 12:27 SAK Laptop) Hot Pack/Cold Pack Treatment Hot Pack Location l/s, post hip Patient Position Sidelying Patient Tolerance Good PT-OP-T Assessment and Plan Start: 09/18/24 11:29 Freq: Status: Active Protocol: Document 11/11/24 07:25 AB (Rec: 10/28/24 14:31 AB Laptop) Physical Therapy Assessment Goals Three Impairment impairments in strength and flexibility in core and hips Short Term Goal (STG Patient to be instructed in HEP for purposes of ) strengthening, core stabilization and strengthening to address impairments and will be issued written handout - MET STG Duration 10/19/24 Picture Frames Inspector Goal (LTG) Patient will be independent and compliant with HEP and demonstrate improvement in flexibility to WNL and strength to at least 4+/5 all muscle groups LTG Duration 12/19/24 Two Impairment unable to garden without an increase in pain Short Term Goal (STG Patient will be instructed in posture and body ) mechanics principles, especially related to gardening- STG Duration 10/19/24 Prison Goal (LTG) Patient will be able to return to gardening without an increase in pain, demonstrating good posture and body mechanics with simulated activities in clinic. - 75% met LTG Duration 12/19/24 One Impairment Oswestry disability index score 26% Picture Frames Inspector Goal (LTG) Decrease Oswestry disability Index score to no greater than 15% as measure of decreased pain and improved activity tolerance and function. LTG Duration 12/19/24 Assessment Summary Assessment Patient reports back pain is 2/10 end of session ambulating out of session. Patient ed importance of breaking up task/household activities Physical Therapy Plan Frequency and Duration Frequency of 2x/Week Treatment Duration of 12 treatment (weeks) Plan of Care Start 09/18/24 Date Plan of Care End 12/19/24 Date Next Visit Focus/Plan Next Note Type Treatment Note Next Visit Plan Review HEP and self massage with tennis ball. Continue strengthening and flexibility.
--- NOTE | 2024-11-13 15:52 | PT.OTN ---
Current Diagnoses Lesion of sciatic nerve, right lower limb (11/13/24) Low back pain, unspecified (11/13/24) Soft tissue disorder, unspecified (11/13/24) Weakness (11/13/24) Physical Therapy Treatment Note PT-OP-A Visit Information Start: 09/18/24 11:29 Freq: Status: Active Protocol: Document 11/13/24 13:57 AB (Rec: 11/13/24 15:40 AB Laptop) Out-Patient Physical Therapy Visit Information Visit Information Visit Type Treatment Note Visit Start Time 14:34 Visit Stop Time 15:23 Visit Number 12 Number of TRACK PATROL Visits 1 Precautions Precautions PMH: poor STM, history gout PT-OP-B Current Condition Start: 09/18/24 11:29 Freq: Status: Active Protocol: Document 11/10/24 08:15 SAK (Rec: 11/10/24 13:12 SAK Laptop) Current Condition History of Current Condition Onset Date 02/11 Current Complaints right sided low back pain History of Current INjury after jumping down onto left leg with resulting Condition pain centrally in spine. L5 pain for years since then , history of cortisone shots with positive results, then stopped working, states doctor out of ideas. Now pain has moved to the right at beltline. Denies N/T. Was prescribed muscle relaxants, no effect. Pain increases with sitting wrong position, when rolling in bed, lift, twist. Walks for exercise. No use of ice or heat. Reports is very physically active with woodworking, works on a car, yardwork (worst for pain). Goes to sleep on left side rotated toward stomach, doesn't sleep on back or right side very often. Prior Treatments and multiple cortisone injections Tests x-ray lumbar spine 03/13: Multiple levels of lumbar spine degenerative change can be seen, which are mildly progressed compared to the prior. Future Testing and Returns to Dr. Montelongo in a couple months. Treatments Planned PT-OP-C Subjective Start: 09/18/24 11:29 Freq: Status: Active Protocol: Document 11/13/24 13:57 AB (Rec: 11/13/24 15:40 AB Laptop) OP-PT Subjective Patient Comments Patient Comments Patient reports performing HEP 3 x a week. Patient into session with HEP list, verbalizing plan to review today. Patient Questionnaires Oswestry Low Back Index Oswestry Score 14% Oswestry Impairment 1 to 19% Impaired (Score 1-19) PT-OP-G Mobility & Gait Start: 09/18/24 11:29 Freq: Status: Active Protocol: Document 09/18/24 16:32 SAK (Rec: 09/18/24 17:04 [facility] Laptop) OP Gait Assessment Gait Gait Assistance Independent Required: Assistive Devices Assistive Device None Stair Climbing Evaluation Evaluation Level of Assist On Independent Stairs Devices Stair Climbing Left Railing,Right Railing Assistive Devices Technique/Endurance Stair Climbing Ascend and Descend Direction Stair Climbing Step Over Step Technique PT-OP-H Neuro Start: 09/18/24 11:29 Freq: Status: Active Protocol: Document 09/18/24 16:32 SAK (Rec: 09/18/24 17:04 [facility] Laptop) Sensation Evaluation Gross Sensation Gross Sensation WNL PT-OP-J Posture/Palpation/Skin Start: 09/18/24 11:29 Freq: Status: Active Protocol: Document 09/18/24 16:32 [facility] (Rec: 09/18/24 17:04 [facility] Laptop) Posture Evaluation Position Standing Head/C-Spine Posture Forward Head T-Spine Posture Increased Kyphosis Scapula Posture (L) Protracted,(R) Protracted Arm Posture (L) Internally Rotated,(R) Internally Rotated Pelvis Posture Posterior Tilted Palpation Assessment Location lumbar spine Palpation Location R Palpation Findings Soft Tissue Tightness PT-OP-K Range of Motion Start: 09/18/24 11:29 Freq: Status: Active Protocol: Document 09/18/24 16:32 [facility] (Rec: 09/18/24 17:04 [facility] Laptop) Lumbar Spine Range of Motion Lumbar Spine Active Testing Position Standing Comments Mod decrease all motions with c/o pain right lumbar spine/posterior hip Hip Goniometric Range of Motion Hip Left Hip ROM WFL No Flexion w/Knee 105 Flexed Straight Leg Raise 45 Extension 0 Abduction 25 Internal Rotation 20 External Rotation 5 Right Hip ROM WFL No Flexion w/Knee 100 Flexed Straight Leg Raise 40 Extension 0 Abduction 25 Internal Rotation 15 External Rotation 60 Comments pain with IR Hip ROM Limitations Hip ROM Limitations Soft Tissue Tightness Knee Goniometric Range of Motion Knee sharri Knee ROM WFL Yes PT-OP-L Special Tests Start: 09/18/24 11:29 Freq: Status: Active Protocol: Document 09/18/24 16:32 SAK (Rec: 09/18/24 17:04 SAK Laptop) Special Tests Lumbar Spine Special Tests Straight Leg Raise Comments muscle tightness Compression Test Results + Hip Special Tests Scour Test Test Results - PT-OP-M Strength Start: 09/18/24 11:29 Freq: Status: Active Protocol: Document 11/13/24 13:57 AB (Rec: 11/13/24 15:45 AB Laptop) Trunk Strength Trunk Manual Muscle Testing Testing Position Supine Flexion 3 Fair Core Stabilization Patient able to perform a sit up with UE's extended clearing inf angle of scapula Seated and standing able to hold fair + resistance all directions Hip Strength Hip Manual Muscle Testing Right Flexion (L2) 4 Good Extension (S1) 3- Fair- Abduction 4- Good- External Rotation 4- Good- Internal Rotation 4+ Good+ Comments ext 3+ within limited ROM Left Flexion (L2) 4+ Good+ Extension (S1) 3- Fair- Abduction 4 Good External Rotation 4+ Good+ Internal Rotation 5 Normal Comments ext 3+ within limited ROM PT-OP-Q Treatments Start: 09/18/24 11:29 Freq: Status: Active Protocol: Document 11/13/24 13:57 AB (Rec: 11/13/24 15:40 AB Laptop) Therapeutic Exercises Supine Exercises Mod jose stretch Supine Exercise Name HEP Side bilateral Reps/Minutes 60 sec each LE with AROM knee flexion X 10 figure 4 Reps/Minutes 2x Comments verbal cues HS stretch Reps/Minutes HS stretch 60 sec Comments verbal cues bridge Supine Exercise Name review HEP, Reps/Minutes 10x Sitting Exercises seated HS stretch Sitting Exercise discontinued from HEP Name Side right Reps/Minutes X 1 15 seconds Comments verbal cues Standing Exercises sit to stand Standing Exercise standard chair Name Reps/Minutes X 5 Comments No UE use, calf stretches Standing Exercise on stair gastroc and soleus, ( to HEP at wall ) Name Side bilateral Reps/Minutes 60 sec each Comments verbal cues Pallof press Standing Exercise HEP Name Side bilateral Resistance level 3 band Reps/Minutes X8 each side Comments verbal and visual cues PT-OP-R Modalities Start: 09/18/24 11:29 Freq: Status: Active Protocol: Document 09/22/24 11:34 SAK (Rec: 09/22/24 12:27 SAK Laptop) Hot Pack/Cold Pack Treatment Hot Pack Location l/s, post hip Patient Position Sidelying Patient Tolerance Good PT-OP-T Assessment and Plan Start: 09/18/24 11:29 Freq: Status: Active Protocol: Document 11/13/24 13:57 AB (Rec: 11/13/24 15:40 AB Laptop) Physical Therapy Assessment Goals Three Impairment impairments in strength and flexibility in core and hips Short Term Goal (STG Patient to be instructed in HEP for purposes of ) strengthening, core stabilization and strengthening to address impairments and will be issued written handout - MET STG Duration 10/19/24 Nursing Home Goal (LTG) Patient will be independent and compliant with HEP and demonstrate improvement in flexibility to WNL and strength to at least 4+/5 all muscle groups 11/13/2024 Patient reports performing exercises 3 X a week LTG Duration 12/19/24 Strength improved core and L LE > than R but goal not met for 4+/5 Two Impairment unable to garden without an increase in pain Short Term Goal (STG Patient will be instructed in posture and body ) mechanics principles, especially related to gardening- 12/04/24: reports no longer doing gardening. Still works on car and woodworking. States he is being a little more careful STG Duration 10/19/24 Quality Control Specialist Goal (LTG) Patient will be able to return to gardening without an increase in pain, demonstrating good posture and body mechanics with simulated activities in clinic. - 75% met Patient reports he is able to perform yard work without pain unless he squats for too long, but pain is resolved when he stops squatting. Patient also comments he used to be SOB walking up his driveway but is now able to pulling 2 trash cans without SOB, but knees are a little painful. LTG Duration 12/19/24 partially met One Impairment Oswestry disability index score 26% Quality Control Specialist Goal (LTG) Decrease Oswestry disability Index score to no greater than 15% as measure of decreased pain and improved activity tolerance and function. 11/13/2024 14% LTG Duration 12/19/24 MET Assessment Summary Assessment HEP reviewed and condensed, discontinued seated HS stretch as patient reports he likes hooklying HS stretch better. Exercises color coded for daily, every other day, when in pain only. Patient met goal for Oswestry, and made progress toward strength goal and working in yard. Continuing with HEP would assist patient in continuing with gaining strength bilateral LE's and core. Physical Therapy Plan Frequency and Duration Frequency of 2x/Week Treatment Duration of 12 treatment (weeks) Plan of Care Start 09/18/24 Date Plan of Care End 12/19/24 Date Next Visit Focus/Plan Next Note Type Treatment Note Next Visit Plan Discharge as per PT Plan
--- NOTE | 2024-11-13 17:46 | PT.OPDS ---
Current Diagnoses Lesion of sciatic nerve, right lower limb (11/13/24) Low back pain, unspecified (11/13/24) Soft tissue disorder, unspecified (11/13/24) Weakness (11/13/24) Visit Care Team Role Provider Type Mahi Jim MD Family Provider Physician Specialty: Cardiology Address: [address], [address], [place], [address] Email: [email or web address] Orlando Meadows DO Attending Provider Physician Primary Care Provider Referring Provider Specialty: Family Practice Address: [address], [address], [place], [address] Email: [email or web address] Visit Number Visit Number 12 Discharge Summary PT-OP-B Current Condition Start: 09/18/24 11:29 Freq: Status: Active Protocol: Document 11/10/24 08:15 SAK (Rec: 11/10/24 13:12 SAK Laptop) Current Condition History of Current Condition Onset Date 02/11 Current Complaints right sided low back pain History of Current INjury after jumping down onto left leg with resulting Condition pain centrally in spine. L5 pain for years since then , history of cortisone shots with positive results, then stopped working, states doctor out of ideas. Now pain has moved to the right at beltline. Denies N/T. Was prescribed muscle relaxants, no effect. Pain increases with sitting wrong position, when rolling in bed, lift, twist. Walks for exercise. No use of ice or heat. Reports is very physically active with woodworking, works on a car, yardwork (worst for pain). Goes to sleep on left side rotated toward stomach, doesn't sleep on back or right side very often. Prior Treatments and multiple cortisone injections Tests x-ray lumbar spine 03/13: Multiple levels of lumbar spine degenerative change can be seen, which are mildly progressed compared to the prior. Future Testing and Returns to Dr. Montelongo in a couple months. Treatments Planned PT-OP-C Subjective Start: 09/18/24 11:29 Freq: Status: Active Protocol: Document 11/13/24 13:57 AB (Rec: 11/13/24 15:40 AB Laptop) OP-PT Subjective Patient Comments Patient Comments Patient reports performing HEP 3 x a week. Patient into session with HEP list, verbalizing plan to review today. Patient Questionnaires Oswestry Low Back Index Oswestry Score 14% Oswestry Impairment 1 to 19% Impaired (Score 1-19) PT-OP-G Mobility & Gait Start: 09/18/24 11:29 Freq: Status: Active Protocol: Document 09/18/24 16:32 SAK (Rec: 09/18/24 17:04 SAK Laptop) OP Gait Assessment Gait Gait Assistance Independent Required: Assistive Devices Assistive Device None Stair Climbing Evaluation Evaluation Level of Assist On Independent Stairs Devices Stair Climbing Left Railing,Right Railing Assistive Devices Technique/Endurance Stair Climbing Ascend and Descend Direction Stair Climbing Step Over Step Technique PT-OP-H Neuro Start: 09/18/24 11:29 Freq: Status: Active Protocol: Document 09/18/24 16:32 SAK (Rec: 09/18/24 17:04 SAK Laptop) Sensation Evaluation Gross Sensation Gross Sensation WNL PT-OP-J Posture/Palpation/Skin Start: 09/18/24 11:29 Freq: Status: Active Protocol: Document 09/18/24 16:32 SAK (Rec: 09/18/24 17:04 SAK Laptop) Posture Evaluation Position Standing Head/C-Spine Posture Forward Head T-Spine Posture Increased Kyphosis Scapula Posture (L) Protracted,(R) Protracted Arm Posture (L) Internally Rotated,(R) Internally Rotated Pelvis Posture Posterior Tilted Palpation Assessment Location lumbar spine Palpation Location R Palpation Findings Soft Tissue Tightness PT-OP-K Range of Motion Start: 09/18/24 11:29 Freq: Status: Active Protocol: Document 09/18/24 16:32 SAK (Rec: 09/18/24 17:04 SAK Laptop) Lumbar Spine Range of Motion Lumbar Spine Active Testing Position Standing Comments Mod decrease all motions with c/o pain right lumbar spine/posterior hip Hip Goniometric Range of Motion Hip Left Hip ROM WFL No Flexion w/Knee 105 Flexed Straight Leg Raise 45 Extension 0 Abduction 25 Internal Rotation 20 External Rotation 5 Right Hip ROM WFL No Flexion w/Knee 100 Flexed Straight Leg Raise 40 Extension 0 Abduction 25 Internal Rotation 15 External Rotation 60 Comments pain with IR Hip ROM Limitations Hip ROM Limitations Soft Tissue Tightness Knee Goniometric Range of Motion Knee sharri Knee ROM WFL Yes PT-OP-L Special Tests Start: 09/18/24 11:29 Freq: Status: Active Protocol: Document 09/18/24 16:32 SAK (Rec: 09/18/24 17:04 SAK Laptop) Special Tests Lumbar Spine Special Tests Straight Leg Raise Comments muscle tightness Compression Test Results + Hip Special Tests Scour Test Test Results - PT-OP-M Strength Start: 09/18/24 11:29 Freq: Status: Active Protocol: Document 11/13/24 13:57 AB (Rec: 11/13/24 15:45 AB Laptop) Trunk Strength Trunk Manual Muscle Testing Testing Position Supine Flexion 3 Fair Core Stabilization Patient able to perform a sit up with UE's extended clearing inf angle of scapula Seated and standing able to hold fair + resistance all directions Hip Strength Hip Manual Muscle Testing Right Flexion (L2) 4 Good Extension (S1) 3- Fair- Abduction 4- Good- External Rotation 4- Good- Internal Rotation 4+ Good+ Comments ext 3+ within limited ROM Left Flexion (L2) 4+ Good+ Extension (S1) 3- Fair- Abduction 4 Good External Rotation 4+ Good+ Internal Rotation 5 Normal Comments ext 3+ within limited ROM PT-OP-T Assessment and Plan Start: 09/18/24 11:29 Freq: Status: Active Protocol: Document 11/13/24 13:57 AB (Rec: 11/13/24 15:40 AB Laptop) Physical Therapy Assessment Goals Three Impairment impairments in strength and flexibility in core and hips Short Term Goal (STG Patient to be instructed in HEP for purposes of ) strengthening, core stabilization and strengthening to address impairments and will be issued written handout - MET STG Duration 10/19/24 [employer] Goal (LTG) Patient will be independent and compliant with HEP and demonstrate improvement in flexibility to WNL and strength to at least 4+/5 all muscle groups 11/13/2024 Patient reports performing exercises 3 X a week LTG Duration 12/19/24 Strength improved core and L LE > than R but goal not met for 4+/5 Two Impairment unable to garden without an increase in pain Short Term Goal (STG Patient will be instructed in posture and body ) mechanics principles, especially related to gardening- 12/04/24: reports no longer doing gardening. Still works on car and woodworking. States he is being a little more careful STG Duration 10/19/24 [employer] Goal (LTG) Patient will be able to return to gardening without an increase in pain, demonstrating good posture and body mechanics with simulated activities in clinic. - 75% met Patient reports he is able to perform yard work without pain unless he squats for too long, but pain is resolved when he stops squatting. Patient also comments he used to be SOB walking up his driveway but is now able to pulling 2 trash cans without SOB, but knees are a little painful. LTG Duration 12/19/24 partially met One Impairment Oswestry disability index score 26% [employer] Goal (LTG) Decrease Oswestry disability Index score to no greater than 15% as measure of decreased pain and improved activity tolerance and function. 11/13/2024 14% LTG Duration 12/19/24 MET Assessment Summary Assessment HEP reviewed and condensed, discontinued seated HS stretch as patient reports he likes hooklying HS stretch better. Exercises color coded for daily, every other day, when in pain only. Patient met goal for Oswestry, and made progress toward strength goal and working in yard. Continuing with HEP would assist patient in continuing with gaining strength bilateral LE's and core. Physical Therapy Plan Frequency and Duration Frequency of 2x/Week Treatment Duration of 12 treatment (weeks) Plan of Care Start 09/18/24 Date Plan of Care End 12/19/24 Date Next Visit Focus/Plan Next Note Type Treatment Note Next Visit Plan Discharge as per PT Plan
== END 2024-11-14 10:31 | disposition home or self-care (01) ==
LOC: PHYS 14:30
PROVIDERS: Family Provider Internal Medicine Cardiovascular Disease; PCP Family Medicine; Referring Provider Family Medicine; Visit Provider Family Medicine
DX: G57.01 Lesion of sciatic nerve, right lower limb (principal); M54.50 Low back pain, unspecified; R53.1 Weakness; M79.9 Soft tissue disorder, unspecified
CPT/HCPCS: 97110; 97112; 97140; 97162; 97530; 97535

== ENCOUNTER → 2024-12-30 07:39 | Outpatient (CLI) | payer MEDICARE, OTHER, SELFPAY ==
[2021-04-06 12:40] VITALS: BMI 30.7
--- NOTE | 2024-12-30 17:50 | DI.NM.S_ITS ---
DATE OF SERVICE: 12/30/2024 PROCEDURE: Pharmacological perfusion study. 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 RADIOPHARMACEUTICAL: 26.9 millicurie technetium-99m Myoview IV was injected at stress and 11.9 millicurie technetium-99m Myoview IV was injected at rest. CARDIAC STRESS: The patient underwent IV Lexiscan perfusion study under the supervision of an attending staff. He remained hemodynamically stable. Blood pressure 120/88 at rest. Baseline rhythm sinus with first-degree AV block. During stress, no convincing ischemic changes. No significant arrhythmias. No chest pain. Had minimal dyspnea. RAW DATA: There is increased subdiaphragmatic activity. GATED STUDY: Resting LV ejection fraction 68% and stress LV ejection fraction 75% without any obvious wall motion abnormalities. MYOCARDIAL PERFUSION SCAN: Stress supine, resting supine and stress prone images were compared to each other. Stress and resting supine images revealed moderate-sized severely decreased perfusion of base to mid inferior wall, which got resolved during stress prone images suggestive of diaphragmatic tissue attenuation artifact. No convincing ischemia or infarction. CONCLUSION: This is a normal myocardial perfusion study with evidence of diaphragmatic tissue attenuation artifact, which got resolved during stress prone images. Preserved LV function. No significant wall motion abnormalities. No anginal symptoms. No ischemic EKG changes. Normal hemodynamic response to Lexiscan. Overall, low-risk myocardial perfusion scan. Juan Manuel Humphries - MODESTA/khari/DHARMESH doc#: [id number]/job#: [id number] dd: 12/30/2024 17:02:00 dt: 12/30/2024 17:43:00 DICTATING MD/COPIES TO: Mahi Jim MD COPIES MNE: MOY;
== END ==
LOC: NUCM 07:39
PROVIDERS: PCP Family Medicine; Referring Provider Internal Medicine Cardiovascular Disease; Visit Provider Internal Medicine Cardiovascular Disease
DX: I25.10 Atherosclerotic heart disease of native coronary artery without angina pectoris (principal); Z95.5 Presence of coronary angioplasty implant and graft
CPT/HCPCS: 78452; 93017; A9502; J2785

== ENCOUNTER → 2025-04-29 09:00 | Outpatient (CLI) | payer MEDICARE, OTHER, SELFPAY ==
[2021-04-06 12:40] VITALS: BMI 30.7
[2025-04-29 09:46] LABS: Hematocrit 46.2 % (41-53); Hemoglobin 16.1 g/dL (13.5-17.5); Mean Corpuscular HGB Conc 34.9 % (30-36); Mean Corpuscular Hemoglobin 33.5 PG (26-34); Mean Corpuscular Volume 96.0 fL (80-100); Platelet Count 152 X10^3/uL (150-400)
[2025-04-29 10:01] LABS: Hemoglobin A1C% w Est Avg Glu 6.0 % (4.0-6.0)
[2025-04-29 10:05] LABS: Alanine Aminotransferase 36 IU/L (<50); Albumin 3.8 g/dL (3.5-5.0); Albumin Globulin Ratio 1.4 (1.0-2.8); Alkaline Phosphatase 76 U/L (38-126); Blood Urea Nitrogen 33 mg/dL (9-20); Calcium 9.0 mg/dL (8.4-10.2); Carbon Dioxide 25 mmol/L (22-32); Chloride 106 mmol/L (98-107); Cholesterol 108 mg/dL (140-199); Estimated Glomerular Filt Rate > 60 mL/min (>60); Globulin 2.7 g/dL (1.7-4.1); Glucose 126 mg/dL (70-99); HDL Cholesterol 36 mg/dL (40-60); HEMOLYSIS 18 (0-50); Potassium 4.7 mmol/L (3.4-5.1); Sodium 139 mmol/L (137-145); Total Protein 6.5 g/dL (6.3-8.2); Triglycerides 114 mg/dL (35-150)
[2025-04-29 10:32] LABS: TSH w/ Reflex to FT4 1.51 uIU/mL (0.47-4.68)
== END ==
PROVIDERS: PCP Family Medicine; Referring Provider Family Medicine; Visit Provider Internal Medicine Cardiovascular Disease
DX: Z00.00 Encounter for general adult medical examination without abnormal findings (principal); E78.5 Hyperlipidemia, unspecified; R73.01 Impaired fasting glucose; I25.10 Atherosclerotic heart disease of native coronary artery without angina pectoris; G60.9 Hereditary and idiopathic neuropathy, unspecified; G43.909 Migraine, unspecified, not intractable, without status migrainosus; N18.31 Chronic kidney disease, stage 3a; E03.9 Hypothyroidism, unspecified
CPT/HCPCS: 36415; 80053; 80061; 83036; 84443; 85027